=== PATIENT | female | born 1960 | race Caucasian/White ===

== ENCOUNTER 2018-03-14 18:25 | Emergency (ER) | payer SELFPAY ==
--- NOTE | 2018-03-14 21:22 | ER Document Report ---
ED Medical Screen (RME) - General Chief Complaint: Abdominal Pain Stated Complaint: ABDOMINAL PAIN Time Seen by Provider: 03/14/18 21:10 TRAVEL OUTSIDE OF THE [place] IN LAST 30 DAYS: No - HPI Notes: 03/14/18 21:19 Patient is a 58-year-old female with a history of hernia surgery 3 who presents to the ED complaining of progressively worsening left lower quadrant pain and nausea over the last few months. Patient states that she had an umbilical hernia repaired as well as to left lower quadrant hernia repairs in 2016 alone. Patient states that she did go through episodes of losing her insurance and the last time that she saw a surgeon was in October 2017 who told her that she needed an abdominal wall reconstruction performed. Patient states that she has continued to have the hernia since then, but has noticed increase in nausea and pain. Patient states that she is still able to eat and drink, but does have a decreased p.o. intake. She is urinating normally and having normal bowel movements (just a little more loose lately). Patient states that she did apply for Medicaid and recently moved back to the area and does not know any surgeons. Denies any headache, fever, URI, sore throat, chest pain, palpitations, syncope, cough, shortness of breath, wheeze, dyspnea, vomiting/ diarrhea, urinary retention, dysuria, hematuria, loss of control of bowel or bladder, numbness/tingling, saddle anesthesia, muscle paralysis/weakness, or rash. I have treated and performed a rapid initial assessment of this patient. A comprehensive ED assessment and evaluation of the patient, analysis of test results and completion of medical decision making process will be conducted by additional ED providers. PHYSICAL EXAMINATION: GENERAL: Well-appearing, well-nourished and in no acute distress. A&Ox4. Answers questions appropriately. LUNGS: Breath sounds clear to auscultation bilaterally and equal. No wheezes rales or rhonchi. HEART: Regular rate and rhythm without murmurs, rubs, gallops. ABDOMEN: Soft. there does appear to be a large hernia to the LLQ, but is not erythemic or indurated. I cannot adequately assess to see if this hernia is reducible at this time due to no bed in the room. BSx4. Extremities: No cyanosis, clubbing, or edema b/l. NEUROLOGICAL: Normal speech, normal gait. PSYCH: Normal mood, normal affect. - Related Data Allergies/Adverse Reactions: codeine [Codeine] Adverse Reaction (Intermediate, Verified 07/24/14 11:16) cetirizine HCl [From Zyrtec] Adverse Reaction (Verified 07/24/14 11:16) Migraine Past Medical History - Social History Chew tobacco use (# tins/day): No Frequency of alcohol use: None Drug Abuse: None - Past Medical History Cardiac Medical History: Reports: Hx Hypertension Pulmonary Medical History: Denies: Hx Tuberculosis Endocrine Medical History: Reports: Hx Hypothyroidism Renal/ Medical History: Denies: Hx Peritoneal Dialysis Past Surgical History: Reports: Hx Cardiac Catheterization - '03 neg, Hx Cholecystectomy, Hx Hysterectomy, Hx Tubal Ligation - Immunizations Hx Diphtheria, Pertussis, Tetanus Vaccination: Yes Physical Exam - Vital signs Vitals: Temp Pulse Resp BP Pulse Ox 98.6 F 98 14 120/70 100 03/14/18 18:36 03/14/18 18:36 03/14/18 18:36 03/14/18 18:36 03/14/18 18:36 Course - Vital Signs Vital signs: Temp Pulse Resp BP Pulse Ox 97.7 F 88 16 133/91 H 99 03/14/18 21:10 03/14/18 21:10 03/14/18 21:10 03/14/18 21:10 03/14/18 21:10
[2018-03-14] MEDS ORDERED: ONDANSETRON ODT 4 MG TAB (6 TAB/ER DISP) PO PRN (21:59)
--- NOTE | 2018-03-14 21:59 | ER Document Report ---
HPI - HPI Pain Level: 5 Notes: Patient is a 58-year-old female with a history of hernia surgery 3 who presents to the ED complaining of progressively worsening left lower quadrant pain and nausea over the last few months. Patient states that she had an umbilical hernia repaired as well as to left lower quadrant hernia repairs in 2016 alone. Patient states that she did go through episodes of losing her insurance and the last time that she saw a surgeon was in October 2017 who told her that she needed an abdominal wall reconstruction performed. Patient states that she has continued to have the hernia since then, but has noticed increase in nausea and pain. Patient states that she is still able to eat and drink, but does have a decreased p.o. intake. She is urinating normally and having normal bowel movements (just a little more loose lately). Patient states that she did apply for Medicaid and recently moved back to the area and does not know any surgeons. Denies any headache, fever, URI, sore throat, chest pain, palpitations, syncope, cough, shortness of breath, wheeze, dyspnea, vomiting/ diarrhea, urinary retention, dysuria, hematuria, loss of control of bowel or bladder, numbness/tingling, saddle anesthesia, muscle paralysis/weakness, or rash. - ROS Systems Reviewed and Negative: Yes All other systems reviewed and negative - REPRODUCTIVE Reproductive: DENIES: : Past Medical History - Social History Smoking Status: Former Smoker Chew tobacco use (# tins/day): No Frequency of alcohol use: None Drug Abuse: None Family History: Reviewed & Not Pertinent Patient has suicidal ideation: No Patient has homicidal ideation: No - Past Medical History Cardiac Medical History: Reports: Hx Hypertension Pulmonary Medical History: Denies: Hx Tuberculosis Endocrine Medical History: Reports: Hx Hypothyroidism Renal/ Medical History: Denies: Hx Peritoneal Dialysis Past Surgical History: Reports: Hx Cardiac Catheterization - '03 neg, Hx Cholecystectomy, Hx Hysterectomy, Hx Tubal Ligation - Immunizations Hx Diphtheria, Pertussis, Tetanus Vaccination: Yes Vertical Provider Document - CONSTITUTIONAL Agree With Documented VS: Yes Notes: PHYSICAL EXAMINATION: GENERAL: Well-appearing, well-nourished and in no acute distress. LUNGS: Breath sounds clear to auscultation bilaterally and equal. No wheezes rales or rhonchi. HEART: Regular rate and rhythm without murmurs, rubs, gallops. ABDOMEN: Soft, nontender, nondistended abdomen. No guarding, no rebound. Normal bowel sounds present. No CVA tenderness bilaterally. Pt does have a hernia to the LLQ, but is reducible. Non-tender. No erythema or induration. no warmth. Extremities: No cyanosis, clubbing, or edema b/l. Peripheral pulses 2+. Capillary refill less than 3 seconds. NEUROLOGICAL: Normal speech, normal gait. Normal sensory, motor exams PSYCH: Normal mood, normal affect. SKIN: Warm, Dry, normal turgor, no rashes or lesions noted. - INFECTION CONTROL TRAVEL OUTSIDE OF THE [place] IN LAST 30 DAYS: No Course - Re-evaluation Re-evalutation: 03/14/18 21:56 Patient is an afebrile, well-hydrated, 58-year-old female who presents to the ED with a reducible hernia in the left lower quadrant that is not incarcerated or strangulate it. Vitals are acceptable. PE is otherwise unremarkable. Patient has no significant tachycardia, tachypnea, or hypoxia. She is tolerating p.o. without any difficulties. Reviewed this case with Dr. Luther. no labs or imaging warranted. Outpatient f/u with Gen Surg. Her abd is soft and non-tender currently. Low suspicion/risk for acute appendicitis, bowel obstruction, acute cholecystitis, acute cholangitis, perforated diverticulitis, incarcerated hernia, pancreatitis, perforated ulcer, peritonitis, sepsis, pelvic inflammatory disease, ectopic , tubo-ovarian abscess, ovarian torsion, or other systemic emergent condition at this time. Patient is aware that her condition can change from initial presentation and she needs to monitor symptoms closely and seek medical attention if any acute changes. Rx for zofran. Conservative measures otherwise for symptoms. Recheck with your PCM in 3-5 days. Return to the ED with any worsening/concerning symptoms otherwise as reviewed in discharge. Patient is in agreement. - Vital Signs Vital signs: Temp Pulse Resp BP Pulse Ox 97.7 F 88 16 133/91 H 99 03/14/18 21:10 03/14/18 21:10 03/14/18 21:10 03/14/18 21:10 03/14/18 21:10 Discharge - Discharge Clinical Impression: Abdominal hernia Qualifiers: Hernia type: unspecified Obstruction and gangrene presence: without obstruction or gangrene Recurrence: recurrent Qualified Code(s): K45.8 - Other specified abdominal hernia without obstruction or gangrene Condition: Stable Disposition: HOME, SELF-CARE Instructions: Hernia ([facility]) Additional Instructions: Maintain adequate fluid and food intake Swisher diet (B.R.[employer].T.) Bananas, rice, apples, toast, etc Zofran as needed tylenol/motrin if needed Monitor for any worsening symptoms Make sure you are staying hydrated enough to urinate and have normal BM's Recheck with your PCM in 3-5 days Schedule an appointment with general surgery for further evaluation and management Return to the ED with any worsening symptoms and/or development of fever, headache, chest pain, palpitations, syncope, shortness of breath, trouble breathing, abdominal pain, n/v/d, blood in stool/urine, weakness, or other worsening symptoms that are concerning to you. Prescriptions: Naproxen 500 mg PO BID PRN #30 tablet PRN Reason: Ondansetron [Zofran Odt 4 mg Tablet] 1 - 2 tab PO Q4H PRN #15 tab.rapdis PRN Reason: For Nausea/Vomiting Forms: Elevated Blood Pressure Referrals: PEREZ BARRERA MD [ACTIVE STAFF] - Follow up in 3-5 days
[2018-03-14 22:21] VITALS: BP 130/95
== END 2018-03-14 22:10 | disposition home or self-care (01) ==
LOC: ER 18:25
DX: K46.9 Unspecified abdominal hernia without obstruction or gangrene (principal); R10.32 Left lower quadrant pain; R11.0 Nausea; I10 Essential (primary) hypertension; Z87.891 Personal history of nicotine dependence
CPT/HCPCS: 99283

== ENCOUNTER 2018-09-26 09:19 | Emergency (ER) | payer SELFPAY ==
[2018-09-26] MEDS ORDERED: NORMAL SALINE 1000 ML 1,000 ML IV ONE (09:36)
--- NOTE | 2018-09-26 09:36 | ER Document Report ---
ED Medical Screen (RME) - General Chief Complaint: Post Surgical Bleeding Stated Complaint: POST OP COMPLICATION Time Seen by Provider: 09/26/18 09:31 Mode of Arrival: Wheelchair Information source: Patient Notes: 58-year-old female with a history of rheumatoid arthritis, hypothyroidism, migraines, status post hernia repair (August 26:Dr. Walsh in [place]) presents to the emergency room with blood drainage from the wound. Patient is diaphoretic, lightheaded and dizzy in the triage area. TRAVEL OUTSIDE OF THE [place] IN LAST 30 DAYS: No - Related Data Allergies/Adverse Reactions: codeine [Codeine] Adverse Reaction (Intermediate, Verified 09/26/18 09:21) cetirizine HCl [From Zyrtec] Adverse Reaction (Verified 09/26/18 09:21) Migraine Past Medical History - Past Medical History Cardiac Medical History: Reports: Hx Hypertension Pulmonary Medical History: Denies: Hx Tuberculosis Endocrine Medical History: Reports: Hx Hypothyroidism Renal/ Medical History: Denies: Hx Peritoneal Dialysis Past Surgical History: Reports: Hx Cardiac Catheterization - ' neg, Hx Cholecystectomy, Hx Hysterectomy, Hx Tubal Ligation - Immunizations Hx Diphtheria, Pertussis, Tetanus Vaccination: Yes Physical Exam - Vital signs Vitals: Temp Pulse Resp BP Pulse Ox 98.4 F 126 H 16 123/84 97 09/26/18 09:21 09/26/18 09:21 09/26/18 09:21 09/26/18 09:21 09/26/18 09:21 Course - Vital Signs Vital signs: Temp Pulse Resp BP Pulse Ox 98.4 F 126 H 16 123/84 97 09/26/18 09:21 09/26/18 09:21 09/26/18 09:21 09/26/18 09:21 09/26/18 09:21
[2018-09-26 10:25] LABS: ABSOLUTE BASOPHILS # (AUTO) 0.1 10^3/uL (0.0-0.2); ABSOLUTE EOSINOPHILS # (AUTO) 0.1 10^3/uL (0.0-0.6); ABSOLUTE LYMPHOCYTES (AUTO) 1.3 10^3/uL (0.5-4.7); ABSOLUTE MONOCYTES (AUTO) 0.5 10^3/uL (0.1-1.4); BASOPHILS % (AUTO) 0.7 % (0-2); EOSINOPHILS % (AUTO) 0.9 % (0-6); HEMATOCRIT 36.2 % (36.0-47.0); HEMOGLOBIN 12.2 g/dL (12.0-15.5); LYMPHOCYTES % (AUTO) 16.4 % (13-45); MEAN CORPUSCULAR HEMOGLOBIN 28.6 pg (27.0-33.4); MEAN CORPUSCULAR HGB CONC 33.8 g/dL (32.0-36.0); MEAN CORPUSCULAR VOLUME 85 fl (80-97); MONOCYTES % (AUTO) 6.8 % (3-13); PLATELET COUNT 416 10^3/uL (150-450); RED BLOOD COUNT 4.28 10^6/uL (3.72-5.28); RED CELL DISTRIBUTION WIDTH 14.2 % (11.5-14.0); SEGMENTED NEUTROPHILS % (AUTO) 75.2 % (42-78); TOTAL CELLS COUNTED % (AUTO) 100 %
[2018-09-26 10:51] LABS: ALANINE AMINOTRANSFERASE 6 U/L (9-52); ALBUMIN 3.9 g/dL (3.5-5.0); ALKALINE PHOSPHATASE 84 U/L (38-126); ANION GAP 14 (5-19); ASPARTATE AMINO TRANSFERASE 24 U/L (14-36); BILIRUBIN,DIRECT 0.4 mg/dL (0.0-0.4); BILIRUBIN,TOTAL 0.7 mg/dL (0.2-1.3); BLOOD UREA NITROGEN 11 mg/dL (7-20); CALCIUM 9.7 mg/dL (8.4-10.2); CARBON DIOXIDE 24 mmol/L (22-30); CHLORIDE 102 mmol/L (98-107); GLUCOSE 104 mg/dL (75-110); TOTAL PROTEIN 8.8 g/dL (6.3-8.2)
--- NOTE | 2018-09-26 11:02 | ER Document Report ---
ED General - General Chief Complaint: Post Surgical Bleeding Stated Complaint: POST OP COMPLICATION Time Seen by Provider: 09/26/18 09:31 Mode of Arrival: Wheelchair TRAVEL OUTSIDE OF THE [place] IN LAST 30 DAYS: No - HPI Notes: Patient is a 58-year-old female that presents to the emergency department for chief complaint of postop bleeding. Patient had a large hernia surgery on 08/26/18 at [facility] by Dr. Lechuga. She states she has not had any issues until this morning when she noticed some bleeding and drainage from the incision site. She states the drainage was a large amount at home and was clear fluid and blood. She reports increased pain on the right side of her incision that also began today. She denies any nausea, vomiting, diarrhea fevers and chills. She states she has been healing well with no complications. Her stitches and drain was removed on 09/07 without complication. Past Medical History: Rheumatoid arthritis, hypothyroidism, migraines Past Surgical History: Abdominal hernia Social History: Denies drugs alcohol and tobacco Family History: Reviewed and noncontributory for presenting illness Allergies: Reviewed, see documented allergy list. REVIEW OF SYSTEMS: CONSTITUTIONAL : No fever No chills No diaphoresis No recent illness EENT: No vision changes No congestion No sore throat CARDIOVASCULAR: No chest pain No palpitations RESPIRATORY: No shortness of breath No cough No difficulty breathing GASTROINTESTINAL: No abdominal pain No nausea No vomiting No diarrhea GENITOURINARY: No dysuria No hematuria No difficulty urinating MUSCULOSKELETAL: No back pain No leg pain No arm pain SKIN: No rashes postop wound bleeding LYMPHATIC: No swollen, enlarged glands. NEUROLOGICAL: No lightheadedness No headache No weakness No paresthesias PSYCHIATRIC: No anxiety No depression PHYSICAL EXAMINATION: Vital signs reviewed, nursing noted reviewed. GENERAL: Well-appearing, well-nourished and in no acute distress. HEAD: Atraumatic, normocephalic. EYES: Eyes appear normal, extraocular movements intact, sclera anicteric, conjunctiva are normal. ENT: nares patent, oropharynx clear without exudates. Moist mucous membranes. NECK: Normal range of motion, supple without lymphadenopathy LUNGS: Breath sounds clear to auscultation bilaterally and equal. No wheezes rales or rhonchi. HEART: Regular rate and rhythm without murmurs ABDOMEN: Soft, nontender, normoactive bowel sounds. No rebound, guarding, or rigidity. No masses appreciated. EXTREMITIES: Nontender, good range of motion, no pitting or edema. NEUROLOGICAL: No focal neurological deficits. Moves all extremities spontaneously Motor and sensory grossly intact on exam. PSYCH: Normal mood, normal affect. SKIN: Warm, Dry, normal turgor. Horizontal lower abdominal postoperative incision visualized. Area of 0.5 cm wound dehiscence on the right side with serous and bloody drainage. Mild tenderness to palpation of the right side of the surgical incision with minimal erythema - Related Data Allergies/Adverse Reactions: codeine [Codeine] Adverse Reaction (Intermediate, Verified 09/26/18 09:21) cetirizine HCl [From Zyrtec] Adverse Reaction (Verified 09/26/18 09:21) Migraine Past Medical History - General Information source: Patient - Social History Smoking Status: Never Smoker Frequency of alcohol use: Occasional Drug Abuse: None Family History: Reviewed & Not Pertinent Patient has suicidal ideation: No Patient has homicidal ideation: No - Past Medical History Cardiac Medical History: Reports: Hx Hypertension Pulmonary Medical History: Denies: Hx Tuberculosis Endocrine Medical History: Reports: Hx Hypothyroidism Renal/ Medical History: Denies: Hx Peritoneal Dialysis Musculoskeletal Medical History: Reports Hx Arthritis - rheumatoid Past Surgical History: Reports: Hx Abdominal Surgery - hernia repair x3, Hx Cardiac Catheterization - '03 neg, Hx Cholecystectomy, Hx Hysterectomy, Hx Tubal Ligation - Immunizations Hx Diphtheria, Pertussis, Tetanus Vaccination: Yes Physical Exam - Vital signs Vitals: Temp Pulse Resp BP Pulse Ox 98.4 F 126 H 16 123/84 97 09/26/18 09:21 09/26/18 09:21 09/26/18 09:21 09/26/18 09:21 09/26/18 09:21 Course - Re-evaluation Re-evalutation: 09/26/18 11:01 Vitals reviewed. Nursing notes reviewed. Patient's incision goes across her entire lower abdomen. There is a small area of dehiscence with tenderness and drainage on the right side consistent with likely underlying seroma. Lab work shows no acute anemia. CT scan will be obtained to evaluate for extent of seroma. Patient offered pain medication but declined. She was started on IV hydration in triage. 09/26/18 12:50 Patient's lab work is unremarkable. Her CT scan shows some fat stranding with no acute abscess. I feel there is seroma has likely drained given the significant amount of drainage she had at home which she showed me in photographs. He attempted to contact Dr. Lechuga and am currently waiting on a call back. Patient was discharged home with wound care instructions. She will follow closely with her surgeon. She is in agreement with this plan and stable at discharge. Laboratory 09/26/18 09/26/18 10:04 10:04 WBC 8.0 RBC 4.28 Hgb 12.2 Hct 36.2 MCV 85 MCH 28.6 MCHC 33.8 RDW 14.2 H Plt Count 416 Seg Neutrophils % 75.2 Lymphocytes % 16.4 Monocytes % 6.8 Eosinophils % 0.9 Basophils % 0.7 Absolute Neutrophils 6.0 Absolute Lymphocytes 1.3 Absolute Monocytes 0.5 Absolute Eosinophils 0.1 Absolute Basophils 0.1 Sodium 140.0 Potassium 4.0 Chloride 102 Carbon Dioxide 24 Anion Gap 14 BUN 11 Creatinine 0.64 Est GFR ( Amer) > 60 Est GFR (Non-Af Amer) > 60 Glucose 104 Calcium 9.7 Total Bilirubin 0.7 Direct Bilirubin 0.4 Neonat Total Bilirubin Not Reportable Neonat Direct Bilirubin Not Reportable Neonat Indirect Bili Not Reportable AST 24 ALT 6 L Alkaline Phosphatase 84 Total Protein 8.8 H Albumin 3.9 Abdomen/Pelvis CT 09/26/18 10:58 IMPRESSION: Fat stranding in the lower abdominal wall fat, but no focal fluid collection or abscess. No other significant finding. - Vital Signs Vital signs: Temp Pulse Resp BP Pulse Ox 98.4 F 126 H 16 123/84 97 09/26/18 09:21 09/26/18 09:21 09/26/18 09:21 09/26/18 09:21 09/26/18 09:21 - Laboratory Result Diagrams: 09/26/18 10:04 09/26/18 10:04 Laboratory results interpreted by me: 09/26/18 09/26/18 10:04 10:04 RDW 14.2 H ALT 6 L Total Protein 8.8 H Discharge - Discharge Clinical Impression: Seroma after procedure Condition: Stable Disposition: HOME, SELF-CARE Instructions: Dressing Instructions for Open Wounds ([facility]) Additional Instructions: Please return to the emergency department if you have any worsening, or concern of your symptoms. Please return to the emergency department if you develop chest pain, difficulty breathing, severe abdominal pain, or ongoing vomiting. Please follow-up with your primary care physician in 2-3 days and any other recommended physicians. If prescribed, take all medications as directed. If you have any questions or concerns do not hesitate to return the emergency department for evaluation. The drainage today was likely from a seroma which is a collection of bodily fluid mixed with blood. He have a small opening in your wound that needs to be kept clean. Wash this area with warm soapy water 2-3 times daily. Use a bulky dressing over the area to absorb the drainage. Follow closely with Dr. Lechuga for wound reevaluation this week. Return for any new or worsening symptoms including increased drainage, bleeding, fevers or chills. Referrals: OTONIEL LECHUGA MD [NO LOCAL MD] - Follow up in 3-5 days
--- NOTE | 2018-09-26 12:25 | RADIOLOGY REPORT (SQ) ---
EXAM DESCRIPTION: CT ABD/PELVIS WITH IV ONLY COMPLETED DATE/TIME: 09/26/2018 11:48 am REASON FOR STUDY: post op bleeding COMPARISON: 2011 TECHNIQUE: CT scan of the abdomen and pelvis performed using helical scanning technique with dynamic intravenous contrast injection. No oral contrast. Images reviewed with lung, soft tissue, and bone windows. Reconstructed coronal and sagittal MPR images reviewed. Delayed images for evaluation of the urinary system also acquired. All images stored on PACS. All CT scanners at this facility use dose modulation, iterative reconstruction, and/or weight based d osing when appropriate to reduce radiation dose to as low as reasonably achievable (ALARA). [facility]: Dose Right [facility]: CareDose [facility]: Dose Right [facility]: Teradose 4D [facility]: Meddle CONTRAST TYPE AND DOSE: contrast/concentration: Isovue 350.00 mg/ml; Total Contrast Delivered: 92.0 ml; Total Saline Delivered: 70.0 ml RENAL FUNCTION: GFR > 60. RADIATION DOSE: CT Rad equipment meets quality standard of care and radiation dose reduction techniq ues were employed. CTDIvol: 21.6 mGy. DLP: 462 mGy-cm.. LIMITATIONS: None. FINDINGS: LOWER CHEST: No significant findings. No nodules or infiltrates. LIVER: Normal size. No masses. No dilated ducts. SPLEEN: Normal size. No focal lesions. PANCREAS: No masses. No significant calcifications. No adjacent inflammation or peripancreatic fluid collections. Pancreatic duct not dilated. GALLBLADDER: Surgically absent. ADRENAL GLANDS: No significant masses or asymmetry. RIGHT KIDNEY AND URETER: No solid masses. No significant calcifications. No hydronephrosis or hyd roureter. LEFT KIDNEY AND URETER: No solid masses. No significant calcifications. No hydronephrosis or hydr oureter. AORTA AND VESSELS: No aneurysm. No dissection. Renal arteries, SMA, celiac without stenosis. RETROPERITONEUM: No retroperitoneal adenopathy, hemorrhage or masses. BOWEL AND PERITONEAL CAVITY: No masses or inflammatory changes. No free fluid or peritoneal masses. APPENDIX: Normal. PELVIS: No mass. No free fluid. Normal bladder. ABDOMINAL WALL: There is fat stranding identified in the lower abdominal wall without a focal fluid c ollection. No hernia. BONES: No significant or acute findings. OTHER: No other significant finding. IMPRESSION: Fat stranding in the lower abdominal wall fat, but no focal fluid collection or abscess. No other significant finding. TECHNICAL DOCUMENTATION: JOB ID: [id number] Quality ID # [id number]: Final reports with documentation of one or more dose reduction techniques (e.g., Au tomated exposure control, adjustment of the mA and/or kV according to patient size, use of iterative reconstruction technique) 2010 [employer]- All Rights Reserved Reading location - IP/workstation name: [email or web address]
[2018-09-26 13:23] VITALS: BP 115/78
== END 2018-09-26 13:23 | disposition home or self-care (01) ==
LOC: ER 09:19
DX: L76.34 Postprocedural seroma of skin and subcutaneous tissue following other procedure (principal); R52 Pain, unspecified; E03.9 Hypothyroidism, unspecified; M06.9 Rheumatoid arthritis, unspecified; I10 Essential (primary) hypertension; Y83.9 Surgical procedure, unspecified as the cause of abnormal reaction of the patient, or of later complication, without mention of misadventure at the time of the procedure
CPT/HCPCS: 99284; 96360; 96361; 36415; 85025; 80053; 74177; J7030

== ENCOUNTER 2018-11-08 16:42 | Emergency (ER) | payer SELFPAY ==
[2018-11-08] MEDS ORDERED: NORMAL SALINE 1000 ML 1,000 ML IV ONE (17:40)
--- NOTE | 2018-11-08 17:44 | ER Document Report ---
ED Medical Screen (RME) - General Chief Complaint: Weakness Stated Complaint: NAUSEA, DIZZINESS Time Seen by Provider: 11/08/18 17:25 Notes: 58-year-old female to emergency department chief complaint of weight loss, nausea, vomiting, diarrhea. Had surgery in August for large hernia. Has not felt right since that time. Has probably had may be for normal bowel movement since that time. Went to primary care doctor/[facility]. They noticed that she was orthostatic. Sent her here for further evaluation. Patient also states that she has not been taking her thyroid medication. Also states that her stools were black yesterday. I have greeted and performed a rapid initial assessment of this patient. A comprehensive ED assessment and evaluation of the patient, analysis of test results and completion of the medical decision making process will be conducted by additional ED providers. TRAVEL OUTSIDE OF THE [place] IN LAST 30 DAYS: No - Related Data Allergies/Adverse Reactions: codeine [Codeine] Adverse Reaction (Intermediate, Verified 09/26/18 09:21) cetirizine HCl [From Zyrtec] Adverse Reaction (Verified 09/26/18 09:21) Migraine Past Medical History - Social History Chew tobacco use (# tins/day): No Frequency of alcohol use: Occasional Drug Abuse: None - Past Medical History Cardiac Medical History: Reports: Hx Hypertension Pulmonary Medical History: Denies: Hx Tuberculosis Endocrine Medical History: Reports: Hx Hypothyroidism Renal/ Medical History: Denies: Hx Peritoneal Dialysis Musculoskeltal Medical History: Reports Hx Arthritis - rheumatoid Past Surgical History: Reports: Hx Abdominal Surgery - hernia repair x3, Hx Cardiac Catheterization - '03 neg, Hx Cholecystectomy, Hx Hysterectomy, Hx Tubal Ligation - Immunizations Hx Diphtheria, Pertussis, Tetanus Vaccination: Yes Physical Exam - Vital signs Vitals: Temp Pulse Resp BP Pulse Ox 98.3 F 116 H 20 121/72 100 11/08/18 17:00 11/08/18 17:00 11/08/18 17:00 11/08/18 17:00 11/08/18 17:00 Course - Vital Signs Vital signs: Temp Pulse Resp BP Pulse Ox 98.3 F 116 H 20 121/72 100 11/08/18 17:00 11/08/18 17:00 11/08/18 17:00 11/08/18 17:00 11/08/18 17:00
[2018-11-08 18:24] LABS: ABSOLUTE BASOPHILS # (AUTO) 0.1 10^3/uL (0.0-0.2); ABSOLUTE EOSINOPHILS # (AUTO) 0.1 10^3/uL (0.0-0.6); ABSOLUTE LYMPHOCYTES (AUTO) 1.4 10^3/uL (0.5-4.7); ABSOLUTE MONOCYTES (AUTO) 0.5 10^3/uL (0.1-1.4); ABSOLUTE NEUT (AUTO) 3.7 10^3/uL (1.7-8.2); EOSINOPHILS % (AUTO) 0.9 % (0-6); HEMATOCRIT 36.1 % (36.0-47.0); HEMOGLOBIN 12.2 g/dL (12.0-15.5); MEAN CORPUSCULAR HEMOGLOBIN 28.1 pg (27.0-33.4); MEAN CORPUSCULAR HGB CONC 33.7 g/dL (32.0-36.0); MEAN CORPUSCULAR VOLUME 83 fl (80-97); MONOCYTES % (AUTO) 8.2 % (3-13); PLATELET COUNT 414 10^3/uL (150-450); RED BLOOD COUNT 4.34 10^6/uL (3.72-5.28); RED CELL DISTRIBUTION WIDTH 15.8 % (11.5-14.0); SEGMENTED NEUTROPHILS % (AUTO) 65.9 % (42-78); TOTAL CELLS COUNTED % (AUTO) 100 %; WHITE BLOOD COUNT 5.7 10^3/uL (4.0-10.5)
[2018-11-08 18:29] LABS: APPEARANCE,URINE CLEAR; BILIRUBIN,URINE NEGATIVE (NEGATIVE); COLOR,URINE YELLOW; GLUCOSE, URINE NEGATIVE (NEGATIVE); KETONES,URINE 20 mg/dL (NEGATIVE); LEUKOCYTE ESTERASE,URINE NEGATIVE (NEGATIVE); NITRITE,URINE NEGATIVE (NEGATIVE); PROTEIN,URINE 30 mg/dL (NEGATIVE)
[2018-11-08 18:44] LABS: ALANINE AMINOTRANSFERASE 25 U/L (9-52); ALBUMIN 4.4 g/dL (3.5-5.0); ALKALINE PHOSPHATASE 78 U/L (38-126); ANION GAP 10 (5-19); ASPARTATE AMINO TRANSFERASE 43 U/L (14-36); BILIRUBIN,DIRECT 0.3 mg/dL (0.0-0.4); BILIRUBIN,TOTAL 0.5 mg/dL (0.2-1.3); BLOOD UREA NITROGEN 15 mg/dL (7-20); CALCIUM 9.4 mg/dL (8.4-10.2); CARBON DIOXIDE 26 mmol/L (22-30); CHLORIDE 105 mmol/L (98-107); CREATINE KINASE 28 U/L (30-135); GLUCOSE 97 mg/dL (75-110); POTASSIUM 3.4 mmol/L (3.6-5.0); SODIUM 141.1 mmol/L (137-145)
--- NOTE | 2018-11-08 18:54 | ER Document Report ---
ED General - General Chief Complaint: Weakness Stated Complaint: NAUSEA, DIZZINESS Time Seen by Provider: 11/08/18 17:25 Notes: Patient is a 58-year-old female with history of hypothyroidism that presents to the emergency department for chief complaint of generalized weakness, and concern for possible blood in her stool. Patient states that she was seen by primary care physician office today and was referred to the ED as there is possible concern for blood in her stool. She states she went to the office, to be restarted on her thyroid medication that she is been off it for 3 months, she has a history of hypothyroidism. She states she has had decreased appetite over the last several months, she had an extensive hernia surgery performed, and has been off of her medication since then has not been able to see primary care physician until today. She had black stool yesterday, and had Hemoccult testing that was positive for blood today, and that is why she was sent to the ED to be checked and have her blood work obtained to check for anemia. She denies having any lightheadedness, dizziness, palpitations, vomiting, she denies noting blood in the stool either. States she had darker stool yesterday. She thought might have been black. She previously was taking NSAIDs, has not had them for about 2 months, she denies excessive coffee use or caffeine use. Past Medical History: Hypothyroidism, GERD, osteoarthritis Past Surgical History: Large ventral hernia repair Social History: Denies tobacco, alcohol or drug use. Family History: Reviewed and noncontributory for presenting illness Allergies: Reviewed, see documented allergy list. REVIEW OF SYSTEMS: Other than noted above, the 12 point review of systems was reviewed with the patient and were negative, all pertinent findings are included in the HPI. PHYSICAL EXAMINATION: Vital signs reviewed, nursing noted reviewed. GENERAL: Well-appearing, well-nourished and in no acute distress. HEAD: Atraumatic, normocephalic. EYES: Eyes appear normal, extraocular movements intact, sclera anicteric, conjunctiva are normal. ENT: nares patent, oropharynx clear without exudates. Moist mucous membranes. NECK: Normal range of motion, supple without lymphadenopathy LUNGS: Breath sounds clear to auscultation bilaterally and equal. No wheezes rales or rhonchi. HEART: Regular rate and rhythm without murmurs ABDOMEN: Soft, nontender, normoactive bowel sounds. No rebound, guarding, or rigidity. No masses appreciated. Abdominal incisional scar located in the lower abdomen transversely, appears to be healing well EXTREMITIES: Nontender, good range of motion, no pitting or edema. NEUROLOGICAL: No focal neurological deficits. Moves all extremities spontaneou sly Motor and sensory grossly intact on exam. PSYCH: Normal mood, normal affect. SKIN: Warm, Dry, normal turgor, no rashes or lesions noted on exposed skin TRAVEL OUTSIDE OF THE [place] IN LAST 30 DAYS: No - Related Data Allergies/Adverse Reactions: codeine [Codeine] Adverse Reaction (Intermediate, Verified 09/26/18 09:21) cetirizine HCl [From Zyrtec] Adverse Reaction (Verified 09/26/18 09:21) Migraine Past Medical History - Social History Smoking Status: Former Smoker Chew tobacco use (# tins/day): No Frequency of alcohol use: Occasional Drug Abuse: None Family History: Reviewed & Not Pertinent Patient has suicidal ideation: No Patient has homicidal ideation: No - Past Medical History Cardiac Medical History: Reports: Hx Hypertension Pulmonary Medical History: Denies: Hx Tuberculosis Endocrine Medical History: Reports: Hx Hypothyroidism Renal/ Medical History: Denies: Hx Peritoneal Dialysis Musculoskeletal Medical History: Reports Hx Arthritis - rheumatoid Past Surgical History: Reports: Hx Abdominal Surgery - hernia repair x3, Hx Cardiac Catheterization - '03 neg, Hx Cholecystectomy, Hx Hysterectomy, Hx Tubal Ligation - Immunizations Hx Diphtheria, Pertussis, Tetanus Vaccination: Yes Physical Exam - Vital signs Vitals: Temp Pulse Resp BP Pulse Ox 98.3 F 116 H 20 121/72 100 11/08/18 17:00 11/08/18 17:00 11/08/18 17:00 11/08/18 17:00 11/08/18 17:00 Course - Re-evaluation Re-evalutation: Patient seen and examined vital signs reviewed. Laboratory data and imaging were ordered as appropriate for the patient's presenting symptoms and complaint, with consideration of any critical or life threatening conditions that may be associated with their obtained history and exam as noted above. Patient was treated with IV fluid Results were reviewed when available and demonstrated essentially unremarkable blood work, no anemia with the exception of her TSH being markedly elevated at 17, normal renal function, normal BUN. The patient was re-evaluated and was stable and improved, patient was not tachycardic, not hypotensive, did not have any signs of decompensation, or concern for acute GI bleeding, I did advised her though she continued to have dark stool, or develop any lightheadedness, palpitations, that she should return immediately to the emergency department, she is encouraged to take the prescribed medications from her primary care including the Synthroid, omeprazole, and avoid NSAIDs. Evaluation was most consistent with hypothyroidism Results were discussed with the patient at this point, after careful consideration I feel that that patient can be discharged from the emergency department, the patient was educated treatments and reasons to return to the emergency department based on their presumed diagnosis as noted above, they were advised to followup with a primary care physician in 2-3 days. Patient was agreeable to plan of care. *Note is created using voice recognition software and may contain spelling, syntax or grammatical errors. Laboratory 11/08/18 11/08/18 11/08/18 18:10 18:10 18:10 WBC 5.7 RBC 4.34 Hgb 12.2 Hct 36.1 MCV 83 MCH 28.1 MCHC 33.7 RDW 15.8 H Plt Count 414 Seg Neutrophils % 65.9 Lymphocytes % 24.0 Monocytes % 8.2 Eosinophils % 0.9 Basophils % 1.0 Absolute Neutrophils 3.7 Absolute Lymphocytes 1.4 Absolute Monocytes 0.5 Absolute Eosinophils 0.1 Absolute Basophils 0.1 Sodium 141.1 Potassium 3.4 L Chloride 105 Carbon Dioxide 26 Anion Gap 10 BUN 15 Creatinine 0.67 Est GFR ( Amer) > 60 Est GFR (Non-Af Amer) > 60 Glucose 97 Calcium 9.4 Total Bilirubin 0.5 Direct Bilirubin 0.3 Neonat Total Bilirubin Not Reportable Neonat Direct Bilirubin Not Reportable Neonat Indirect Bili Not Reportable AST 43 H ALT 25 Alkaline Phosphatase 78 Creatine Kinase 28 L Total Protein 9.0 H Albumin 4.4 Lipase TSH 17.50 H Free T4 0.97 Urine Color Urine Appearance Urine pH Ur Specific [place] Urine Protein Urine Glucose (UA) Urine Ketones Urine Blood Urine Nitrite Urine Bilirubin Urine Urobilinogen Ur Leukocyte Esterase Urine WBC (Auto) Urine RBC (Auto) U Hyaline Cast (Auto) Squamous Epi Cells Auto Urine Mucus (Auto) Urine Ascorbic Acid 11/08/18 11/08/18 18:10 18:10 WBC RBC Hgb Hct MCV MCH MCHC RDW Plt Count Seg Neutrophils % Lymphocytes % Monocytes % Eosinophils % Basophils % Absolute Neutrophils Absolute Lymphocytes Absolute Monocytes Absolute Eosinophils Absolute Basophils Sodium Potassium Chloride Carbon Dioxide Anion Gap BUN Creatinine Est GFR ( Amer) Est GFR (Non-Af Amer) Glucose Calcium Total Bilirubin Direct Bilirubin Neonat Total Bilirubin Neonat Direct Bilirubin Neonat Indirect Bili AST ALT Alkaline Phosphatase Creatine Kinase Total Protein Albumin Lipase 145.0 TSH Free T4 Urine Color YELLOW Urine Appearance CLEAR Urine pH 5.0 Ur Specific [place] 1.030 Urine Protein 30 H Urine Glucose (UA) NEGATIVE Urine Ketones 20 H Urine Blood NEGATIVE Urine Nitrite NEGATIVE Urine Bilirubin NEGATIVE Urine Urobilinogen 2.0 H Ur Leukocyte Esterase NEGATIVE Urine WBC (Auto) 2 Urine RBC (Auto) 1 U Hyaline Cast (Auto) 1 Squamous Epi Cells Auto 1 Urine Mucus (Auto) RARE Urine Ascorbic Acid NEGATIVE - Vital Signs Vital signs: Temp Pulse Resp BP Pulse Ox 98.6 F 116 H 9 L 124/83 99 11/08/18 20:22 11/08/18 17:00 11/08/18 20:01 11/08/18 20:01 11/08/18 20:01 - Laboratory Result Diagrams: 11/08/18 18:10 11/08/18 18:10 Laboratory results interpreted by me: 11/08/18 11/08/18 11/08/18 18:10 18:10 18:10 RDW 15.8 H Potassium 3.4 L AST 43 H Creatine Kinase 28 L Total Protein 9.0 H TSH 17.50 H Urine Protein Urine Ketones Urine Urobilinogen 11/08/18 18:10 RDW Potassium AST Creatine Kinase Total Protein TSH Urine Protein 30 H Urine Ketones 20 H Urine Urobilinogen 2.0 H Discharge - Discharge Clinical Impression: Hypothyroidism Qualifiers: Hypothyroidism type: unspecified Qualified Code(s): E03.9 - Hypothyroidism, unspecified Condition: Stable Disposition: HOME, SELF-CARE Instructions: Hypothyroidism ([facility]) Additional Instructions: Please follow-up with your primary care physician, take all medications have been prescribed you from your primary care, if you have worsening symptoms, develop lightheadedness, feel like your heart is racing, or feel like he may pass out, if you continue to have dark stool, do not hesitate to return to the emergency department. Referrals: [facility] [Provider Group] - Follow up as needed
[2018-11-08 19:01] LABS: FREE T4 (FREE THYROXINE) 0.97 ng/dL (0.78-2.19)
[2018-11-08 19:15] LABS: THYROID STIMULATING HORMONE 17.5 uIU/mL (0.47-4.68)
[2018-11-08 20:18] VITALS: BP 124/83
== END 2018-11-08 20:22 | disposition home or self-care (01) ==
LOC: ER 16:42
DX: E03.9 Hypothyroidism, unspecified (principal); R53.1 Weakness; R11.0 Nausea; R42 Dizziness and giddiness; R63.0 Anorexia; Z87.891 Personal history of nicotine dependence; I10 Essential (primary) hypertension
CPT/HCPCS: 99284; 36415; 84439; 82550; 83690; 84443; 85025; 80053; 81001; J7030

== ENCOUNTER → 2018-11-17 | Outpatient (CLI) | payer OTHER ==
[2018-11-17 11:07] LABS: ABSOLUTE EOSINOPHILS # (AUTO) 0.1 10^3/uL (0.0-0.6); ABSOLUTE LYMPHOCYTES (AUTO) 1.1 10^3/uL (0.5-4.7); ABSOLUTE MONOCYTES (AUTO) 0.3 10^3/uL (0.1-1.4); ABSOLUTE NEUT (AUTO) 2.5 10^3/uL (1.7-8.2); BASOPHILS % (AUTO) 0.5 % (0-2); EOSINOPHILS % (AUTO) 1.7 % (0-6); HEMATOCRIT 35.5 % (36.0-47.0); LYMPHOCYTES % (AUTO) 27.2 % (13-45); MEAN CORPUSCULAR HGB CONC 33.8 g/dL (32.0-36.0); MEAN CORPUSCULAR VOLUME 83 fl (80-97); MONOCYTES % (AUTO) 8.3 % (3-13); PLATELET COUNT 319 10^3/uL (150-450); RED BLOOD COUNT 4.27 10^6/uL (3.72-5.28); RED CELL DISTRIBUTION WIDTH 15.9 % (11.5-14.0); SEGMENTED NEUTROPHILS % (AUTO) 62.3 % (42-78); TOTAL CELLS COUNTED % (AUTO) 100 %
[2018-11-17 11:30] LABS: ALANINE AMINOTRANSFERASE 26 U/L (9-52); ALBUMIN 4.1 g/dL (3.5-5.0); ALKALINE PHOSPHATASE 80 U/L (38-126); ANION GAP 11 (5-19); ASPARTATE AMINO TRANSFERASE 48 U/L (14-36); BILIRUBIN,DIRECT 0.3 mg/dL (0.0-0.4); BILIRUBIN,TOTAL 0.6 mg/dL (0.2-1.3); BLOOD UREA NITROGEN 8 mg/dL (7-20); CALCIUM 9.3 mg/dL (8.4-10.2); CARBON DIOXIDE 22 mmol/L (22-30); CHLORIDE 107 mmol/L (98-107); CHOLESTEROL 133.98 mg/dL (0-200); GLUCOSE 88 mg/dL (75-110); POTASSIUM 3.8 mmol/L (3.6-5.0); SODIUM 139.8 mmol/L (137-145); TOTAL PROTEIN 8.3 g/dL (6.3-8.2); TRIGLYCERIDES 79 mg/dL (<150)
[2018-11-17 11:39] LABS: DIRECT LDL 80 mg/dL (<100)
[2018-11-17 12:08] LABS: ERYTHROCYTE SEDIMENTATION RATE 29 mm/hr (0-30)
[2018-11-17 12:31] LABS: FOLATE 2.95 ng/mL (>2.76)
[2018-11-17 12:35] LABS: C-REACTIVE PROTEIN < 5.0 mg/L (<10.0)
== END ==
LOC: CCC 09:25
DX: E55.9 Vitamin D deficiency, unspecified (principal); E03.9 Hypothyroidism, unspecified; R19.5 Other fecal abnormalities; M06.9 Rheumatoid arthritis, unspecified; M26.69 Other specified disorders of temporomandibular joint
CPT/HCPCS: 36415; 80053; 80061; 82306; 82607; 82746; 83036; 84443; 85025; 85652; 86140; 86430; 86900; 86901

== ENCOUNTER 2018-12-06 12:33 | Emergency (ER) | payer SELFPAY ==
[2018-12-06] MEDS ORDERED: ONDANSETRON HCL INJ/PF 4 MG/2 ML SDV IV ONE ×2 (13:03→17:02)
[2018-12-06] MEDS ORDERED: MORPHINE SULFATE 10 MG/ML INJ IV ONE (13:03)
[2018-12-06] MEDS ORDERED: NORMAL SALINE 1000 ML 1,000 ML IV ONE ×2 (13:03→14:25)
--- NOTE | 2018-12-06 13:05 | ER Document Report ---
ED Medical Screen (RME) - General Chief Complaint: General Weakness Stated Complaint: WEAKNESS Time Seen by Provider: 12/06/18 13:01 Primary Care Provider: GEE ROBLEDO [Primary Care Provider] - Follow up as needed Notes: 58 years old female with a history of multiple abdominal surgeries due to hernias, adhesions presents today with diffuse abdominal pain nausea vomiting. Claims that she lost 30 pounds within the last few weeks. And unable to eat anything. Denies any diarrhea denies any dysuria frequency urgency. TRAVEL OUTSIDE OF THE [place] IN LAST 30 DAYS: No - Related Data Allergies/Adverse Reactions: codeine [Codeine] Adverse Reaction (Intermediate, Verified 12/06/18 12:39) cetirizine HCl [From Zyrtec] Adverse Reaction (Verified 12/06/18 12:39) Migraine Past Medical History - Social History Chew tobacco use (# tins/day): No Frequency of alcohol use: Occasional Drug Abuse: None - Past Medical History Cardiac Medical History: Reports: Hx Hypertension Pulmonary Medical History: Denies: Hx Tuberculosis Endocrine Medical History: Reports: Hx Hypothyroidism Renal/ Medical History: Denies: Hx Peritoneal Dialysis Musculoskeltal Medical History: Reports Hx Arthritis - rheumatoid Past Surgical History: Reports: Hx Abdominal Surgery - hernia repair x3, Hx Cardiac Catheterization - '03 neg, Hx Cholecystectomy, Hx Hysterectomy, Hx Tubal Ligation - Immunizations Hx Diphtheria, Pertussis, Tetanus Vaccination: Yes Physical Exam - Vital signs Vitals: Temp Pulse Resp BP Pulse Ox 97.9 F 155 H 16 117/86 H 96 12/06/18 12:46 12/06/18 12:46 12/06/18 12:46 12/06/18 12:46 12/06/18 12:46 Course - Vital Signs Vital signs: Temp Pulse Resp BP Pulse Ox 97.9 F 155 H 16 117/86 H 96 12/06/18 12:46 12/06/18 12:46 12/06/18 12:46 12/06/18 12:46 12/06/18 12:46 Doctor's Discharge - Discharge Referrals: [facility] GEE CONTRERAS [Primary Care Provider] - Follow up as needed
--- NOTE | 2018-12-06 14:06 | RADIOLOGY REPORT (SQ) ---
EXAM DESCRIPTION: ACUTE ABDOMEN SERIES COMPLETED DATE/TIME: 12/06/2018 1:47 pm REASON FOR STUDY: Acute abdominal pain COMPARISON: None. NUMBER OF VIEWS: Three views. TECHNIQUE: Frontal chest, supine abdomen and upright/decubitus abdomen radiographic images acquired. LIMITATIONS: None. FINDINGS: CHEST: Lungs clear of infiltrates. FREE AIR: None. No abnormal gas collections. BOWEL GAS PATTERN: Nonobstructive pattern. No dilated loops or air fluid levels. CALCIFICATIONS: No suspicious calcifications. HARDWARE: None in the abdomen. SOFT TISSUES: No gross mass or suggestion of organomegaly. BONES: No acute fracture. No worrisome bone lesions. OTHER: Staple line in the pelvis to right of midline. Clips left lower and right upper quadrants. IMPRESSION: NO RADIOGRAPHIC EVIDENCE FOR ACUTE ABDOMINAL DISEASE. TECHNICAL DOCUMENTATION: JOB ID: [id number] [employer]- All Rights Reserved Reading location - IP/workstation name: [email or web address]
[2018-12-06 14:23] LABS: ABSOLUTE LYMPHOCYTES (AUTO) 1.4 10^3/uL (0.5-4.7); ABSOLUTE MONOCYTES (AUTO) 0.7 10^3/uL (0.1-1.4); ABSOLUTE NEUT (AUTO) 4.2 10^3/uL (1.7-8.2); BASOPHILS % (AUTO) 0.7 % (0-2); EOSINOPHILS % (AUTO) 0.5 % (0-6); LYMPHOCYTES % (AUTO) 21.6 % (13-45); MEAN CORPUSCULAR HEMOGLOBIN 27.8 pg (27.0-33.4); MEAN CORPUSCULAR HGB CONC 34.2 g/dL (32.0-36.0); MEAN CORPUSCULAR VOLUME 81 fl (80-97); PLATELET COUNT 406 10^3/uL (150-450); RED BLOOD COUNT 4.67 10^6/uL (3.72-5.28); RED CELL DISTRIBUTION WIDTH 15.5 % (11.5-14.0); SEGMENTED NEUTROPHILS % (AUTO) 66.2 % (42-78); TOTAL CELLS COUNTED % (AUTO) 100 %; WHITE BLOOD COUNT 6.3 10^3/uL (4.0-10.5)
[2018-12-06] MEDS ORDERED: HYDROMORPHONE HCL INJ/PF 2 MG/ML AMPULE IV ONE (14:25)
[2018-12-06 14:28] LABS: AMORPHOUS SEDIMENT,URINE TRACE /HPF; APPEARANCE,URINE CLOUDY; BILIRUBIN,URINE MODERATE (NEGATIVE); CALCIUM OXALATE CRYSTALS,URINE MANY /HPF; COLOR,URINE AMBER; GLUCOSE, URINE NEGATIVE (NEGATIVE); KETONES,URINE 20 mg/dL (NEGATIVE); LEUKOCYTE ESTERASE,URINE LARGE (NEGATIVE); NITRITE,URINE NEGATIVE (NEGATIVE); PROTEIN,URINE 100 mg/dL (NEGATIVE); URINE SPECIFIC GRAVITY 1.033
[2018-12-06] MEDS ORDERED: CEFTRIAXONE 1 GM/D5W RTU 1 GM/50 ML RTUPB IV ONE (14:35)
[2018-12-06 14:36] LABS: ALANINE AMINOTRANSFERASE 38 U/L (9-52); ALBUMIN 4.4 g/dL (3.5-5.0); ALKALINE PHOSPHATASE 102 U/L (38-126); ANION GAP 16 (5-19); ASPARTATE AMINO TRANSFERASE 50 U/L (14-36); BILIRUBIN,DIRECT 0.3 mg/dL (0.0-0.4); BILIRUBIN,TOTAL 0.6 mg/dL (0.2-1.3); BLOOD UREA NITROGEN 19 mg/dL (7-20); CALCIUM 9.9 mg/dL (8.4-10.2); CARBON DIOXIDE 22 mmol/L (22-30); CHLORIDE 100 mmol/L (98-107); GLUCOSE 98 mg/dL (75-110); POTASSIUM 4.1 mmol/L (3.6-5.0); TOTAL PROTEIN 8.9 g/dL (6.3-8.2)
--- NOTE | 2018-12-06 15:03 | ER Document Report ---
ED General - General Chief Complaint: General Weakness Stated Complaint: WEAKNESS Time Seen by Provider: 12/06/18 13:01 Primary Care Provider: [facility],G[facility] [NO LOCAL MD] - Follow up as needed Mode of Arrival: Ambulatory Information source: Patient Notes: Patient is a 58-year-old female who presents the emergency department with abdominal pain, nausea and dizziness. Patient reports that she had a large hernia repair done in August, states she has been having pain since then however is gotten significantly worse over the last month. Patient reports today she had sudden onset of severe sharp stabbing pain throughout her abdomen. She reports nausea with 1-2 episodes of vomiting. States that she has lost 30 pounds in the last 60 days she states she is unable to tolerate any p.o. intake. Denies any fevers or diarrhea. Patient does report some dysuria. Patient states her hernia repair was done at [facility] by Dr. Walsh. She reports that she has had multiple abdominal surgeries in the past to include cholecystectomy, multiple hernia repairs. TRAVEL OUTSIDE OF THE [place] IN LAST 30 DAYS: No - Related Data Allergies/Adverse Reactions: codeine [Codeine] Adverse Reaction (Intermediate, Verified 12/08/18 09:17) cetirizine HCl [From Zyrtec] Adverse Reaction (Verified 12/08/18 09:17) Migraine compazine Adverse Reaction (Uncoded 12/09/18 07:11) Past Medical History - General Information source: Patient - Social History Smoking Status: Never Smoker Chew tobacco use (# tins/day): No Frequency of alcohol use: Occasional Drug Abuse: None Family History: Reviewed & Not Pertinent Patient has suicidal ideation: No Patient has homicidal ideation: No - Past Medical History Cardiac Medical History: Reports: Hx Hypertension Pulmonary Medical History: Denies: Hx Tuberculosis Endocrine Medical History: Reports: Hx Hypothyroidism Renal/ Medical History: Denies: Hx Peritoneal Dialysis Musculoskeletal Medical History: Reports Hx Arthritis - rheumatoid Past Surgical History: Reports: Hx Abdominal Surgery - hernia repair x3, Hx Cardiac Catheterization - '03 neg, Hx Cholecystectomy, Hx Hysterectomy, Hx Tubal Ligation - Immunizations Hx Diphtheria, Pertussis, Tetanus Vaccination: Yes Review of Systems - Review of Systems Constitutional: denies: Fever EENT: No symptoms reported Cardiovascular: No symptoms reported. denies: Chest pain, Palpitations Respiratory: No symptoms reported Gastrointestinal: Nausea, Constipation. denies: Vomiting Genitourinary: Frequency. denies: Burning Female Genitourinary: denies: Vaginal discharge Musculoskeletal: No symptoms reported Skin: No symptoms reported Hematologic/Lymphatic: No symptoms reported Neurological/Psychological: No symptoms reported Physical Exam - Vital signs Vitals: Temp Pulse Resp BP Pulse Ox 97.9 F 155 H 16 117/86 H 96 12/06/18 12:46 12/06/18 12:46 12/06/18 12:46 12/06/18 12:46 12/06/18 12:46 - Notes Notes: PHYSICAL EXAMINATION: GENERAL: Well-nourished and in no acute distress. HEAD: Atraumatic, normocephalic. EYES: Pupils equal round and reactive to light, extraocular movements intact, conjunctiva are normal. ENT: Nares patent, oropharynx clear without exudates. Moist mucous membranes. NECK: Normal range of motion, supple without lymphadenopathy LUNGS: Breath sounds clear to auscultation bilaterally and equal. No wheezes rales or rhonchi. HEART: Regular rate and rhythm without murmurs ABDOMEN: Soft, nondistended abdomen. Generalized tenderness to palpation. No guarding, no rebound. No masses appreciated. Female : No CVA tenderness. Musculoskeletal: Normal range of motion, no pitting or edema. No cyanosis. NEUROLOGICAL: Cranial nerves grossly intact. Normal speech. Normal sensory, motor exams PSYCH: Normal mood, normal affect. SKIN: Warm, Dry, normal turgor, no rashes or lesions noted. Course - Re-evaluation Re-evalutation: CBC and CMP are unremarkable. Urinalysis shows large leukocyte esterase and 1+ bacteria. Patient feels much improved after administration of pain medications here in the emergency department. Patient was also given IV fluids which resolved her tachycardia. Patient was sent for an acute abdomen series which was negative. Patient was also sent for CT abdomen pelvis with IV contrast only, no evidence of acute intra-abdominal or pelvic process. Constipation was noted. All findings were discussed with the patient, patient reports she has had small amounts of diarrhea but has not had any normal bowel movement for over a week. Patient will be given dose of mag citrate and also be given a soapsuds enema. Patient reports she feels much improved after having medications. Patient's vital signs are now within normal ranges and tachycardia is completely resolved. Patient has been normotensive during her emergency stay. Patient wishes to go home. Patient will be given treatment for urinary tract infection as well as Zofran. Strict ED return precautions were discussed with the patient to include development of fever, worsening abdominal pain, blood in her stool or emesis or persistent vomiting. Patient and family member at bedside verbalized understanding of same and agreement with plan. - Vital Signs Vital signs: Temp Pulse Resp BP Pulse Ox 98.4 F 155 H 16 120/68 100 12/06/18 19:04 12/06/18 12:46 12/06/18 19:04 12/06/18 19:04 12/06/18 19:04 - Laboratory Result Diagrams: 12/06/18 14:02 12/06/18 14:02 Laboratory results interpreted by me: 12/06/18 12/06/18 12/06/18 14:02 14:02 14:02 RDW 15.5 H AST 50 H Total Protein 8.9 H Urine Protein 100 H Urine Ketones 20 H Urine Bilirubin MODERATE H Urine Urobilinogen 4.0 H Ur Leukocyte Esterase LARGE H Discharge - Discharge Clinical Impression: Dehydration, Nausea Urinary tract infection Qualifiers: Urinary tract infection type: site unspecified Hematuria presence: without hematuria Qualified Code(s): N39.0 - Urinary tract infection, site not specified Condition: Stable Disposition: HOME, SELF-CARE Instructions: Constipation ([facility]), Urinary Tract Infection ([facility]) Additional Instructions: Please take medications as prescribed. Finish the entire course of antibiotics even if your symptoms resolve. We are sending a culture of the urine, if there is any abnormality somebody will call you in the next 48-72 hours. For the constipation I would take 1 capful of MiraLAX twice daily for the next 2-3 days then switch to 1 capful once daily. You may purchase an [id number] generic brand of MiraLAX. I printed off prescriptions for the antibiotic and Zofran that I have prescribed, [facility] appears to have the most reasonable munoz. Drink plenty of fluids over the next several days advance to a bland diet as tolerated. Return to the emergency department if you develop persistent vomiting, worsening abdominal pain, you develop a fever or any other symptom that is concerning to you. Please follow-up with your primary care provider in the next 3-5 days for follow-up. [facility]errals: [facility] [NO LOCAL MD] - Follow up as needed
--- NOTE | 2018-12-06 15:51 | RADIOLOGY REPORT (SQ) ---
EXAM DESCRIPTION: CT ABD/PELVIS WITH IV ONLY COMPLETED DATE/TIME: 12/06/2018 3:33 pm REASON FOR STUDY: ABD PAIN POST HERNIA REPAIR 08/2018 COMPARISON: None. TECHNIQUE: CT scan of the abdomen and pelvis performed using helical scanning technique with dynamic intravenous contrast injection. No oral contrast. Images reviewed with lung, soft tissue, and bone windows. Reconstructed coronal and sagittal MPR images reviewed. Delayed images for evaluation of the urinary system also acquired. All images stored on PACS. All CT scanners at this facility use dose modulation, iterative reconstruction, and/or weight based d osing when appropriate to reduce radiation dose to as low as reasonably achievable (ALARA). [facility]: Dose Right [facility]: CareDose [facility]: Dose Right [facility]: Teradose 4D [facility]: PneumaCare CONTRAST TYPE AND DOSE: contrast/concentration: Isovue 350.00 mg/ml; Total Contrast Delivered: 83.0 ml; Total Saline Delivered: 69.0 ml RENAL FUNCTION: BUN 8, creatinine 0.57 RADIATION DOSE: CT Rad equipment meets quality standard of care and radiation dose reduction techniq ues were employed. CTDIvol: 8.3 - 11.7 mGy. DLP: 1160 mGy-cm.. LIMITATIONS: None. FINDINGS: LOWER CHEST: No significant findings. No nodules or infiltrates. LIVER: Normal size. No masses. No dilated ducts. SPLEEN: Normal size. No focal lesions. PANCREAS: No masses. No significant calcifications. No adjacent inflammation or peripancreatic fluid collections. Pancreatic duct not dilated. GALLBLADDER: Surgically absent. ADRENAL GLANDS: No significant masses or asymmetry. RIGHT KIDNEY AND URETER: No solid masses. No significant calcifications. No hydronephrosis or hyd roureter. LEFT KIDNEY AND URETER: No solid masses. No significant calcifications. No hydronephrosis or hydr oureter. AORTA AND VESSELS: No aneurysm. No dissection. Renal arteries, SMA, celiac without stenosis. RETROPERITONEUM: No retroperitoneal adenopathy, hemorrhage or masses. BOWEL AND PERITONEAL CAVITY: Scattered colonic diverticula. No focal bowel wall thickening. No evid ence of intestinal obstruction. Formed stool throughout the descending rectosigmoid colon. APPENDIX: Normal. PELVIS: Status post hysterectomy. No mass. Scattered pelvic phleboliths. Decompressed urinary blad gregory. ABDOMINAL WALL: Evidence of prior laparotomy with subcutaneous stranding and irregularity of the left rectus musculature, similar to prior. BONES: No acute bony abnormality. No suspicious osseous lesions. Mild lower lumbar facet arthropath y. OTHER: No other significant finding. IMPRESSION: No evidence of acute intra-abdominal/pelvic process. Formed stool throughout the descending and rectosigmoid colon. Additional chronic findings as above. TECHNICAL DOCUMENTATION: JOB ID: [id number] Quality ID # [id number]: Final reports with documentation of one or more dose reduction techniques (e.g., Au tomated exposure control, adjustment of the mA and/or kV according to patient size, use of iterative reconstruction technique) 2010 [employer]- All Rights Reserved Reading location - IP/workstation name: [email or web address]
[2018-12-06] MEDS ORDERED: MAGNESIUM CITRATE 296 ML BOTTLE PO ONE (16:00)
[2018-12-06] MEDS ORDERED: MINERAL OIL 30 ML UDCUP PR ONE (17:44)
[2018-12-06] MEDS ORDERED: CEPHALEXIN 500 MG CAPSULE PO ONE (19:10)
[2018-12-06] MEDS ORDERED: ONDANSETRON 4 MG TAB.RAPDIS PO ONE (19:10)
[2018-12-06] MEDS ORDERED: ONDANSETRON ODT 4 MG TAB (6 TAB/ER DISP) PO PRN (19:10)
[2018-12-06 19:32] VITALS: BP 120/68
== END 2018-12-06 19:46 | disposition home or self-care (01) ==
LOC: ER 12:33
DX: N39.0 Urinary tract infection, site not specified (principal); K59.00 Constipation, unspecified; E86.0 Dehydration; R19.7 Diarrhea, unspecified; R11.2 Nausea with vomiting, unspecified; R10.84 Generalized abdominal pain; R42 Dizziness and giddiness; R63.4 Abnormal weight loss; I10 Essential (primary) hypertension; Z98.890 Other specified postprocedural states; Z90.49 Acquired absence of other specified parts of digestive tract; Z90.710 Acquired absence of both cervix and uterus; Z98.51 Tubal ligation status
CPT/HCPCS: 96376; 99284; 96361; 96375; 96365; 36415; 87040; 83690; 85025; 80053; 81001; 83605; 74022; 74177; J3490 ×2; S0119; J2270; J1170; J2405; J7030; J0696

== ENCOUNTER 2018-12-08 09:16 | Inpatient (IN) | payer SELFPAY ==
[2018-12-08] MEDS ORDERED: NORMAL SALINE 1000 ML 1,000 ML IV ONE ×3 (09:50→13:51)
[2018-12-08] MEDS ORDERED: PROCHLORPERAZINE EDISYLATE INJ 10 MG/2 ML VIAL IM ONE (09:51)
--- NOTE | 2018-12-08 09:53 | ER Document Report ---
ED Medical Screen (RME) - General Chief Complaint: Nausea/Vomiting/Diarrhea Stated Complaint: NAUSEA, VOMITING, DIARRHEA Time Seen by Provider: 12/08/18 09:49 Notes: Chief complaint: Intractable nausea vomiting History of complain:( obtained from----patient) 58 years old female was seen here 2 days ago had complete workup including CT of the abdomen. Return with intractable nausea vomiting many times feeling dizzy and lightheaded. Recent stool is black in color. Shortness of breath on minimal exertion. No fever chills or other constitutional symptoms PHYSICAL EXAMINATION: GENERAL: Appears to be in moderate distress. Appears pale HEAD: Atraumatic, normocephalic. EYES: Pupils equal round and reactive to light, extraocular movements intact, conjunctiva are normal. ENT: Nares patent, oropharynx clear without exudates. Moist mucous membranes. NECK: Normal range of motion, supple without lymphadenopathy LUNGS: Breath sounds clear to auscultation bilaterally and equal. No wheezes rales or rhonchi. HEART: Regular rate and rhythm without murmurs ABDOMEN: Abdomen is diffusely tender. Examination of genitals-deferred Musculoskeletal: Normal range of motion, no pitting or edema. No cyanosis. NEUROLOGICAL: Cranial nerves grossly intact. Normal speech, normal gait. Normal sensory, motor exams PSYCH: Normal mood, normal affect. SKIN: Warm, Dry, normal turgor, no rashes or lesions noted. Dictation was performed using [employer] voice recognition software TRAVEL OUTSIDE OF THE [place] IN LAST 30 DAYS: No - Related Data Allergies/Adverse Reactions: codeine [Codeine] Adverse Reaction (Intermediate, Verified 12/08/18 09:17) cetirizine HCl [From Zyrtec] Adverse Reaction (Verified 12/08/18 09:17) Migraine Past Medical History - Past Medical History Cardiac Medical History: Reports: Hx Hypertension Pulmonary Medical History: Denies: Hx Tuberculosis Endocrine Medical History: Reports: Hx Hypothyroidism Renal/ Medical History: Denies: Hx Peritoneal Dialysis Musculoskeltal Medical History: Reports Hx Arthritis - rheumatoid Past Surgical History: Reports: Hx Abdominal Surgery - hernia repair x3, Hx Cardiac Catheterization - '03 neg, Hx Cholecystectomy, Hx Hysterectomy, Hx Tubal Ligation - Immunizations Hx Diphtheria, Pertussis, Tetanus Vaccination: Yes Physical Exam - Vital signs Vitals: Temp Pulse Resp BP Pulse Ox 98.5 F 148 H 18 127/83 H 99 12/08/18 09:30 12/08/18 09:30 12/08/18 09:30 12/08/18 09:30 12/08/18 09:30 Course - Vital Signs Vital signs: Temp Pulse Resp BP Pulse Ox 98.5 F 148 H 18 127/83 H 99 12/08/18 09:30 12/08/18 09:30 12/08/18 09:30 12/08/18 09:30 12/08/18 09:30
[2018-12-08 10:26] LABS: ABSOLUTE LYMPHOCYTES (AUTO) 1.4 10^3/uL (0.5-4.7); ABSOLUTE MONOCYTES (AUTO) 0.6 10^3/uL (0.1-1.4); ABSOLUTE NEUT (AUTO) 4.7 10^3/uL (1.7-8.2); BASOPHILS % (AUTO) 0.5 % (0-2); EOSINOPHILS % (AUTO) 0.3 % (0-6); HEMATOCRIT 32.8 % (36.0-47.0); HEMOGLOBIN 11.4 g/dL (12.0-15.5); LYMPHOCYTES % (AUTO) 21.2 % (13-45); MEAN CORPUSCULAR HEMOGLOBIN 28.1 pg (27.0-33.4); MEAN CORPUSCULAR HGB CONC 34.7 g/dL (32.0-36.0); MEAN CORPUSCULAR VOLUME 81 fl (80-97); MONOCYTES % (AUTO) 8.5 % (3-13); PLATELET COUNT 527 10^3/uL (150-450); RED BLOOD COUNT 4.05 10^6/uL (3.72-5.28); RED CELL DISTRIBUTION WIDTH 15.2 % (11.5-14.0); SEGMENTED NEUTROPHILS % (AUTO) 69.5 % (42-78); TOTAL CELLS COUNTED % (AUTO) 100 %; WHITE BLOOD COUNT 6.7 10^3/uL (4.0-10.5)
[2018-12-08] MEDS ORDERED: DIPHENHYDRAMINE HCL 50 MG/ML VIAL ONE (10:29)
[2018-12-08] MEDS ORDERED: DIPHENHYDRAMINE HCL 50 MG/ML VIAL IV ONE ×2 (10:29→11:04)
--- NOTE | 2018-12-08 10:44 | EKG REPORT ---
SEVERITY:- BORDERLINE ECG - SINUS TACHYCARDIA BORDERLINE T ABNORMALITIES, INFERIOR LEADS : Confirmed by: Rosalba Craig MD 08-Dec-2018 10:43:46
[2018-12-08 10:51] LABS: ALANINE AMINOTRANSFERASE 46 U/L (9-52); ALBUMIN 4.1 g/dL (3.5-5.0); ALKALINE PHOSPHATASE 106 U/L (38-126); ANION GAP 14 (5-19); ASPARTATE AMINO TRANSFERASE 56 U/L (14-36); BILIRUBIN,DIRECT 0.3 mg/dL (0.0-0.4); BILIRUBIN,TOTAL 0.4 mg/dL (0.2-1.3); BLOOD UREA NITROGEN 20 mg/dL (7-20); CALCIUM 9.7 mg/dL (8.4-10.2); CARBON DIOXIDE 24 mmol/L (22-30); CHLORIDE 102 mmol/L (98-107); GLUCOSE 109 mg/dL (75-110); LIPASE 146.7 U/L (23-300); POTASSIUM 4.3 mmol/L (3.6-5.0); TOTAL PROTEIN 8.6 g/dL (6.3-8.2)
[2018-12-08] MEDS ORDERED: LORAZEPAM INJ 2 MG/1 ML VIAL IV ONE (11:04)
[2018-12-08 11:26] LABS: APPEARANCE,URINE CLOUDY; BILIRUBIN,URINE MODERATE (NEGATIVE); GLUCOSE, URINE NEGATIVE (NEGATIVE); KETONES,URINE 80 mg/dL (NEGATIVE); LEUKOCYTE ESTERASE,URINE SMALL (NEGATIVE); NITRITE,URINE NEGATIVE (NEGATIVE); PROTEIN,URINE 100 mg/dL (NEGATIVE); URINE SPECIFIC GRAVITY 1.031
[2018-12-08 11:29] LABS: COLOR,URINE DARK YELLOW
[2018-12-08 11:38] LABS: FREE T4 (FREE THYROXINE) 2.02 ng/dL (0.78-2.19)
[2018-12-08 11:52] LABS: THYROID STIMULATING HORMONE 0.21 uIU/mL (0.47-4.68)
[2018-12-08] MEDS ORDERED: CEFTRIAXONE 1 GM/D5W RTU 1 GM/50 ML RTUPB IV ONE (12:56)
--- NOTE | 2018-12-08 13:55 | ER Document Report ---
ED GI/ - General Chief Complaint: Nausea/Vomiting/Diarrhea Stated Complaint: NAUSEA, VOMITING, DIARRHEA Time Seen by Provider: 12/08/18 09:49 Notes: Patient has been ill since this past weekend. She has been nauseated and not able to eat anything. She came here Wednesday and was diagnosed as having a UTI and had a CT scan of her abdomen which shows large amount of stool in her bowels. She was given an enema and then discharged home on an antibiotic. Has not been able to keep medications down. She vomited last night. Yesterday she started noticing loose green black stools which continued today worse than they were yesterday. She has not seen any actual blood in her stools. Patient's had her gallbladder out. She has had a hernia repair, just a few months ago. Hypothyroid. Not diabetic. TRAVEL OUTSIDE OF THE [place] IN LAST 30 DAYS: No - Related Data Allergies/Adverse Reactions: codeine [Codeine] Adverse Reaction (Intermediate, Verified 12/08/18 09:17) cetirizine HCl [From Zyrtec] Adverse Reaction (Verified 12/08/18 09:17) Migraine Past Medical History - Social History Smoking Status: Unknown if Ever Smoked Chew tobacco use (# tins/day): No Frequency of alcohol use: None Drug Abuse: None Family History: Reviewed & Not Pertinent Patient has suicidal ideation: No Patient has homicidal ideation: No - Past Medical History Cardiac Medical History: Reports: Hx Hypertension Endocrine Medical History: Reports: Hx Hypothyroidism Musculoskeletal Medical History: Reports Hx Arthritis - rheumatoid Past Surgical History: Reports: Hx Abdominal Surgery - hernia repair x3, Hx Cardiac Catheterization - '03 neg, Hx Cholecystectomy, Hx Hysterectomy, Hx Tubal Ligation - Immunizations Hx Diphtheria, Pertussis, Tetanus Vaccination: Yes Review of Systems - Review of Systems Notes: REVIEW OF SYSTEMS: CONSTITUTIONAL : Denies fever. EENT: Denies eye, ear, nose or mouth or throat pain or other symptoms. CARDIOVASCULAR: Denies chest pain. RESPIRATORY: Denies cough, chest congestion, or shortness of breath. GASTROINTESTINAL: See HPI. GENITOURINARY: Denies difficulty or painful urinating, urinary frequency, blood in urine. MUSCULOSKELETAL: Denies back or neck pain. Denies joint pain or swelling. SKIN: Denies rash or skin lesions. NEUROLOGICAL: Denies LOC or altered mental status. Denies headache. Denies sensory loss or motor deficits. ALL OTHER SYSTEMS REVIEWED AND NEGATIVE. Physical Exam - Vital signs Vitals: Temp Pulse Resp BP Pulse Ox 98.5 F 148 H 18 127/83 H 99 12/08/18 09:30 12/08/18 09:30 12/08/18 09:30 12/08/18 09:30 12/08/18 09:30 Interpretation: Tachycardic - Heart rate 148 upon arrival.. No: Hypotensive, Hypertensive, Bradycardic, Tachypneic, Febrile Notes: PHYSICAL EXAMINATION: GENERAL: Well-appearing, in no acute distress. Very restless. May be exhibiting symptoms of akathisia from the Compazine she received IM at triage. HEAD: Atraumatic, normocephalic. EYES: Pupils equal round and reactive to light, extraocular movements intact. ENT: oropharynx clear without exudates. Moist mucous membranes. NECK: Normal range of motion, supple. LUNGS: Breath sounds clear and equal bilaterally. HEART: Regular rate and rhythm without murmurs. Heart rate about 140 at the bedside by me. ABDOMEN: Soft, not really very tender at all. Definitely no guarding or rebound. No masses. Rectal exam performed later revealed a very dark green stools. None of the stool is black, just very dark green. No blood present. Stool was positive for guaiac, however. BACK: No tenderness throughout entire back. EXTREMITIES: Normal range of motion without pain. NEUROLOGICAL: Normal speech, normal gait. Normal sensory, motor, and reflex exams. Awake, alert, and oriented x3. PSYCH: Normal mood, normal affect. SKIN: Warm, dry, no rashes. Course - Re-evaluation Re-evalutation: 12/08/18 13:54 Patient has had 2 L of saline and her heart rate has come down from the initial 148 triage to about 100 now. Her urine was very suggestive of pretty severe dehydration. Specific gravity was 1.030 and she had 80 ketones. Patient says she feels somewhat better now. Says she continues to have loose stools that are black. I am adding a culture of her stools to the request for blood in stool test. I think the patient can tolerate another liter of saline before cover her with antibiotics until she is able to take them p.o. Recheck patient's CBC which shows her hemoglobin of 13 on December 06, 2 days ago, then 11.4 upon arrival here today, and currently hemoglobin 8.0 after 3 L of saline. I think the patient has dilutional anemia as there is not any armin dence of significant rectal bleeding. No red blood seen in the stools at any time. No blood seen in the stools on my examination here. Actually, patient looks quite good after the 3 L of saline. I feel like the patient requires some further workup for her GI disorder. Discussed with the surgeon manager of international, Dr. Miller who said that he would be happy to scope the patient tomorrow. I spoke with the hospitalist who will admit the patient with a plan for her to have a scope tomorrow. Patient's current urinalysis does not look like a significant infection. I have ordered a culture of her urine. - Vital Signs Vital signs: Temp Pulse Resp BP Pulse Ox 98.5 F 123 H 14 113/67 99 12/08/18 09:30 12/08/18 11:11 12/08/18 19:01 12/08/18 19:01 12/08/18 18:16 - Laboratory Result Diagrams: 12/08/18 16:55 12/08/18 10:00 Laboratory results interpreted by me: 12/08/18 12/08/18 12/08/18 10:00 10:00 10:00 RBC Hgb 11.4 L Hct 32.8 L RDW 15.2 H Plt Count 527 H AST 56 H Total Protein 8.6 H TSH 0.21 L Urine Protein Urine Ketones Urine Bilirubin Urine Urobilinogen Ur Leukocyte Esterase 12/08/18 12/08/18 10:50 16:55 RBC 2.89 L Hgb 8.0 L D Hct 23.6 L RDW 14.9 H Plt Count AST Total Protein TSH Urine Protein 100 H Urine Ketones 80 H Urine Bilirubin MODERATE H Urine Urobilinogen 4.0 H Ur Leukocyte Esterase SMALL H Discharge - Discharge Clinical Impression: Vomiting and diarrhea, Dehydration, Sinus tachycardia Condition: Stable Disposition: ADMITTED INPATIENT Admitting Provider: Hospitalist Unit Admitted: Telemetry
[2018-12-08 17:20] LABS: ABSOLUTE LYMPHOCYTES (AUTO) 0.9 10^3/uL (0.5-4.7); ABSOLUTE MONOCYTES (AUTO) 0.4 10^3/uL (0.1-1.4); ABSOLUTE NEUT (AUTO) 3.1 10^3/uL (1.7-8.2); BASOPHILS % (AUTO) 0.4 % (0-2); EOSINOPHILS % (AUTO) 0.3 % (0-6); HEMATOCRIT 23.6 % (36.0-47.0); MEAN CORPUSCULAR HEMOGLOBIN 27.7 pg (27.0-33.4); MEAN CORPUSCULAR HGB CONC 33.9 g/dL (32.0-36.0); MEAN CORPUSCULAR VOLUME 82 fl (80-97); MONOCYTES % (AUTO) 8.5 % (3-13); PLATELET COUNT 280 10^3/uL (150-450); RED BLOOD COUNT 2.89 10^6/uL (3.72-5.28); RED CELL DISTRIBUTION WIDTH 14.9 % (11.5-14.0); SEGMENTED NEUTROPHILS % (AUTO) 69.8 % (42-78); TOTAL CELLS COUNTED % (AUTO) 100 %; WHITE BLOOD COUNT 4.4 10^3/uL (4.0-10.5)
--- NOTE | 2018-12-08 19:02 | PDOC CONSULTATION ---
Consultation Consult Date: 12/08/18 Consult reason:: weakness, diarrhea with melanotic stools, coffee ground emesis History of Present Illness Admission Date/PCP: 12/08/18 18:19 [facility] Patient complains of: nausea, poor appetite, coffee ground ememesis History of Present Illness: ARGELIA JEAN is a 58 year old female with a hx of GERD fours years ago, she underwent EGD and colonoscopy at outside institution. She was diagnosed with an unspecified upper GI tract disease and started on omeprazole with improvement of her symptoms. Her colonoscopy was significant for colon diverticulosis. Recently, in September 2018 she underwent a third reoperation for a LLQ abdominal primary, recurrent hernia with mesh. This surgery was complicated by seroma which was eventually treated. After this reoperation, she run out of Omeprazole and started c/o nausea, poor appetite, and 40 pounds weight loss. Recently, she resumed her Omeprazole. Two days ago (12/06/18), she presented to the ER with symptoms of weakness and was found to have a UTI, and she was prescribed oral antibiotics. At that time, her H/H was 13/38. Today, she presented to the ER with nausea, vomiting, coffee ground emesis, diarrhea. Her H/H was 11.4/32.8 in the AM and it has dorpped to 8/23.6 this afternoon after she was given 3 L of IV fluids followed with improvement of her symptoms. Past Medical History Cardiac Medical History: Reports: Hypertension Pulmonary Medical History: Denies: Tuberculosis Endocrine Medical History: Reports: Hypothyroidism Musculoskeltal Medical History: Reports: Arthritis - rheumatoid Past Surgical History Past Surgical History: Reports: Cardiac Catheterization - neg, Cholecystectomy, Hysterectomy, Tubal Ligation Social History Smoking Status: Unknown if Ever Smoked Frequency of Alcohol Use: Rare Hx Recreational Drug Use: No Hx Prescription Drug Abuse: No Family History Family History: Reviewed & Not Pertinent Parental Family History Reviewed: No Children Family History Reviewed: No Sibling(s) Family History Reviewed.: No Medication/Allergy Allergies/Adverse Reactions: codeine [Codeine] Adverse Reaction (Intermediate, Verified 12/08/18 09:17) cetirizine HCl [From Zyrtec] Adverse Reaction (Verified 12/08/18 09:17) Migraine Physical Exam Vital Signs: Temp Pulse Resp BP Pulse Ox 98.5 F 123 H 19 105/65 97 02/14/19 09:30 12/08/18 11:11 12/08/18 17:00 12/08/18 16:01 12/08/18 16:01 Intake & Output 12/07/18 12/08/18 12/09/18 06:59 06:59 06:59 Intake Total 3050 Balance 3050 Weight 72.7 kg General appearance: PRESENT: no acute distress, well-developed Eye exam: PRESENT: EOMI Mouth exam: PRESENT: neck supple Neck exam: PRESENT: full ROM Respiratory exam: PRESENT: clear to auscultation benjamin Cardiovascular exam: PRESENT: RRR GI/Abdominal exam: PRESENT: normal bowel sounds, soft, other - well healed lower transverse abdominal wound; well healed lap lucy wounds Rectal exam: PRESENT: deferred Extremities exam: PRESENT: full ROM Musculoskeletal exam: PRESENT: full ROM Neurological exam: PRESENT: alert, oriented to person Psychiatric exam: PRESENT: appropriate affect Skin exam: PRESENT: warm Results Laboratory Results: 12/08/18 16:55 12/08/18 10:00 12/08/18 12/08/18 12/08/18 10:00 10:00 10:00 WBC 6.7 RBC 4.05 Hgb 11.4 L Hct 32.8 L MCV 81 MCH 28.1 MCHC 34.7 RDW 15.2 H Plt Count 527 H Seg Neutrophils % 69.5 Lymphocytes % 21.2 Monocytes % 8.5 Eosinophils % 0.3 Basophils % 0.5 Absolute Neutrophils 4.7 Absolute Lymphocytes 1.4 Absolute Monocytes 0.6 Absolute Eosinophils 0.0 Absolute Basophils 0.0 Sodium 140.0 Potassium 4.3 Chloride 102 Carbon Dioxide 24 Anion Gap 14 BUN 20 Creatinine 0.73 Est GFR ( Amer) > 60 Est GFR (Non-Af Amer) > 60 Glucose 109 Calcium 9.7 Total Bilirubin 0.4 AST 56 H ALT 46 Alkaline Phosphatase 106 Total Protein 8.6 H Albumin 4.1 Lipase 146.7 TSH 0.21 L Free T4 2.02 Urine Color Urine Appearance Urine pH Ur Specific [place] Urine Protein Urine Glucose (UA) Urine Ketones Urine Blood Urine Nitrite Ur Leukocyte Esterase Urine WBC (Auto) Urine RBC (Auto) 12/08/18 12/08/18 10:50 16:55 WBC 4.4 RBC 2.89 L Hgb 8.0 L D Hct 23.6 L MCV 82 MCH 27.7 MCHC 33.9 RDW 14.9 H Plt Count 280 Seg Neutrophils % 69.8 Lymphocytes % 21.0 Monocytes % 8.5 Eosinophils % 0.3 Basophils % 0.4 Absolute Neutrophils 3.1 Absolute Lymphocytes 0.9 Absolute Monocytes 0.4 Absolute Eosinophils 0.0 Absolute Basophils 0.0 Sodium Potassium Chloride Carbon Dioxide Anion Gap BUN Creatinine Est GFR ( Amer) Est GFR (Non-Af Amer) Glucose Calcium Total Bilirubin AST ALT Alkaline Phosphatase Total Protein Albumin Lipase TSH Free T4 Urine Color DARK YELLOW Urine Appearance CLOUDY Urine pH 6.0 Ur Specific [place] 1.031 Urine Protein 100 H Urine Glucose (UA) NEGATIVE Urine Ketones 80 H Urine Blood NEGATIVE Urine Nitrite NEGATIVE Ur Leukocyte Esterase SMALL H Urine WBC (Auto) 2 Urine RBC (Auto) 2 Assessment & Plan - Diagnosis (1) Dehydration Is this a current diagnosis for this admission?: Yes (2) Vomiting and diarrhea Is this a current diagnosis for this admission?: Yes (3) Nausea Is this a current diagnosis for this admission?: Yes (4) Anemia Qualifiers: Anemia type: unspecified type Qualified Code(s): D64.9 - Anemia, unspecified Is this a current diagnosis for this admission?: Yes - Plan Summary Plan Summary: A/ Hx of GERD, Nausesa, vomiting Colon diverticulosis Drop of H/h from 1235.5 (12/06/18) to the current 23.6 S/P lap lucy, multiple LLQ abdominal recurrent hernia operations Hypothyroidism P/ Admit as per Hospitalist Clkear liquid diet NPO after midnight Bowel preparation EGD/colonosopcy in AM Preop EKG Procedure, risks, benefits, alternatives d/w patient, she understands all the above, her questions were answered, and she decided to proceed.
[2018-12-08] MEDS ORDERED: GLUCAGON,HUMAN RECOMB 1 MG INJ SUBCUT PRN (19:03)
[2018-12-08] MEDS ORDERED: DEXTROSE 40% GEL 15 GM TUBE PO PRN ×2 (19:03)
[2018-12-08] MEDS ORDERED: DEXTROSE 50%-WATER 25 GM/50 ML DISP.SYRIN IV PRN ×2 (19:03)
[2018-12-08] MEDS ORDERED: BISACODYL 5 MG TABEC PO ONE ×2 (19:04→22:45)
--- NOTE | 2018-12-08 19:56 | PDOC H&P ---
History of Present Illness Admission Date/PCP: 12/08/18 18:19 [facility] Patient complains of: Nausea, weakness, diarrhea, vomiting History of Present Illness: ARGELIA MITCHELL is a 58 year old female with a past medical history of hysterectomy, hernia surgery, urinary tract infection. 12/08/18 Ms. Mitchell reports current symptoms began post hernia operation in August 2019 at an outside hospital. At that time she had 11 x 11 inch section removed from the left lower quadrant. About a month post operation she started report and symptoms of early satiety which led to nausea, which led to decrease oral intake. She reports loose stools starting about 1.5 months ago. They became increasingly worse about 2 days ago when she was placed on Keflex for a urinary tract infection and started on Zofran for nausea. Nausea seems to be related to early satiety which is led to some food aversion over the past month. She reports the loose stools have been green in nature. She reports intermittent blood in her stool. She reports a few episodes of vomiting over the past 2 days, which have had sparse blood in them. She admits to poor oral food and liquid intake. Since the surgery she has lost 40 pounds due to decreased intake. She reports a 30 pound weight loss over the past 1-1/2 months due to loose stools and decreased intake. She has already been evaluated by surgery at the time of evaluation. She is agreeable to bowel prep and scope tomorrow. Past Medical History Cardiac Medical History: Reports: Hypertension Pulmonary Medical History: Denies: Tuberculosis Endocrine Medical History: Reports: Hypothyroidism Musculoskeltal Medical History: Reports: Arthritis - rheumatoid Past Surgical History Past Surgical History: Reports: Cardiac Catheterization - ' neg, Cholecyst ectomy, Hysterectomy, Tubal Ligation Social History Smoking Status: Unknown if Ever Smoked Frequency of Alcohol Use: Rare Hx Recreational Drug Use: No Hx Prescription Drug Abuse: No Family History Family History: Reviewed & Not Pertinent Parental Family History Reviewed: Yes Children Family History Reviewed: Yes Sibling(s) Family History Reviewed.: Yes Medication/Allergy Home Medications: Cephalexin Monohydrate [Keflex 500 mg Capsule] 500 mg PO BID 12/08/18 L.acidoph,Paracasei, B.lactis [Probiotic] 1 cap PO DAILY 12/08/18 Levothyroxine Sodium 137 mcg PO Q6AM 12/08/18 Omeprazole 20 mg PO QHS 12/08/18 Allergies/Adverse Reactions: codeine [Codeine] Adverse Reaction (Intermediate, Verified 12/08/18 09:17) cetirizine HCl [From Zyrtec] Adverse Reaction (Verified 12/08/18 09:17) Migraine Physical Exam Vital Signs: Temp Pulse Resp BP Pulse Ox 98.5 F 123 H 14 113/67 99 12/08/18 09:30 12/08/18 11:11 12/08/18 19:01 12/08/18 19:01 12/08/18 18:16 Intake & Output 12/07/18 12/08/18 12/09/18 06:59 06:59 06:59 Intake Total 3050 Balance 3050 Weight 72.7 kg General appearance: PRESENT: no acute distress, cooperative Head exam: PRESENT: atraumatic, normocephalic Eye exam: PRESENT: conjunctiva pink, EOMI, PERRLA. ABSENT: scleral icterus Mouth exam: PRESENT: dry mucosa Respiratory exam: PRESENT: clear to auscultation benjamin. ABSENT: rales, rhonchi, w heezes Cardiovascular exam: PRESENT: +S1, +S2, tachycardia Pulses: PRESENT: normal dorsalis pedis pul GI/Abdominal exam: PRESENT: other - Soft, mild her last tenderness to palpation, nondistended, well-healed surgical scar lower abdomen Rectal exam: PRESENT: other - Black and green stool Extremities exam: PRESENT: other - Trace bilateral lower extremity edema Musculoskeletal exam: PRESENT: full ROM Neurological exam: PRESENT: alert, awake, oriented to person, oriented to place, oriented to time, oriented to situation, CN II-XII grossly intact. ABSENT: motor sensory deficit Psychiatric exam: PRESENT: other - Frustrated Skin exam: PRESENT: dry, intact, warm. ABSENT: cyanosis, rash Results Laboratory Results: 12/08/18 16:55 12/08/18 10:00 12/08/18 12/08/18 12/08/18 10:00 10:00 10:00 WBC 6.7 RBC 4.05 Hgb 11.4 L Hct 32.8 L MCV 81 MCH 28.1 MCHC 34.7 RDW 15.2 H Plt Count 527 H Seg Neutrophils % 69.5 Lymphocytes % 21.2 Monocytes % 8.5 Eosinophils % 0.3 Basophils % 0.5 Absolute Neutrophils 4.7 Absolute Lymphocytes 1.4 Absolute Monocytes 0.6 Absolute Eosinophils 0.0 Absolute Basophils 0.0 Sodium 140.0 Potassium 4.3 Chloride 102 Carbon Dioxide 24 Anion Gap 14 BUN 20 Creatinine 0.73 Est GFR ( Amer) > 60 Est GFR (Non-Af Amer) > 60 Glucose 109 Calcium 9.7 Total Bilirubin 0.4 AST 56 H ALT 46 Alkaline Phosphatase 106 Total Protein 8.6 H Albumin 4.1 Lipase 146.7 TSH 0.21 L Free T4 2.02 Urine Color Urine Appearance Urine pH Ur Specific [place] Urine Protein Urine Glucose (UA) Urine Ketones Urine Blood Urine Nitrite Ur Leukocyte Esterase Urine WBC (Auto) Urine RBC (Auto) 12/08/18 12/08/18 10:50 16:55 WBC 4.4 RBC 2.89 L Hgb 8.0 L D Hct 23.6 L MCV 82 MCH 27.7 MCHC 33.9 RDW 14.9 H Plt Count 280 Seg Neutrophils % 69.8 Lymphocytes % 21.0 Monocytes % 8.5 Eosinophils % 0.3 Basophils % 0.4 Absolute Neutrophils 3.1 Absolute Lymphocytes 0.9 Absolute Monocytes 0.4 Absolute Eosinophils 0.0 Absolute Basophils 0.0 Sodium Potassium Chloride Carbon Dioxide Anion Gap BUN Creatinine Est GFR ( Amer) Est GFR (Non-Af Amer) Glucose Calcium Total Bilirubin AST ALT Alkaline Phosphatase Total Protein Albumin Lipase TSH Free T4 Urine Color DARK YELLOW Urine Appearance CLOUDY Urine pH 6.0 Ur Specific [place] 1.031 Urine Protein 100 H Urine Glucose (UA) NEGATIVE Urine Ketones 80 H Urine Blood NEGATIVE Urine Nitrite NEGATIVE Ur Leukocyte Esterase SMALL H Urine WBC (Auto) 2 Urine RBC (Auto) 2 Assessment & Plan - Diagnosis (1) Hypothyroid Qualifiers: Hypothyroidism type: unspecified Qualified Code(s): E03.9 - Hypothyroidism, unspecified Is this a current diagnosis for this admission?: Yes (2) Anemia Qualifiers: Anemia type: unspecified type Qualified Code(s): D64.9 - Anemia, unspecified Is this a current diagnosis for this admission?: Yes (3) Dehydration Is this a current diagnosis for this admission?: Yes (5) Vomiting and diarrhea Is this a current diagnosis for this admission?: Yes (6) Nausea Is this a current diagnosis for this admission?: Yes (7) Urinary tract infection Qualifiers: Urinary tract infection type: site unspecified Hematuria presence: without hematuria Qualified Code(s): N39.0 - Urinary tract infection, site not specified Is this a current diagnosis for this admission?: Yes - Time Time Spent: 50 to 70 Minutes Medications reviewed and adjusted accordingly: Yes - Inpatient Certification Based on my medical assessment, after consideration of the patient's comorbidities, presenting symptoms, or acuity I expect that the services needed warrant INPATIENT care.: Yes I certify that my determination is in accordance with my understanding of Medicare's requirements for reasonable and necessary INPATIENT services [42 CFR 412.3e].: Yes - Plan Summary Plan Summary: 1. Dehydration-due to poor oral intake. Received 3 L of IV fluid in the ER. Symptomatic weakness has improved with IV fluids. Continue on normal saline at 125 cc an hour. 2. Anemia-guaiac positive. Baseline hemoglobin seems to be around 13. Some of the drop can be related to the IV fluids received in the emergency room for dehydration. She has been evaluated by general surgery and will be taken for colonoscopy in the morning. She is on clear liquid diet for now. She will be n.p.o. after midnight. She will start GoLYTELY prep as well. We appreciate surgery's prompt consultation and recommendations. Will type and screen but not transfuse at this time. We will repeat a CBC at midnight. 3. Sinus tachycardia: Likely related to dehydration. Heart rate improved from 140s-100 since initiation of IV fluids. Placed on telemetry. Possible abnormal EKG on admission. Check magnesium. Repeat EKG prior to colonoscopy. She denies cardiac or pulmonary symptoms. 4.N/V/D- diarrhea seems to be related to malabsorption postop. Nausea seems to be related to early satiety. Vomiting also related to early satiety. Restarted on PPI. The stools related to malabsorption, and acute increase in loose stools related to Keflex. Will change antibiotics at this time. Patient has a history of hysterectomy. She denies symptoms of fistula. 5. Hypothyroidism-continue on Synthroid for now. TSH low on admission. T4 normal. Likely related to acute stress and poor oral intake. 6. Urinary tract infection. Increase in loose stools seem to be related to oral Keflex. Start Macrobid 100 mg twice daily. Culture pending. Even though the patient has been on antibiotics, will obtain blood cultures to be complete. Prophylaxis: We will not administer anticoagulation due to hemoglobin of 8 at this time
[2018-12-08] MEDS ORDERED: PEG 3350/NA SULF,BICARB,CL/KCL 4000 ML PO ONE (20:30)
[2018-12-08 21:40] LABS: ABSOLUTE RETICS # 0.063 10^6/uL (0.028-0.122); RETICULOCYTE COUNT (AUTO) 2.19 % (0.66-2.85)
[2018-12-08 21:58] LABS: IRON(TIBC) 47.3 ug/dL (37-170)
[2018-12-08 23:17] LABS: FOLATE 2.05 ng/mL (>2.76)
[2018-12-09 00:27] LABS: HEMATOCRIT 23.1 % (36.0-47.0); MEAN CORPUSCULAR HEMOGLOBIN 27.7 pg (27.0-33.4); MEAN CORPUSCULAR VOLUME 82 fl (80-97); PLATELET COUNT 284 10^3/uL (150-450); RED BLOOD COUNT 2.84 10^6/uL (3.72-5.28); RED CELL DISTRIBUTION WIDTH 15.3 % (11.5-14.0); WHITE BLOOD COUNT 4.6 10^3/uL (4.0-10.5)
[2018-12-09 00:29] LABS: HEMOGLOBIN 7.9 g/dL (12.0-15.5)
[2018-12-09] MEDS ORDERED: METOCLOPRAMIDE HCL INJ/PF 10 MG/2 ML SDV IV ONE (00:45)
[2018-12-09] MEDS ORDERED: ONDANSETRON HCL INJ/PF 4 MG/2 ML SDV IV ONE (00:45)
[2018-12-09 04:46] LABS: ABSOLUTE LYMPHOCYTES (AUTO) 0.9 10^3/uL (0.5-4.7); ABSOLUTE MONOCYTES (AUTO) 0.3 10^3/uL (0.1-1.4); ABSOLUTE NEUT (AUTO) 3.8 10^3/uL (1.7-8.2); BASOPHILS % (AUTO) 0.7 % (0-2); EOSINOPHILS % (AUTO) 0.6 % (0-6); HEMATOCRIT 22.8 % (36.0-47.0); LYMPHOCYTES % (AUTO) 17.5 % (13-45); MEAN CORPUSCULAR HEMOGLOBIN 28.4 pg (27.0-33.4); MEAN CORPUSCULAR HGB CONC 34.5 g/dL (32.0-36.0); MEAN CORPUSCULAR VOLUME 82 fl (80-97); MONOCYTES % (AUTO) 6.8 % (3-13); PLATELET COUNT 278 10^3/uL (150-450); RED BLOOD COUNT 2.78 10^6/uL (3.72-5.28); SEGMENTED NEUTROPHILS % (AUTO) 74.4 % (42-78); TOTAL CELLS COUNTED % (AUTO) 100 %; WHITE BLOOD COUNT 5.1 10^3/uL (4.0-10.5)
[2018-12-09 04:57] LABS: ALANINE AMINOTRANSFERASE 41 U/L (9-52); ALBUMIN 2.7 g/dL (3.5-5.0); ALKALINE PHOSPHATASE 68 U/L (38-126); ANION GAP 9 (5-19); ASPARTATE AMINO TRANSFERASE 38 U/L (14-36); BILIRUBIN,DIRECT 0.1 mg/dL (0.0-0.4); BILIRUBIN,TOTAL 0.2 mg/dL (0.2-1.3); BLOOD UREA NITROGEN 15 mg/dL (7-20); CALCIUM 8.5 mg/dL (8.4-10.2); CARBON DIOXIDE 20 mmol/L (22-30); CHLORIDE 110 mmol/L (98-107); GLUCOSE 76 mg/dL (75-110); HEMOGLOBIN 7.9 g/dL (12.0-15.5); POTASSIUM 3.7 mmol/L (3.6-5.0)
[2018-12-09] MEDS ORDERED: NA PHOS,M-B/NA PHOS,DI-BA (ADULT) 133 ML ENEMA PR ONE (06:00)
[2018-12-09] MEDS: NORMAL SALINE 1000 ML 1,000 ML IV PRN (08:22)
--- NOTE | 2018-12-09 08:57 | EKG REPORT ---
SEVERITY:- OTHERWISE NORMAL ECG - SINUS TACHYCARDIA : Confirmed by: Rosalba Craig MD 09-Dec-2018 08:57:10
[2018-12-09] MEDS: ONDANSETRON HCL INJ/PF 4 MG/2 ML SDV IV PRN (09:55)
[2018-12-09] MEDS ORDERED: FERROUS SULFATE 325 MG TABLET PO SCH (10:00)
[2018-12-09] MEDS: FOLIC ACID 1 MG TABLET PO SCH (10:01)
[2018-12-09] MEDS ORDERED: NITROFURANTOIN MONOHYD/M-CRYST 100 MG CAPSULE PO ONE (11:30)
[2018-12-09] MEDS: LEVOTHYROXINE SODIUM 0.025 MG TABLET PO SCH (12:14)
[2018-12-09] MEDS: LEVOTHYROXINE SODIUM 0.112 MG TABLET PO SCH (12:14)
[2018-12-09] MEDS ORDERED: DIPHENHYDRAMINE HCL 50 MG/ML VIAL ONE (12:21)
[2018-12-09] MEDS ORDERED: NALOXONE HCL INJ/PF 0.4 MG/1 ML SDV ONE (12:22)
[2018-12-09] MEDS ORDERED: GLUCAGON,HUMAN RECOMB 1 MG INJ ONE (12:22)
[2018-12-09] MEDS ORDERED: ONDANSETRON HCL INJ/PF 4 MG/2 ML SDV ONE (12:22)
[2018-12-09] MEDS ORDERED: FLUMAZENIL INJ 0.5 MG/5 ML VIAL ONE (12:22)
[2018-12-09] MEDS ORDERED: FENTANYL CITRATE INJ/PF 100 MCG/2 ML AMPUL ONE (12:22)
[2018-12-09] MEDS ORDERED: EPINEPHRINE INJ 1 MG/10 ML DISP.SYRIN ONE (12:22)
[2018-12-09] MEDS: MIDAZOLAM 2 MG/2 ML INJ ONE ×2 (13:40→13:46)
--- NOTE | 2018-12-09 14:11 | Operative Report ---
Operative Report DATE OF SURGERY: 12/09/18 PREOPERATIVE DIAGNOSIS: Acute blood loss anemia likely due to gastrointestinal source POSTOPERATIVE DIAGNOSIS: Same with acute, diffuse hemorrhagic gastritis OPERATION: 1. Esophagogastroduodenoscopy. 2. Epinephrine injection gastric antrum for hemostasis SURGEON: PEREZ BARRERA ANESTHESIA: Moderate Sedation TISSUE REMOVED OR ALTERED: None COMPLICATIONS: None ESTIMATED BLOOD LOSS: Minimal INTRAOPERATIVE FINDINGS: Active bleeding from gastric antrum PROCEDURE: The patient was taken from the floor to the fifth floor endoscopy suite where monitoring devices were attached, she was placed in a semirecumbent position, head tilted to the left, oral mouthpiece inserted and appropriate level of conscious sedation induced. Surgical plan surgical timeout were conducted. The flexible upper endoscope was advanced to the oropharynx, down the esophagus through the stomach into the first and second portions of the duodenum. The patient had poor tolerance of the procedure and gag the entire time. This was despite adequate sedation with Versed, 7 mg. The first and second portions of the duodenum were unremarkable. The stomach was significant for acute bleeding from the gastric antrum and body from multiple sites consistent with diffuse gastritis I: Conversely arteriovenous malformations could have been the cause but the appearance appeared to be more consistent with gastritis. I did not observe a distinct tumor or ulcer, however all of the residual clot in the stomach was not aspirated due to the effort required and a prolonged time while the patient was gagging during the procedure. We irrigated off the most active bleeding sites in the gastric antrum, and injected a total of 4 cc, 0.4 mg total of epinephrine at 4 different sites primarily along the posterior and inferior surface of the distal antrum. The bleeding at the sites abated. Bleeding from other sites in the mid body could appeared to be less significant. We felt that an improvement was made in the acute bleeding. We decompressed the stomach of gas and brought the scope back through the GE junction, through the esophagus. The esophagus had no evidence of tumor stricture bleeding etc. Scope was withdrawn the patient's oropharynx. She tolerated procedure well Recommendations: 1. Check coagulation parameters 2. Discontinue any gastritis related medications 3. Continue to monitor patient's hemoglobin. 4. No clinical indication to perform colonoscopy as the bowel prep was inadequate, the patient could not be sufficiently sedated, and we found an acute source of blood loss with the upper endoscopy today.
[2018-12-09] MEDS ORDERED: BISMUTH SUBSALICYLATE 262 MG TAB.CHEW PO PRN (16:47)
[2018-12-09] MEDS ORDERED: CALCIUM CARBONATE 500 MG TAB.CHEW PO PRN (16:47)
--- NOTE | 2018-12-09 17:05 | PDOC PROGRESS REPORT ---
Subjective Progress Note for:: 12/09/18 Subjective:: ARGELIA MITCHELL is a 58 year old female with a past medical history of hysterectomy, hernia surgery, urinary tract infections. 12/08/18 Ms. Mitchell reports current symptoms began post hernia operation in August 2019 at an outside hospital. At that time she had 11 x 11 inch section removed from the left lower quadrant. About a month post operation she started report and symptoms of early satiety which led to nausea, which led to decrease oral intake. She reports loose stools starting about 1.5 months ago. They became increasingly worse about 2 days ago when she was placed on Keflex for a urinary tract infection and started on Zofran for nausea. Nausea seems to be related to early satiety which is led to some food aversion over the past month. She reports the loose stools have been green in nature. She reports intermittent blood in her stool. She reports a few episodes of vomiting over the past 2 days, which have had sparse blood in them. She admits to poor oral food and liquid intake. Since the surgery she has lost 40 pounds due to decreased intake. She reports a 30 pound weight loss over the past 1-1/2 months due to loose stools and decreased intake. She has already been evaluated by surgery at the time of evaluation. She is agreeable to bowel prep and scope tomorrow. 12/09/18-patient received 2 units of packed red blood cells today. To this point is tolerated them well. She had an EGD performed as well. Colonoscopy was not performed due to inadequate prep, and source of bleeding was identified during EGD. Source of bleeding gastritis. Patient reports some mild improvements in nausea and vomiting. She continues to have diarrhea that is green in color. Overall feels the generalized weakness has improved. Reason For Visit: ANEMIA,NAUSEA,VOMITING,DIARRHEA,URINARY TRACT INFE Physical Exam Vital Signs: Temp Pulse Resp BP Pulse Ox 99.2 F 105 H 18 139/82 H 100 12/09/18 13:27 12/09/18 14:20 12/09/18 14:20 12/09/18 14:20 12/09/18 14:20 Intake & Output 12/08/18 12/09/18 12/10/18 06:59 06:59 06:59 Intake Total 3550 900 Balance 3550 900 Weight 77 kg General appearance: PRESENT: no acute distress, cooperative Head exam: PRESENT: atraumatic, normocephalic Mouth exam: PRESENT: moist, tongue midline Respiratory exam: PRESENT: clear to auscultation benjamin. ABSENT: rales, rhonchi, wheezes Cardiovascular exam: PRESENT: RRR. ABSENT: diastolic murmur, rubs, systolic murmur Pulses: PRESENT: normal dorsalis pedis pul GI/Abdominal exam: PRESENT: normal bowel sounds, soft, other - Very mild tenderness when palpating firmly.. ABSENT: distended, guarding, mass, organolmegaly, rebound Rectal exam: PRESENT: deferred Extremities exam: PRESENT: other - Trace edema bilateral lower extremities. Musculoskeletal exam: PRESENT: full ROM, normal inspection Neurological exam: PRESENT: alert, awake, oriented to person, oriented to place, oriented to time, oriented to situation, CN II-XII grossly intact. ABSENT: mot or sensory deficit Psychiatric exam: PRESENT: appropriate affect, normal mood. ABSENT: homicidal ideation, suicidal ideation Results Laboratory Results: 12/09/18 04:11 12/09/18 04:11 12/08/18 12/08/18 12/08/18 10:00 16:55 21:25 WBC 4.4 RBC 2.89 L Hgb 8.0 L D Hct 23.6 L MCV 82 MCH 27.7 MCHC 33.9 RDW 14.9 H Plt Count 280 Seg Neutrophils % 69.8 Lymphocytes % 21.0 Monocytes % 8.5 Eosinophils % 0.3 Basophils % 0.4 Absolute Neutrophils 3.1 Absolute Lymphocytes 0.9 Absolute Monocytes 0.4 Absolute Eosinophils 0.0 Absolute Basophils 0.0 Retic Count (auto) 2.19 Absolute Retic 0.063 Sodium Potassium Chloride Carbon Dioxide Anion Gap BUN Creatinine Est GFR ( Amer) Est GFR (Non-Af Amer) Glucose Calcium Magnesium 1.9 Iron TIBC % Saturation Transferrin Ferritin Total Bilirubin AST ALT Alkaline Phosphatase Total Protein Albumin Vitamin B12 Folate Blood Type Antibody Screen 12/08/18 12/08/18 12/08/18 21:25 21:25 21:25 WBC RBC Hgb Hct MCV MCH MCHC RDW Plt Count Seg Neutrophils % Lymphocytes % Monocytes % Eosinophils % Basophils % Absolute Neutrophils Absolute Lymphocytes Absolute Monocytes Absolute Eosinophils Absolute Basophils Retic Count (auto) Absolute Retic Sodium Potassium Chloride Carbon Dioxide Anion Gap BUN Creatinine Est GFR ( Amer) Est GFR (Non-Af Amer) Glucose Calcium Magnesium Iron 47.3 TIBC 293 % Saturation 16 Transferrin 200.17 L Ferritin 31.60 Total Bilirubin AST ALT Alkaline Phosphatase Total Protein Albumin Vitamin B12 > 1000.0 H Folate 2.05 L Blood Type A NEGATIVE Antibody Screen NEGATIVE 12/09/18 12/09/18 12/09/18 00:13 04:11 04:11 WBC 4.6 5.1 RBC 2.84 L 2.78 L Hgb 7.9 L 7.9 L Hct 23.1 L 22.8 L MCV 82 82 MCH 27.7 28.4 MCHC 34.0 34.5 RDW 15.3 H 15.0 H Plt Count 284 278 Seg Neutrophils % 74.4 Lymphocytes % 17.5 Monocytes % 6.8 Eosinophils % 0.6 Basophils % 0.7 Absolute Neutrophils 3.8 Absolute Lymphocytes 0.9 Absolute Monocytes 0.3 Absolute Eosinophils 0.0 Absolute Basophils 0.0 Retic Count (auto) Absolute Retic Sodium 139.0 Potassium 3.7 Chloride 110 H Carbon Dioxide 20 L Anion Gap 9 BUN 15 Creatinine 0.45 L Est GFR ( Amer) > 60 Est GFR (Non-Af Amer) > 60 Glucose 76 Calcium 8.5 Magnesium 1.7 Iron TIBC % Saturation Transferrin Ferritin Total Bilirubin 0.2 AST 38 H ALT 41 Alkaline Phosphatase 68 Total Protein 6.0 L Albumin 2.7 L Vitamin B12 Folate Blood Type Antibody Screen Assessment & Plan - Diagnosis (1) Hypothyroid Qualifiers: Hypothyroidism type: unspecified Qualified Code(s): E03.9 - Hypothyroidism, unspecified Is this a current diagnosis for this admission?: Yes (2) Anemia Qualifiers: Anemia type: unspecified type Qualified Code(s): D64.9 - Anemia, unspecified Is this a current diagnosis for this admission?: Yes (3) Dehydration Is this a current diagnosis for this admission?: Yes (5) Vomiting and diarrhea Is this a current diagnosis for this admission?: Yes (6) Nausea Is this a current diagnosis for this admission?: Yes (7) Urinary tract infection Qualifiers: Urinary tract infection type: site unspecified Hematuria presence: without hematuria Qualified Code(s): N39.0 - Urinary tract infection, site not specified Is this a current diagnosis for this admission?: Yes (8) Gastritis Qualifiers: Chronicity: unspecified Gastritis bleeding: with bleeding Is this a current diagnosis for this admission?: Yes - Time Time Spent with patient: 15-24 minutes Medications reviewed and adjusted accordingly: Yes - Inpatient Certification Based on my medical assessment, after consideration of the patient's comorbidities, presenting symptoms, or acuity I expect that the services needed warrant INPATIENT care.: Yes I certify that my determination is in accordance with my understanding of Medicare's requirements for reasonable and necessary INPATIENT services [42 CFR 412.3e].: Yes - Plan Summary Plan Summary: 1. Dehydration-due to poor oral intake. Received 3 L of IV fluid in the ER. Symptomatic weakness has improved with IV fluids. Continue on normal saline at 125 cc an hour. 2. Anemia-guaiac positive. Baseline hemoglobin seems to be around 13. Some of the drop can be related to the IV fluids received in the emergency room for dehydration. EGD identified gastritis as source of bleeding. Colonoscopy not performed due to source of bleeding being identified and poor prep. She received 2 units packed red blood cells today. Continue to monitor hemoglobin. 3. Sinus tachycardia: Improvements made. Likely related to dehydration. Heart rate improved from 140s-100 since initiation of IV fluids. Placed on telemetry. Possible abnormal EKG on admission. Check magnesium. She denies cardiac or pulmonary symptoms. 4. Gastritis-diagnosed on EGD. Seems to be the primary source of nausea, vomiting, diarrhea. Will treat for H. pylori. Protonix 40 mg twice daily, Levaquin 250 mg daily, amoxicillin 1 g daily x 14 days. We will also provide Tums and bismuth as needed for symptomatic relief. Patient continues to deny NSAID use and other frequent causes of gastritis. 5. Hypothyroidism-continue on Synthroid. TSH low on admission. T4 normal. Likely related to acute stress and poor oral intake. 6. Urinary tract infection. Since Levaquin and/or amoxicillin could potentially adequately treat this infection, we will stop Macrobid and proceed with those antibiotics since they cover H. pylori. cx and Sensitivity report s till pending. Culture showed no growth after 24 hours. Blood cultures pending. Does not appear septic. Prophylaxis: We will not administer anticoagulation due to hemoglobin of 8 at this time.
[2018-12-09] MEDS: FAMOTIDINE INJ/PF 20 MG/2 ML SDV IV SCH ×2 (18:25→23:16)
[2018-12-09] MEDS: PANTOPRAZOLE SODIUM 40 MG VIAL IV SCH ×2 (18:25→23:16)
[2018-12-09] MEDS ORDERED: NITROFURANTOIN MONOHYD/M-CRYST 100 MG CAPSULE PO SCH (22:00)
[2018-12-09] MEDS: AMOXICILLIN TRIHYDRATE 500 MG CAPSULE PO SCH (23:15)
[2018-12-10 05:03] LABS: ABSOLUTE EOSINOPHILS # (AUTO) 0.1 10^3/uL (0.0-0.6); ABSOLUTE MONOCYTES (AUTO) 0.3 10^3/uL (0.1-1.4); ABSOLUTE NEUT (AUTO) 2.8 10^3/uL (1.7-8.2); BASOPHILS % (AUTO) 0.9 % (0-2); EOSINOPHILS % (AUTO) 1.3 % (0-6); HEMATOCRIT 25.7 % (36.0-47.0); LYMPHOCYTES % (AUTO) 23.1 % (13-45); MEAN CORPUSCULAR HEMOGLOBIN 28.6 pg (27.0-33.4); MEAN CORPUSCULAR VOLUME 82 fl (80-97); MONOCYTES % (AUTO) 7.9 % (3-13); PLATELET COUNT 194 10^3/uL (150-450); RED BLOOD COUNT 3.14 10^6/uL (3.72-5.28); RED CELL DISTRIBUTION WIDTH 15.4 % (11.5-14.0); SEGMENTED NEUTROPHILS % (AUTO) 66.8 % (42-78); TOTAL CELLS COUNTED % (AUTO) 100 %; WHITE BLOOD COUNT 4.1 10^3/uL (4.0-10.5)
[2018-12-10 05:06] LABS: INTERNATIONAL RATION (INR) 1.22
[2018-12-10 05:07] LABS: PARTIAL THROMBOPLASTIN TIME 25.9 SEC (23.5-35.8)
[2018-12-10 05:31] LABS: ALANINE AMINOTRANSFERASE 37 U/L (9-52); ALBUMIN 2.5 g/dL (3.5-5.0); ALKALINE PHOSPHATASE 62 U/L (38-126); ANION GAP 6 (5-19); ASPARTATE AMINO TRANSFERASE 36 U/L (14-36); BILIRUBIN,DIRECT 0.2 mg/dL (0.0-0.4); BILIRUBIN,TOTAL 0.7 mg/dL (0.2-1.3); BLOOD UREA NITROGEN 6 mg/dL (7-20); CALCIUM 8.5 mg/dL (8.4-10.2); CARBON DIOXIDE 23 mmol/L (22-30); CHLORIDE 109 mmol/L (98-107); GLUCOSE 79 mg/dL (75-110); POTASSIUM 3.7 mmol/L (3.6-5.0); SODIUM 138.4 mmol/L (137-145); TOTAL PROTEIN 5.7 g/dL (6.3-8.2)
[2018-12-10] MEDS: LEVOTHYROXINE SODIUM 0.112 MG TABLET PO SCH (05:34)
[2018-12-10] MEDS: NORMAL SALINE 1000 ML 1,000 ML IV PRN ×2 (05:35→15:03)
[2018-12-10] MEDS: LEVOTHYROXINE SODIUM 0.025 MG TABLET PO SCH (05:35)
[2018-12-10] MEDS ORDERED: LEVOTHYROXINE SODIUM 0.025 MG TABLET PO SCH (06:00)
[2018-12-10] MEDS: FERROUS SULFATE 325 MG TABLET PO SCH (09:40)
[2018-12-10] MEDS: FAMOTIDINE INJ/PF 20 MG/2 ML SDV IV SCH ×2 (09:40→22:10)
[2018-12-10] MEDS: FOLIC ACID 1 MG TABLET PO SCH (09:40)
[2018-12-10] MEDS: PANTOPRAZOLE SODIUM 40 MG VIAL IV SCH ×2 (09:40→22:10)
[2018-12-10] MEDS: LEVOFLOXACIN 250 MG TABLET PO SCH (09:41)
[2018-12-10] MEDS: AMOXICILLIN TRIHYDRATE 500 MG CAPSULE PO SCH ×2 (09:41→22:11)
[2018-12-10 15:03] LABS: HEMATOCRIT 28.8 % (36.0-47.0); MEAN CORPUSCULAR HEMOGLOBIN 28.8 pg (27.0-33.4); MEAN CORPUSCULAR HGB CONC 34.9 g/dL (32.0-36.0); MEAN CORPUSCULAR VOLUME 83 fl (80-97); PLATELET COUNT 288 10^3/uL (150-450); RED BLOOD COUNT 3.48 10^6/uL (3.72-5.28); WHITE BLOOD COUNT 4.6 10^3/uL (4.0-10.5)
--- NOTE | 2018-12-10 15:59 | PDOC PROGRESS REPORT ---
Subjective Progress Note for:: 12/10/18 Subjective:: Patient still struggling with nausea. No emesis today. Nursing reports that she had a black stool. She has been able to keep some clear liquids down. No chest pain or difficulty breathing. She has some chronic lower abdominal pain but nothing acute now. She and I spent some time talking about her EGD results as she did not remember hearing anything yesterday postoperatively due to medications. Reason For Visit: ANEMIA,NAUSEA,VOMITING,DIARRHEA,URINARY TRACT INFE Physical Exam Vital Signs: Temp Pulse Resp BP Pulse Ox 98.2 F 91 18 146/95 H 100 12/10/18 11:00 12/10/18 14:00 12/10/18 11:00 12/10/18 11:00 12/10/18 11:00 Intake & Output 12/09/18 12/10/18 12/11/18 06:59 06:59 06:59 Intake Total 3550 2670 1000 Balance 3550 2670 1000 Weight 77 kg 77.1 kg General appearance: PRESENT: cooperative, mild distress Head exam: PRESENT: atraumatic, normocephalic Eye exam: PRESENT: EOMI. ABSENT: conjunctival injection, scleral icterus Ear exam: PRESENT: normal external ear exam Respiratory exam: PRESENT: clear to auscultation benjamin, unlabored. ABSENT: rales, rhonchi, wheezes Cardiovascular exam: PRESENT: RRR. ABSENT: systolic murmur Pulses: PRESENT: normal radial pulses GI/Abdominal exam: PRESENT: normal bowel sounds, soft. ABSENT: ascites, distended, guarding, tenderness Rectal exam: PRESENT: deferred Extremities exam: ABSENT: calf tenderness, pedal edema Musculoskeletal exam: PRESENT: normal inspection Neurological exam: PRESENT: alert, awake, oriented to person, oriented to place, oriented to situation, CN II-XII grossly intact Psychiatric exam: PRESENT: appropriate affect, other - A little teary over having missed her granddaughter's birthday republican due to illness. ABSENT: anxious Focused psych exam: ABSENT: restlessness Skin exam: PRESENT: dry, intact, pallor, warm Results Laboratory Results: 12/10/18 14:36 12/10/18 03:57 12/08/18 12/10/18 12/10/18 21:25 03:57 03:57 WBC 4.1 RBC 3.14 L Hgb 9.0 L Hct 25.7 L MCV 82 MCH 28.6 MCHC 35.0 RDW 15.4 H Plt Count 194 Seg Neutrophils % 66.8 Lymphocytes % 23.1 Monocytes % 7.9 Eosinophils % 1.3 Basophils % 0.9 Absolute Neutrophils 2.8 Absolute Lymphocytes 1.0 Absolute Monocytes 0.3 Absolute Eosinophils 0.1 Absolute Basophils 0.0 Sodium 138.4 Potassium 3.7 Chloride 109 H Carbon Dioxide 23 Anion Gap 6 BUN 6 L Creatinine 0.42 L Est GFR ( Amer) > 60 Est GFR (Non-Af Amer) > 60 Glucose 79 Calcium 8.5 Magnesium 1.7 Total Bilirubin 0.7 AST 36 ALT 37 Alkaline Phosphatase 62 Total Protein 5.7 L Albumin 2.5 L Stool Occult Blood Blood Type A NEGATIVE Antibody Screen NEGATIVE 12/10/18 12/10/18 10:00 14:36 WBC 4.6 RBC 3.48 L Hgb 10.0 L Hct 28.8 L MCV 83 MCH 28.8 MCHC 34.9 RDW 15.0 H Plt Count 288 Seg Neutrophils % Lymphocytes % Monocytes % Eosinophils % Basophils % Absolute Neutrophils Absolute Lymphocytes Absolute Monocytes Absolute Eosinophils Absolute Basophils Sodium Potassium Chloride Carbon Dioxide Anion Gap BUN Creatinine Est GFR ( Amer) Est GFR (Non-Af Amer) Glucose Calcium Magnesium Total Bilirubin AST ALT Alkaline Phosphatase Total Protein Albumin Stool Occult Blood POSITIVE Blood Type Antibody Screen 12/08/18 10:50 Clean Catch Midstream Urine Culture - Final NO GROWTH 2 DAYS Assessment & Plan - Diagnosis (1) Anemia Qualifiers: Anemia type: unspecified type Qualified Code(s): D64.9 - Anemia, unspeci fied Is this a current diagnosis for this admission?: Yes (2) Gastritis Qualifiers: Chronicity: unspecified Gastritis bleeding: with bleeding Is this a current diagnosis for this admission?: Yes (3) Vomiting and diarrhea Is this a current diagnosis for this admission?: Yes (4) Nausea Is this a current diagnosis for this admission?: Yes - Time Time Spent with patient: 25-34 minutes Anticipated discharge: Home Within: within 72 hours - Inpatient Certification Based on my medical assessment, after consideration of the patient's comorbidities, presenting symptoms, or acuity I expect that the services needed warrant INPATIENT care.: Yes I certify that my determination is in accordance with my understanding of Medicare's requirements for reasonable and necessary INPATIENT services [42 CFR 412.3e].: Yes Medical Necessity: Need Close Monitoring Due to Risk of Patient Decompensation, Risk of Complication if Not Cared For in Hospital - Plan Summary Plan Summary: 1. Dehydration-due to poor oral intake from nausea and vomiting. Received 3 L of IV fluid in the ER. Symptomatic weakness has improved with IV fluids and blood transfusion. Continue on normal saline at 125 cc an hour as she can really only hold down an intermittent popsicle at this point. 2. Anemia-guaiac positive, bleeding seen on EGD. Baseline hemoglobin seems to be around 13. Some of the drop can be related to the IV fluids received in the emergency room for dehydration. EGD identified gastritis as source of bleeding. Colonoscopy not performed due to source of bleeding being identified and poor prep. She received 2 units packed red blood cells today. Hemoglobin rechecked today and has gone up 1 point. Will continue to follow. 3. Sinus tachycardia: Improvements made with heart rates mostly in the 80s, one reading of 91 today. Likely related to dehydration and anemia. Continue telemetry, continue IV fluids. Possible abnormal EKG on admission and so I have reordered an EKG we will spot check her troponin. She denies cardiac or pulmonary symptoms. 4. Gastritis-diagnosed on EGD. Seems to be the primary source of nausea, vomiting, diarrhea. Will treat for H. pylori. Protonix 40 mg twice daily, Levaquin 250 mg daily, amoxicillin 1 g daily x 14 days. We will also provide Tums and bismuth as needed for symptomatic relief. Patient continues to deny NSAID use and other frequent causes of gastritis. 5. Hypothyroidism-continue on Synthroid. TSH low on admission. T4 normal. Likely related to acute stress and poor oral intake. 6. Urinary tract infection. Since Levaquin and/or amoxicillin could potentially adequately treat this infection, we have stopped Macrobid and proceeded with those antibiotics since they cover H. pylori. cx and Sensitivity report still pending. Culture showed no growth after 24 hours. Blood cultures pending. Does not appear septic. Prophylaxis: We will not administer anticoagulation due to recent active bleeding, possible continued bleeding.
--- NOTE | 2018-12-10 19:41 | EKG REPORT ---
SEVERITY:- BORDERLINE ECG - SINUS RHYTHM BORDERLINE PROLONGED QT INTERVAL : Confirmed by: Rosalba Craig MD 10-Dec-2018 19:41:30
[2018-12-10] MEDS: ACETAMINOPHEN 325 MG TABLET PO PRN (22:10)
[2018-12-11 02:09] LABS: HEMATOCRIT 26.3 % (36.0-47.0); HEMOGLOBIN 9.3 g/dL (12.0-15.5); MEAN CORPUSCULAR HEMOGLOBIN 28.8 pg (27.0-33.4); MEAN CORPUSCULAR HGB CONC 35.4 g/dL (32.0-36.0); MEAN CORPUSCULAR VOLUME 81 fl (80-97); PLATELET COUNT 279 10^3/uL (150-450); RED BLOOD COUNT 3.23 10^6/uL (3.72-5.28); RED CELL DISTRIBUTION WIDTH 15.3 % (11.5-14.0); WHITE BLOOD COUNT 4.7 10^3/uL (4.0-10.5)
[2018-12-11] MEDS: LEVOTHYROXINE SODIUM 0.112 MG TABLET PO SCH (05:58)
[2018-12-11] MEDS: LEVOTHYROXINE SODIUM 0.025 MG TABLET PO SCH (05:59)
[2018-12-11 06:13] LABS: HEMATOCRIT 26.8 % (36.0-47.0); HEMOGLOBIN 9.5 g/dL (12.0-15.5); MEAN CORPUSCULAR HGB CONC 35.5 g/dL (32.0-36.0); MEAN CORPUSCULAR VOLUME 82 fl (80-97); PLATELET COUNT 275 10^3/uL (150-450); RED BLOOD COUNT 3.27 10^6/uL (3.72-5.28); RED CELL DISTRIBUTION WIDTH 15.2 % (11.5-14.0); WHITE BLOOD COUNT 4.7 10^3/uL (4.0-10.5)
[2018-12-11 06:36] LABS: ANION GAP 10 (5-19); BLOOD UREA NITROGEN 2 mg/dL (7-20); CALCIUM 8.6 mg/dL (8.4-10.2); CARBON DIOXIDE 22 mmol/L (22-30); CHLORIDE 106 mmol/L (98-107); GLUCOSE 79 mg/dL (75-110); POTASSIUM 3.2 mmol/L (3.6-5.0)
[2018-12-11] MEDS: PANTOPRAZOLE SODIUM 40 MG VIAL IV SCH ×2 (09:38→21:16)
[2018-12-11] MEDS: NORMAL SALINE 1000 ML 1,000 ML IV PRN ×2 (09:39→18:10)
[2018-12-11] MEDS: FERROUS SULFATE 325 MG TABLET PO SCH (09:39)
[2018-12-11] MEDS: FOLIC ACID 1 MG TABLET PO SCH (09:39)
[2018-12-11] MEDS: POTASSI CL 20 MEQ/50 ML RIDER 20 MEQ/50 ML RTUPB IV SCH ×2 (09:40→13:14)
[2018-12-11] MEDS: FAMOTIDINE INJ/PF 20 MG/2 ML SDV IV SCH (09:55)
[2018-12-11] MEDS: AMOXICILLIN TRIHYDRATE 500 MG CAPSULE PO SCH ×2 (09:56→21:16)
[2018-12-11] MEDS: LEVOFLOXACIN 250 MG TABLET PO SCH (09:57)
[2018-12-11] MEDS: ONDANSETRON HCL INJ/PF 4 MG/2 ML SDV IV PRN (10:59)
--- NOTE | 2018-12-11 14:45 | PDOC PROGRESS REPORT ---
Subjective Progress Note for:: 12/11/18 Subjective:: Patient's abdominal pain is improving today. She was able to eat a little bit more clear liquids today. No bowel movement since yesterday. No vomiting since several days ago. She does still have nausea when she eats. No chest pain. No difficulty breathing. Reason For Visit: ANEMIA,NAUSEA,VOMITING,DIARRHEA,URINARY TRACT INFE Physical Exam Vital Signs: Temp Pulse Resp BP Pulse Ox 98.3 F 82 16 112/70 100 12/11/18 11:25 12/11/18 11:25 12/11/18 11:25 12/11/18 11:25 12/11/18 11:25 Intake & Output 12/10/18 12/11/18 12/12/18 06:59 06:59 06:59 Intake Total 2670 3965 50 Balance 2670 3965 50 Weight 77.1 kg 77.1 kg General appearance: PRESENT: no acute distress, cooperative, well-developed, well-nourished Head exam: PRESENT: atraumatic, normocephalic Eye exam: PRESENT: EOMI. ABSENT: conjunctival injection, scleral icterus Ear exam: PRESENT: normal external ear exam Mouth exam: PRESENT: moist, neck supple, tongue midline Respiratory exam: PRESENT: clear to auscultation benjamin, unlabored. ABSENT: rales, rhonchi, wheezes Cardiovascular exam: PRESENT: RRR. ABSENT: systolic murmur Pulses: PRESENT: normal radial pulses, normal dorsalis pedis pul GI/Abdominal exam: PRESENT: hypoactive bowel sounds, soft, tenderness. ABSENT: ascites, distended, firm, guarding Rectal exam: PRESENT: deferred Gentrourinary exam: ABSENT: indwelling catheter Extremities exam: ABSENT: pedal edema Neurological exam: PRESENT: alert, awake, oriented to person, oriented to place, oriented to situation, CN II-XII grossly intact Psychiatric exam: PRESENT: appropriate affect. ABSENT: anxious Skin exam: PRESENT: dry, intact, warm Results Laboratory Results: 12/11/18 05:45 12/11/18 05:45 12/10/18 12/11/18 12/11/18 14:36 02:02 05:45 WBC 4.6 4.7 4.7 RBC 3.48 L 3.23 L 3.27 L Hgb 10.0 L 9.3 L 9.5 L Hct 28.8 L 26.3 L 26.8 L MCV 83 81 82 MCH 28.8 28.8 29.0 MCHC 34.9 35.4 35.5 RDW 15.0 H 15.3 H 15.2 H Plt Count 288 279 275 Sodium Potassium Chloride Carbon Dioxide Anion Gap BUN Creatinine Est GFR ( Amer) Est GFR (Non-Af Amer) Glucose Calcium 12/11/18 05:45 WBC RBC Hgb Hct MCV MCH MCHC RDW Plt Count Sodium 138.0 Potassium 3.2 L Chloride 106 Carbon Dioxide 22 Anion Gap 10 BUN 2 L Creatinine 0.39 L Est GFR ( Amer) > 60 Est GFR (Non-Af Amer) > 60 Glucose 79 Calcium 8.6 12/08/18 13:58 Stool - Stool - Final 12/08/18 13:58 Stool - Stool Stool Culture - Final C.albicans/C.dubliniensis 12/08/18 10:50 Clean Catch Midstream Urine Culture - Final NO GROWTH 2 DAYS 12/10/18 16:57 Troponin I < 0.012 Assessment & Plan - Diagnosis (1) Anemia Qualifiers: Anemia type: unspecified type Qualified Code(s): D64.9 - Anemia, unspecified Is this a current diagnosis for this admission?: Yes Plan: Secondary to acute blood loss, gastritis, probably NSAID induced. She received 2 units of packed red blood cells. Her melena has slowed considerably. Her hemoglobin is stable. Will recheck again in the morning. (2) Gastritis Qualifiers: Chronicity: unspecified Gastritis bleeding: with bleeding Is this a current diagnosis for this admission?: Yes Plan: Patient tells me today that she started taking naproxen just over a year ago and takes it almost every day. This is most likely because of her gastritis. She has been instructed to not use NSAIDs anymore and she will need close follow-up as an outpatient. She will need to follow-up with GI probably for repeat endoscopy. She will also need close primary care follow-up. We are treating her with antibiotics the possibility of H. pylori and PPI. Symptomatically improving. (3) Vomiting and diarrhea Is this a current diagnosis for this admission?: Yes Plan: None in 24 hours. Continue to monitor. (4) Nausea Is this a current diagnosis for this admission?: Yes Plan: Persistent with eating. I have suggested that she try to premedicate herself with a dose of Zofran before she eats. Because she is tolerating more clear liquids I have advanced her diet to full liquid. - Time Time Spent with patient: 25-34 minutes
[2018-12-11 15:58] LABS: HEMATOCRIT 27.6 % (36.0-47.0); HEMOGLOBIN 9.7 g/dL (12.0-15.5); MEAN CORPUSCULAR HEMOGLOBIN 28.9 pg (27.0-33.4); MEAN CORPUSCULAR HGB CONC 35.3 g/dL (32.0-36.0); MEAN CORPUSCULAR VOLUME 82 fl (80-97); PLATELET COUNT 321 10^3/uL (150-450); RED BLOOD COUNT 3.37 10^6/uL (3.72-5.28); RED CELL DISTRIBUTION WIDTH 15.7 % (11.5-14.0); WHITE BLOOD COUNT 5.8 10^3/uL (4.0-10.5)
[2018-12-12 04:10] LABS: HEMATOCRIT 23.9 % (36.0-47.0); HEMOGLOBIN 8.4 g/dL (12.0-15.5); MEAN CORPUSCULAR HEMOGLOBIN 28.8 pg (27.0-33.4); MEAN CORPUSCULAR HGB CONC 35.2 g/dL (32.0-36.0); MEAN CORPUSCULAR VOLUME 82 fl (80-97); PLATELET COUNT 282 10^3/uL (150-450); RED BLOOD COUNT 2.93 10^6/uL (3.72-5.28); RED CELL DISTRIBUTION WIDTH 15.6 % (11.5-14.0); WHITE BLOOD COUNT 3.9 10^3/uL (4.0-10.5)
[2018-12-12 04:27] LABS: ANION GAP 8 (5-19); CALCIUM 8.3 mg/dL (8.4-10.2); CARBON DIOXIDE 23 mmol/L (22-30); CHLORIDE 109 mmol/L (98-107); GLUCOSE 75 mg/dL (75-110); POTASSIUM 3.3 mmol/L (3.6-5.0); SODIUM 139.8 mmol/L (137-145)
[2018-12-12 04:40] LABS: BLOOD UREA NITROGEN < 2 mg/dL (7-20)
[2018-12-12] MEDS: LEVOTHYROXINE SODIUM 0.025 MG TABLET PO SCH (05:09)
[2018-12-12] MEDS: LEVOTHYROXINE SODIUM 0.112 MG TABLET PO SCH (05:10)
[2018-12-12] MEDS: NORMAL SALINE 1000 ML 1,000 ML IV PRN ×2 (10:13→15:40)
[2018-12-12] MEDS: FOLIC ACID 1 MG TABLET PO SCH (10:16)
[2018-12-12] MEDS: FERROUS SULFATE 325 MG TABLET PO SCH (10:16)
[2018-12-12] MEDS: AMOXICILLIN TRIHYDRATE 500 MG CAPSULE PO SCH (10:17)
[2018-12-12] MEDS: LEVOFLOXACIN 250 MG TABLET PO SCH (10:17)
[2018-12-12] MEDS: PANTOPRAZOLE SODIUM 40 MG VIAL IV SCH (10:17)
[2018-12-12] MEDS: ONDANSETRON HCL INJ/PF 4 MG/2 ML SDV IV PRN (10:23)
[2018-12-12] MEDS ORDERED: PHENOL/SODIUM PHENOLATE 100 SPRAY/177 ML BOTTLE PO PRN (15:31)
--- NOTE | 2018-12-12 15:49 | PDOC PROGRESS REPORT ---
Subjective Progress Note for:: 12/12/18 Subjective:: 12/12/2018 this 58-year-old female admitted with nausea and vomitings severe diarrhea. Able to tolerate the liquid diets little bit. She is receiving Zofran . No diarrhea anymore. Blood pressure is 126/79. Presently on IV fluids normal saline 125 cc/h. No complaints other than nausea. Reason For Visit: ANEMIA,NAUSEA,VOMITING,DIARRHEA,URINARY TRACT INFE Physical Exam Vital Signs: Temp Pulse Resp BP Pulse Ox 97.7 F 87 14 126/79 H 100 12/12/18 12:34 12/12/18 12:34 12/12/18 12:34 12/12/18 12:34 12/12/18 12:34 Intake & Output 12/11/18 12/12/18 12/13/18 06:59 06:59 06:59 Intake Total 3965 3000 340 Balance 3965 3000 340 Weight 77.1 kg 76.2 kg General appearance: PRESENT: no acute distress Head exam: PRESENT: atraumatic Eye exam: PRESENT: PERRLA Mouth exam: PRESENT: moist, tongue midline Neck exam: ABSENT: carotid bruit, JVD, lymphadenopathy, thyromegaly Respiratory exam: PRESENT: clear to auscultation benjamin. ABSENT: rales, rhonchi, wheezes Cardiovascular exam: PRESENT: RRR. ABSENT: diastolic murmur, rubs, systolic murmur GI/Abdominal exam: PRESENT: normal bowel sounds, soft. ABSENT: distended, guarding, mass, organolmegaly, rebound, tenderness Extremities exam: PRESENT: full ROM. ABSENT: calf tenderness, clubbing, pedal edema Neurological exam: PRESENT: alert, awake, oriented to person, oriented to place, oriented to time, oriented to situation, CN II-XII grossly intact. ABSENT: motor sensory deficit Psychiatric exam: PRESENT: appropriate affect, normal mood. ABSENT: homicidal ideation, suicidal ideation Results Laboratory Results: 12/12/18 03:54 12/12/18 03:54 12/11/18 12/12/18 12/12/18 15:00 03:54 03:54 WBC 5.8 3.9 L RBC 3.37 L 2.93 L Hgb 9.7 L 8.4 L Hct 27.6 L 23.9 L MCV 82 82 MCH 28.9 28.8 MCHC 35.3 35.2 RDW 15.7 H 15.6 H Plt Count 321 282 Sodium 139.8 Potassium 3.3 L Chloride 109 H Carbon Dioxide 23 Anion Gap 8 BUN < 2 L Creatinine 0.44 L Est GFR ( Amer) > 60 Est GFR (Non-Af Amer) > 60 Glucose 75 Calcium 8.3 L 12/10/18 16:57 Troponin I < 0.012 Assessment & Plan - Diagnosis (1) Anemia Qualifiers: Anemia type: unspecified type Qualified Code(s): D64.9 - Anemia, unspecified Is this a current diagnosis for this admission?: Yes Plan: Secondary to acute blood loss, gastritis, probably NSAID induced. She received 2 units of packed red blood cells. Her melena has slowed considerably. Her hemoglobin is stable. Will recheck again in the morning. 12/12/2018-latest hemoglobin is 8.4. She was admitted with anemia most likely secondary to acute blood loss secondary to an outside use. She received a total of 2 units of PRBC. Plan is to recheck the CBC tomorrow. (2) Gastritis Qualifiers: Chronicity: unspecified Gastritis bleeding: with bleeding Is this a current diagnosis for this admission?: Yes Plan: Patient tells me today that she started taking naproxen just over a year ago and takes it almost every day. This is most likely because of her gastritis. She has been instructed to not use NSAIDs anymore and she will need close follow-up as an outpatient. She will need to follow-up with GI probably for repeat endoscopy. She will also need close primary care follow-up. We are treating her with antibiotics the possibility of H. pylori and PPI. Symptomatically improving. 12/12/2018-patient is taking naproxen for almost a year may be causing severe gastritis with acute blood loss anemia. She was strongly advised to not to take NSAIDs anymore. She was advised to follow-up with GI for possible endoscopy. She is denies any heartburn or epigastric pain. Presently she is on amoxicillin levofloxacin dose will be discontinued. (3) Vomiting and diarrhea Is this a current diagnosis for this admission?: Yes Plan: 12/12/2018-patient complains of nausea no more vomiting's no diarrhea. Last bowel movements was 4 days ago. Offered her MiraLAX but she said she is not t aking food except for the liquid diet she wants to wait . (4) Nausea Is this a current diagnosis for this admission?: Yes Plan: 12/12/2018-patient is complaining of nausea with liquid diet. She is taking Zofran on as needed basis. As per the patient her appetite is gradually improving. - Time Time Spent with patient: 15-24 minutes Anticipated discharge: Home
[2018-12-12] MEDS: ACETAMINOPHEN 325 MG TABLET PO PRN (18:42)
[2018-12-12] MEDS: POTASSIUM CHLORIDE 20 MEQ/15 ML UDCUP PO SCH (21:23)
[2018-12-13] MEDS: LEVOTHYROXINE SODIUM 0.112 MG TABLET PO SCH (05:05)
[2018-12-13] MEDS: LEVOTHYROXINE SODIUM 0.025 MG TABLET PO SCH (05:06)
[2018-12-13] MEDS: ACETAMINOPHEN 325 MG TABLET PO PRN ×2 (05:43→21:45)
[2018-12-13] MEDS: POTASSIUM CHLORIDE 20 MEQ/15 ML UDCUP PO SCH ×2 (10:17→21:20)
[2018-12-13] MEDS: FERROUS SULFATE 325 MG TABLET PO SCH (10:19)
[2018-12-13] MEDS: FOLIC ACID 1 MG TABLET PO SCH (10:19)
--- NOTE | 2018-12-13 14:20 | PDOC PROGRESS REPORT ---
Subjective Progress Note for:: 12/13/18 Subjective:: 12/12/2018 this 58-year-old female admitted with nausea and vomitings severe diarrhea. Able to tolerate the liquid diets little bit. She is receiving Zofran . No diarrhea anymore. Blood pressure is 126/79. Presently on IV fluids normal saline 125 cc/h. No complaints other than nausea. 12/13/2018-no acute events in the last 24 hours. Patient is afebrile. Patient is complaining of right lower quadrant pain today. On gentle palpation of the right lower quadrant she is complaining of severe pain. I am going to arrange for a CT to rule out appendicitis. Reason For Visit: ANEMIA,NAUSEA,VOMITING,DIARRHEA,URINARY TRACT INFE Physical Exam Vital Signs: Temp Pulse Resp BP Pulse Ox 98.1 F 68 22 H 124/71 99 12/13/18 11:18 12/13/18 11:18 12/13/18 11:18 12/13/18 11:18 12/13/18 11:18 Intake & Output 12/12/18 12/13/18 12/14/18 06:59 06:59 06:59 Intake Total 3000 2141 Balance 3000 2141 Weight 76.2 kg 78.4 kg General appearance: PRESENT: mild distress Head exam: PRESENT: atraumatic Eye exam: PRESENT: PERRLA Mouth exam: PRESENT: moist, tongue midline Neck exam: ABSENT: carotid bruit, JVD, lymphadenopathy, thyromegaly Respiratory exam: PRESENT: clear to auscultation benjamin. ABSENT: rales, rhonchi, wheezes Cardiovascular exam: PRESENT: RRR. ABSENT: diastolic murmur, rubs, systolic murmur GI/Abdominal exam: PRESENT: normal bowel sounds, soft. ABSENT: distended, guarding, mass, organolmegaly, rebound, tenderness Extremities exam: PRESENT: full ROM. ABSENT: calf tenderness, clubbing, pedal edema Neurological exam: PRESENT: alert, awake, oriented to person, oriented to place, oriented to time, oriented to situation, CN II-XII grossly intact. ABSENT: motor sensory deficit Psychiatric exam: PRESENT: appropriate affect, normal mood. ABSENT: homicidal ideation, suicidal ideation Results Laboratory Results: 12/12/18 03:54 12/12/18 03:54 12/10/18 16:57 Troponin I < 0.012 Assessment & Plan - Diagnosis (1) Anemia Qualifiers: Anemia type: unspecified type Qualified Code(s): D64.9 - Anemia, unspecified Is this a current diagnosis for this admission?: Yes Plan: Secondary to acute blood loss, gastritis, probably NSAID induced. She received 2 units of packed red blood cells. Her melena has slowed considerably. Her hemoglobin is stable. Will recheck again in the morning. 12/12/2018-latest hemoglobin is 8.4. She was admitted with anemia most likely secondary to acute blood loss secondary to an NSAID use. She received a total of 2 units of PRBC. Plan is to recheck the CBC tomorrow. 12/13/2018-patient hemoglobin today is 8.4. Stable. Patient was admitted with blood loss anemia most likely secondary to NSAID use. During the hospital stay received 2 units of blood transfusion. Now the hemoglobin is stable. (2) Gastritis Qualifiers: Chronicity: unspecified Gastritis bleeding: with bleeding Is this a current diagnosis for this admission?: Yes Plan: Patient tells me today that she started taking naproxen just over a year ago and takes it almost every day. This is most likely because of her gastritis. She has been instructed to not use NSAIDs anymore and she will need close follow-up as an outpatient. She will need to follow-up with GI probably for repeat endoscopy. She will also need close primary care follow-up. We are treating her with antibiotics the possibility of H. pylori and PPI. Symptomatically improving. 12/12/2018-patient is taking naproxen for almost a year may be causing severe gastritis with acute blood loss anemia. She was strongly advised to not to take NSAIDs anymore. She was advised to follow-up with GI for possible endoscopy. She is denies any heartburn or epigastric pain. Presently she is on amoxicillin levofloxacin dose will be discontinued. 12/13/2018-patient was admitted with gastritis most likely secondary to naproxen use. No complaints of nausea no heartburn today. Patient is on GI prophylaxis with famotidine 20 mg p.o. twice a day. (3) Vomiting and diarrhea Is this a current diagnosis for this admission?: Yes Plan: 12/12/2018-patient complains of nausea no more vomiting's no diarrhea. Last bowel movements was 4 days ago. Offered her MiraLAX but she said she is not taking food except for the liquid diet she wants to wait . 12/13/2018 patient was admitted with nausea and vomitings. Still complaining of mild nausea getting Zofran on a as needed basis. No more loose stools. Ac tually she did not have a bowel movement for the last 5 days. (4) Nausea Is this a current diagnosis for this admission?: Yes Plan: 12/12/2018-patient is complaining of nausea with liquid diet. She is taking Zofran on as needed basis. As per the patient her appetite is gradually improving. 12/13/2018 patient is complaining of mild nausea today able to tolerate the oral diet. Taking Zofran on a as needed basis. Plan is to continue the present management. (5) Abdominal pain Is this a current diagnosis for this admission?: Yes Plan: 12/13/2018-patient is complaining of right lower quadrant abdominal pain today. Plan is to do the CT abdomen pelvis without contrast to rule out appendicitis. - Time Time Spent with patient: 15-24 minutes Anticipated discharge: Home
[2018-12-13] MEDS ORDERED: LEVOTHYROXINE SODIUM 0.112 MG TABLET PO SCH (15:00)
[2018-12-13] MEDS ORDERED: LEVOTHYROXINE SODIUM 0.025 MG TABLET PO SCH (15:00)
[2018-12-13] MEDS: LACTOBACILLUS ACIDOPHILUS 250 MG TAB PO SCH (18:10)
--- NOTE | 2018-12-13 19:32 | RADIOLOGY REPORT (SQ) ---
EXAM DESCRIPTION: CT ABD/PELVIS WITH IV ORAL COMPLETED DATE/TIME: 12/13/2018 6:50 pm REASON FOR STUDY: r/o appendicitis COMPARISON: 02/16/2012 TECHNIQUE: CT scan of the abdomen and pelvis performed using helical scanning technique with dynamic intravenous contrast injection. Oral contrast. Images reviewed with lung, soft tissue, and bone win dows. Reconstructed coronal and sagittal MPR images reviewed. Delayed images for evaluation of the ur inary system also acquired. All images stored on PACS. All CT scanners at this facility use dose modulation, iterative reconstruction, and/or weight based d osing when appropriate to reduce radiation dose to as low as reasonably achievable (ALARA). [facility]: Dose Right [facility]: CareDose [facility]: Dose Right [facility]: Teradose 4D [facility]: [employer] CONTRAST TYPE AND DOSE: contrast/concentration: Isovue 350.00 mg/ml; Total Contrast Delivered: 89.0 ml; Total Saline Delivered: 64.0 ml RENAL FUNCTION: BUN less than 2 creatinine 0.44 RADIATION DOSE: CT Rad equipment meets quality standard of care and radiation dose reduction techniq ues were employed. CTDIvol: 7.9 - 11.0 mGy. DLP: 1009 mGy-cm.. LIMITATIONS: None. FINDINGS: LOWER CHEST: No significant findings. No nodules or infiltrates. LIVER: Normal size. No masses. No dilated ducts. SPLEEN: Normal size. No focal lesions. PANCREAS: No masses. No significant calcifications. No adjacent inflammation or peripancreatic fluid collections. Pancreatic duct not dilated. GALLBLADDER: Surgically absent. ADRENAL GLANDS: No significant masses or asymmetry. RIGHT KIDNEY AND URETER: No solid masses. No significant calcifications. No hydronephrosis or hyd roureter. LEFT KIDNEY AND URETER: No solid masses. No significant calcifications. No hydronephrosis or hydr oureter. AORTA AND VESSELS: No aneurysm. No dissection. Renal arteries, SMA, celiac without stenosis. RETROPERITONEUM: No retroperitoneal adenopathy, hemorrhage or masses. BOWEL AND PERITONEAL CAVITY: There appears to be diffuse uniform thickening of the wall of the stomac h. The gastric wall measures about 15 mm. No bowel masses. APPENDIX: Normal. PELVIS: No mass. No free fluid. Normal bladder. ABDOMINAL WALL: No masses. No hernias. BONES: No significant or acute findings. OTHER: No other significant finding. IMPRESSION: There appears to be diffuse, uniform thickening of the wall of the stomach. This may clarke ggest gastritis. Lymphoma cannot be excluded. Neoplasm cannot entirely be excluded. There are no f indings relating to the right lower quadrant. TECHNICAL DOCUMENTATION: JOB ID: [id number] Quality ID # [id number]: Final reports with documentation of one or more dose reduction techniques (e.g., Au tomated exposure control, adjustment of the mA and/or kV according to patient size, use of iterative reconstruction technique) 2010 [employer]- All Rights Reserved Reading location - IP/workstation name: [email or web address]
[2018-12-13] MEDS: NORMAL SALINE 1000 ML 1,000 ML IV PRN (21:19)
[2018-12-13] MEDS: FAMOTIDINE 20 MG TABLET PO SCH (21:20)
[2018-12-14] MEDS: ONDANSETRON HCL INJ/PF 4 MG/2 ML SDV IV PRN (03:28)
[2018-12-14] MEDS: LEVOTHYROXINE SODIUM 0.025 MG TABLET PO SCH (05:09)
[2018-12-14] MEDS: LEVOTHYROXINE SODIUM 0.112 MG TABLET PO SCH (05:09)
[2018-12-14] MEDS ORDERED: (PENDING PHARMACY ID) (Levothyroxine Sodium [Levothyroxine Sodium] 137 MCG) PO SCH (06:00)
[2018-12-14 06:40] LABS: ABSOLUTE EOSINOPHILS # (AUTO) 0.1 10^3/uL (0.0-0.6); ABSOLUTE LYMPHOCYTES (AUTO) 0.9 10^3/uL (0.5-4.7); ABSOLUTE MONOCYTES (AUTO) 0.3 10^3/uL (0.1-1.4); ABSOLUTE NEUT (AUTO) 2.2 10^3/uL (1.7-8.2); BASOPHILS % (AUTO) 0.6 % (0-2); EOSINOPHILS % (AUTO) 2.5 % (0-6); HEMATOCRIT 27.6 % (36.0-47.0); HEMOGLOBIN 9.8 g/dL (12.0-15.5); LYMPHOCYTES % (AUTO) 24.9 % (13-45); MEAN CORPUSCULAR HEMOGLOBIN 29.3 pg (27.0-33.4); MEAN CORPUSCULAR HGB CONC 35.5 g/dL (32.0-36.0); MEAN CORPUSCULAR VOLUME 83 fl (80-97); MONOCYTES % (AUTO) 9.1 % (3-13); PLATELET COUNT 313 10^3/uL (150-450); RED BLOOD COUNT 3.34 10^6/uL (3.72-5.28); RED CELL DISTRIBUTION WIDTH 15.8 % (11.5-14.0); SEGMENTED NEUTROPHILS % (AUTO) 62.9 % (42-78); TOTAL CELLS COUNTED % (AUTO) 100 %; WHITE BLOOD COUNT 3.4 10^3/uL (4.0-10.5)
[2018-12-14 07:04] LABS: ALANINE AMINOTRANSFERASE 24 U/L (9-52); ALBUMIN 2.8 g/dL (3.5-5.0); ALKALINE PHOSPHATASE 62 U/L (38-126); ANION GAP 8 (5-19); ASPARTATE AMINO TRANSFERASE 34 U/L (14-36); BILIRUBIN,DIRECT 0.3 mg/dL (0.0-0.4); BILIRUBIN,TOTAL 0.4 mg/dL (0.2-1.3); CALCIUM 8.5 mg/dL (8.4-10.2); CARBON DIOXIDE 25 mmol/L (22-30); CHLORIDE 107 mmol/L (98-107); GLUCOSE 73 mg/dL (75-110); POTASSIUM 3.5 mmol/L (3.6-5.0); SODIUM 140.2 mmol/L (137-145); TOTAL PROTEIN 6.3 g/dL (6.3-8.2)
[2018-12-14 07:16] LABS: BLOOD UREA NITROGEN < 2 mg/dL (7-20)
[2018-12-14] MEDS ORDERED: (PENDING PHARMACY ID) (L.Acidoph,Paracasei, B.Lactis [Probiotic] 1 CAP) PO SCH (10:00)
[2018-12-14] MEDS: FOLIC ACID 1 MG TABLET PO SCH (10:26)
[2018-12-14] MEDS: POTASSIUM CHLORIDE 20 MEQ/15 ML UDCUP PO SCH ×2 (10:26→22:39)
[2018-12-14] MEDS: FERROUS SULFATE 325 MG TABLET PO SCH (10:26)
[2018-12-14] MEDS: LACTOBACILLUS ACIDOPHILUS 250 MG TAB PO SCH (10:26)
[2018-12-14] MEDS: FAMOTIDINE 20 MG TABLET PO SCH ×2 (10:26→22:39)
--- NOTE | 2018-12-14 15:44 | PDOC PROGRESS REPORT ---
Subjective Progress Note for:: 12/14/18 Subjective:: 12/12/2018 this 58-year-old female admitted with nausea and vomitings severe diarrhea. Able to tolerate the liquid diets little bit. She is receiving Zofran . No diarrhea anymore. Blood pressure is 126/79. Presently on IV fluids normal saline 125 cc/h. No complaints other than nausea. 12/13/2018-no acute events in the last 24 hours. Patient is afebrile. Patient is complaining of right lower quadrant pain today. On gentle palpation of the right lower quadrant she is complaining of severe pain. I am going to arrange for a CT to rule out appendicitis. 12/14/2018-no acute events in the last 24 hours. Patient is afebrile. Yesterday CT abdomen pelvis was done with IV contrast to rule out appendicitis. And appendicitis is ruled out. Reason For Visit: ANEMIA,NAUSEA,VOMITING,DIARRHEA,URINARY TRACT INFE Physical Exam Vital Signs: Temp Pulse Resp BP Pulse Ox 98.1 F 85 16 136/74 H 100 12/14/18 11:33 12/14/18 11:33 12/14/18 11:33 12/14/18 11:33 12/14/18 11:33 Intake & Output 12/13/18 12/14/18 12/15/18 06:59 06:59 06:59 Intake Total 2141 1458 903 Balance 2141 1458 903 Weight 78.4 kg 78.4 kg General appearance: PRESENT: no acute distress Head exam: PRESENT: atraumatic Eye exam: PRESENT: PERRLA Mouth exam: PRESENT: dry mucosa Neck exam: ABSENT: carotid bruit, JVD, lymphadenopathy, thyromegaly Respiratory exam: PRESENT: clear to auscultation benjamin. ABSENT: rales, rhonchi, wheezes Cardiovascular exam: PRESENT: RRR. ABSENT: diastolic murmur, rubs, systolic murmur GI/Abdominal exam: PRESENT: normal bowel sounds, soft. ABSENT: distended, guarding, mass, organolmegaly, rebound, tenderness Extremities exam: PRESENT: full ROM. ABSENT: calf tenderness, clubbing, pedal edema Neurological exam: PRESENT: alert, awake, oriented to person, oriented to place, oriented to time, oriented to situation, CN II-XII grossly intact. ABSENT: motor sensory deficit Psychiatric exam: PRESENT: appropriate affect, normal mood. ABSENT: homicidal ideation, suicidal ideation Results Laboratory Results: 12/14/18 05:45 12/14/18 05:45 12/14/18 12/14/18 05:45 05:45 WBC 3.4 L RBC 3.34 L Hgb 9.8 L Hct 27.6 L MCV 83 MCH 29.3 MCHC 35.5 RDW 15.8 H Plt Count 313 Seg Neutrophils % 62.9 Lymphocytes % 24.9 Monocytes % 9.1 Eosinophils % 2.5 Basophils % 0.6 Absolute Neutrophils 2.2 Absolute Lymphocytes 0.9 Absolute Monocytes 0.3 Absolute Eosinophils 0.1 Absolute Basophils 0.0 Sodium 140.2 Potassium 3.5 L Chloride 107 Carbon Dioxide 25 Anion Gap 8 BUN < 2 L Creatinine 0.44 L Est GFR ( Amer) > 60 Est GFR (Non-Af Amer) > 60 Glucose 73 L Calcium 8.5 Magnesium 1.8 Total Bilirubin 0.4 AST 34 ALT 24 Alkaline Phosphatase 62 Total Protein 6.3 Albumin 2.8 L 12/09/18 00:13 Blood Blood Culture - Final NO GROWTH IN 5 DAYS 12/08/18 21:25 Blood Blood Culture - Final NO GROWTH IN 5 DAYS 12/10/18 16:57 Troponin I < 0.012 Impressions: Abdomen/Pelvis CT 12/13/18 00:00 IMPRESSION: There appears to be diffuse, uniform thickening of the wall of the stomach. This may suggest gastritis. Lymphoma cannot be excluded. Neoplasm cannot entirely be excluded. There are no findings relating to the right lower quadrant. Assessment & Plan - Diagnosis (1) Anemia Qualifiers: Anemia type: unspecified type Qualified Code(s): D64.9 - Anemia, unspecified Is this a current diagnosis for this admission?: Yes Plan: Secondary to acute blood loss, gastritis, probably NSAID induced. She received 2 units of packed red blood cells. Her melena has slowed considerably. Her hemoglobin is stable. Will recheck again in the morning. 12/12/2018-latest hemoglobin is 8.4. She was admitted with anemia most likely secondary to acute blood loss secondary to an NSAID use. She received a total of 2 units of PRBC. Plan is to recheck the CBC tomorrow. 12/13/2018-patient hemoglobin today is 8.4. Stable. Patient was admitted with blood loss anemia most likely secondary to NSAID use. During the hospital stay received 2 units of blood transfusion. Now the hemoglobin is stable. 12/14/2018-patient hemoglobin is 9.8. Improved from 8.4 yesterday. Chronic anemia most likely secondary to NSAID use. It is post EGD was done. Found to have active bleeding from the gastric antrum. Status post ablation of the bleeding sites. (2) Gastritis Qualifiers: Chronicity: unspecified Gastritis bleeding: with bleeding Is this a current diagnosis for this admission?: Yes Plan: Patient tells me today that she started taking naproxen just over a year ago and takes it almost every day. This is most likely because of her gastritis. She has been instructed to not use NSAIDs anymore and she will need close follow-up as an outpatient. She will need to follow-up with GI probably for repeat endoscopy. She will also need close primary care follow-up. We are treating her with antibiotics the possibility of H. pylori and PPI. Symptomatically improving. 12/12/2018-patient is taking naproxen for almost a year may be causing severe gastritis with acute blood loss anemia. She was strongly advised to not to take NSAIDs anymore. She was advised to follow-up with GI for possible endoscopy. She is denies any heartburn or epigastric pain. Presently she is on amoxicillin levofloxacin dose will be discontinued. 12/13/2018-patient was admitted with gastritis most likely secondary to naproxen use. No complaints of nausea no heartburn today. Patient is on GI prophylaxis with famotidine 20 mg p.o. twice a day. 12/14/2018-patient was admitted with anemia stool was positive for melena status post EGD found to have a hemorrhagic gastritis. Status post epinephrine injection into the gastric antrum for hemostasis. HemoGlobin today 9.4 stable (3) Vomiting and diarrhea Is this a current diagnosis for this admission?: Yes Plan: 12/12/2018-patient complains of nausea no more vomiting's no diarrhea. Last bowel movements was 4 days ago. Offered her MiraLAX but she said she is not taking food except for the liquid diet she wants to wait . 12/13/2018 patient was admitted with nausea and vomitings. Still complaining of mild nausea getting Zofran on a as needed basis. No more loose stools. Actually she did not have a bowel movement for the last 5 days. 12/14/2018-patient was admitted with severe nausea and vomitings still mildly nauseated on Zofran no vomiting's anymore. Able to tolerate the feeds. (4) Nausea Is this a current diagnosis for this admission?: Yes Plan: 12/12/2018-patient is complaining of nausea with liquid diet. She is taking Zofran on as needed basis. As per the patient her appetite is gradually improving. 12/13/2018 patient is complaining of mild nausea today able to tolerate the oral diet. Taking Zofran on a as needed basis. Plan is to continue the present management. (5) Abdominal pain Is this a current diagnosis for this admission?: Yes Plan: 12/13/2018-patient is complaining of right lower quadrant abdominal pain today. Plan is to do the CT abdomen pelvis without contrast to rule out appendicitis. 12/14/2018-patient complained of right lower quadrant pain yesterday and CT abdomen was negative for appendicitis. - Time Time Spent with patient: 15-24 minutes Anticipated discharge: Home
[2018-12-14] MEDS: ACETAMINOPHEN 325 MG TABLET PO PRN (20:41)
[2018-12-15 06:20] LABS: ABSOLUTE EOSINOPHILS # (AUTO) 0.1 10^3/uL (0.0-0.6); ABSOLUTE LYMPHOCYTES (AUTO) 0.8 10^3/uL (0.5-4.7); ABSOLUTE MONOCYTES (AUTO) 0.3 10^3/uL (0.1-1.4); ABSOLUTE NEUT (AUTO) 1.4 10^3/uL (1.7-8.2); BASOPHILS % (AUTO) 0.9 % (0-2); EOSINOPHILS % (AUTO) 3.2 % (0-6); HEMATOCRIT 24.8 % (36.0-47.0); HEMOGLOBIN 8.7 g/dL (12.0-15.5); LYMPHOCYTES % (AUTO) 31.3 % (13-45); MEAN CORPUSCULAR HEMOGLOBIN 29.4 pg (27.0-33.4); MEAN CORPUSCULAR HGB CONC 35.1 g/dL (32.0-36.0); MEAN CORPUSCULAR VOLUME 84 fl (80-97); MONOCYTES % (AUTO) 11.1 % (3-13); PLATELET COUNT 277 10^3/uL (150-450); RED BLOOD COUNT 2.96 10^6/uL (3.72-5.28); RED CELL DISTRIBUTION WIDTH 16.1 % (11.5-14.0); SEGMENTED NEUTROPHILS % (AUTO) 53.5 % (42-78); TOTAL CELLS COUNTED % (AUTO) 100 %; WHITE BLOOD COUNT 2.7 10^3/uL (4.0-10.5)
[2018-12-15] MEDS: LEVOTHYROXINE SODIUM 0.112 MG TABLET PO SCH (06:28)
[2018-12-15] MEDS: ACETAMINOPHEN 325 MG TABLET PO PRN (06:28)
[2018-12-15] MEDS: LEVOTHYROXINE SODIUM 0.025 MG TABLET PO SCH (06:29)
[2018-12-15 06:43] LABS: ALANINE AMINOTRANSFERASE 27 U/L (9-52); ALBUMIN 2.5 g/dL (3.5-5.0); ALKALINE PHOSPHATASE 57 U/L (38-126); ANION GAP 7 (5-19); ASPARTATE AMINO TRANSFERASE 28 U/L (14-36); BILIRUBIN,DIRECT 0.2 mg/dL (0.0-0.4); BILIRUBIN,TOTAL 0.3 mg/dL (0.2-1.3); BLOOD UREA NITROGEN 2 mg/dL (7-20); CALCIUM 8.4 mg/dL (8.4-10.2); CARBON DIOXIDE 26 mmol/L (22-30); CHLORIDE 108 mmol/L (98-107); GLUCOSE 73 mg/dL (75-110); POTASSIUM 3.6 mmol/L (3.6-5.0); SODIUM 140.8 mmol/L (137-145); TOTAL PROTEIN 5.7 g/dL (6.3-8.2)
[2018-12-15] MEDS ORDERED: FERRIC CARBOXYMALTOSE INJ 750 MG/15 ML VIAL IV SCH (08:00)
[2018-12-15] MEDS: FAMOTIDINE 20 MG TABLET PO SCH ×2 (09:54→21:37)
[2018-12-15] MEDS: LACTOBACILLUS ACIDOPHILUS 250 MG TAB PO SCH (09:54)
[2018-12-15] MEDS: POTASSIUM CHLORIDE 20 MEQ/15 ML UDCUP PO SCH (09:54)
[2018-12-15] MEDS: FOLIC ACID 1 MG TABLET PO SCH (09:54)
[2018-12-15] MEDS ORDERED: FERRIC CARBOXYMALTOSE 750 MG in NORMAL SALINE 250 ML IV ONE (10:00)
[2018-12-15] MEDS ORDERED: IRON DEXTRAN COMPLEX 25 MG in NORMAL SALINE 100 ML IV ONE (10:00)
[2018-12-15] MEDS ORDERED: IRON DEXTRAN COMPLEX 775 MG in NORMAL SALINE 500 ML IV ONE (10:30)
--- NOTE | 2018-12-15 11:15 | PDOC CONSULTATION ---
Consultation Consult Date: 12/15/18 Consult reason:: Hematology/Oncology consult was requested for patient with anemia secondary to GI bleed, as well as weight loss. History of Present Illness Admission Date/PCP: 12/08/18 18:[facility] History of Present Illness: ARGELIA JEAN is a 58 year old female who states that since her Hernia surgery on 2017, she has continued to have increased difficulty eating and weight loss. Her appetite has continued to decline, but she did not have any medical insurance, so did not seek medical care. She stopped taking her thyroid medication and continued naprosyn PRN for arthritis, but could not afford the omeprazole with this. She had increased lightheadedness, nausea, weakness and finally presented to the ED. She was diagnosed with UTI and dehydration and sent home, but then developed coffee ground emesis and black, tarry stools. She was then admitted and found to have an upper GI bleed. She was transfused 2 units pRBCs and is now back on her synthroid and PPI. EGD was performed and showed severe gastritis and Bleeding ulcers. These areas were cauterized. She continues to have abdominal pain and CT scan Abd/Pelvis only showed thickened gastric wall. Past Medical History Cardiac Medical History: Reports: Hypertension Pulmonary Medical History: Denies: Tuberculosis Neurological Medical History: Denies: Seizures Endocrine Medical History: Reports: Hypothyroidism Musculoskeltal Medical History: Reports: Arthritis - rheumatoid Psychiatric Medical History: Reports: Depression, General Anxiety Disorder, Post Traumatic Stress Disorder Past Surgical History Past Surgical History: Reports: Cardiac Catheterization - ' neg, Cholecystectomy, Hysterectomy, Tubal Ligation, Other - Hernia surgery x 3 Social History Information Source: Patient Occupation: Massage therapist, currently unemployed Lives with: Family Smoking Status: Former Smoker - Quit in 1990 Frequency of Alcohol Use: Rare Hx Recreational Drug Use: No Hx Prescription Drug Abuse: No Past Social History Note: Lives with daughter. Family History Family History: Reviewed & Not Pertinent Parental Family History Reviewed: Yes - Father unknown (sperm donor) Mother with CAD, sleep apnea. MGM CAD CVA Children Family History Reviewed: Yes Sibling(s) Family History Reviewed.: NA Medication/Allergy Home Medications: Cephalexin Monohydrate [Keflex 500 mg Capsule] 500 mg PO BID 12/08/18 L.acidoph,Paracasei, B.lactis [Probiotic] 1 cap PO DAILY 12/08/18 Levothyroxine Sodium 137 mcg PO Q6AM 12/08/18 Omeprazole 20 mg PO QHS 12/08/18 Allergies/Adverse Reactions: codeine [Codeine] Adverse Reaction (Intermediate, Verified 12/08/18 09:17) cetirizine HCl [From Zyrtec] Adverse Reaction (Verified 12/08/18 09:17) Migraine compazine Adverse Reaction (Uncoded 12/09/18 07:11) Review of Systems Constitutional: ABSENT: fever(s), headache(s) Eyes: ABSENT: visual disturbances Ears: ABSENT: hearing changes Nose, Mouth, and Throat: ABSENT: sore throat Cardiovascular: ABSENT: chest pain Respiratory: PRESENT: dyspnea Gastrointestinal: PRESENT: as per HPI Genitourinary: PRESENT: as per HPI Musculoskeletal: ABSENT: back pain Integumentary: ABSENT: rash Neurological: PRESENT: dizziness, vertigo, weakness Psychiatric: PRESENT: anxiety, depression Hematologic/Lymphatic: ABSENT: lymphadenopathy Physical Exam Vital Signs: Temp Pulse Resp BP Pulse Ox 97.8 F 78 15 141/83 H 99 12/15/18 07:44 12/15/18 07:44 12/15/18 07:44 12/15/18 07:44 12/15/18 07:44 Intake & Output 12/14/18 12/15/18 12/16/18 06:59 06:59 06:59 Intake Total 1458 2567 Balance 1458 2567 Weight 78.4 kg 78.4 kg General appearance: PRESENT: well-developed, well-nourished Exam: 58 year old female. Head exam: PRESENT: atraumatic, normocephalic Eye exam: PRESENT: EOMI Ear exam: PRESENT: normal external ear exam Mouth exam: PRESENT: tongue midline Neck exam: ABSENT: lymphadenopathy, tenderness Respiratory exam: PRESENT: clear to auscultation benjamin, unlabored. ABSENT: wheezes Cardiovascular exam: PRESENT: RRR GI/Abdominal exam: PRESENT: soft, tenderness - RUQ only Extremities exam: ABSENT: pedal edema Musculoskeletal exam: PRESENT: normal inspection Neurological exam: PRESENT: alert, awake Psychiatric exam: PRESENT: appropriate affect Skin exam: PRESENT: normal color Results Laboratory Results: 12/15/18 05:42 12/15/18 05:42 12/15/18 12/15/18 05:42 05:42 WBC 2.7 L RBC 2.96 L Hgb 8.7 L Hct 24.8 L MCV 84 MCH 29.4 MCHC 35.1 RDW 16.1 H Plt Count 277 Seg Neutrophils % 53.5 Lymphocytes % 31.3 Monocytes % 11.1 Eosinophils % 3.2 Basophils % 0.9 Absolute Neutrophils 1.4 L Absolute Lymphocytes 0.8 Absolute Monocytes 0.3 Absolute Eosinophils 0.1 Absolute Basophils 0.0 Sodium 140.8 Potassium 3.6 Chloride 108 H Carbon Dioxide 26 Anion Gap 7 BUN 2 L Creatinine 0.43 L Est GFR ( Amer) > 60 Est GFR (Non-Af Amer) > 60 Glucose 73 L Calcium 8.4 Magnesium 1.8 Total Bilirubin 0.3 AST 28 ALT 27 Alkaline Phosphatase 57 Total Protein 5.7 L Albumin 2.5 L 12/10/18 16:57 Troponin I < 0.012 Impressions: Abdomen/Pelvis CT 12/13/18 00:00 IMPRESSION: There appears to be diffuse, uniform thickening of the wall of the stomach. This may suggest gastritis. Lymphoma cannot be excluded. Neoplasm cannot entirely be excluded. There are no findings relating to the right lower quadrant. Status: Image reviewed by me Assessment & Plan - Diagnosis (1) Gastritis Qualifiers: Chronicity: unspecified Gastritis bleeding: with bleeding Is this a current diagnosis for this admission?: Yes Plan: Agree with medical management. She is on PPI currently. (2) Iron deficiency anemia due to chronic blood loss Is this a current diagnosis for this admission?: Yes Plan: Although she was transfused 2 units pRBCs and started on oral iron, due to the severe gastritis, oral iron may exacerbate, therefore, I will stop this and give her IV iron x 1 dose. I will need to continue to monitor this and will schedule her follow-up in my office for this. (3) Abdominal pain Qualifiers: Abdominal location: right upper quadrant Qualified Code(s): R10.11 - Right upper quadrant pain Is this a current diagnosis for this admission?: Yes Plan: CT was negative, except for stomach wall. EGD was performed, but I do not see that any biopsies were performed. H. pylori should be tested and treated appropriately. Further biopsies of the stomach should be obtained if she does not respond to medical management. (4) Hypothyroid Qualifiers: Hypothyroidism type: unspecified Qualified Code(s): E03.9 - Hypothyroidism, unspecified Is this a current diagnosis for this admission?: Yes Plan: She is on Synthroid, but her TSH is too low. This should be adjusted and followed. (5) Weight loss Is this a current diagnosis for this admission?: Yes Plan: Although this may be due to the gastritis, occult malignancy is still a con sideration. She states that she had some type of sinus surgery in the past and was told this was cancer, but she never followed-up for this. I will try to obtain these records. - Plan Summary Plan Summary: I discussed her care with Dr. Boyce. I will continue to follow her while in house, as well as outpatient. Please call with any concerns.
[2018-12-15] MEDS: ONDANSETRON HCL INJ/PF 4 MG/2 ML SDV IV PRN (16:52)
[2018-12-15] MEDS: NORMAL SALINE 1000 ML 1,000 ML IV PRN (16:52)
--- NOTE | 2018-12-15 17:21 | PDOC PROGRESS REPORT ---
Subjective Progress Note for:: 12/15/18 Subjective:: 12/12/2018 this 58-year-old female admitted with nausea and vomitings severe diarrhea. Able to tolerate the liquid diets little bit. She is receiving Zofran . No diarrhea anymore. Blood pressure is 126/79. Presently on IV fluids normal saline 125 cc/h. No complaints other than nausea. 12/13/2018-no acute events in the last 24 hours. Patient is afebrile. Patient is complaining of right lower quadrant pain today. On gentle palpation of the right lower quadrant she is complaining of severe pain. I am going to arrange for a CT to rule out appendicitis. 12/14/2018-no acute events in the last 24 hours. Patient is afebrile. Yesterday CT abdomen pelvis was done with IV contrast to rule out appendicitis. And appendicitis is ruled out. 12/15/2018-no acute events in the last 24 hours. Patient is afebrile. AA in the chair talking to the friends. denies any abdominal pains denies any nausea vomiting. Reason For Visit: ANEMIA,NAUSEA,VOMITING,DIARRHEA,URINARY TRACT INFE Physical Exam Vital Signs: Temp Pulse Resp BP Pulse Ox 98.3 F 75 16 121/73 98 12/15/18 15:49 12/15/18 15:49 12/15/18 15:49 12/15/18 15:49 12/15/18 15:49 Intake & Output 12/14/18 12/15/18 12/16/18 06:59 06:59 06:59 Intake Total 1458 3567 615.5 Balance 1458 3567 615.5 Weight 78.4 kg 78.4 kg General appearance: PRESENT: no acute distress Head exam: PRESENT: atraumatic Eye exam: PRESENT: PERRLA Neck exam: ABSENT: carotid bruit, JVD, lymphadenopathy, thyromegaly Respiratory exam: PRESENT: clear to auscultation benjamin. ABSENT: rales, rhonchi, wheezes Cardiovascular exam: PRESENT: RRR. ABSENT: diastolic murmur, rubs, systolic murmur GI/Abdominal exam: PRESENT: normal bowel sounds, soft. ABSENT: distended, guarding, mass, organolmegaly, rebound, tenderness Extremities exam: PRESENT: full ROM. ABSENT: calf tenderness, clubbing, pedal edema Neurological exam: PRESENT: alert, awake, oriented to person, oriented to place, oriented to time, oriented to situation, CN II-XII grossly intact. ABSENT: motor sensory deficit Psychiatric exam: PRESENT: appropriate affect, normal mood. ABSENT: homicidal ideation, suicidal ideation Results Laboratory Results: 12/15/18 05:42 12/15/18 05:42 12/15/18 12/15/18 05:42 05:42 WBC 2.7 L RBC 2.96 L Hgb 8.7 L Hct 24.8 L MCV 84 MCH 29.4 MCHC 35.1 RDW 16.1 H Plt Count 277 Seg Neutrophils % 53.5 Lymphocytes % 31.3 Monocytes % 11.1 Eosinophils % 3.2 Basophils % 0.9 Absolute Neutrophils 1.4 L Absolute Lymphocytes 0.8 Absolute Monocytes 0.3 Absolute Eosinophils 0.1 Absolute Basophils 0.0 Sodium 140.8 Potassium 3.6 Chloride 108 H Carbon Dioxide 26 Anion Gap 7 BUN 2 L Creatinine 0.43 L Est GFR ( Amer) > 60 Est GFR (Non-Af Amer) > 60 Glucose 73 L Calcium 8.4 Magnesium 1.8 Total Bilirubin 0.3 AST 28 ALT 27 Alkaline Phosphatase 57 Total Protein 5.7 L Albumin 2.5 L 12/10/18 16:57 Troponin I < 0.012 Impressions: Abdomen/Pelvis CT 12/13/18 00:00 IMPRESSION: There appears to be diffuse, uniform thickening of the wall of the stomach. This may suggest gastritis. Lymphoma cannot be excluded. Neoplasm cannot entirely be excluded. There are no findings relating to the right lower quadrant. Assessment & Plan - Diagnosis (1) Anemia Qualifiers: Anemia type: unspecified type Qualified Code(s): D64.9 - Anemia, unspecified Is this a current diagnosis for this admission?: Yes Plan: Secondary to acute blood loss, gastritis, probably NSAID induced. She received 2 units of packed red blood cells. Her melena has slowed considerably. Her hemoglobin is stable. Will recheck again in the morning. 12/12/2018-latest hemoglobin is 8.4. She was admitted with anemia most likely secondary to acute blood loss secondary to an NSAID use. She received a total of 2 units of PRBC. Plan is to recheck the CBC tomorrow. 12/13/2018-patient hemoglobin today is 8.4. Stable. Patient was admitted with blood loss anemia most likely secondary to NSAID use. During the hospital stay received 2 units of blood transfusion. Now the hemoglobin is stable. 12/14/2018-patient hemoglobin is 9.8. Improved from 8.4 yesterday. Chronic anemia most likely secondary to NSAID use. It is post EGD was done. Found to have active bleeding from the gastric antrum. Status post ablation of the bleeding sites. 12/15/2018- hemoglobin is 8.7. She received multiple blood transfusions during the hospital stay. Status post EGD and ablation of the bleeding sites in the gastric antrum. Upper GI bleed most likely secondary to NSAID use. Patient was strongly encouraged not to take the naproxen or ibuprofen. Plan is to repeat the CBC tomorrow. As per Dr. Hartmann's recommendations patient is receiving IV iron. (2) Gastritis Qualifiers: Chronicity: unspecified Gastritis bleeding: with bleeding Is this a current diagnosis for this admission?: Yes Plan: Patient tells me today that she started taking naproxen just over a year ago and takes it almost every day. This is most likely because of her gastritis. She has been instructed to not use NSAIDs anymore and she will need close follow-up as an outpatient. She will need to follow-up with GI probably for repeat endoscopy. She will also need close primary care follow-up. We are treating her with antibiotics the possibility of H. pylori and PPI. Symptomatically improving. 12/12/2018-patient is taking naproxen for almost a year may be causing severe gastritis with acute blood loss anemia. She was strongly advised to not to take NSAIDs anymore. She was advised to follow-up with GI for possible endoscopy. She is denies any heartburn or epigastric pain. Presently she is on amoxicillin levofloxacin dose will be discontinued. 12/13/2018-patient was admitted with gastritis most likely secondary to naproxen use. No complaints of nausea no heartburn today. Patient is on GI prophylaxis with famotidine 20 mg p.o. twice a day. 12/14/2018-patient was admitted with anemia stool was positive for melena status post EGD found to have a hemorrhagic gastritis. Status post epinephrine injection into the gastric antrum for hemostasis. HemoGlobin today 9.4 stable 12/15/2018 patient has a status post EGD found to have hemorrhagic gastritis most likely secondary to NSAID use. 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 Blood sample was sent to H. pylori. consultation with Dr. Hartmann was requested. (3) Vomiting and diarrhea Is this a current diagnosis for this admission?: Yes Plan: 12/12/2018-patient complains of nausea no more vomiting's no diarrhea. Last bowel movements was 4 days ago. Offered her MiraLAX but she said she is not taking food except for the liquid diet she wants to wait . 12/13/2018 patient was admitted with nausea and vomitings. Still complaining of mild nausea getting Zofran on a as needed basis. No more loose stools. Actually she did not have a bowel movement for the last 5 days. 12/14/2018-patient was admitted with severe nausea and vomitings still mildly nauseated on Zofran no vomiting's anymore. Able to tolerate the feeds. 12/15/2018-nausea vomiting's are resolved patient is requesting regular diet. (4) Nausea Is this a current diagnosis for this admission?: Yes Plan: 12/12/2018-patient is complaining of nausea with liquid diet. She is taking Zofran on as needed basis. As per the patient her appetite is gradually improving. 12/13/2018 patient is complaining of mild nausea today able to tolerate the oral diet. Taking Zofran on a as needed basis. Plan is to continue the present management. 12/15/2018-patient denies any nausea today she wants to eat a regular diet from today. (5) Abdominal pain Qualifiers: Abdominal location: right upper quadrant Qualified Code(s): R10.11 - Right upper quadrant pain Is this a current diagnosis for this admission?: Yes Plan: 12/13/2018-patient is complaining of right lower quadrant abdominal pain today. Plan is to do the CT abdomen pelvis without contrast to rule out appendicitis. 12/14/2018-patient complained of right lower quadrant pain yesterday and CT abdomen was negative for appendicitis. 12/15/2018 patient is complaining of soreness in the stomach no abdominal pains today. CT abdomen pelvis was done to rule out appendicitis which was negative. - Time Time Spent with patient: 15-24 minutes Medications reviewed and adjusted accordingly: Yes Anticipated discharge: Home
[2018-12-15] MEDS: POTASSIUM CHLORIDE 10 MEQ CAPSULE.ER PO SCH (21:38)
[2018-12-16] MEDS: LEVOTHYROXINE SODIUM 0.025 MG TABLET PO SCH (06:24)
[2018-12-16] MEDS: LEVOTHYROXINE SODIUM 0.112 MG TABLET PO SCH (06:24)
[2018-12-16] MEDS ORDERED: LANSOPRAZOLE 30 MG TAB.RAP.DR PO ONE (07:00)
[2018-12-16 07:39] LABS: ABSOLUTE EOSINOPHILS # (AUTO) 0.1 10^3/uL (0.0-0.6); ABSOLUTE LYMPHOCYTES (AUTO) 0.9 10^3/uL (0.5-4.7); ABSOLUTE MONOCYTES (AUTO) 0.3 10^3/uL (0.1-1.4); ABSOLUTE NEUT (AUTO) 1.8 10^3/uL (1.7-8.2); BASOPHILS % (AUTO) 0.9 % (0-2); EOSINOPHILS % (AUTO) 2.2 % (0-6); HEMOGLOBIN 9.4 g/dL (12.0-15.5); LYMPHOCYTES % (AUTO) 29.4 % (13-45); MEAN CORPUSCULAR HGB CONC 34.7 g/dL (32.0-36.0); MEAN CORPUSCULAR VOLUME 84 fl (80-97); MONOCYTES % (AUTO) 9.4 % (3-13); PLATELET COUNT 331 10^3/uL (150-450); RED BLOOD COUNT 3.22 10^6/uL (3.72-5.28); RED CELL DISTRIBUTION WIDTH 15.9 % (11.5-14.0); SEGMENTED NEUTROPHILS % (AUTO) 58.1 % (42-78); TOTAL CELLS COUNTED % (AUTO) 100 %
[2018-12-16 07:58] LABS: ALANINE AMINOTRANSFERASE 13 U/L (9-52); ALBUMIN 2.6 g/dL (3.5-5.0); ALKALINE PHOSPHATASE 66 U/L (38-126); ANION GAP 9 (5-19); ASPARTATE AMINO TRANSFERASE 27 U/L (14-36); BILIRUBIN,DIRECT 0.2 mg/dL (0.0-0.4); BILIRUBIN,TOTAL 0.6 mg/dL (0.2-1.3); BLOOD UREA NITROGEN 2 mg/dL (7-20); CALCIUM 8.7 mg/dL (8.4-10.2); CARBON DIOXIDE 24 mmol/L (22-30); CHLORIDE 107 mmol/L (98-107); POTASSIUM 3.9 mmol/L (3.6-5.0); SODIUM 139.6 mmol/L (137-145)
[2018-12-16 08:01] LABS: GLUCOSE 68 mg/dL (75-110)
[2018-12-16] MEDS ORDERED: DEXTROSE 40% GEL 15 GM TUBE PO PRN (08:44)
--- NOTE | 2018-12-16 08:54 | PDOC PROGRESS REPORT ---
Subjective Progress Note for:: 12/16/18 Subjective:: Patient states she had nausea after IV iron last night. This morning awaiting breakfast. No other new complaints. Nurses report low blood sugar this morning. Reason For Visit: ANEMIA,NAUSEA,VOMITING,DIARRHEA,URINARY TRACT INFE Physical Exam Vital Signs: Temp Pulse Resp BP Pulse Ox 98.1 F 82 16 137/80 H 98 12/16/18 07:42 12/16/18 07:42 12/16/18 07:42 12/16/18 07:42 12/16/18 07:42 Intake & Output 12/15/18 12/16/18 12/17/18 06:59 06:59 06:59 Intake Total 3567 2138.5 Balance 3567 2138.5 Weight 78.4 kg 78.4 kg General appearance: PRESENT: well-developed, well-nourished Respiratory exam: PRESENT: unlabored Extremities exam: ABSENT: pedal edema Neurological exam: PRESENT: alert, awake Psychiatric exam: PRESENT: appropriate affect Skin exam: PRESENT: normal color Results Laboratory Results: 12/16/18 06:22 12/16/18 06:22 12/16/18 12/16/18 12/16/18 06:22 06:22 06:22 WBC 3.0 L RBC 3.22 L Hgb 9.4 L Hct 27.0 L MCV 84 MCH 29.0 MCHC 34.7 RDW 15.9 H Plt Count 331 Seg Neutrophils % 58.1 Lymphocytes % 29.4 Monocytes % 9.4 Eosinophils % 2.2 Basophils % 0.9 Absolute Neutrophils 1.8 Absolute Lymphocytes 0.9 Absolute Monocytes 0.3 Absolute Eosinophils 0.1 Absolute Basophils 0.0 Sodium 139.6 Potassium 3.9 Chloride 107 Carbon Dioxide 24 Anion Gap 9 BUN 2 L Creatinine 0.46 L Est GFR ( Amer) > 60 Est GFR (Non-Af Amer) > 60 Glucose 68 L Calcium 8.7 Magnesium 1.8 Total Bilirubin 0.6 AST 27 ALT 13 Alkaline Phosphatase 66 Total Protein 6.0 L Albumin 2.6 L TSH 0.56 12/10/18 16:57 Troponin I < 0.012 Impressions: Abdomen/Pelvis CT 12/13/18 00:00 IMPRESSION: There appears to be diffuse, uniform thickening of the wall of the stomach. This may suggest gastritis. Lymphoma cannot be excluded. Neoplasm cannot entirely be excluded. There are no findings relating to the right lower quadrant. Assessment & Plan - Diagnosis (1) Gastritis Qualifiers: Chronicity: unspecified Gastritis bleeding: with bleeding Is this a current diagnosis for this admission?: Yes Plan: Prevacid was started. However, on discharge, patient will most likely need to continue omeprazole 40 mg PO BID. She is trying to arrange for medications through pharmacy support process, due to lack of funding. H.pylori testing is pending. I have explained that I would like for her to undergo repeat EGD with biopsies about 6 weeks from now, after conservative treatment. (2) Iron deficiency anemia due to chronic blood loss Is this a current diagnosis for this admission?: Yes Plan: She received IV iron. I will repeat CBC, Ferritin in about 6 weeks as out patient. (3) Abdominal pain Qualifiers: Abdominal location: right upper quadrant Qualified Code(s): R10.11 - Right upper quadrant pain Is this a current diagnosis for this admission?: Yes (4) Hypothyroid Qualifiers: Hypothyroidism type: unspecified Qualified Code(s): E03.9 - Hypothyroidism, unspecified Is this a current diagnosis for this admission?: Yes Plan: Will repeat TSH level and monitor dose of Synthroid. (5) Weight loss Is this a current diagnosis for this admission?: Yes Plan: CT A/P did not show any masses or underlying cause for the weight loss except the gastritis. I have strongly encouraged her to continue to try to eat as much as possible. Consider nutritional supplements as well. Would delay discharge until she is able to eat regular meals without difficulty. She may need nutrition consult for this.
[2018-12-16] MEDS: POTASSIUM CHLORIDE 10 MEQ CAPSULE.ER PO SCH ×2 (09:57→21:33)
[2018-12-16] MEDS: FOLIC ACID 1 MG TABLET PO SCH (09:58)
[2018-12-16] MEDS: FAMOTIDINE 20 MG TABLET PO SCH ×2 (09:58→21:33)
[2018-12-16] MEDS: LACTOBACILLUS ACIDOPHILUS 250 MG TAB PO SCH (09:58)
--- NOTE | 2018-12-16 13:35 | PDOC PROGRESS REPORT ---
Subjective Progress Note for:: 12/16/18 Subjective:: 12/12/2018 this 58-year-old female admitted with nausea and vomitings severe diarrhea. Able to tolerate the liquid diets little bit. She is receiving Zofran . No diarrhea anymore. Blood pressure is 126/79. Presently on IV fluids normal saline 125 cc/h. No complaints other than nausea. 12/13/2018-no acute events in the last 24 hours. Patient is afebrile. Patient is complaining of right lower quadrant pain today. On gentle palpation of the right lower quadrant she is complaining of severe pain. I am going to arrange for a CT to rule out appendicitis. 12/14/2018-no acute events in the last 24 hours. Patient is afebrile. Yesterday CT abdomen pelvis was done with IV contrast to rule out appendicitis. And appendicitis is ruled out. 12/15/2018-no acute events in the last 24 hours. Patient is afebrile. pt in the chair talking to the friends. denies any abdominal pains denies any nausea vomiting. 12/16/2018-no acute events in the last 24 hours. Patient is afebrile. Patient is still complaining of nausea. Denies any abdominal pains. Reason For Visit: ANEMIA,NAUSEA,VOMITING,DIARRHEA,URINARY TRACT INFE Physical Exam Vital Signs: Temp Pulse Resp BP Pulse Ox 98.6 F 86 16 98/69 L 100 12/16/18 11:44 12/16/18 11:44 12/16/18 11:44 12/16/18 11:44 12/16/18 11:44 Intake & Output 12/15/18 12/16/18 12/17/18 06:59 06:59 06:59 Intake Total 3567 2138.5 Balance 3567 2138.5 Weight 78.4 kg 78.4 kg General appearance: PRESENT: no acute distress Head exam: PRESENT: atraumatic Eye exam: PRESENT: PERRLA Mouth exam: PRESENT: moist, tongue midline Neck exam: ABSENT: carotid bruit, JVD, lymphadenopathy, thyromegaly Respiratory exam: PRESENT: clear to auscultation benjamin. ABSENT: rales, rhonchi, wheezes Cardiovascular exam: PRESENT: tachycardia GI/Abdominal exam: PRESENT: normal bowel sounds, soft. ABSENT: distended, g uarding, mass, organolmegaly, rebound, tenderness Extremities exam: PRESENT: full ROM. ABSENT: calf tenderness, clubbing, pedal edema Neurological exam: PRESENT: alert, awake, oriented to person, oriented to place, oriented to time, oriented to situation, CN II-XII grossly intact. ABSENT: motor sensory deficit Psychiatric exam: PRESENT: appropriate affect, normal mood. ABSENT: homicidal ideation, suicidal ideation Results Laboratory Results: 12/16/18 06:22 12/16/18 06:22 12/16/18 12/16/18 12/16/18 06:22 06:22 06:22 WBC 3.0 L RBC 3.22 L Hgb 9.4 L Hct 27.0 L MCV 84 MCH 29.0 MCHC 34.7 RDW 15.9 H Plt Count 331 Seg Neutrophils % 58.1 Lymphocytes % 29.4 Monocytes % 9.4 Eosinophils % 2.2 Basophils % 0.9 Absolute Neutrophils 1.8 Absolute Lymphocytes 0.9 Absolute Monocytes 0.3 Absolute Eosinophils 0.1 Absolute Basophils 0.0 Sodium 139.6 Potassium 3.9 Chloride 107 Carbon Dioxide 24 Anion Gap 9 BUN 2 L Creatinine 0.46 L Est GFR ( Amer) > 60 Est GFR (Non-Af Amer) > 60 Glucose 68 L Calcium 8.7 Magnesium 1.8 Total Bilirubin 0.6 AST 27 ALT 13 Alkaline Phosphatase 66 Total Protein 6.0 L Albumin 2.6 L TSH 0.56 12/10/18 16:57 Troponin I < 0.012 Impressions: Abdomen/Pelvis CT 12/13/18 00:00 IMPRESSION: There appears to be diffuse, uniform thickening of the wall of the stomach. This may suggest gastritis. Lymphoma cannot be excluded. Neoplasm cannot entirely be excluded. There are no findings relating to the right lower quadrant. Assessment & Plan - Diagnosis (1) Anemia Qualifiers: Anemia type: unspecified type Qualified Code(s): D64.9 - Anemia, unspecified Is this a current diagnosis for this admission?: Yes Plan: Secondary to acute blood loss, gastritis, probably NSAID induced. She received 2 units of packed red blood cells. Her melena has slowed considerably. Her hemoglobin is stable. Will recheck again in the morning. 12/12/2018-latest hemoglobin is 8.4. She was admitted with anemia most likely secondary to acute blood loss secondary to an NSAID use. She received a total of 2 units of PRBC. Plan is to recheck the CBC tomorrow. 12/13/2018-patient hemoglobin today is 8.4. Stable. Patient was admitted with blood loss anemia most likely secondary to NSAID use. During the hospital stay received 2 units of blood transfusion. Now the hemoglobin is stable. 12/14/2018-patient hemoglobin is 9.8. Improved from 8.4 yesterday. Chronic anemia most likely secondary to NSAID use. It is post EGD was done. Found to have active bleeding from the gastric antrum. Status post ablation of the bleeding sites. 12/15/2018- hemoglobin is 8.7. She received multiple blood transfusions during the hospital stay. Status post EGD and ablation of the bleeding sites in the gastric antrum. Upper GI bleed most likely secondary to NSAID use. Patient was strongly encouraged not to take the naproxen or ibuprofen. Plan is to repeat the CBC tomorrow. As per Dr. Hartmann's recommendations patient is receiving IV iron. 12/16/2018-patient hemoglobin is 9.0 today stable. She received IV iron. Dr. Hartmann wants to see her as an outpatient in 6 weeks to repeat the labs. Patient was admitted with upper GI bleed secondary to NSAID use. EGD done and the bleeding sites are ablated. Unfortunately no samples for H. pylori was sent. (2) Gastritis Qualifiers: Chronicity: unspecified Gastritis bleeding: with bleeding Is this a current diagnosis for this admission?: Yes Plan: Patient tells me today that she started taking naproxen just over a year ago and takes it almost every day. This is most likely because of her gastritis. She has been instructed to not use NSAIDs anymore and she will need close follow-up as an outpatient. She will need to follow-up with GI probably for repeat endos copy. She will also need close primary care follow-up. We are treating her with antibiotics the possibility of H. pylori and PPI. Symptomatically improving. 12/12/2018-patient is taking naproxen for almost a year may be causing severe gastritis with acute blood loss anemia. She was strongly advised to not to take NSAIDs anymore. She was advised to follow-up with GI for possible endoscopy. S he is denies any heartburn or epigastric pain. Presently she is on amoxicillin levofloxacin dose will be discontinued. 12/13/2018-patient was admitted with gastritis most likely secondary to naproxen use. No complaints of nausea no heartburn today. Patient is on GI prophylaxis with famotidine 20 mg p.o. twice a day. 12/14/2018-patient was admitted with anemia stool was positive for melena status post EGD found to have a hemorrhagic gastritis. Status post epinephrine injection into the gastric antrum for hemostasis. HemoGlobin today 9.4 stable 12/15/2018 patient has a status post EGD found to have hemorrhagic gastritis most likely secondary to NSAID use. 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 Blood sample was sent to H. pylori. consultation with Dr. Hartmann was requested. 12/16/2018-patient was admitted with a GI bleed status post EGD and ablation of the bleeding sites in the gastric antrum. Hemoglobin is stable. GI loss most likely secondary to NSAID use. Serum for H. pylori is pending. (3) Vomiting and diarrhea Is this a current diagnosis for this admission?: Yes Plan: 12/12/2018-patient complains of nausea no more vomiting's no diarrhea. Last bowel movements was 4 days ago. Offered her MiraLAX but she said she is not taking food except for the liquid diet she wants to wait . 12/13/2018 patient was admitted with nausea and vomitings. Still complaining of mild nausea getting Zofran on a as needed basis. No more loose stools. A ctually she did not have a bowel movement for the last 5 days. 12/14/2018-patient was admitted with severe nausea and vomitings still mildly nauseated on Zofran no vomiting's anymore. Able to tolerate the feeds. 12/15/2018-nausea vomiting's are resolved patient is requesting regular diet. 12/16/2018-patient was admitted with nausea and vomitings diarrhea vomiting and diarrhea resolved nausea still persisting. (4) Nausea Is this a current diagnosis for this admission?: Yes Plan: 12/12/2018-patient is complaining of nausea with liquid diet. She is taking Zofran on as needed basis. As per the patient her appetite is gradually improving. 12/13/2018 patient is complaining of mild nausea today able to tolerate the oral diet. Taking Zofran on a as needed basis. Plan is to continue the present management. 12/15/2018-patient denies any nausea today she wants to eat a regular diet from today. 12/14/2018 patient is complaining of persistent nausea most likely secondary to gastritis. She is getting a Prevacid. (5) Abdominal pain Qualifiers: Abdominal location: right upper quadrant Qualified Code(s): R10.11 - Right upper quadrant pain Is this a current diagnosis for this admission?: Yes Plan: 12/13/2018-patient is complaining of right lower quadrant abdominal pain today. Plan is to do the CT abdomen pelvis without contrast to rule out appendicitis. 12/14/2018-patient complained of right lower quadrant pain yesterday and CT abdomen was negative for appendicitis. 12/15/2018 patient is complaining of soreness in the stomach no abdominal pains today. CT abdomen pelvis was done to rule out appendicitis which was negative. 12/16/2018-patient denies any abdominal pains today. - Time Time Spent with patient: 15-24 minutes Medications reviewed and adjusted accordingly: Yes Anticipated discharge: Home
[2018-12-16] MEDS: ACETAMINOPHEN 325 MG TABLET PO PRN (15:12)
[2018-12-16] MEDS: ONDANSETRON HCL INJ/PF 4 MG/2 ML SDV IV PRN (15:12)
[2018-12-17] MEDS: ONDANSETRON HCL INJ/PF 4 MG/2 ML SDV IV PRN (01:32)
[2018-12-17] MEDS: LEVOTHYROXINE SODIUM 0.112 MG TABLET PO SCH (06:00)
[2018-12-17] MEDS: LEVOTHYROXINE SODIUM 0.025 MG TABLET PO SCH (06:00)
[2018-12-17] MEDS: LANSOPRAZOLE 30 MG TAB.RAP.DR PO SCH (06:00)
[2018-12-17 06:14] LABS: ABSOLUTE EOSINOPHILS # (AUTO) 0.1 10^3/uL (0.0-0.6); ABSOLUTE LYMPHOCYTES (AUTO) 0.7 10^3/uL (0.5-4.7); ABSOLUTE MONOCYTES (AUTO) 0.3 10^3/uL (0.1-1.4); ABSOLUTE NEUT (AUTO) 1.7 10^3/uL (1.7-8.2); BASOPHILS % (AUTO) 0.9 % (0-2); EOSINOPHILS % (AUTO) 2.1 % (0-6); HEMATOCRIT 27.6 % (36.0-47.0); HEMOGLOBIN 9.6 g/dL (12.0-15.5); LYMPHOCYTES % (AUTO) 25.1 % (13-45); MEAN CORPUSCULAR HEMOGLOBIN 28.9 pg (27.0-33.4); MEAN CORPUSCULAR HGB CONC 34.9 g/dL (32.0-36.0); MEAN CORPUSCULAR VOLUME 83 fl (80-97); MONOCYTES % (AUTO) 10.7 % (3-13); PLATELET COUNT 313 10^3/uL (150-450); RED BLOOD COUNT 3.33 10^6/uL (3.72-5.28); RED CELL DISTRIBUTION WIDTH 15.9 % (11.5-14.0); SEGMENTED NEUTROPHILS % (AUTO) 61.2 % (42-78); TOTAL CELLS COUNTED % (AUTO) 100 %; WHITE BLOOD COUNT 2.8 10^3/uL (4.0-10.5)
[2018-12-17 06:30] LABS: ALANINE AMINOTRANSFERASE 23 U/L (9-52); ALBUMIN 2.6 g/dL (3.5-5.0); ALKALINE PHOSPHATASE 61 U/L (38-126); ANION GAP 6 (5-19); ASPARTATE AMINO TRANSFERASE 22 U/L (14-36); BILIRUBIN,DIRECT 0.2 mg/dL (0.0-0.4); BILIRUBIN,TOTAL 0.4 mg/dL (0.2-1.3); BLOOD UREA NITROGEN 5 mg/dL (7-20); CALCIUM 8.7 mg/dL (8.4-10.2); CARBON DIOXIDE 26 mmol/L (22-30); CHLORIDE 107 mmol/L (98-107); GLUCOSE 83 mg/dL (75-110); POTASSIUM 4.2 mmol/L (3.6-5.0); SODIUM 138.8 mmol/L (137-145)
[2018-12-17] MEDS: FAMOTIDINE 20 MG TABLET PO SCH ×2 (10:57→21:11)
[2018-12-17] MEDS: FOLIC ACID 1 MG TABLET PO SCH (10:57)
[2018-12-17] MEDS: LACTOBACILLUS ACIDOPHILUS 250 MG TAB PO SCH (10:57)
[2018-12-17] MEDS: POTASSIUM CHLORIDE 10 MEQ CAPSULE.ER PO SCH ×2 (10:57→21:11)
[2018-12-17] MEDS ORDERED: MAG HYDROX/AL HYDROX/SIMETH SUSP 30 ML UDCUP PO ONE (11:32)
--- NOTE | 2018-12-17 11:37 | PDOC PROGRESS REPORT ---
Subjective Progress Note for:: 12/17/18 Subjective:: 12/12/2018 this 58-year-old female admitted with nausea and vomitings severe diarrhea. Able to tolerate the liquid diets little bit. She is receiving Zofran . No diarrhea anymore. Blood pressure is 126/79. Presently on IV fluids normal saline 125 cc/h. No complaints other than nausea. 12/13/2018-no acute events in the last 24 hours. Patient is afebrile. Patient is complaining of right lower quadrant pain today. On gentle palpation of the right lower quadrant she is complaining of severe pain. I am going to arrange for a CT to rule out appendicitis. 12/14/2018-no acute events in the last 24 hours. Patient is afebrile. Yesterday CT abdomen pelvis was done with IV contrast to rule out appendicitis. And appendicitis is ruled out. 12/15/2018-no acute events in the last 24 hours. Patient is afebrile. pt in the chair talking to the friends. denies any abdominal pains denies any nausea vomiting. 12/16/2018-no acute events in the last 24 hours. Patient is afebrile. Patient is still complaining of nausea. Denies any abdominal pains. 12/17/2018-no acute events in the last 24 hours. Patient is afebrile. Patient still complaining of nausea with meals. We are going to give MiraLAX prior to lunch today. Reason For Visit: ANEMIA,NAUSEA,VOMITING,DIARRHEA,URINARY TRACT INFE Physical Exam Vital Signs: Temp Pulse Resp BP Pulse Ox 98.4 F 73 16 130/80 H 99 12/17/18 03:39 12/17/18 07:00 12/17/18 03:39 12/17/18 03:39 12/17/18 03:39 Intake & Output 12/16/18 12/17/18 12/18/18 06:59 06:59 06:59 Intake Total 2138.5 1180 Balance 2138.5 1180 Weight 78.4 kg 78.4 kg General appearance: PRESENT: no acute distress Head exam: PRESENT: atraumatic Eye exam: PRESENT: PERRLA Neck exam: ABSENT: carotid bruit, JVD, lymphadenopathy, thyromegaly Respiratory exam: PRESENT: clear to auscultation benjamin. ABSENT: rales, rhonchi, wheezes Cardiovascular exam: PRESENT: RRR. ABSENT: diastolic murmur, rubs, systolic murmur Pulses: PRESENT: normal dorsalis pedis pul GI/Abdominal exam: PRESENT: normal bowel sounds, soft. ABSENT: distended, guarding, mass, organolmegaly, rebound, tenderness Rectal exam: PRESENT: deferred Extremities exam: PRESENT: full ROM. ABSENT: calf tenderness, clubbing, pedal edema Neurological exam: PRESENT: alert, awake, oriented to person, oriented to place, oriented to time, oriented to situation, CN II-XII grossly intact. ABSENT: motor sensory deficit Psychiatric exam: PRESENT: appropriate affect, normal mood. ABSENT: homicidal ideation, suicidal ideation Results Laboratory Results: 12/17/18 05:53 12/17/18 05:53 12/17/18 12/17/18 05:53 05:53 WBC 2.8 L RBC 3.33 L Hgb 9.6 L Hct 27.6 L MCV 83 MCH 28.9 MCHC 34.9 RDW 15.9 H Plt Count 313 Seg Neutrophils % 61.2 Lymphocytes % 25.1 Monocytes % 10.7 Eosinophils % 2.1 Basophils % 0.9 Absolute Neutrophils 1.7 Absolute Lymphocytes 0.7 Absolute Monocytes 0.3 Absolute Eosinophils 0.1 Absolute Basophils 0.0 Sodium 138.8 Potassium 4.2 Chloride 107 Carbon Dioxide 26 Anion Gap 6 BUN 5 L Creatinine 0.45 L Est GFR ( Amer) > 60 Est GFR (Non-Af Amer) > 60 Glucose 83 Calcium 8.7 Magnesium 1.9 Total Bilirubin 0.4 AST 22 ALT 23 Alkaline Phosphatase 61 Total Protein 6.0 L Albumin 2.6 L 12/10/18 16:57 Troponin I < 0.012 Impressions: Abdomen/Pelvis CT 12/13/18 00:00 IMPRESSION: There appears to be diffuse, uniform thickening of the wall of the stomach. This may suggest gastritis. Lymphoma cannot be excluded. Neoplasm cannot entirely be excluded. There are no findings relating to the right lower quadrant. Assessment & Plan - Diagnosis (1) Anemia Qualifiers: Anemia type: unspecified type Qualified Code(s): D64.9 - Anemia, unspecified Is this a current diagnosis for this admission?: Yes Plan: Secondary to acute blood loss, gastritis, probably NSAID induced. She received 2 units of packed red blood cells. Her melena has slowed considerably. Her hemoglobin is stable. Will recheck again in the morning. 12/12/2018-latest hemoglobin is 8.4. She was admitted with anemia most likely secondary to acute blood loss secondary to an NSAID use. She received a total of 2 units of PRBC. Plan is to recheck the CBC tomorrow. 12/13/2018-patient hemoglobin today is 8.4. Stable. Patient was admitted with blood loss anemia most likely secondary to NSAID use. During the hospital stay received 2 units of blood transfusion. Now the hemoglobin is stable. 12/14/2018-patient hemoglobin is 9.8. Improved from 8.4 yesterday. Chronic anemia most likely secondary to NSAID use. It is post EGD was done. Found to have active bleeding from the gastric antrum. Status post ablation of the bleeding sites. 12/15/2018- hemoglobin is 8.7. She received multiple blood transfusions during the hospital stay. Status post EGD and ablation of the bleeding sites in the gastric antrum. Upper GI bleed most likely secondary to NSAID use. Patient was strongly encouraged not to take the naproxen or ibuprofen. Plan is to repeat the CBC tomorrow. As per Dr. Hartmann's recommendations patient is receiving IV iron. 12/16/2018-patient hemoglobin is 9.0 today stable. She received IV iron. Dr. Hartmann wants to see her as an outpatient in 6 weeks to repeat the labs. Patient was admitted with upper GI bleed secondary to NSAID use. EGD done and the bleeding sites are ablated. Unfortunately no samples for H. pylori was sent. 12/17/2018-patient's WBC is 2.8 today hematology consult was requested because he is on now so far. Myoglobin is 9.6 stable. plan is to continue the present management. (2) Gastritis Qualifiers: Chronicity: unspecified Gastritis bleeding: with bleeding Is this a current diagnosis for this admission?: Yes Plan: Patient tells me today that she started taking naproxen just over a year ago and takes it almost every day. This is most likely because of her gastritis. She has been instructed to not use NSAIDs anymore and she will need close follow-up as an outpatient. She will need to follow-up with GI probably for repeat endoscopy. She will also need close primary care follow-up. We are treating her with antibiotics the possibility of H. pylori and PPI. Symptomatically improving. 12/12/2018-patient is taking naproxen for almost a year may be causing severe gastritis with acute blood loss anemia. She was strongly advised to not to take NSAIDs anymore. She was advised to follow-up with GI for possible endoscopy. She is denies any heartburn or epigastric pain. Presently she is on amoxicillin levofloxacin dose will be discontinued. 12/13/2018-patient was admitted with gastritis most likely secondary to naproxen use. No complaints of nausea no heartburn today. Patient is on GI prophylaxis with famotidine 20 mg p.o. twice a day. 12/14/2018-patient was admitted with anemia stool was positive for melena status post EGD found to have a hemorrhagic gastritis. Status post epinephrine injection into the gastric antrum for hemostasis. HemoGlobin today 9.4 stable 12/15/2018 patient has a status post EGD found to have hemorrhagic gastritis most likely secondary to NSAID use. 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 Blood sample was sent to H. pylori. consultation with Dr. Hartmann was requested. 12/16/2018-patient was admitted with a GI bleed status post EGD and ablation of the bleeding sites in the gastric antrum. Hemoglobin is stable. GI loss most likely secondary to NSAID use. Serum for H. pylori is pending. 12/17/2018-patient admitted with upper GI bleed most likely secondary to NSAID use. Status post EGD found to have bleeding in the gastric region status post ablation of the bleeding spots. (3) Vomiting and diarrhea Is this a current diagnosis for this admission?: Yes Plan: 12/12/2018-patient complains of nausea no more vomiting's no diarrhea. Last bowel movements was 4 days ago. Offered her MiraLAX but she said she is not taking food except for the liquid diet she wants to wait . 12/13/2018 patient was admitted with nausea and vomitings. Still complaining of mild nausea getting Zofran on a as needed basis. No more loose stools. Actually she did not have a bowel movement for the last 5 days. 12/14/2018-patient was admitted with severe nausea and vomitings still mildly nauseated on Zofran no vomiting's anymore. Able to tolerate the feeds. 12/15/2018-nausea vomiting's are resolved patient is requesting regular diet. 12/16/2018-patient was admitted with nausea and vomitings diarrhea vomiting and diarrhea resolved nausea still persisting. 12/17/2018-patient admitted with vomiting and diarrhea though symptoms are resolved. She still complains of nausea with meals. We are going to try Maalox prior to meals. (4) Nausea Is this a current diagnosis for this admission?: Yes Plan: 12/12/2018-patient is complaining of nausea with liquid diet. She is taking Zofran on as needed basis. As per the patient her appetite is gradually improving. 12/13/2018 patient is complaining of mild nausea today able to tolerate the oral diet. Taking Zofran on a as needed basis. Plan is to continue the present management. 12/15/2018-patient denies any nausea today she wants to eat a regular diet from today. 12/16/2018 patient is complaining of persistent nausea most likely secondary to gastritis. She is getting a Prevacid. 12/17/2018-patient complaining of persistent nausea be going to try Maalox prior to meals. (5) Abdominal pain Qualifiers: Abdominal location: right upper quadrant Qualified Code(s): R10.11 - Right upper quadrant pain Is this a current diagnosis for this admission?: Yes Plan: 12/13/2018-patient is complaining of right lower quadrant abdominal pain today. Plan is to do the CT abdomen pelvis without contrast to rule out appendicitis. 12/14/2018-patient complained of right lower quadrant pain yesterday and CT abdomen was negative for appendicitis. 12/15/2018 patient is complaining of soreness in the stomach no abdominal pains today. CT abdomen pelvis was done to rule out appendicitis which was negative. 12/16/2018-patient denies any abdominal pains today. 12/17/2018 patient admitted with abdominal pain mostly secondary to severe gastr itis caused by NSAID use. Abdominal pain was resolved. - Time Time Spent with patient: 15-24 minutes Medications reviewed and adjusted accordingly: Yes Anticipated discharge: Home
--- NOTE | 2018-12-17 12:52 | PDOC PROGRESS REPORT ---
Subjective Progress Note for:: 12/17/18 Subjective:: Patient states lunch yesterday did not go well, but she is tolerating cream of wheat and "trying to take it slow." Reason For Visit: ANEMIA,NAUSEA,VOMITING,DIARRHEA,URINARY TRACT INFE Physical Exam Vital Signs: Temp Pulse Resp BP Pulse Ox 98.4 F 73 16 130/80 H 99 12/17/18 03:39 12/17/18 07:00 12/17/18 03:39 12/17/18 03:39 12/17/18 03:39 Intake & Output 12/16/18 12/17/18 12/18/18 06:59 06:59 06:59 Intake Total 2138.5 1180 Balance 2138.5 1180 Weight 78.4 kg 78.4 kg General appearance: PRESENT: well-developed, well-nourished Head exam: PRESENT: normocephalic Respiratory exam: PRESENT: unlabored Neurological exam: PRESENT: alert, awake Skin exam: PRESENT: normal color Results Laboratory Results: 12/17/18 05:53 12/17/18 05:53 12/17/18 12/17/18 05:53 05:53 WBC 2.8 L RBC 3.33 L Hgb 9.6 L Hct 27.6 L MCV 83 MCH 28.9 MCHC 34.9 RDW 15.9 H Plt Count 313 Seg Neutrophils % 61.2 Lymphocytes % 25.1 Monocytes % 10.7 Eosinophils % 2.1 Basophils % 0.9 Absolute Neutrophils 1.7 Absolute Lymphocytes 0.7 Absolute Monocytes 0.3 Absolute Eosinophils 0.1 Absolute Basophils 0.0 Sodium 138.8 Potassium 4.2 Chloride 107 Carbon Dioxide 26 Anion Gap 6 BUN 5 L Creatinine 0.45 L Est GFR ( Amer) > 60 Est GFR (Non-Af Amer) > 60 Glucose 83 Calcium 8.7 Magnesium 1.9 Total Bilirubin 0.4 AST 22 ALT 23 Alkaline Phosphatase 61 Total Protein 6.0 L Albumin 2.6 L 12/10/18 16:57 Troponin I < 0.012 Impressions: Abdomen/Pelvis CT 12/13/18 00:00 IMPRESSION: There appears to be diffuse, uniform thickening of the wall of the stomach. This may suggest gastritis. Lymphoma cannot be excluded. Neoplasm cannot entirely be excluded. There are no findings relating to the right lower quadrant. Assessment & Plan - Diagnosis (1) Gastritis Qualifiers: Chronicity: unspecified Gastritis bleeding: with bleeding Is this a current diagnosis for this admission?: Yes Plan: Nausea slowly improving. If maalox does not work, can consider Reglan prior to each meal. (2) Iron deficiency anemia due to chronic blood loss Is this a current diagnosis for this admission?: Yes Plan: Currently stable s/p IV iron. I will sign off and will continue to follow her as outpatient. Will try to arrange repeat EGD with biopsies in about 6 weeks. Still awaiting H.pylori test results (3) Abdominal pain Qualifiers: Abdominal location: right upper quadrant Qualified Code(s): R10.11 - Right upper quadrant pain Is this a current diagnosis for this admission?: Yes (4) Hypothyroid Qualifiers: Hypothyroidism type: unspecified Qualified Code(s): E03.9 - Hypothyroidism, unspecified Is this a current diagnosis for this admission?: Yes (5) Weight loss Is this a current diagnosis for this admission?: Yes
[2018-12-17] MEDS ORDERED: MAG HYDROX/AL HYDROX/SIMETH SUSP 30 ML UDCUP PO PRN (16:55)
[2018-12-18] MEDS: ONDANSETRON HCL INJ/PF 4 MG/2 ML SDV IV PRN (05:30)
[2018-12-18] MEDS: ACETAMINOPHEN 325 MG TABLET PO PRN (05:31)
[2018-12-18] MEDS: LANSOPRAZOLE 30 MG TAB.RAP.DR PO SCH (05:36)
[2018-12-18] MEDS: LEVOTHYROXINE SODIUM 0.112 MG TABLET PO SCH (05:36)
[2018-12-18] MEDS: LEVOTHYROXINE SODIUM 0.025 MG TABLET PO SCH (05:36)
[2018-12-18 07:51] LABS: ABSOLUTE EOSINOPHILS # (AUTO) 0.1 10^3/uL (0.0-0.6); ABSOLUTE LYMPHOCYTES (AUTO) 0.7 10^3/uL (0.5-4.7); ABSOLUTE MONOCYTES (AUTO) 0.3 10^3/uL (0.1-1.4); ABSOLUTE NEUT (AUTO) 1.7 10^3/uL (1.7-8.2); BASOPHILS % (AUTO) 0.7 % (0-2); EOSINOPHILS % (AUTO) 2.2 % (0-6); HEMATOCRIT 30.4 % (36.0-47.0); HEMOGLOBIN 10.5 g/dL (12.0-15.5); LYMPHOCYTES % (AUTO) 25.6 % (13-45); MEAN CORPUSCULAR HEMOGLOBIN 29.2 pg (27.0-33.4); MEAN CORPUSCULAR HGB CONC 34.7 g/dL (32.0-36.0); MEAN CORPUSCULAR VOLUME 84 fl (80-97); MONOCYTES % (AUTO) 11.7 % (3-13); PLATELET COUNT 370 10^3/uL (150-450); RED CELL DISTRIBUTION WIDTH 16.5 % (11.5-14.0); SEGMENTED NEUTROPHILS % (AUTO) 59.8 % (42-78); TOTAL CELLS COUNTED % (AUTO) 100 %; WHITE BLOOD COUNT 2.8 10^3/uL (4.0-10.5)
[2018-12-18 07:59] LABS: ALANINE AMINOTRANSFERASE 19 U/L (9-52); ALKALINE PHOSPHATASE 68 U/L (38-126); ANION GAP 7 (5-19); ASPARTATE AMINO TRANSFERASE 26 U/L (14-36); BILIRUBIN,DIRECT 0.1 mg/dL (0.0-0.4); BILIRUBIN,TOTAL 0.4 mg/dL (0.2-1.3); BLOOD UREA NITROGEN 5 mg/dL (7-20); CALCIUM 9.1 mg/dL (8.4-10.2); CARBON DIOXIDE 29 mmol/L (22-30); CHLORIDE 103 mmol/L (98-107); GLUCOSE 82 mg/dL (75-110); POTASSIUM 4.3 mmol/L (3.6-5.0); SODIUM 138.6 mmol/L (137-145); TOTAL PROTEIN 6.7 g/dL (6.3-8.2)
[2018-12-18] MEDS: METOCLOPRAMIDE HCL INJ/PF 10 MG/2 ML SDV IV SCH ×2 (08:30→12:23)
[2018-12-18] MEDS: FOLIC ACID 1 MG TABLET PO SCH (09:51)
[2018-12-18] MEDS: FAMOTIDINE 20 MG TABLET PO SCH (09:51)
[2018-12-18] MEDS: LACTOBACILLUS ACIDOPHILUS 250 MG TAB PO SCH (09:51)
[2018-12-18] MEDS: POTASSIUM CHLORIDE 10 MEQ CAPSULE.ER PO SCH (09:51)
[2018-12-18 11:49] VITALS: BP 112/70
--- NOTE | 2018-12-18 13:15 | PDOC DISCHARGE SUMMARY ---
General - Admit/Disc Date/PCP Admission Date/Primary Care Provider: 12/08/18 18:19 [facility] Discharge Date: 12/20/18 - Discharge Diagnosis (1) Anemia Is this a current diagnosis for this admission?: Yes Summary: Secondary to acute blood loss, gastritis, probably NSAID induced. She received 2 units of packed red blood cells. Her melena has slowed considerably. Her hemoglobin is stable. Will recheck again in the morning. 12/12/2018-latest hemoglobin is 8.4. She was admitted with anemia most likely secondary to acute blood loss secondary to an NSAID use. She received a total of 2 units of PRBC. Plan is to recheck the CBC tomorrow. 12/13/2018-patient hemoglobin today is 8.4. Stable. Patient was admitted with blood loss anemia most likely secondary to NSAID use. During the hospital stay received 2 units of blood transfusion. Now the hemoglobin is stable. 12/14/2018-patient hemoglobin is 9.8. Improved from 8.4 yesterday. Chronic anemia most likely secondary to NSAID use. It is post EGD was done. Found to have active bleeding from the gastric antrum. Status post ablation of the bleeding sites. 12/15/2018- hemoglobin is 8.7. She received multiple blood transfusions during the hospital stay. Status post EGD and ablation of the bleeding sites in the gastric antrum. Upper GI bleed most likely secondary to NSAID use. Patient was strongly encouraged not to take the naproxen or ibuprofen. Plan is to repeat the CBC tomorrow. As per Dr. Hartmann's recommendations patient is receiving IV iron. 12/16/2018-patient hemoglobin is 9.0 today stable. She received IV iron. Dr. Hartmann wants to see her as an outpatient in 6 weeks to repeat the labs. Patient was admitted with upper GI bleed secondary to NSAID use. EGD done and the bleeding sites are ablated. Unfortunately no samples for H. pylori was sent. 12/17/2018-patient's WBC is 2.8 today hematology consult was requested because he is on now so far. Myoglobin is 9.6 stable. plan is to continue the present management. 12/18/2018-WBCs today is 2.8 and hemoglobin is 10.5 stable. This patient was admitted with hemorrhagic gastritis most likely secondary to NSAID use. Status post EGD was done and ablation of the bleeding sites in the gastric antrum. Status post 2 units of blood transfusion during the hospital stay now the hemoglobin is stable for the last several days. Serum for H. pylori was sent and waiting for the results. Patient is going to be discharged on Maalox, Prevacid. Patient was advised to follow-up with Dr. zapien in 2 weeks. (2) Gastritis Is this a current diagnosis for this admission?: Yes Summary: Patient tells me today that she started taking naproxen just over a year ago and takes it almost every day. This is most likely because of her gastritis. She has been instructed to not use NSAIDs anymore and she will need close follow-up as an outpatient. She will need to follow-up with GI probably for repeat endoscopy. She will also need close primary care follow-up. We are treating her with antibiotics the possibility of H. pylori and PPI. Symptomatically improving. 12/12/2018-patient is taking naproxen for almost a year may be causing severe gastritis with acute blood loss anemia. She was strongly advised to not to take NSAIDs anymore. She was advised to follow-up with GI for possible endoscopy. She is denies any heartburn or epigastric pain. Presently she is on amoxicillin levofloxacin dose will be discontinued. 12/13/2018-patient was admitted with gastritis most likely secondary to naproxen use. No complaints of nausea no heartburn today. Patient is on GI prophylaxis with famotidine 20 mg p.o. twice a day. 12/14/2018-patient was admitted with anemia stool was positive for melena status post EGD found to have a hemorrhagic gastritis. Status post epinephrine injection into the gastric antrum for hemostasis. HemoGlobin today 9.4 stable 12/15/2018 patient has a status post EGD found to have hemorrhagic gastritis most likely secondary to NSAID use. 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 Blood sample was sent to H. pylori. consultation with Dr. Hartmann was requested. 12/16/2018-patient was admitted with a GI bleed status post EGD and ablation of the bleeding sites in the gastric antrum. Hemoglobin is stable. GI loss most likely secondary to NSAID use. Serum for H. pylori is pending. 12/17/2018-patient admitted with upper GI bleed most likely secondary to NSAID use. Status post EGD found to have bleeding in the gastric region status post ablation of the bleeding spots. 12/18/2018 patient was admitted with upper GI bleed secondary to NSAID use. Status post EGD was done found to have a hemorrhagic cystitis ablation of the bleeding sites in the gastric mucosa. Unfortunately no samples were sent for H. pylori. Serum for H pylori results are pending. Patient was treated with antibiotics and PPIs during the hospital stay. (3) Vomiting and diarrhea Is this a current diagnosis for this admission?: Yes Summary: 12/12/2018-patient complains of nausea no more vomiting's no diarrhea. Last cody l movements was 4 days ago. Offered her MiraLAX but she said she is not taking food except for the liquid diet she wants to wait . 12/13/2018 patient was admitted with nausea and vomitings. Still complaining of mild nausea getting Zofran on a as needed basis. No more loose stools. Actually she did not have a bowel movement for the last 5 days. 12/14/2018-patient was admitted with severe nausea and vomitings still mildly nauseated on Zofran no vomiting's anymore. Able to tolerate the feeds. 12/15/2018-nausea vomiting's are resolved patient is requesting regular diet. 12/16/2018-patient was admitted with nausea and vomitings diarrhea vomiting and diarrhea resolved nausea still persisting. 12/17/2018-patient admitted with vomiting and diarrhea though symptoms are resolved. She still complains of nausea with meals. We are going to try Maalox prior to meals. 12/18/2018-patient was admitted with nausea and vomitings and diarrhea still complaining of occasional nausea but vomitings and diarrhea is resolved. (4) Nausea Is this a current diagnosis for this admission?: Yes Summary: 12/12/2018-patient is complaining of nausea with liquid diet. She is taking Zofran on as needed basis. As per the patient her appetite is gradually improving. 12/13/2018 patient is complaining of mild nausea today able to tolerate the oral diet. Taking Zofran on a as needed basis. Plan is to continue the present management. 12/15/2018-patient denies any nausea today she wants to eat a regular diet from today. 12/16/2018 patient is complaining of persistent nausea most likely secondary to gastritis. She is getting a Prevacid. 12/17/2018-patient complaining of persistent nausea be going to try Maalox prior to meals. 12/18/2018 patient still complaining of persistent nausea especially with meals. We giving Maalox prior to meals and from last night we tried Reglan patient says Reglan is really helpful so prescription was written for her to take home. (5) Abdominal pain Is this a current diagnosis for this admission?: Yes Summary: 12/13/2018-patient is complaining of right lower quadrant abdominal pain today. Plan is to do the CT abdomen pelvis without contrast to rule out appendicitis. 12/14/2018-patient complained of right lower quadrant pain yesterday and CT abdomen was negative for appendicitis. 12/15/2018 patient is complaining of soreness in the stomach no abdominal pains today. CT abdomen pelvis was done to rule out appendicitis which was negative. 12/16/2018-patient denies any abdominal pains today. 12/17/2018 patient admitted with abdominal pain mostly secondary to severe gastritis caused by NSAID use. Abdominal pain was resolved. 12/18/2018 patient was admitted with abdominal pain most likely secondary to hemorrhagic gastritis. Abdominal pain is resolved. - Additional Information Discharge Diet: Regular Discharge Activity: Activity As Tolerated Prescriptions: Bismuth Subsalicylate [Pepto-Bismol 262 Chewable Tablet] 262 mg PO Q6HP PRN #20 tab.chew PRN Reason: Famotidine [Pepcid 20 mg Tablet] 20 mg PO Q12 #60 tablet Levothyroxine Sodium [Synthroid 0.025 mg Tablet] 0.025 mg PO Q6AM #30 tablet Mag Hydrox/Al Hydrox/Simeth [Maalox Plus Susp 30 Udcup] 30 ml PO Q8HP PRN #500 ml PRN Reason: Pantoprazole Sodium [Protonix] 40 mg PO DAILY #30 granpkt.dr Temple Medications: Bismuth Subsalicylate [Pepto-Bismol 262 Chewable Tablet] 262 mg PO Q6HP PRN #20 tab.chew 12/18/18 Famotidine [Pepcid 20 mg Tablet] 20 mg PO Q12 #60 tablet 12/18/18 Levothyroxine Sodium [Synthroid 0.025 mg Tablet] 0.025 mg PO Q6AM #30 tablet 12/18/18 Mag Hydrox/Al Hydrox/Simeth [Maalox Plus Susp 30 Udcup] 30 ml PO Q8HP PRN #500 ml 12/18/18 Pantoprazole Sodium [Protonix] 40 mg PO DAILY #30 brettpkt. 12/18/18 History of Present Illness History of Present Illness: ARGELIA JEAN is a 58 year old female Stephen reports current symptoms began post hernia operation in August 2019 at an outside hospital. At that time she had 11 x 11 inch section removed from the left lower quadrant. About a month post operation she started report and symptoms of early satiety which led to nausea, which led to decrease oral intake. She reports loose stools starting about 1.5 months ago. They became increasingly worse about 2 days ago when she was placed on Keflex for a urinary tract infection and started on Zofran for nausea. Nausea seems to be related to early satiety which is led to some food aversion over the past month. She reports the loose stools have been green in nature. She reports intermittent blood in her stool. She reports a few episodes of vomiting over the past 2 days, which have had sparse blood in them. She admits to poor oral food and liquid intake. Since the surgery she has lost 40 pounds due to decreased intake. She reports a 30 pound weight loss over the past 1-1/2 months due to loose stools and decreased intake. She has already been evaluated by surgery at the time of evaluation. She is agreeable to bowel prep and scope tomorrow. Physical Exam Vital Signs: Temp Pulse Resp BP Pulse Ox 98.2 F 68 16 112/70 99 12/18/18 12:38 12/18/18 12:38 12/18/18 12:38 12/18/18 12:38 12/18/18 12:38 Intake & Output 12/17/18 12/18/18 12/19/18 06:59 06:59 06:59 Intake Total 1180 1182 Balance 1180 1182 Weight 78.4 kg 73.845 kg General appearance: PRESENT: mild distress Head exam: PRESENT: atraumatic Eye exam: PRESENT: PERRLA Mouth exam: PRESENT: moist, tongue midline Neck exam: ABSENT: carotid bruit, JVD, lymphadenopathy, thyromegaly Respiratory exam: PRESENT: clear to auscultation benjamin. ABSENT: rales, rhonchi, wheezes Cardiovascular exam: PRESENT: RRR. ABSENT: diastolic murmur, rubs, systolic murmur GI/Abdominal exam: PRESENT: normal bowel sounds, soft. ABSENT: distended, guarding, mass, organolmegaly, rebound, tenderness Extremities exam: PRESENT: full ROM. ABSENT: calf tenderness, clubbing, pedal edema Neurological exam: PRESENT: alert, awake, oriented to person, oriented to place, oriented to time, oriented to situation, CN II-XII grossly intact. ABSENT: motor sensory deficit Psychiatric exam: PRESENT: appropriate affect, normal mood. ABSENT: homicidal ideation, suicidal ideation Results Laboratory Results: 12/18/18 06:47 12/18/18 06:47 12/18/18 12/18/18 06:47 06:47 WBC 2.8 L RBC 3.60 L Hgb 10.5 L Hct 30.4 L MCV 84 MCH 29.2 MCHC 34.7 RDW 16.5 H Plt Count 370 Seg Neutrophils % 59.8 Lymphocytes % 25.6 Monocytes % 11.7 Eosinophils % 2.2 Basophils % 0.7 Absolute Neutrophils 1.7 Absolute Lymphocytes 0.7 Absolute Monocytes 0.3 Absolute Eosinophils 0.1 Absolute Basophils 0.0 Sodium 138.6 Potassium 4.3 Chloride 103 Carbon Dioxide 29 Anion Gap 7 BUN 5 L Creatinine 0.55 Est GFR ( Amer) > 60 Est GFR (Non-Af Amer) > 60 Glucose 82 Calcium 9.1 Magnesium 2.1 Total Bilirubin 0.4 AST 26 ALT 19 Alkaline Phosphatase 68 Total Protein 6.7 Albumin 3.0 L 12/10/18 16:57 Troponin I < 0.012 Impressions: Abdomen/Pelvis CT 12/13/18 00:00 IMPRESSION: There appears to be diffuse, uniform thickening of the wall of the stomach. This may suggest gastritis. Lymphoma cannot be excluded. Neoplasm cannot entirely be excluded. There are no findings relating to the right lower quadrant. Qualifiers - * PATIENT BEING DISCHARGED WITH ANY OF THE FOLLOWING DIAGNOSIS: No VTE patient discharged on overlapping Therapy?: No
[2018-12-20 07:34] LABS: HELICOBACTER PYLORI IGA AB <9.0 units (0.0-8.9); HELICOBACTER PYLORI IGG AB <0.80 (0.00-0.79); HELICOBACTER PYLORI IGM AB <9.0 units (0.0-8.9)
== END 2018-12-18 14:43 | disposition home or self-care (01) | DRG 378 ==
LOC: ER 09:16 → EH 18:19 → 5 22:10
PROVIDERS: ADMIT Internal Medicine; ATTEND Internal Medicine
PROC: 0DJ08ZZ Inspection of Upper Intestinal Tract, Via Natural or Artificial Opening Endoscopic (ICD-10-PCS; 2018-12-09)
PROC: 30233N1 Transfusion of Nonautologous Red Blood Cells into Peripheral Vein, Percutaneous Approach (ICD-10-PCS; 2018-12-09)
PROC: 3E02340 Introduction of Influenza Vaccine into Muscle, Percutaneous Approach (ICD-10-PCS; 2018-12-09)
PROC: 3E0G8GC Introduction of Other Therapeutic Substance into Upper GI, Via Natural or Artificial Opening Endoscopic (ICD-10-PCS; principal; 2018-12-09 12:30)
DX: K29.01 Acute gastritis with bleeding (principal); N39.0 Urinary tract infection, site not specified; D62 Acute posthemorrhagic anemia; D68.32 Hemorrhagic disorder due to extrinsic circulating anticoagulants; K26.4 Chronic or unspecified duodenal ulcer with hemorrhage; T45.515A Adverse effect of anticoagulants, initial encounter; R11.0 Nausea; R63.4 Abnormal weight loss; I10 Essential (primary) hypertension; E03.9 Hypothyroidism, unspecified; M06.9 Rheumatoid arthritis, unspecified; F32.9 Major depressive disorder, single episode, unspecified; F41.1 Generalized anxiety disorder; F43.10 Post-traumatic stress disorder, unspecified; E86.0 Dehydration; R00.0 Tachycardia, unspecified; D50.0 Iron deficiency anemia secondary to blood loss (chronic); K57.30 Diverticulosis of large intestine without perforation or abscess without bleeding; Z88.6 Allergy status to analgesic agent; Z88.8 Allergy status to other drugs, medicaments and biological substances; Z79.890 Hormone replacement therapy; Z23 Encounter for immunization; Z79.899 Other long term (current) drug therapy; Z90.49 Acquired absence of other specified parts of digestive tract; Z90.710 Acquired absence of both cervix and uterus; Z87.891 Personal history of nicotine dependence; Z82.3 Family history of stroke; Z82.49 Family history of ischemic heart disease and other diseases of the circulatory system
CPT/HCPCS: 36415; 36430; 43236; 74177; 80048; 80053; 81001; 82272; 82607; 82728; 82746; 82962; 83540; 83550; 83690; 83735; 84439; 84443; 84466; 84484; 85025; 85027; 85045; 85610; 85730; 86677; 86850; 86900; 86901; 86920; 87040; 87045; 87086; 87205; 90471; 90686; 93005; 93010; 96361; 96365; 96372; 96375; 99284; G0008; J0171; J0696; J0780; J1200; J1610; J1750; J2060; J2250; J2310; J2405; J2765; J3010; J3480; J3490; J7030; J7040; J8499; P9016; S0028; S0164

== ENCOUNTER 2018-12-27 12:42 | Emergency (ER) | payer OTHER ==
[2018-12-27] MEDS ORDERED: ONDANSETRON HCL INJ/PF 4 MG/2 ML SDV IV ONE (13:23)
[2018-12-27] MEDS ORDERED: NORMAL SALINE 1000 ML 1,000 ML IV ONE (13:23)
[2018-12-27 13:50] LABS: ABSOLUTE EOSINOPHILS # (AUTO) 0.1 10^3/uL (0.0-0.6); ABSOLUTE MONOCYTES (AUTO) 0.5 10^3/uL (0.1-1.4); ABSOLUTE NEUT (AUTO) 2.8 10^3/uL (1.7-8.2); BASOPHILS % (AUTO) 1.1 % (0-2); EOSINOPHILS % (AUTO) 1.3 % (0-6); HEMATOCRIT 38.3 % (36.0-47.0); HEMOGLOBIN 12.9 g/dL (12.0-15.5); LYMPHOCYTES % (AUTO) 23.5 % (13-45); MEAN CORPUSCULAR HEMOGLOBIN 28.3 pg (27.0-33.4); MEAN CORPUSCULAR HGB CONC 33.6 g/dL (32.0-36.0); MEAN CORPUSCULAR VOLUME 84 fl (80-97); MONOCYTES % (AUTO) 11.7 % (3-13); PLATELET COUNT 348 10^3/uL (150-450); RED BLOOD COUNT 4.55 10^6/uL (3.72-5.28); RED CELL DISTRIBUTION WIDTH 15.8 % (11.5-14.0); SEGMENTED NEUTROPHILS % (AUTO) 62.4 % (42-78); TOTAL CELLS COUNTED % (AUTO) 100 %; WHITE BLOOD COUNT 4.4 10^3/uL (4.0-10.5)
[2018-12-27 13:55] LABS: INTERNATIONAL RATION (INR) 1.04; PARTIAL THROMBOPLASTIN TIME 26.7 SEC (23.5-35.8); PROTHROMBIN TIME 14.1 SEC (11.4-15.4)
[2018-12-27 14:08] LABS: ALANINE AMINOTRANSFERASE 34 U/L (9-52); ALBUMIN 4.1 g/dL (3.5-5.0); ALKALINE PHOSPHATASE 78 U/L (38-126); ANION GAP 14 (5-19); ASPARTATE AMINO TRANSFERASE 48 U/L (14-36); BILIRUBIN,DIRECT 0.3 mg/dL (0.0-0.4); BILIRUBIN,TOTAL 0.6 mg/dL (0.2-1.3); BLOOD UREA NITROGEN 15 mg/dL (7-20); CARBON DIOXIDE 24 mmol/L (22-30); CHLORIDE 101 mmol/L (98-107); GLUCOSE 97 mg/dL (75-110); POTASSIUM 4.1 mmol/L (3.6-5.0); SODIUM 138.5 mmol/L (137-145); TOTAL PROTEIN 8.6 g/dL (6.3-8.2)
[2018-12-27] MEDS ORDERED: MECLIZINE HCL 25 MG TABLET PO ONE (17:08)
[2018-12-27] MEDS ORDERED: RINGERS SOLUTION,LACTATED 1,000 ML IV ONE (18:41)
[2018-12-27] MEDS ORDERED: ACETAMINOPHEN 325 MG TABLET PO ONE (20:29)
[2018-12-27] MEDS ORDERED: ONDANSETRON ODT 4 MG TAB (6 TAB/ER DISP) PO PRN (20:39)
--- NOTE | 2018-12-27 20:41 | ER Document Report ---
ED General - General Chief Complaint: Nausea/Vomiting Stated Complaint: POSSIBLE DEHYDRATION Time Seen by Provider: 12/27/18 13:14 Primary Care Provider: [facility] [Primary Care Provider] - Follow up in 3-5 days Mode of Arrival: Ambulatory Information source: Patient Notes: Patient is an 58 year old female with hypothyroidism, rheumatoid arthritis, re cent history of a GI bleed was sent to the emergency department from PCP's office due to an elevated heart rate. She also complains of nausea and intermittent vomiting. She states she was recently discharged from the hospital on 12/18 due to a GI bleed and subsequent hematemesis. She states she was unable to afford her prescriptions she was given after discharge and has yet to pick them up. She reports poor appetite and fluid intake and describes her vomit as white in appearance. Patient denies any black or bloody stools, blood in her emesis. She reports following up with her PCP, Dr. Interiano at [facility] who reported a heart rate of 135-157. TRAVEL OUTSIDE OF THE [place] IN LAST 30 DAYS: No - HPI Onset: Just prior to arrival Onset/Duration: Gradual, Persistent Quality of pain: Achy Severity: Mild Pain Level: 1 Associated symptoms: Nausea, Vomiting, Other - Poor appetite Exacerbated by: Food Relieved by: Denies Similar symptoms previously: Yes Recently seen / treated by doctor: Yes - Related Data Allergies/Adverse Reactions: cetirizine HCl [From Zyrtec] Adverse Reaction (Verified 12/27/18 13:12) Migraine diphenhydramine [From Benadryl] Adverse Reaction (Verified 12/27/18 13:12) compazine Adverse Reaction (Uncoded 12/27/18 13:12) Past Medical History - General Information source: Patient - Social History Smoking Status: Former Smoker Frequency of alcohol use: None Drug Abuse: None Lives with: Alone Family History: Reviewed & Not Pertinent Patient has suicidal ideation: No Patient has homicidal ideation: No - Past Medical History Cardiac Medical History: Reports: Hx Hypertension Pulmonary Medical History: Denies: Hx Tuberculosis Neurological Medical History: Denies: Hx Seizures Endocrine Medical History: Reports: Hx Hypothyroidism Renal/ Medical History: Denies: Hx Peritoneal Dialysis Musculoskeletal Medical History: Reports Hx Arthritis - rheumatoid Psychiatric Medical History: Reports: Hx Depression, Hx Post Traumatic Stress Disorder Past Surgical History: Reports: Hx Abdominal Surgery - hernia repair x3, Hx Cardiac Catheterization - '03 neg, Hx Cholecystectomy, Hx Hysterectomy, Hx Tubal Ligation, Other - Hernia surgery x 3 - Immunizations Hx Diphtheria, Pertussis, Tetanus Vaccination: Yes Review of Systems - Review of Systems Notes: REVIEW OF SYSTEMS: CONSTITUTIONAL : Denies fever, chills, or sweats. EENT: Denies visual changes, eye pain. Denies sore throat, oral lesions, difficulty swallowing. CARDIOVASCULAR: Denies chest pain. Denies palpitations. Denies lower extremity edema. RESPIRATORY: Denies cough. Denies shortness of breath, wheezing. GASTROINTESTINAL: Denies abdominal distention. Denies diarrhea. Denies blood in vomitus, stools, or per rectum. Denies black, tarry stools. Denies constipation. GENITOURINARY: Denies difficulty urinating, painful urination, frequency, blood in urine, or vaginal discharge. MUSCULOSKELETAL: Denies back or neck pain or stiffness. Denies joint pain or swelling. SKIN: Denies rash, lesions or sores. HEMATOLOGIC : Denies easy bruising or bleeding. LYMPHATIC: Denies swollen glands. NEUROLOGICAL: Denies confusion or altered mental status. Denies loss of consciousness. Denies headache. Denies weakness or paralysis. Denies problems difficulty with ambulation, slurred speech. Denies sensory loss, numbness, or tingling. Denies seizures. PSYCHIATRIC: Denies anxiety or stress. Denies depression, suicidal ideation, or homicidal ideation. Denies visual or auditory hallucinations. Physical Exam - Vital signs Vitals: Temp Pulse Resp BP Pulse Ox 97.9 F 137 H 18 108/91 H 98 12/27/18 12:55 12/27/18 12:55 12/27/18 12:55 12/27/18 12:55 12/27/18 12:55 - Notes Notes: PHYSICAL EXAMINATION: GENERAL: Well-appearing, well-nourished and in no acute distress. HEAD: Atraumatic, normocephalic. EYES: Pupils equal round and reactive to light, extraocular movements intact, conjunctiva are normal. ENT: Nares patent, oropharynx clear without exudates. Moist mucous membranes. NECK: Normal range of motion, supple without lymphadenopathy LUNGS: Breath sounds clear to auscultation bilaterally and equal. No wheezes rales or rhonchi. HEART: Tachycardic, regular rhythm without murmurs ABDOMEN: Soft, nontender, nondistended abdomen. No guarding, no rebound. No masses appreciated. Female : deferred Musculoskeletal: Normal range of motion, no pitting or edema. No cyanosis. NEUROLOGICAL: Cranial nerves grossly intact. Normal speech, normal gait. Normal sensory, motor exams PSYCH: Normal mood, normal affect. SKIN: Warm, Dry, normal turgor, no rashes or lesions noted. Course - Re-evaluation Re-evalutation: 12/27/18 21:20 Laboratory 12/27/18 12/27/18 12/27/18 13:35 13:35 13:35 WBC 4.4 RBC 4.55 Hgb 12.9 Hct 38.3 MCV 84 MCH 28.3 MCHC 33.6 RDW 15.8 H Plt Count 348 Seg Neutrophils % 62.4 Lymphocytes % 23.5 Monocytes % 11.7 Eosinophils % 1.3 Basophils % 1.1 Absolute Neutrophils 2.8 Absolute Lymphocytes 1.0 Absolute Monocytes 0.5 Absolute Eosinophils 0.1 Absolute Basophils 0.0 PT 14.1 INR 1.04 APTT 26.7 Sodium 138.5 Potassium 4.1 Chloride 101 Carbon Dioxide 24 Anion Gap 14 BUN 15 Creatinine 0.63 Est GFR ( Amer) > 60 Est GFR (Non-Af Amer) > 60 Glucose 97 Calcium 10.0 Total Bilirubin 0.6 Direct Bilirubin 0.3 Neonat Total Bilirubin Not Reportable Neonat Direct Bilirubin Not Reportable Neonat Indirect Bili Not Reportable AST 48 H ALT 34 Alkaline Phosphatase 78 Total Protein 8.6 H Albumin 4.1 Temp Pulse Resp BP Pulse Ox 97.9 F 82 16 120/70 99 12/27/18 12:55 12/27/18 17:30 12/27/18 21:01 12/27/18 21:01 12/27/18 21:01 58-year-old female presents from her primary care physician's office after being found to be tachycardic and orthostatic positive. Patient had a recent admission to the hospital after experiencing and upper GI bleed. Patient was discharged home after endoscopy was performed and placed on medications which the patient has not been able to obtain due to financial reasons. Vital signs reviewed and patient is initially tachycardic, mildly hypotensive. She does not appear toxic or dehydrated. She is in no acute distress. She does report poor p.o. intake, poor appetite, but denies any black, bloody stool or hematemesis. CBC is without leukocytosis or anemia. CMP is without electrolyte abnormality. Patient here is orthostatic negative. She did receive 2 L of IV fluids and her current heart rate is 81 with a blood pressure of 120/70. Patient is trying to acquire insurance. She was given a Zofran to go pack. Patient encouraged to drink fluids and return with any concerning symptoms. Patient was evaluated and treated as appropriate for the patient's presenting symptoms and complaint, with consideration of any critical or life threatening conditions that may be associated with their obtained history and exam as noted above. All results were discussed with patient Patient provided the opportunity to ask questions, and express concerns. Patient was educated on treatments based on their presumed diagnosis as noted above. At this time we will discharge the patient with return precautions and follow-up recommendations. Verbal discharge instructions given a the bedside. Medication warnings reviewed. Patient is in agreement with this plan and has verbalized understanding of return precautions. After careful consideration I feel that that patient can be safely discharged from the emergency department, they were advised to followup with a primary care physician in 2-3 days. Dictation on this chart was performed using voice recognition software and may result in unintended grammatical, spelling, syntax or errors. - Vital Signs Vital signs: Temp Pulse Resp BP Pulse Ox 97.9 F 82 16 120/70 99 12/27/18 12:55 12/27/18 17:30 12/27/18 21:01 12/27/18 21:01 12/27/18 21:01 - Laboratory Result Diagrams: 12/27/18 13:35 12/27/18 13:35 Laboratory results interpreted by me: 12/27/18 12/27/18 13:35 13:35 RDW 15.8 H AST 48 H Total Protein 8.6 H - EKG Interpretation by [facility] EKG shows normal: Sinus rhythm Rate: Normal Rhythm: NSR When compared to previous EKG there are: No significant change Discharge - Discharge Clinical Impression: Concern for dehydration, Nausea, Poor appetite Gastritis Qualifiers: Gastritis type: unspecified gastritis Chronicity: unspecified Gastritis bleeding: without bleeding Qualified Code(s): K29.70 - Gastritis, unspecified, without bleeding Condition: Good Disposition: HOME, SELF-CARE Instructions: Dehydration ([facility]), Nausea or Vomiting, Nonspecific ([facility]) Additional Instructions: Follow up with your [id number] hours for further care or return to the ED IMMEDIATELY if symptoms worsen or you have any concerns. If you cannot afford to follow up with your primary care physician a list of low cost clinics have been provided at the end of your discharge papers as well. Most prescribed medications have multiple side effects. The safest thing to do is when filling your prescription speak to your pharmacist regarding possible interactions with your normal home medications and over the counter medications such as Ibuprofen, Tylenol, Benadryl. If you experience any symptoms that cause you discomfort or concern you should discontinue the medication immediately and return to the emergency room or call your primary care physician. Referrals: [facility] [Primary Care Provider] - Follow up in 3-5 days
--- NOTE | 2018-12-27 20:43 | ER Document Report ---
Entered by TASIA GRAF SCRIBE 12/27/18 1354 Acting as scribe for:ALDA LOCKWOOD DO ED Medical Screen (RME) - General Chief Complaint: Nausea/Vomiting Stated Complaint: POSSIBLE DEHYDRATION Time Seen by Provider: 12/27/18 13:14 Primary Care Provider: GEE ROBLEDO [Primary Care Provider] - Follow up as needed Mode of Arrival: Wheelchair Information source: Patient Notes: Patient is an 58 year old female with a history of a GI bleed was sent to the emergency department from PCP's office due to an elevated heart rate. She also complains of nausea and vomiting. She states she was recently discharged from the hospital on 12/18 due to a GI bleed and subsequent hematemesis. She states she was unable to afford her prescriptions she was given after discharge and has yet to pick them up. She reports poor appetite and fluid intake and describes her vomit as white in appearance. She reports following up with her PCP, Dr. Interiano at [facility] who reported a heart rate of 135-157. She states she has had 2 small bowel movements since being discharged. I have greeted and performed a rapid initial assessment of the patient. A [facility] prehensive ED assessment and evaluation of the patient, analysis of test results, and completion of the medical decision making process will be conducted by additional ED providers. GENERAL: Alert, interacts well. No acute distress. HEAD: Normocephalic, atraumatic. EYES: Pupils equal, round, and reactive to light. Extraocular movements intact. ENT: Oral mucosa moist, tongue midline. NECK: Full range of motion. Supple. Trachea midline. LUNGS: Clear to auscultation bilaterally, no wheezes, rales, or rhonchi. No respiratory distress. HEART:Tachycardic. No murmurs, gallops, or rubs. ABDOMEN: Soft, non-tender. Non-distended. Bowel sounds present in all 4 quadrants. No guarding, rigidity, or rebound. EXTREMITIES: Moves all 4 extremities spontaneously. NEUROLOGICAL: Alert and oriented x3. Normal speech. PSYCH: Normal affect, normal mood. SKIN: Warm, dry, normal turgor. No rashes or lesions noted. TRAVEL OUTSIDE OF THE [place] IN LAST 30 DAYS: No - Related Data Allergies/Adverse Reactions: cetirizine HCl [From [facility]] Adverse Reaction (Verified 12/27/18 13:12) Migraine diphenhydramine [From Benadryl] Adverse Reaction (Verified 12/27/18 13:12) compazine Adverse Reaction (Uncoded 12/27/18 13:12) Past Medical History - Past Medical History Cardiac Medical History: Reports: Hx Hypertension Pulmonary Medical History: Denies: Hx Tuberculosis Neurological Medical History: Denies: Hx Seizures Endocrine Medical History: Reports: Hx Hypothyroidism Renal/ Medical History: Denies: Hx Peritoneal Dialysis Musculoskeltal Medical History: Reports Hx Arthritis - rheumatoid Psychiatric Medical History: Reports: Hx Depression, Hx Post Traumatic Stress Disorder Past Surgical History: Reports: Hx Abdominal Surgery - hernia repair x3, Hx Cardiac Catheterization - '03 neg, Hx Cholecystectomy, Hx Hysterectomy, Hx Tubal Ligation, Other - Hernia surgery x 3 - Immunizations Hx Diphtheria, Pertussis, Tetanus Vaccination: Yes Physical Exam - Vital signs Vitals: Temp Pulse Resp BP Pulse Ox 97.9 F 137 H 18 108/91 H 98 12/27/18 12:55 12/27/18 12:55 12/27/18 12:55 12/27/18 12:55 12/27/18 12:55 Course - Vital Signs Vital signs: Temp Pulse Resp BP Pulse Ox 97.9 F 82 18 120/78 98 12/27/18 12:55 12/27/18 17:30 12/27/18 12:55 12/27/18 17:30 12/27/18 12:55 - Laboratory Result Diagrams: 12/27/18 13:35 12/27/18 13:35 Laboratory results interpreted by me: 12/27/18 12/27/18 13:35 13:35 RDW 15.8 H AST 48 H Total Protein 8.6 H Doctor's Discharge - Discharge Referrals: [facility] [Primary Care Provider] - Follow up as needed I personally performed the services described in the documentation, reviewed and edited the documentation which was dictated to the scribe in my presence, and it accurately records my words and actions.
[2018-12-27 21:49] VITALS: BP 118/68
--- NOTE | 2018-12-28 01:28 | EKG REPORT ---
SEVERITY:- NORMAL ECG - SINUS RHYTHM : Confirmed by: Rosalba Craig MD 28-Dec-2018 01:28:09
== END 2018-12-27 21:35 | disposition home or self-care (01) ==
LOC: ER 12:42
DX: K29.70 Gastritis, unspecified, without bleeding (principal); R00.0 Tachycardia, unspecified; R11.2 Nausea with vomiting, unspecified; R63.0 Anorexia; I10 Essential (primary) hypertension; Z91.14 Patient's other noncompliance with medication regimen; Z87.891 Personal history of nicotine dependence
CPT/HCPCS: 93005; 99284; 96361; 96374; 36415; 85025; 85610; 85730; 80053; 93010; J2405; J7030; J7120

== ENCOUNTER 2019-01-10 17:58 | Inpatient (IN) | payer OTHER ==
[2019-01-10] MEDS ORDERED: NORMAL SALINE 1000 ML 2,000 ML IV ONE (18:34)
--- NOTE | 2019-01-10 18:38 | ER Document Report ---
ED Medical Screen (RME) - General Chief Complaint: Abdominal Pain >50 Stated Complaint: ABNORMAL LABS Time Seen by Provider: 01/10/19 18:22 Primary Care Provider: LATONYA FONG MD [Primary Care Provider] - Follow up as needed TRAVEL OUTSIDE OF THE [place] IN LAST 30 DAYS: No - HPI Notes: 01/10/19 18:36 Patient is a 58-year-old female that presents to the emergency department for chief complaint of generalized fatigue, nausea, vomiting, and weight loss. Patient reports inability to keep any fluids or solids down. She reports multiple episodes of emesis. She states she has not had a bowel movement in 2 weeks. She denies any hematemesis. Patient has history of severe gastritis resulting in acute blood loss anemia and recent hospitalization at this facility. She has not been taking any of the NSAIDs like she was told. She has been compliant with medications from discharge ROS: GENERAL: Denies fever of chills CV: Denies chest pain PHYSICAL EXAMINATION: GENERAL: Ill-appearing, thin, frail HEAD: Atraumatic, normocephalic. EYES: Pupils equal round extraocular movements intact, conjunctiva are normal. ENT: Nares patent, dry mucous membranes NECK: Normal range of motion LUNGS: No respiratory distress Musculoskeletal: Normal range of motion NEUROLOGICAL: Normal speech, normal gait. PSYCH: Normal mood, normal affect. MDM: Patient seen and examined for rapid initial assessment. Vital signs reviewed. A comprehensive ED assessment and evaluation of the patient, analysis of test results and completion of the medical decision making process will be conducted by additional ED providers. - Related Data Allergies/Adverse Reactions: cetirizine HCl [From Zyrtec] Adverse Reaction (Verified 01/10/19 18:04) Migraine diphenhydramine [From Benadryl] Adverse Reaction (Verified 01/10/19 18:04) Past Medical History - Social History Chew tobacco use (# tins/day): No Frequency of alcohol use: None Drug Abuse: None - Past Medical History Cardiac Medical History: Reports: Hx Hypertension Pulmonary Medical History: Denies: Hx Tuberculosis Neurological Medical History: Denies: Hx Seizures Endocrine Medical History: Reports: Hx Hypothyroidism Renal/ Medical History: Denies: Hx Peritoneal Dialysis Musculoskeltal Medical History: Reports Hx Arthritis - osteoarthritis Psychiatric Medical History: Reports: Hx Depression, Hx Post Traumatic Stress Disorder Past Surgical History: Reports: Hx Abdominal Surgery - hernia repair x4, Hx Cardiac Catheterization - '03 neg, Hx Cholecystectomy, Hx Hysterectomy, Hx Tubal Ligation, Other - Hernia surgery x 3 - Immunizations Hx Diphtheria, Pertussis, Tetanus Vaccination: Yes Physical Exam - Vital signs Vitals: Temp Pulse Resp BP Pulse Ox 98.2 F 142 H 16 123/93 H 98 01/10/19 18:16 01/10/19 18:16 01/10/19 18:16 01/10/19 18:16 01/10/19 18:16 Course - Vital Signs Vital signs: Temp Pulse Resp BP Pulse Ox 98.2 F 142 H 16 123/93 H 98 01/10/19 18:16 01/10/19 18:16 01/10/19 18:16 01/10/19 18:16 01/10/19 18:16 Doctor's Discharge - Discharge Referrals: LATONYA FONG MD [Primary Care Provider] - Follow up as needed
[2019-01-10 19:21] LABS: ABSOLUTE MONOCYTES (AUTO) 0.4 10^3/uL (0.1-1.4); ABSOLUTE NEUT (AUTO) 3.7 10^3/uL (1.7-8.2); BASOPHILS % (AUTO) 0.8 % (0-2); EOSINOPHILS % (AUTO) 0.6 % (0-6); HEMATOCRIT 40.5 % (36.0-47.0); HEMOGLOBIN 13.9 g/dL (12.0-15.5); LYMPHOCYTES % (AUTO) 19.2 % (13-45); MEAN CORPUSCULAR HEMOGLOBIN 28.7 pg (27.0-33.4); MEAN CORPUSCULAR HGB CONC 34.4 g/dL (32.0-36.0); MEAN CORPUSCULAR VOLUME 83 fl (80-97); MONOCYTES % (AUTO) 8.2 % (3-13); PLATELET COUNT 385 10^3/uL (150-450); RED BLOOD COUNT 4.85 10^6/uL (3.72-5.28); RED CELL DISTRIBUTION WIDTH 15.2 % (11.5-14.0); SEGMENTED NEUTROPHILS % (AUTO) 71.2 % (42-78); TOTAL CELLS COUNTED % (AUTO) 100 %; WHITE BLOOD COUNT 5.2 10^3/uL (4.0-10.5)
[2019-01-10 19:22] LABS: VENOUS BLOOD HCO3 22.4 mmol/L (20-32); VENOUS BLOOD PCO2 41.5 mmHg (35-63); VENOUS BLOOD PH 7.35 (7.30-7.42)
[2019-01-10 19:25] LABS: INTERNATIONAL RATION (INR) 0.99; PROTHROMBIN TIME 13.6 SEC (11.4-15.4)
[2019-01-10 19:28] LABS: APPEARANCE,URINE CLOUDY; BILIRUBIN,URINE MODERATE (NEGATIVE); CALCIUM OXALATE CRYSTALS,URINE MODERATE /HPF; COLOR,URINE AMBER; GLUCOSE, URINE NEGATIVE (NEGATIVE); KETONES,URINE 80 mg/dL (NEGATIVE); LEUKOCYTE ESTERASE,URINE MODERATE (NEGATIVE); NITRITE,URINE NEGATIVE (NEGATIVE); PROTEIN,URINE 100 mg/dL (NEGATIVE); URINE SPECIFIC GRAVITY 1.031
[2019-01-10 19:33] LABS: ALANINE AMINOTRANSFERASE 26 U/L (9-52); ALBUMIN 4.4 g/dL (3.5-5.0); ALKALINE PHOSPHATASE 69 U/L (38-126); ANION GAP 19 (5-19); ASPARTATE AMINO TRANSFERASE 34 U/L (14-36); BILIRUBIN,DIRECT 0.5 mg/dL (0.0-0.4); BILIRUBIN,TOTAL 0.8 mg/dL (0.2-1.3); BLOOD UREA NITROGEN 12 mg/dL (7-20); CALCIUM 10.3 mg/dL (8.4-10.2); CARBON DIOXIDE 22 mmol/L (22-30); CHLORIDE 94 mmol/L (98-107); GLUCOSE 84 mg/dL (75-110); POTASSIUM 3.5 mmol/L (3.6-5.0); SODIUM 134.9 mmol/L (137-145); TOTAL PROTEIN 9.1 g/dL (6.3-8.2)
[2019-01-10 19:46] LABS: PREALBUMIN 8.8 mg/dL (17.6-36.0)
[2019-01-10] MEDS ORDERED: METOCLOPRAMIDE HCL INJ/PF 10 MG/2 ML SDV IV ONE (19:50)
--- NOTE | 2019-01-10 19:54 | ER Document Report ---
ED General - General Chief Complaint: Abdominal Pain >50 Stated Complaint: ABNORMAL LABS Time Seen by Provider: 01/10/19 18:22 Primary Care Provider: LATONYA FONG MD [ACTIVE STAFF] - Follow up as needed Notes: Patient is a 58-year-old female with a past medical history of hypothyroidism, had a partial intestinal resection in February 2018, had been doing well until a seroma ruptured prior to . She states that since October 2017 she has had precipitously increasing weight loss, persistent nausea and vomiting and early satiety. She was hospitalized in November 2017 for these issues, had some improvement with treatment of NSAID-induced gastritis and antiemetics. The patient has been following as an outpatient for this issue but states that she is not getting better. Notes that she is effectively unable to eat or drink anything, medial becomes nauseous and feels very full after even just 1 or 2 bit es of food or even small amounts of fluids. The patient has not been taking any NSAIDs. She notes that she has been taking all medications as prescribed including omeprazole, Zofran, metoclopramide, and Zantac with absolutely no relief or improvement. She was referred to the emergency department today by her primary care physician due to tachycardia and orthostasis. Patient states that she is so weak, fatigued that she is unable to ambulate from her recliner to the living room without feeling she is about to pass out. Patient has lost 13 kg since 12/17. She denies any melena or hematochezia. She states that her vomitus is usually a phlegm type color as she has nothing to vomit up. She does describe some generalized abdominal discomfort as a throbbing, aching, moderately constant discomfort. Eating seems to worsen his discomfort. Nothing improves this discomfort. She denies chest pain or shortness of breath. No fever. TRAVEL OUTSIDE OF THE [place] IN LAST 30 DAYS: No - Related Data Allergies/Adverse Reactions: cetirizine HCl [From Zyrtec] Adverse Reaction (Verified 01/10/19 18:36) Migraine diphenhydramine [From Benadryl] Adverse Reaction (Verified 01/10/19 18:36) Past Medical History - General Information source: Patient - Social History Smoking Status: Former Smoker Chew tobacco use (# tins/day): No Frequency of alcohol use: None Drug Abuse: None Lives with: Alone Family History: Reviewed & Not Pertinent Patient has suicidal ideation: No Patient has homicidal ideation: No - Past Medical History Cardiac Medical History: Reports: Hx Hypertension Pulmonary Medical History: Denies: Hx Tuberculosis Neurological Medical History: Denies: Hx Seizures Endocrine Medical History: Reports: Hx Hypothyroidism Renal/ Medical History: Denies: Hx Peritoneal Dialysis Musculoskeletal Medical History: Reports Hx Arthritis - osteoarthritis Psychiatric Medical History: Reports: Hx Depression, Hx Post Traumatic Stress Disorder Past Surgical History: Reports: Hx Abdominal Surgery - hernia repair x4, Hx Cardiac Catheterization - '03 neg, Hx Cholecystectomy, Hx Hysterectomy, Hx Tubal Ligation, Other - Hernia surgery x 3 - Immunizations Hx Diphtheria, Pertussis, Tetanus Vaccination: Yes Review of Systems - Review of Systems Notes: Constitutional: Negative for fever. Positive for severe fatigue HENT: Negative for sore throat. Eyes: Negative for visual changes. Cardiovascular: Negative for chest pain. Respiratory: Negative for shortness of breath. Gastrointestinal: Positive for abdominal pain, vomiting, no bowel movements Genitourinary: Negative for dysuria. Musculoskeletal: Negative for back pain. Skin: Negative for rash. Neurological: Negative for headaches, weakness or numbness. 10 point ROS negative except as marked above and in HPI. Physical Exam - Vital signs Vitals: Temp Pulse Resp BP Pulse Ox 98.2 F 142 H 16 123/93 H 98 01/10/19 18:16 01/10/19 18:16 01/10/19 18:16 01/10/19 18:16 01/10/19 18:16 Interpretation: Tachycardic Notes: PHYSICAL EXAMINATION: GENERAL: Sitting in bed, in no acute distress. Does appear somewhat emaciated HEAD: Atraumatic, normocephalic. EYES: Pupils equal round and reactive to light, extraocular movements intact, sclera anicteric, conjunctiva are normal. ENT: nares patent, oropharynx clear without exudates. Dry mucous membranes. NECK: Normal range of motion, supple without lymphadenopathy LUNGS: Breath sounds clear to auscultation bilaterally and equal. No wheezes rales or rhonchi. HEART: Regular tachycardia without murmurs ABDOMEN: Soft, somewhat distended abdomen, mild diffuse tenderness without localization. Normoactive bowel sounds. No guarding, no rebound. No masses appreciated. EXTREMITIES: Normal range of motion, no pitting or edema. No cyanosis. NEUROLOGICAL: No focal neurological deficits. Moves all extremities spontaneously and on command. PSYCH: Moderately anxious, tearful SKIN: Warm, Dry, normal turgor, no rashes or lesions noted. Course - Re-evaluation Re-evalutation: 01/10/19 19:55 Presentation of a somewhat ill-appearing patient with precipitous weight loss, inability to tolerate significant p.o. intake, obviously malnourished by history and on exam. Prealbumin is extraordinarily low at 8.8. Patient is eating almost nothing at home, has lost 13 kg since being discharged in the hospital less than 1 month ago. This weight loss is all unintentional. The initial consideration was that patient's symptoms are all secondary to NSAID induced gastritis. The patient's hemoglobin has stabilized, she is taking all medications as prescribed for gastritis this is not appear to be making any significant impact on her symptomology. Her H. pylori test came back negative. Her initial labs are otherwise unremarkable. Will obtain CT scan of the abdomen and pelvis to evaluate for any evidence of obstruction, mass lesion and if this is unremarkable plan for hospitalization for ongoing workup, resuscitation and determination of etiology of inability to tolerate nutrient intake. 01/10/19 21:51 Laboratories reveal significantly low prealbumin 8.8. Other labs otherwise unremarkable. CT scan of the abdomen and pelvis does show ongoing gastritis. I discussed with the hospitalist Dr. Mcwilliams who has accepted the patient for admission. At this point if we are unable to identify a definitive cause of her ongoing gastritis patient may require placement of a J-tube for artificial feedi ng - Vital Signs Vital signs: Temp Pulse Resp BP Pulse Ox 98.2 F 142 H 15 123/75 98 01/10/19 18:16 01/10/19 18:16 01/10/19 21:13 01/10/19 21:13 01/10/19 18:16 - Laboratory Result Diagrams: 01/10/19 18:55 01/10/19 18:55 Laboratory results interpreted by me: 01/10/19 01/10/19 01/10/19 18:55 18:55 18:55 RDW 15.2 H Sodium 134.9 L Potassium 3.5 L Chloride 94 L Calcium 10.3 H Direct Bilirubin 0.5 H Total Protein 9.1 H Prealbumin 8.8 L Urine Protein 100 H Urine Ketones 80 H Urine Bilirubin MODERATE H Urine Urobilinogen 4.0 H Ur Leukocyte Esterase MODERATE H - Diagnostic Test Radiology reviewed: Reports reviewed Discharge - Discharge Clinical Impression: Weight loss, Sinus tachycardia Malnutrition Qualifiers: Malnutrition type: protein-calorie malnutrition Protein-calorie malnutrition severity: severe Qualified Code(s): E43 - Unspecified severe protein-calorie malnutrition Abdominal pain Qualifiers: Abdominal location: generalized Qualified Code(s): R10.84 - Generalized abdominal pain Gastritis Qualifiers: Gastritis type: unspecified gastritis Chronicity: chronic Gastritis bleeding: presence of bleeding unspecified Qualified Code(s): K29.50 - Unspecified chronic gastritis without bleeding Condition: Fair Disposition: ADMITTED INPATIENT Admitting Provider: Hospitalist Unit Admitted: Medical Floor Referrals: LATONYA FONG MD [ACTIVE STAFF] - Follow up as needed
--- NOTE | 2019-01-10 20:07 | RADIOLOGY REPORT (SQ) ---
EXAM DESCRIPTION: XR CHEST 1 VIEW COMPLETED DATE/TME: 01/10/2019 19:24 CLINICAL HISTORY: tachycardia COMPARISON: September 27, 2014 FINDINGS: Cardiac silhouette is within normal limits. EKG leads project over the chest. There is no focal parenchymal or pleural disease. There is no acute osseous process visualized. IMPRESSION: No evidence of acute cardiopulmonary disease.
--- NOTE | 2019-01-10 21:24 | RADIOLOGY REPORT (SQ) ---
EXAM DESCRIPTION: CT ABDOMEN PELVIS WITH IV CONTRAST COMPLETED DATE/TME: 01/10/2019 19:49 CLINICAL HISTORY: 58 years, Female, Precipitous weight loss, abdominal swelling, vomit This exam was performed according to our departmental dose-optimization program which includes automated exposure control, adjustment of the mA and/or kVp according to patient size and/or use of iterative reconstruction technique where applicable. FINDINGS: Visualized lung bases are within normal limits. Liver, spleen, pancreas, adrenal glands and kidneys are within normal limits. No hydronephrosis or biliary dilatation. Status post cholecystectomy. No dilated loops of bowel to suggest obstruction. Mild amount of stool in the colon. The appendix is normal. No free fluid or free air. Mild sigmoid colon diverticulosis. No abdominal or pelvic lymphadenopathy. Abdominal aorta is within normal limits. The stomach including the body and the antrum demonstrate moderate wall thickening, consistent with gastritis. IMPRESSION: Moderate gastric wall thickening, suspicious for gastritis. No fluid collection or free air. No evidence for bowel obstruction.
[2019-01-10] MEDS ORDERED: TEMAZEPAM 7.5 MG CAPSULE PO PRN (22:29)
[2019-01-10] MEDS ORDERED: MAG HYDROX/AL HYDROX/SIMETH SUSP 30 ML UDCUP PO PRN (22:29)
[2019-01-10] MEDS ORDERED: ONDANSETRON HCL INJ/PF 4 MG/2 ML SDV IV PRN (22:29)
[2019-01-10] MEDS ORDERED: MAGNESIUM HYDROXIDE SUSP 30 ML UDCUP PO PRN (22:29)
[2019-01-10] MEDS ORDERED: ACETAMINOPHEN 325 MG TABLET PO PRN (22:36)
[2019-01-10] MEDS ORDERED: MORPHINE SULFATE 10 MG/ML INJ IV PRN (22:36)
[2019-01-10] MEDS ORDERED: ACETAMINOPHEN 650 MG SUPP.RECT PR PRN (22:36)
--- NOTE | 2019-01-10 23:58 | EKG REPORT ---
SEVERITY:- OTHERWISE NORMAL ECG - SINUS TACHYCARDIA MINIMAL ST DEPRESSION, ANTEROLATERAL LEADS : Confirmed by: Mik Tang 10-Jan-2019 23:57:35
[2019-01-11] MEDS: DEXTROSE 5%-LACTATED RINGERS 1,000 ML IV PRN ×4 (00:49→21:11)
--- NOTE | 2019-01-11 02:08 | PDOC H&P ---
History of Present Illness Admission Date/PCP: 01/10/19 22:05 [facility] Patient complains of: Weight loss History of Present Illness: ARGELIA JEAN is a 58 year old female who presents to the emergency room with a 4-week history of precipitous weight loss. She indicates that she has lost more than 13 kg since her hospitalization on 12/17/2018. She blames the weight loss on the fact that she has been unable to eat or drink anything since that time. She admits constant nausea with vomiting after even one swallow or one bite of anything by the oral route. She also admits that even taking a small bite of something results in her feeling of satiety losing all hunger or urge to eat prior to the inevitable vomiting. She further admits she has been on numerous medications to help with this problem and none of them have been successful despite her diligent adherence to her medical regimen. She further admits to chronic vague achy right lower quadrant abdominal discomfort that is constant and nonradiating, but is increased by any attempted oral intake. She denies prior similar symptoms before developing a postoperative seroma in late September 2018. She is not identified any additional aggravating or ameliorating factors for her weight loss, nausea, anorexia, early satiety, vomiting and abdominal pain. In the emergency room she was found to have essentially unremarkable laboratory evaluation but her 13 pound weight loss since December 17, 2018 was documented. Because patient is unable to sustain any type of oral intake she will need to have either total parenteral nutrition or a feeding tube placement either temporary with a Dobbhoff type tube or more permanent with a jejunostomy feeding tube. Patient will be admitted for further evaluation in consultation to determine the best course of managing her further care and returning her nutritional status to something more normal. Past Medical History Cardiac Medical History: Reports: Hypertension Denies: Atrial Fibrillation, Coronary Artery Disease, DVT, Pulmonary Embolism Pulmonary Medical History: Denies: Asthma, Chronic Obstructive Pulmonary Disease (COPD), Tuberculosis EENT Medical History: Reports: None Neurological Medical History: Denies: Hemorrhagic CVA, Ischemic CVA, Multiple Sclerosis, Seizures Endocrine Medical History: Reports: Hypothyroidism Denies: Diabetes Mellitus Type 1, Diabetes Mellitus Type 2, Hyperthyroidism Renal/ Medical History: Denies: Chronic Kidney Disease, Nephrolithiasis Malignancy Medical History: Reports: None GI Medical History: Reports: Other - Bowel obstruction with partial intestinal resection Gastritis Denies: Cirrhosis, Crohn's Disease, Hepatitis, Peptic Ulcer Disease, Ulcerative Colitis Musculoskeltal Medical History: Reports: Arthritis - osteoarthritis Denies: Fibromyalgia, Gout Skin Medical History: Denies: Eczema, Psoriasis Psychiatric Medical History: Reports: Depression, Post Traumatic Stress Disorder Denies: Alcohol Dependency, Substance Abuse, Tobacco Dependency Traumatic Medical History: Reports: None Hematology: Denies: Anemia, Bleeding Tendencies Infectious Medical History: Reports: None Past Surgical History Past Surgical History: Reports: Cardiac Catheterization - 2002 neg fo CAD, Cholecystectomy, Hysterectomy, Tubal Ligation, Other - Hernia surgery x 3 Bowel obstruction with partial bowel resection Social History Information Source: Patient Lives with: Alone Smoking Status: Former Smoker Frequency of Alcohol Use: Rare Hx Recreational Drug Use: No Drugs: None Hx Prescription Drug Abuse: No - Advance Directive Resuscitation Status: Full Code Surrogate healthcare decision maker:: Her daughter Family History Family History: CAD, Hypertension, Other. denies: DM, Malignancy, Thyroid Disfunction Parental Family History Reviewed: Yes Children Family History Reviewed: No Sibling(s) Family History Reviewed.: Yes Medication/Allergy Home Medications: Bismuth Subsalicylate [Pepto-Bismol 262 Chewable Tablet] 262 mg PO Q6HP PRN #20 tab.chew 12/18/18 Famotidine [Pepcid 20 mg Tablet] 20 mg PO Q12 #60 tablet 12/18/18 Levothyroxine Sodium [Synthroid 0.025 mg Tablet] 0.025 mg PO Q6AM #30 tablet 12/18/18 Mag Hydrox/Al Hydrox/Simeth [Maalox Plus Susp 30 Udcup] 30 ml PO Q8HP PRN #500 ml 12/18/18 Metoclopramide HCl [Reglan 10 mg Tablet] 10 mg PO ACHS #30 tablet 12/18/18 Pantoprazole Sodium [Protonix] 40 mg PO DAILY #30 granprobb. 12/18/18 Allergies/Adverse Reactions: cetirizine HCl [From Zyrtec] Adverse Reaction (Verified 01/10/19 18:36) Migraine diphenhydramine [From Benadryl] Adverse Reaction (Verified 01/10/19 18:36) Review of Systems Constitutional: PRESENT: as per HPI, anorexia, weight loss. ABSENT: chills, fever(s) Eyes: ABSENT: visual disturbances, other - Ocular pain Ears: ABSENT: hearing changes, other - Ear pain Nose, Mouth, and Throat: ABSENT: mouth pain, sore throat Cardiovascular: ABSENT: chest pain, dyspnea on exertion, edema, orthropnea, palpitations Respiratory: ABSENT: cough, dyspnea Gastrointestinal: PRESENT: as per HPI, abdominal pain, nausea, vomiting. ABSENT: constipation, diarrhea Musculoskeletal: ABSENT: back pain, joint swelling Integumentary: ABSENT: pruritus, rash Neurological: ABSENT: confusion, convulsions, focal weakness, memory loss Psychiatric: ABSENT: anxiety, depression Endocrine: ABSENT: cold intolerance, heat intolerance Hematologic/Lymphatic: ABSENT: easy bleeding, easy bruising Physical Exam Vital Signs: Temp Pulse Resp BP Pulse Ox 98.2 F 142 H 22 H 108/94 H 98 01/10/19 18:16 01/10/19 18:16 01/10/19 22:01 01/10/19 22:01 01/10/19 18:16 Intake & Output 01/08/19 01/09/19 01/10/19 23:59 23:59 23:59 Intake Total 1999 Balance 1999 Weight 65.2 kg General appearance: PRESENT: no acute distress, cooperative Head exam: PRESENT: atraumatic, normocephalic Eye exam: PRESENT: conjunctiva pink. ABSENT: scleral icterus Ear exam: PRESENT: normal external ear exam. ABSENT: bleeding, drainage Mouth exam: PRESENT: dry mucosa, neck supple Neck exam: ABSENT: thyromegaly, tracheal deviation Respiratory exam: PRESENT: clear to auscultation benjamin, symmetrical, unlabored Cardiovascular exam: PRESENT: RRR, tachycardia. ABSENT: clicks, gallop, rubs Pulses: PRESENT: normal radial pulses, normal dorsalis pedis pul Vascular exam: PRESENT: normal capillary refill. ABSENT: pallor GI/Abdominal exam: PRESENT: hypoactive bowel sounds - All quadrants, normal bowel sounds, soft, tenderness - Moderate to severe tenderness to deep palpation in the right lower quadrant without point localization. Rectal exam: PRESENT: deferred Extremities exam: ABSENT: joint swelling, pedal edema Musculoskeletal exam: ABSENT: deformity, dislocation Neurological exam: PRESENT: alert, oriented to person, oriented to place, oriented to time, oriented to situation, CN II-XII grossly intact. ABSENT: motor sensory deficit Psychiatric exam: PRESENT: appropriate affect, normal mood Skin exam: PRESENT: dry, intact, warm. ABSENT: jaundice, rash, urticaria Results Laboratory Results: 01/10/19 18:55 01/10/19 18:55 01/10/19 01/10/19 01/10/19 18:55 18:55 18:55 WBC 5.2 RBC 4.85 Hgb 13.9 Hct 40.5 MCV 83 MCH 28.7 MCHC 34.4 RDW 15.2 H Plt Count 385 Seg Neutrophils % 71.2 Lymphocytes % 19.2 Monocytes % 8.2 Eosinophils % 0.6 Basophils % 0.8 Absolute Neutrophils 3.7 Absolute Lymphocytes 1.0 Absolute Monocytes 0.4 Absolute Eosinophils 0.0 Absolute Basophils 0.0 VBG pH VBG pCO2 VBG HCO3 VBG Base Excess Sodium 134.9 L Potassium 3.5 L Chloride 94 L Carbon Dioxide 22 Anion Gap 19 BUN 12 Creatinine 0.70 Est GFR ( Amer) > 60 Est GFR (Non-Af Amer) > 60 Glucose 84 Lactic Acid 1.7 Calcium 10.3 H Total Bilirubin 0.8 AST 34 ALT 26 Alkaline Phosphatase 69 Total Protein 9.1 H Albumin 4.4 Prealbumin 8.8 L TSH Urine Color Urine Appearance Urine pH Ur Specific [place] Urine Protein Urine Glucose (UA) Urine Ketones Urine Blood Urine Nitrite Ur Leukocyte Esterase Urine WBC (Auto) Urine RBC (Auto) 01/10/19 01/10/19 01/10/19 18:55 18:55 18:55 WBC RBC Hgb Hct MCV MCH MCHC RDW Plt Count Seg Neutrophils % Lymphocytes % Monocytes % Eosinophils % Basophils % Absolute Neutrophils Absolute Lymphocytes Absolute Monocytes Absolute Eosinophils Absolute Basophils VBG pH 7.35 VBG pCO2 41.5 VBG HCO3 22.4 VBG Base Excess -3.0 Sodium Potassium Chloride Carbon Dioxide Anion Gap BUN Creatinine Est GFR ( Amer) Est GFR (Non-Af Amer) Glucose Lactic Acid Calcium Total Bilirubin AST ALT Alkaline Phosphatase Total Protein Albumin Prealbumin TSH 1.17 Urine Color DAYO Urine Appearance CLOUDY Urine pH 5.0 Ur Specific [place] 1.031 Urine Protein 100 H Urine Glucose (UA) NEGATIVE Urine Ketones 80 H Urine Blood NEGATIVE Urine Nitrite NEGATIVE Ur Leukocyte Esterase MODERATE H Urine WBC (Auto) 16 Urine RBC (Auto) 4 01/10/19 18:55 Troponin I < 0.012 Impressions: Chest X-Ray 01/10/19 18:35 IMPRESSION: No evidence of acute cardiopulmonary disease. Abdomen/Pelvis CT 01/10/19 19:49 IMPRESSION: Moderate gastric wall thickening, suspicious for gastritis. No fluid collection or free air. No evidence for bowel obstruction. Assessment and Plan - Diagnosis (1) Protein calorie malnutrition Qualifiers: Protein-calorie malnutrition severity: unspecified severity Qualified Code(s): E46 - Unspecified protein-calorie malnutrition Is this a current diagnosis for this admission?: Yes Plan: 01/11/19 01:10 Nutrition consult and surgical consult to evaluate the patient for appropriate immediate nutritional support utilizing either TPN or a Dobbhoff tube or possibly moving straight to a jejunostomy feeding tube. Patient's fluid needs will be met with IV fluids. (2) Sinus tachycardia Is this a current diagnosis for this admission?: Yes Plan: 01/11/19 01:11 Patient will be treated with IV fluid to reestablish her normal vascular volume and this should help resolve her sinus tachycardia. (3) Anemia Qualifiers: Anemia type: iron deficiency Iron deficiency anemia type: inadequate dietary iron intake Qualified Code(s): D50.8 - Other iron deficiency anemias Is this a current diagnosis for this admission?: Yes Plan: 01/11/19 01:12 Nutritional consult should help to arrive at the best way to provide the patient with adequate iron intake to support her hematologic system. (4) Hypothyroid Qualifiers: Hypothyroidism type: unspecified Qualified Code(s): E03.9 - Hypothyroidism, unspecified Is this a current diagnosis for this admission?: Yes Plan: 01/11/19 01:12 Patient will be treated with IV levothyroxine in the interim until an adequate means of delivery levothyroxine in another form can be arranged. (5) Abdominal pain Qualifiers: Abdominal location: right lower quadrant Qualified Code(s): R10.31 - Right lower quadrant pain Is this a current diagnosis for this admission?: Yes Plan: 01/11/19 01:13 Patient's abdominal pain will be treated with IV fluids and supportive care including Reglan and famotidine IV as well as sucralfate p.o.. She will additionally have available morphine sulfate 2-4 mg IV every 2 hours as needed for pain or discomfort on a sliding scale basis. - Time Time Spent with patient: 35 or more minutes Medications reviewed and adjusted accordingly: Yes Anticipated discharge: Home with Homehealth, SNF - Inpatient Certification Based on my medical assessment, after consideration of the patient's comorbidities, presenting symptoms, or acuity I expect that the services needed warrant INPATIENT care.: Yes I certify that my determination is in accordance with my understanding of Medicare's requirements for reasonable and necessary INPATIENT services [42 CFR 412.3e].: Yes Medical Necessity: Failure to Improve With Outpatient Therapy, Need Close Monitoring Due to Risk of Patient Decompensation, Need For IV Fluids, Need for Pain Control, Need for Surgery, Risk of Complication if Not Cared For in Hospital
--- NOTE | 2019-01-11 02:24 | PDOC CONSULTATION ---
Consultation Consult Date: 01/11/19 Consult reason:: evaluation of weight loss History of Present Illness Admission Date/PCP: 01/10/19 22:05 History of Present Illness: ARGELIA JEAN is a 58 year old female with history of hypothyroidism,GERD on OTC omeprazole daily past 3 years had extensive abdominal hernia surgery by Dr Walsh at [facility] in . Since surgery has been c/o of weight loss though has not been eating well. Has early satiety. In had GI bleed due to NSAID gastritis. Had EGD done by Dr Izaguirre at that time. Also negative for H Pylori. Since November has most rapid weight loss and now weighs 143 lbs compared to 200 lbs in . Surgery is being consulted to help identify etiology of weight loss and eventually do feeding jejunostomy if warranted. Just had a CT scan which showed thickened stomach compatible with gastritis. Otherwise, normal. Past Medical History Cardiac Medical History: Reports: Hypertension Denies: Atrial Fibrillation, Coronary Artery Disease, DVT, Pulmonary Embolism Pulmonary Medical History: Denies: Asthma, Chronic Obstructive Pulmonary Disease (COPD), Tuberculosis EENT Medical History: Reports: None Neurological Medical History: Denies: Hemorrhagic CVA, Ischemic CVA, Multiple Sclerosis, Seizures Endocrine Medical History: Reports: Hypothyroidism Denies: Diabetes Mellitus Type 1, Diabetes Mellitus Type 2, Hyperthyroidism Renal/ Medical History: Denies: Chronic Kidney Disease, Nephrolithiasis Malignancy Medical History: Reports: None GI Medical History: Reports: Other - Bowel obstruction with partial intestinal resection Denies: Cirrhosis, Hepatitis Musculoskeltal Medical History: Reports: Arthritis - osteoarthritis Denies: Gout Skin Medical History: Denies: Eczema, Psoriasis Psychiatric Medical History: Reports: Depression, Post Traumatic Stress Disorder Denies: Alcohol Dependency, Substance Abuse, Tobacco Dependency Traumatic Medical History: Reports: None Hematology: Denies: Anemia, Bleeding Tendencies Infectious Medical History: Reports: None Past Surgical History Past Surgical History: Reports: Cardiac Catheterization - 2002 neg fo CAD, Cholecystectomy, Hysterectomy, Tubal Ligation, Other - Hernia surgery x 3 Bowel obstruction with partial bowel resection Hernia s Social History Lives with: Alone Smoking Status: Former Smoker Frequency of Alcohol Use: Rare Hx Recreational Drug Use: No Drugs: None Hx Prescription Drug Abuse: No - Advance Directive Resuscitation Status: Full Code Family History Family History: Hypertension, Thyroid Disfunction. denies: CAD, DM, Malignancy Parental Family History Reviewed: Yes Children Family History Reviewed: No Sibling(s) Family History Reviewed.: No Medication/Allergy Home Medications: Bismuth Subsalicylate [Pepto-Bismol 262 Chewable Tablet] 262 mg PO Q6HP PRN #20 tab.chew 12/18/18 Famotidine [Pepcid 20 mg Tablet] 20 mg PO Q12 #60 tablet 12/18/18 Levothyroxine Sodium [Synthroid 0.025 mg Tablet] 0.025 mg PO Q6AM #30 tablet 12/18/18 Mag Hydrox/Al Hydrox/Simeth [Maalox Plus Susp 30 Udcup] 30 ml PO Q8HP PRN #500 ml 12/18/18 Metoclopramide HCl [Reglan 10 mg Tablet] 10 mg PO ACHS #30 tablet 12/18/18 Pantoprazole Sodium [Protonix] 40 mg PO DAILY #30 granpkt. 12/18/18 Allergies/Adverse Reactions: cetirizine HCl [From Zyrtec] Adverse Reaction (Verified 01/10/19 18:36) Migraine diphenhydramine [From Benadryl] Adverse Reaction (Verified 01/10/19 18:36) Review of Systems Constitutional: PRESENT: as per HPI, weakness, weight loss Ears: PRESENT: other - no visual/hearing changes Cardiovascular: PRESENT: other - no chest pains/cough Gastrointestinal: PRESENT: abdominal pain, nausea, vomiting Genitourinary: PRESENT: other - no dysuria Neurological: PRESENT: weakness Physical Exam Vital Signs: Temp Pulse Resp BP Pulse Ox 98.0 F 85 17 119/71 92 01/11/19 00:02 01/11/19 00:02 01/11/19 00:02 01/11/19 00:02 01/11/19 00:02 Intake & Output 01/09/19 01/10/19 01/11/19 06:59 06:59 06:59 Intake Total 1999 Balance 1999 Weight 65.3 kg General appearance: PRESENT: no acute distress Head exam: PRESENT: atraumatic Eye exam: PRESENT: conjunctiva pink Mouth exam: PRESENT: moist Neck exam: PRESENT: full ROM Respiratory exam: PRESENT: clear to auscultation benjamin Cardiovascular exam: PRESENT: RRR Pulses: PRESENT: normal radial pulses Vascular exam: PRESENT: normal capillary refill GI/Abdominal exam: PRESENT: soft, tenderness - mild tenderness RLowerquadrant Long lower transverse incision for Hernia surgery intact. Has some areas of hardness on subcu layer non tender which maybe ossified fat.Claims has some "swelling of lower abdomen since surgery in . Rectal exam: PRESENT: deferred Extremities exam: PRESENT: full ROM Musculoskeletal exam: PRESENT: ambulatory Neurological exam: PRESENT: alert, oriented to person, oriented to place, oriented to time, oriented to situation Psychiatric exam: PRESENT: appropriate affect Skin exam: PRESENT: normal color, warm Results Laboratory Results: 01/10/19 18:55 01/10/19 18:55 01/10/19 01/10/19 01/10/19 18:55 18:55 18:55 WBC 5.2 RBC 4.85 Hgb 13.9 Hct 40.5 MCV 83 MCH 28.7 MCHC 34.4 RDW 15.2 H Plt Count 385 Seg Neutrophils % 71.2 Lymphocytes % 19.2 Monocytes % 8.2 Eosinophils % 0.6 Basophils % 0.8 Absolute Neutrophils 3.7 Absolute Lymphocytes 1.0 Absolute Monocytes 0.4 Absolute Eosinophils 0.0 Absolute Basophils 0.0 VBG pH VBG pCO2 VBG HCO3 VBG Base Excess Sodium 134.9 L Potassium 3.5 L Chloride 94 L Carbon Dioxide 22 Anion Gap 19 BUN 12 Creatinine 0.70 Est GFR ( Amer) > 60 Est GFR (Non-Af Amer) > 60 Glucose 84 Lactic Acid 1.7 Calcium 10.3 H Total Bilirubin 0.8 AST 34 ALT 26 Alkaline Phosphatase 69 Total Protein 9.1 H Albumin 4.4 Prealbumin 8.8 L TSH Urine Color Urine Appearance Urine pH Ur Specific [place] Urine Protein Urine Glucose (UA) Urine Ketones Urine Blood Urine Nitrite Ur Leukocyte Esterase Urine WBC (Auto) Urine RBC (Auto) 01/10/19 01/10/19 01/10/19 18:55 18:55 18:55 WBC RBC Hgb Hct MCV MCH MCHC RDW Plt Count Seg Neutrophils % Lymphocytes % Monocytes % Eosinophils % Basophils % Absolute Neutrophils Absolute Lymphocytes Absolute Monocytes Absolute Eosinophils Absolute Basophils VBG pH 7.35 VBG pCO2 41.5 VBG HCO3 22.4 VBG Base Excess -3.0 Sodium Potassium Chloride Carbon Dioxide Anion Gap BUN Creatinine Est GFR ( Amer) Est GFR (Non-Af Amer) Glucose Lactic Acid Calcium Total Bilirubin AST ALT Alkaline Phosphatase Total Protein Albumin Prealbumin TSH 1.17 Urine Color DAYO Urine Appearance CLOUDY Urine pH 5.0 Ur Specific [place] 1.031 Urine Protein 100 H Urine Glucose (UA) NEGATIVE Urine Ketones 80 H Urine Blood NEGATIVE Urine Nitrite NEGATIVE Ur Leukocyte Esterase MODERATE H Urine WBC (Auto) 16 Urine RBC (Auto) 4 01/10/19 18:55 Troponin I < 0.012 Impressions: Chest X-Ray 01/10/19 18:35 IMPRESSION: No evidence of acute cardiopulmonary disease. Abdomen/Pelvis CT 01/10/19 19:49 IMPRESSION: Moderate gastric wall thickening, suspicious for gastritis. No fluid collection or free air. No evidence for bowel obstruction. Assessment & Plan - Time Time Spent: 30 to 50 Minutes - Inpatient Certification Medical Necessity: Need Close Monitoring Due to Risk of Patient Decompensation, Risk of Complication if Not Cared For in Hospital, Risk of Diagnosis Which Will Require Inpatient Eval/Care/Monitoring - Plan Summary Plan Summary: Will likely need re upper endoscopy with gastric biopsy to R/o malignancy Further work-up per Oncology Will schedule endoscopy
[2019-01-11 03:01] LABS: URINE AMPHETAMINES SCREEN NEGATIVE; URINE BARBITURATES SCREEN NEGATIVE; URINE COCAINE SCREEN NEGATIVE; URINE MARIJUANA (THC) SCREEN NEGATIVE; URINE METHADONE SCREEN NEGATIVE; URINE PHENCYCLIDINE SCREEN NEGATIVE
[2019-01-11 03:10] LABS: URINE BENZODIAZEPINES SCREEN UNCONFIRMED POSITIVE
[2019-01-11] MEDS: HEPARIN SOD (PORCINE) 5,000 UNIT/ML 1 ML SYRINGE SUBCUT SCH ×3 (05:21→21:11)
[2019-01-11 07:24] LABS: HEMATOCRIT 29.3 % (36.0-47.0); MEAN CORPUSCULAR HEMOGLOBIN 28.4 pg (27.0-33.4); MEAN CORPUSCULAR HGB CONC 34.7 g/dL (32.0-36.0); MEAN CORPUSCULAR VOLUME 82 fl (80-97); PLATELET COUNT 201 10^3/uL (150-450); RED BLOOD COUNT 3.57 10^6/uL (3.72-5.28)
[2019-01-11 07:42] LABS: ANION GAP 6 (5-19); BLOOD UREA NITROGEN 6 mg/dL (7-20); CALCIUM 8.7 mg/dL (8.4-10.2); CARBON DIOXIDE 25 mmol/L (22-30); CHLORIDE 106 mmol/L (98-107); GLUCOSE 109 mg/dL (75-110); PHOSPHORUS 3.8 mg/dL (2.5-4.5); POTASSIUM 3.1 mmol/L (3.6-5.0); SODIUM 136.5 mmol/L (137-145)
[2019-01-11 07:52] LABS: FREE T3 2.95 pg/mL (2.77-5.27); FREE T4 (FREE THYROXINE) 1.31 ng/dL (0.78-2.19)
[2019-01-11] MEDS ORDERED: DRONABINOL 2.5 MG CAPSULE PO SCH (08:00)
[2019-01-11 08:06] LABS: THYROID STIMULATING HORMONE 1.24 uIU/mL (0.47-4.68)
[2019-01-11 08:34] LABS: HEMOGLOBIN 10.1 g/dL (12.0-15.5); WHITE BLOOD COUNT 2.6 10^3/uL (4.0-10.5)
[2019-01-11] MEDS: SUCRALFATE 1 GM TABLET PO SCH ×4 (09:04→21:11)
[2019-01-11] MEDS: METOCLOPRAMIDE HCL INJ/PF 10 MG/2 ML SDV IV SCH ×4 (09:04→21:12)
[2019-01-11] MEDS: DOCUSATE SODIUM 100 MG/10 ML UDC PO SCH ×2 (09:11→17:08)
[2019-01-11] MEDS: DRONABINOL 2.5 MG CAPSULE PO SCH (09:15)
[2019-01-11] MEDS: FAMOTIDINE INJ/PF 20 MG/2 ML SDV IV SCH ×2 (09:15→21:10)
[2019-01-11] MEDS: LEVOTHYROXINE SODIUM INJ/PF 0.1 MG SDV IV SCH (09:16)
--- NOTE | 2019-01-11 13:48 | PDOC PROGRESS REPORT ---
Subjective Progress Note for:: 01/11/19 Subjective:: Patient states she is doing okay still complains of abdominal pain. Still complaining of some weakness with ambulation. No more nausea or vomiting but has not started to advance her diet yet. Reason For Visit: SEVERE WEIGHT LOSS Physical Exam Vital Signs: Temp Pulse Resp BP Pulse Ox 98.3 F 63 17 100/58 L 100 01/11/19 11:00 01/11/19 11:00 01/11/19 11:00 01/11/19 11:00 01/11/19 11:00 Intake & Output 01/10/19 01/11/19 01/12/19 06:59 06:59 06:59 Intake Total 2927 893 Balance 2927 893 Weight 65.3 kg 65.3 kg General appearance: PRESENT: no acute distress, cooperative Eye exam: PRESENT: PERRLA. ABSENT: scleral icterus Mouth exam: PRESENT: moist, neck supple Neck exam: PRESENT: full ROM. ABSENT: JVD, lymphadenopathy, tenderness, thyromegaly, tracheal deviation Respiratory exam: PRESENT: clear to auscultation benjamin, unlabored Cardiovascular exam: PRESENT: RRR GI/Abdominal exam: PRESENT: normal bowel sounds, soft, tenderness Extremities exam: ABSENT: pedal edema Musculoskeletal exam: PRESENT: full ROM Neurological exam: PRESENT: alert, oriented to person, oriented to place, oriented to time, oriented to situation Psychiatric exam: ABSENT: agitated, anxious Skin exam: PRESENT: dry, normal color, warm Results Laboratory Results: 01/11/19 06:47 01/11/19 06:47 01/10/19 01/10/19 01/10/19 18:55 18:55 18:55 WBC 5.2 RBC 4.85 Hgb 13.9 Hct 40.5 MCV 83 MCH 28.7 MCHC 34.4 RDW 15.2 H Plt Count 385 Seg Neutrophils % 71.2 Lymphocytes % 19.2 Monocytes % 8.2 Eosinophils % 0.6 Basophils % 0.8 Absolute Neutrophils 3.7 Absolute Lymphocytes 1.0 Absolute Monocytes 0.4 Absolute Eosinophils 0.0 Absolute Basophils 0.0 VBG pH VBG pCO2 VBG HCO3 VBG Base Excess Sodium 134.9 L Potassium 3.5 L Chloride 94 L Carbon Dioxide 22 Anion Gap 19 BUN 12 Creatinine 0.70 Est GFR ( Amer) > 60 Est GFR (Non-Af Amer) > 60 Glucose 84 Lactic Acid 1.7 Calcium 10.3 H Phosphorus Magnesium Total Bilirubin 0.8 AST 34 ALT 26 Alkaline Phosphatase 69 Total Protein 9.1 H Albumin 4.4 Prealbumin 8.8 L TSH Free T4 Free T3 pg/mL Urine Color Urine Appearance Urine pH Ur Specific [place] Urine Protein Urine Glucose (UA) Urine Ketones Urine Blood Urine Nitrite Ur Leukocyte Esterase Urine WBC (Auto) Urine RBC (Auto) 01/10/19 01/10/19 01/10/19 18:55 18:55 18:55 WBC RBC Hgb Hct MCV MCH MCHC RDW Plt Count Seg Neutrophils % Lymphocytes % Monocytes % Eosinophils % Basophils % Absolute Neutrophils Absolute Lymphocytes Absolute Monocytes Absolute Eosinophils Absolute Basophils VBG pH 7.35 VBG pCO2 41.5 VBG HCO3 22.4 VBG Base Excess -3.0 Sodium Potassium Chloride Carbon Dioxide Anion Gap BUN Creatinine Est GFR ( Amer) Est GFR (Non-Af Amer) Glucose Lactic Acid Calcium Phosphorus Magnesium Total Bilirubin AST ALT Alkaline Phosphatase Total Protein Albumin Prealbumin TSH 1.17 Free T4 Free T3 pg/mL Urine Color DAYO Urine Appearance CLOUDY Urine pH 5.0 Ur Specific [place] 1.031 Urine Protein 100 H Urine Glucose (UA) NEGATIVE Urine Ketones 80 H Urine Blood NEGATIVE Urine Nitrite NEGATIVE Ur Leukocyte Esterase MODERATE H Urine WBC (Auto) 16 Urine RBC (Auto) 4 01/11/19 01/11/19 01/11/19 06:47 06:47 06:47 WBC 2.6 L D RBC 3.57 L Hgb 10.1 L D Hct 29.3 L MCV 82 MCH 28.4 MCHC 34.7 RDW 15.0 H Plt Count 201 Seg Neutrophils % Lymphocytes % Monocytes % Eosinophils % Basophils % Absolute Neutrophils Absolute Lymphocytes Absolute Monocytes Absolute Eosinophils Absolute Basophils VBG pH VBG pCO2 VBG HCO3 VBG Base Excess Sodium 136.5 L Potassium 3.1 L Chloride 106 Carbon Dioxide 25 Anion Gap 6 BUN 6 L Creatinine 0.44 L Est GFR ( Amer) > 60 Est GFR (Non-Af Amer) > 60 Glucose 109 Lactic Acid Calcium 8.7 Phosphorus 3.8 Magnesium 1.5 L Total Bilirubin AST ALT Alkaline Phosphatase Total Protein Albumin Prealbumin TSH 1.24 Free T4 1.31 Free T3 pg/mL 2.95 Urine Color Urine Appearance Urine pH Ur Specific [place] Urine Protein Urine Glucose (UA) Urine Ketones Urine Blood Urine Nitrite Ur Leukocyte Esterase Urine WBC (Auto) Urine RBC (Auto) 01/10/19 18:55 Troponin I < 0.012 Impressions: Chest X-Ray 01/10/19 18:35 IMPRESSION: No evidence of acute cardiopulmonary disease. Abdomen/Pelvis CT 01/10/19 19:49 IMPRESSION: Moderate gastric wall thickening, suspicious for gastritis. No fluid collection or free air. No evidence for bowel obstruction. Assessment and Plan - Diagnosis (1) Protein calorie malnutrition Qualifiers: Protein-calorie malnutrition severity: unspecified severity Qualified Code(s): E46 - Unspecified protein-calorie malnutrition Is this a current diagnosis for this admission?: Yes Plan: She been evaluated by surgical services. They feel she is not a good candidate for a PEG or PEGJ tube. Going to start Marinol to increase her appetite. Maximize medications to help with the gastritis. Dietitian consult to help. Patient out on a bland diet monitor weight gain and oral input. (2) Gastritis Qualifiers: Gastritis type: unspecified gastritis Chronicity: chronic Gastritis bleeding: presence of bleeding unspecified Qualified Code(s): K29.50 - Unspecified chronic gastritis without bleeding Is this a current diagnosis for this admission?: Yes Plan: Patient's been evaluated by surgical services had an endoscopy done last month. Feel that the gastritis is the most likely cause for her weight loss. No fur ther plans for EGD at this time. - Time Time Spent with patient: 35 or more minutes Medications reviewed and adjusted accordingly: Yes Anticipated discharge: Home
--- NOTE | 2019-01-11 18:24 | PDOC PROGRESS REPORT ---
Subjective Progress Note for:: 01/11/19 Subjective:: Is a 58-year-old female with known severe NSAID related gastritis. She has difficulty eating and abdominal pain. She reports nausea with oral intake. She denies chest pain, shortness of breath, fevers, chills, hematemesis, melena, hematochezia, orthostasis, dizziness, headache. She does report fatigue and malaise. Reason For Visit: SEVERE WEIGHT LOSS Physical Exam Vital Signs: Temp Pulse Resp BP Pulse Ox 98.5 F 65 17 111/51 L 98 01/11/19 15:00 01/11/19 15:00 01/11/19 15:00 01/11/19 15:00 01/11/19 15:00 Intake & Output 01/10/19 01/11/19 01/12/19 06:59 06:59 06:59 Intake Total 2927 1493 Output Total 1000 Balance 2927 493 Weight 65.3 kg 65.3 kg General appearance: PRESENT: no acute distress, cooperative Head exam: PRESENT: atraumatic, normocephalic Eye exam: PRESENT: EOMI, PERRLA. ABSENT: scleral icterus Mouth exam: PRESENT: moist, neck supple Neck exam: ABSENT: meningismus, tenderness, thyromegaly, tracheal deviation Respiratory exam: PRESENT: clear to auscultation benjamin, unlabored. ABSENT: chest wall tenderness, tachypnea, wheezes Cardiovascular exam: PRESENT: RRR Pulses: PRESENT: normal radial pulses Vascular exam: PRESENT: normal capillary refill GI/Abdominal exam: PRESENT: soft. ABSENT: distended, firm, guarding, rebound, rigid, tenderness Rectal exam: PRESENT: deferred Extremities exam: ABSENT: clubbing Musculoskeletal exam: ABSENT: deformity Neurological exam: PRESENT: alert, awake, oriented to person, oriented to place, oriented to time, oriented to situation, CN II-XII grossly intact. ABSENT: motor sensory deficit Psychiatric exam: ABSENT: agitated, anxious, depressed Focused psych exam: ABSENT: delusional Skin exam: ABSENT: cyanosis, erythema, jaundice Results Laboratory Results: 01/11/19 06:47 01/11/19 06:47 01/10/19 01/10/19 01/10/19 18:55 18:55 18:55 WBC 5.2 RBC 4.85 Hgb 13.9 Hct 40.5 MCV 83 MCH 28.7 MCHC 34.4 RDW 15.2 H Plt Count 385 Seg Neutrophils % 71.2 Lymphocytes % 19.2 Monocytes % 8.2 Eosinophils % 0.6 Basophils % 0.8 Absolute Neutrophils 3.7 Absolute Lymphocytes 1.0 Absolute Monocytes 0.4 Absolute Eosinophils 0.0 Absolute Basophils 0.0 VBG pH VBG pCO2 VBG HCO3 VBG Base Excess Sodium 134.9 L Potassium 3.5 L Chloride 94 L Carbon Dioxide 22 Anion Gap 19 BUN 12 Creatinine 0.70 Est GFR ( Amer) > 60 Est GFR (Non-Af Amer) > 60 Glucose 84 Lactic Acid 1.7 Calcium 10.3 H Phosphorus Magnesium Total Bilirubin 0.8 AST 34 ALT 26 Alkaline Phosphatase 69 Total Protein 9.1 H Albumin 4.4 Prealbumin 8.8 L TSH Free T4 Free T3 pg/mL Urine Color Urine Appearance Urine pH Ur Specific [place] Urine Protein Urine Glucose (UA) Urine Ketones Urine Blood Urine Nitrite Ur Leukocyte Esterase Urine WBC (Auto) Urine RBC (Auto) 01/10/19 01/10/19 01/10/19 18:55 18:55 18:55 WBC RBC Hgb Hct MCV MCH MCHC RDW Plt Count Seg Neutrophils % Lymphocytes % Monocytes % Eosinophils % Basophils % Absolute Neutrophils Absolute Lymphocytes Absolute Monocytes Absolute Eosinophils Absolute Basophils VBG pH 7.35 VBG pCO2 41.5 VBG HCO3 22.4 VBG Base Excess -3.0 Sodium Potassium Chloride Carbon Dioxide Anion Gap BUN Creatinine Est GFR ( Amer) Est GFR (Non-Af Amer) Glucose Lactic Acid Calcium Phosphorus Magnesium Total Bilirubin AST ALT Alkaline Phosphatase Total Protein Albumin Prealbumin TSH 1.17 Free T4 Free T3 pg/mL Urine Color DAYO Urine Appearance CLOUDY Urine pH 5.0 Ur Specific [place] 1.031 Urine Protein 100 H Urine Glucose (UA) NEGATIVE Urine Ketones 80 H Urine Blood NEGATIVE Urine Nitrite NEGATIVE Ur Leukocyte Esterase MODERATE H Urine WBC (Auto) 16 Urine RBC (Auto) 4 01/11/19 01/11/19 01/11/19 06:47 06:47 06:47 WBC 2.6 L D RBC 3.57 L Hgb 10.1 L D Hct 29.3 L MCV 82 MCH 28.4 MCHC 34.7 RDW 15.0 H Plt Count 201 Seg Neutrophils % Lymphocytes % Monocytes % Eosinophils % Basophils % Absolute Neutrophils Absolute Lymphocytes Absolute Monocytes Absolute Eosinophils Absolute Basophils VBG pH VBG pCO2 VBG HCO3 VBG Base Excess Sodium 136.5 L Potassium 3.1 L Chloride 106 Carbon Dioxide 25 Anion Gap 6 BUN 6 L Creatinine 0.44 L Est GFR ( Amer) > 60 Est GFR (Non-Af Amer) > 60 Glucose 109 Lactic Acid Calcium 8.7 Phosphorus 3.8 Magnesium 1.5 L Total Bilirubin AST ALT Alkaline Phosphatase Total Protein Albumin Prealbumin TSH 1.24 Free T4 1.31 Free T3 pg/mL 2.95 Urine Color Urine Appearance Urine pH Ur Specific [place] Urine Protein Urine Glucose (UA) Urine Ketones Urine Blood Urine Nitrite Ur Leukocyte Esterase Urine WBC (Auto) Urine RBC (Auto) 01/10/19 18:55 Troponin I < 0.012 Impressions: Chest X-Ray 01/10/19 18:35 IMPRESSION: No evidence of acute cardiopulmonary disease. Abdomen/Pelvis CT 01/10/19 19:49 IMPRESSION: Moderate gastric wall thickening, suspicious for gastritis. No fluid collection or free air. No evidence for bowel obstruction. Assessment & Plan - Diagnosis (1) Abdominal pain Qualifiers: Abdominal location: right lower quadrant Qualified Code(s): R10.31 - Right lower quadrant pain Is this a current diagnosis for this admission?: Yes (2) Gastritis Qualifiers: Gastritis type: unspecified gastritis Chronicity: chronic Gastritis bleeding: presence of bleeding unspecified Qualified Code(s): K29.50 - Unspecified chronic gastritis without bleeding Is this a current diagnosis for this admission?: Yes - Plan Summary Plan Summary: This is a 58-year-old female with severe gastritis found on EGD approximately 30 days ago. Request has been made for continued workup. Seeing as how her EGD was several weeks ago, I do not believe repeat EGD would be beneficial. The patient had severe gastritis, which cannot be cured in 4 weeks time. I have recommended that the patient avoid caffeine, nicotine, NSAIDs, steroids, alcohol, and soda pop. The patient should continue to take her PPI. Carafate has been added today, which may provide her some symptomatic relief. I recommend conservative treatment at this time. If the patient has no resolution of her symptoms in another 4-6 weeks, EGD may be of some benefit. I have reviewed the patient's CT scan, which fails to show any evidence of small bowel obstruction or gastric outlet obstruction. In regards to feeding tubes for this patient, I would recommend against it at this time. The patient recently (last August) underwent a major abdominal wall reconstruction with mesh implantation. Any abdominal surgery or feeding tube would displace or damage the mesh. This would be unwise, and I recommend against it. This is been discussed with the patient at length. She voiced good understanding. Will follow.
[2019-01-12] MEDS: DEXTROSE 5%-LACTATED RINGERS 1,000 ML IV PRN ×4 (03:14→21:38)
[2019-01-12] MEDS: HEPARIN SOD (PORCINE) 5,000 UNIT/ML 1 ML SYRINGE SUBCUT SCH ×3 (05:15→21:30)
[2019-01-12 06:22] LABS: HEMATOCRIT 27.4 % (36.0-47.0); HEMOGLOBIN 9.7 g/dL (12.0-15.5); MEAN CORPUSCULAR HEMOGLOBIN 28.9 pg (27.0-33.4); MEAN CORPUSCULAR HGB CONC 35.3 g/dL (32.0-36.0); MEAN CORPUSCULAR VOLUME 82 fl (80-97); PLATELET COUNT 166 10^3/uL (150-450); RED BLOOD COUNT 3.35 10^6/uL (3.72-5.28); RED CELL DISTRIBUTION WIDTH 15.2 % (11.5-14.0); WHITE BLOOD COUNT 2.4 10^3/uL (4.0-10.5)
[2019-01-12 06:40] LABS: ANION GAP 5 (5-19); BLOOD UREA NITROGEN 2 mg/dL (7-20); CALCIUM 8.6 mg/dL (8.4-10.2); CARBON DIOXIDE 27 mmol/L (22-30); CHLORIDE 107 mmol/L (98-107); GLUCOSE 106 mg/dL (75-110); PHOSPHORUS 3.5 mg/dL (2.5-4.5); SODIUM 138.5 mmol/L (137-145)
[2019-01-12 06:46] LABS: POTASSIUM 2.9 mmol/L (3.6-5.0)
[2019-01-12] MEDS: SUCRALFATE 1 GM TABLET PO SCH ×4 (08:58→21:35)
[2019-01-12] MEDS: METOCLOPRAMIDE HCL INJ/PF 10 MG/2 ML SDV IV SCH ×2 (08:58→11:47)
[2019-01-12] MEDS: DRONABINOL 2.5 MG CAPSULE PO SCH (08:58)
[2019-01-12] MEDS: POTASSIUM CHLORIDE 20 MEQ/50 ML RTU IV SCH ×3 (08:58→14:38)
[2019-01-12] MEDS: DOCUSATE SODIUM 100 MG/10 ML UDC PO SCH (10:07)
[2019-01-12] MEDS: LEVOTHYROXINE SODIUM INJ/PF 0.1 MG SDV IV SCH (11:46)
[2019-01-12] MEDS: FAMOTIDINE INJ/PF 20 MG/2 ML SDV IV SCH (11:46)
--- NOTE | 2019-01-12 11:53 | PDOC PROGRESS REPORT ---
Subjective Progress Note for:: 01/12/19 Subjective:: No pains.Tolerating diet better Reason For Visit: SEVERE WEIGHT LOSS Physical Exam Vital Signs: Temp Pulse Resp BP Pulse Ox 98.2 F 70 17 145/71 H 99 01/12/19 08:00 01/12/19 08:00 01/12/19 08:00 01/12/19 08:00 01/12/19 08:00 Intake & Output 01/11/19 01/12/19 01/13/19 06:59 06:59 06:59 Intake Total 2927 3973 1038 Output Total 1000 Balance 2927 2973 1038 Weight 65.3 kg 65.3 kg Results Laboratory Results: 01/12/19 06:06 01/12/19 06:06 01/12/19 01/12/19 06:06 06:06 WBC 2.4 L RBC 3.35 L Hgb 9.7 L Hct 27.4 L MCV 82 MCH 28.9 MCHC 35.3 RDW 15.2 H Plt Count 166 Sodium 138.5 Potassium 2.9 L* Chloride 107 Carbon Dioxide 27 Anion Gap 5 BUN 2 L Creatinine 0.46 L Est GFR ( Amer) > 60 Est GFR (Non-Af Amer) > 60 Glucose 106 Calcium 8.6 Phosphorus 3.5 Magnesium 1.4 L 01/10/19 18:55 Troponin I < 0.012 Impressions: Chest X-Ray 01/10/19 18:35 IMPRESSION: No evidence of acute cardiopulmonary disease. Abdomen/Pelvis CT 01/10/19 19:49 IMPRESSION: Moderate gastric wall thickening, suspicious for gastritis. No fluid collection or free air. No evidence for bowel obstruction. Assessment & Plan - Time Time Spent with patient: 15-24 minutes - Plan Summary Plan Summary: EGD not neede at this time. Says she has anappointment for EGD by Dr Izaguirre on 01/24/19 Will sign off
[2019-01-12] MEDS: METOCLOPRAMIDE HCL 10 MG TABLET PO SCH ×2 (15:31→21:30)
[2019-01-12] MEDS: DOCUSATE SODIUM 100 MG CAPSULE PO SCH (17:39)
--- NOTE | 2019-01-12 18:48 | PDOC PROGRESS REPORT ---
Subjective Progress Note for:: 01/12/19 Subjective:: No adverse events overnight. Her only complaint today is that she wishes she felt like eating more. She is currently on a BRAT diet and is tolerating it well, she just does not have much of an appetite. She had a normal bowel movement yesterday and there was no blood in it. Reason For Visit: SEVERE WEIGHT LOSS Physical Exam Vital Signs: Temp Pulse Resp BP Pulse Ox 98.2 F 68 16 117/61 98 01/12/19 16:00 01/12/19 16:00 01/12/19 16:00 01/12/19 16:00 01/12/19 16:00 Intake & Output 01/11/19 01/12/19 01/13/19 06:59 06:59 06:59 Intake Total 2927 3973 2138 Output Total 1000 Balance 2927 2973 2138 Weight 65.3 kg 65.3 kg 65.3 kg General appearance: PRESENT: no acute distress, cooperative Respiratory exam: PRESENT: clear to auscultation benjamin, unlabored Cardiovascular exam: PRESENT: RRR GI/Abdominal exam: PRESENT: normal bowel sounds, soft, tenderness Extremities exam: ABSENT: pedal edema Musculoskeletal exam: PRESENT: full ROM Neurological exam: PRESENT: alert, oriented to person, oriented to place, oriented to time, oriented to situation Psychiatric exam: ABSENT: agitated, anxious Skin exam: PRESENT: dry, normal color, warm Results Laboratory Results: 01/12/19 06:06 01/12/19 06:06 01/12/19 01/12/19 06:06 06:06 WBC 2.4 L RBC 3.35 L Hgb 9.7 L Hct 27.4 L MCV 82 MCH 28.9 MCHC 35.3 RDW 15.2 H Plt Count 166 Sodium 138.5 Potassium 2.9 L* Chloride 107 Carbon Dioxide 27 Anion Gap 5 BUN 2 L Creatinine 0.46 L Est GFR ( Amer) > 60 Est GFR (Non-Af Amer) > 60 Glucose 106 Calcium 8.6 Phosphorus 3.5 Magnesium 1.4 L 01/10/19 18:55 Troponin I < 0.012 Impressions: Chest X-Ray 01/10/19 18:35 IMPRESSION: No evidence of acute cardiopulmonary disease. Abdomen/Pelvis CT 01/10/19 19:49 IMPRESSION: Moderate gastric wall thickening, suspicious for gastritis. No fluid collection or free air. No evidence for bowel obstruction. Assessment and Plan - Diagnosis (1) Gastritis Qualifiers: Gastritis type: unspecified gastritis Chronicity: chronic Gastritis bleeding: with bleeding Qualified Code(s): K29.51 - Unspecified chronic gastritis with bleeding Is this a current diagnosis for this admission?: Yes Plan: PPI and Carafate. Modified diet and no NSAIDs. ADAT. Possible d/c home tomorrow. (2) Anemia Qualifiers: Anemia type: iron deficiency Iron deficiency anemia type: inadequate dietary iron intake Qualified Code(s): D50.8 - Other iron deficiency anemias Is this a current diagnosis for this admission?: Yes Plan: She will resume an iron supplement whenever she goes home. No more signs of ongoing blood loss. - Time Time Spent with patient: 25-34 minutes
[2019-01-12] MEDS: ONDANSETRON HCL INJ/PF 4 MG/2 ML SDV IV PRN ×2 (19:18→23:09)
[2019-01-12] MEDS: FAMOTIDINE 20 MG TABLET PO SCH (21:35)
[2019-01-12] MEDS: POTASSIUM CHLORIDE 20 MEQ/15 ML UDCUP PO SCH (21:35)
[2019-01-13] MEDS: DEXTROSE 5%-LACTATED RINGERS 1,000 ML IV PRN ×2 (03:32→11:16)
[2019-01-13] MEDS: HEPARIN SOD (PORCINE) 5,000 UNIT/ML 1 ML SYRINGE SUBCUT SCH ×3 (05:28→21:30)
[2019-01-13] MEDS: LEVOTHYROXINE SODIUM 0.025 MG TABLET PO SCH (05:31)
[2019-01-13 06:42] LABS: HEMATOCRIT 27.6 % (36.0-47.0); HEMOGLOBIN 9.6 g/dL (12.0-15.5); MEAN CORPUSCULAR HEMOGLOBIN 28.5 pg (27.0-33.4); MEAN CORPUSCULAR HGB CONC 34.8 g/dL (32.0-36.0); MEAN CORPUSCULAR VOLUME 82 fl (80-97); PLATELET COUNT 184 10^3/uL (150-450); RED BLOOD COUNT 3.37 10^6/uL (3.72-5.28); RED CELL DISTRIBUTION WIDTH 15.5 % (11.5-14.0); WHITE BLOOD COUNT 2.2 10^3/uL (4.0-10.5)
[2019-01-13 07:31] LABS: CALCIUM 8.7 mg/dL (8.4-10.2); CARBON DIOXIDE 29 mmol/L (22-30); CHLORIDE 107 mmol/L (98-107); GLUCOSE 101 mg/dL (75-110); PHOSPHORUS 2.8 mg/dL (2.5-4.5); POTASSIUM 3.4 mmol/L (3.6-5.0); SODIUM 137.5 mmol/L (137-145)
[2019-01-13 07:36] LABS: BLOOD UREA NITROGEN < 2 mg/dL (7-20)
[2019-01-13 07:44] LABS: ANION GAP 2 (5-19)
[2019-01-13] MEDS: DRONABINOL 2.5 MG CAPSULE PO SCH (08:23)
[2019-01-13] MEDS: SUCRALFATE 1 GM TABLET PO SCH ×4 (08:24→21:34)
[2019-01-13] MEDS: METOCLOPRAMIDE HCL 10 MG TABLET PO SCH ×4 (08:24→21:32)
[2019-01-13] MEDS: DOCUSATE SODIUM 100 MG CAPSULE PO SCH ×2 (11:12→17:46)
[2019-01-13] MEDS: MAGNESIUM SULFATE/D5W 1 GM/100 ML RTUPB IV SCH ×2 (11:16→12:51)
[2019-01-13] MEDS: FAMOTIDINE 20 MG TABLET PO SCH ×2 (11:17→21:35)
[2019-01-13] MEDS: POTASSIUM CHLORIDE 20 MEQ/15 ML UDCUP PO SCH (14:55)
[2019-01-13] MEDS: POTASSIUM CHLORIDE 10 MEQ CAPSULE.ER PO SCH ×2 (16:00→21:34)
--- NOTE | 2019-01-13 18:37 | PDOC PROGRESS REPORT ---
Subjective Progress Note for:: 01/13/19 Subjective:: No adverse events overnight. No new complaints. She is really tired of her BRAT diet and wants to have something else to eat, even though she does not really feel like she is really hungry. Reason For Visit: SEVERE WEIGHT LOSS Physical Exam Vital Signs: Temp Pulse Resp BP Pulse Ox 98.5 F 77 16 126/75 H 98 01/13/19 16:00 01/13/19 16:00 01/13/19 16:00 01/13/19 16:00 01/13/19 16:00 Intake & Output 01/12/19 01/13/19 01/14/19 06:59 06:59 06:59 Intake Total 3973 5257 2230 Output Total 1000 2900 1250 Balance 2973 2357 980 Weight 65.3 kg 65.3 kg General appearance: PRESENT: no acute distress, cooperative Respiratory exam: PRESENT: clear to auscultation benjamin, unlabored Cardiovascular exam: PRESENT: RRR GI/Abdominal exam: PRESENT: normal bowel sounds, soft, tenderness Extremities exam: ABSENT: pedal edema Musculoskeletal exam: PRESENT: full ROM Neurological exam: PRESENT: alert, oriented to person, oriented to place, oriented to time, oriented to situation Psychiatric exam: ABSENT: agitated, anxious Skin exam: PRESENT: dry, normal color, warm Results Laboratory Results: 01/13/19 06:30 01/13/19 06:30 01/12/19 01/13/19 01/13/19 19:56 06:30 06:30 WBC 2.2 L RBC 3.37 L Hgb 9.6 L Hct 27.6 L MCV 82 MCH 28.5 MCHC 34.8 RDW 15.5 H Plt Count 184 Sodium 137.5 Potassium 3.2 L 3.4 L Chloride 107 Carbon Dioxide 29 Anion Gap 2 L BUN < 2 L Creatinine 0.46 L Est GFR ( Amer) > 60 Est GFR (Non-Af Amer) > 60 Glucose 101 Calcium 8.7 Phosphorus 2.8 Magnesium 1.3 L 01/10/19 18:55 Clean Catch Midstream Urine Culture - Final Mixed Urogenital Kell 01/10/19 18:55 Troponin I < 0.012 Impressions: Chest X-Ray 01/10/19 18:35 IMPRESSION: No evidence of acute cardiopulmonary disease. Abdomen/Pelvis CT 01/10/19 19:49 IMPRESSION: Moderate gastric wall thickening, suspicious for gastritis. No fluid collection or free air. No evidence for bowel obstruction. Assessment and Plan - Diagnosis (1) Gastritis Qualifiers: Gastritis type: unspecified gastritis Chronicity: chronic Gastritis bleeding: with bleeding Qualified Code(s): K29.51 - Unspecified chronic gastritis with bleeding Is this a current diagnosis for this admission?: Yes Plan: PPI and Carafate. Modified diet and no NSAIDs. ADAT, and she felt up to it today. Possible d/c home tomorrow. (2) Anemia Qualifiers: Anemia type: iron deficiency Iron deficiency anemia type: inadequate dietary iron intake Qualified Code(s): D50.8 - Other iron deficiency anemias Is this a current diagnosis for this admission?: Yes Plan: She will resume an iron supplement whenever she goes home. No more signs of ongoing blood loss. - Time Time Spent with patient: 25-34 minutes
[2019-01-13] MEDS: ONDANSETRON HCL INJ/PF 4 MG/2 ML SDV IV PRN (21:34)
[2019-01-14] MEDS: LEVOTHYROXINE SODIUM 0.025 MG TABLET PO SCH (05:18)
[2019-01-14] MEDS: HEPARIN SOD (PORCINE) 5,000 UNIT/ML 1 ML SYRINGE SUBCUT SCH ×3 (05:19→21:55)
[2019-01-14] MEDS: DRONABINOL 2.5 MG CAPSULE PO SCH (07:38)
[2019-01-14] MEDS: POTASSIUM CHLORIDE 10 MEQ CAPSULE.ER PO SCH ×4 (07:39→21:58)
[2019-01-14] MEDS: SUCRALFATE 1 GM TABLET PO SCH ×4 (07:39→21:58)
[2019-01-14] MEDS: METOCLOPRAMIDE HCL 10 MG TABLET PO SCH ×4 (07:39→21:55)
[2019-01-14] MEDS: DOCUSATE SODIUM 100 MG CAPSULE PO SCH ×2 (09:10→17:26)
[2019-01-14] MEDS: FAMOTIDINE 20 MG TABLET PO SCH ×2 (09:16→21:58)
--- NOTE | 2019-01-14 16:21 | PDOC PROGRESS REPORT ---
Subjective Progress Note for:: 01/14/19 Subjective:: No adverse events overnight. She said she tried to eat a little something yesterday, last night she had a little bit nauseated and vomited once. She said she did it again this afternoon. Her appetite is still not very good and she can't eat very much without feeling nauseated. She says she is passing gas. Reason For Visit: SEVERE WEIGHT LOSS Physical Exam Vital Signs: Temp Pulse Resp BP Pulse Ox 98.2 F 77 16 122/77 98 01/14/19 11:41 01/14/19 11:41 01/14/19 11:41 01/14/19 11:41 01/14/19 11:41 Intake & Output 01/13/19 01/14/19 01/15/19 06:59 06:59 06:59 Intake Total 5257 3330 Output Total 2900 3180 Balance 2357 150 Weight 65.3 kg General appearance: PRESENT: no acute distress, cooperative, looks like she feels a little bit ill and just does not feel very good Respiratory exam: PRESENT: clear to auscultation benjamin, unlabored Cardiovascular exam: PRESENT: RRR GI/Abdominal exam: PRESENT: normal bowel sounds, soft, tenderness Extremities exam: ABSENT: pedal edema Musculoskeletal exam: PRESENT: full ROM Neurological exam: PRESENT: alert, oriented to person, oriented to place, oriented to time, oriented to situation Psychiatric exam: ABSENT: agitated, anxious Skin exam: PRESENT: dry, normal color, warm Results Laboratory Results: 01/13/19 06:30 01/13/19 06:30 01/10/19 18:55 Troponin I < 0.012 Impressions: Chest X-Ray 01/10/19 18:35 IMPRESSION: No evidence of acute cardiopulmonary disease. Abdomen/Pelvis CT 01/10/19 19:49 IMPRESSION: Moderate gastric wall thickening, suspicious for gastritis. No fluid collection or free air. No evidence for bowel obstruction. Assessment and Plan - Diagnosis (1) Gastritis Qualifiers: Gastritis type: unspecified gastritis Chronicity: chronic Gastritis bleeding: with bleeding Qualified Code(s): K29.51 - Unspecified chronic gastritis with bleeding Is this a current diagnosis for this admission?: Yes Plan: PPI and Carafate. Modified diet and no NSAIDs. Was hoping to be able to send her home today, but she is unable to eat much of anything without feeling nauseated, so we will start some Phenergan and watch her for another day. (2) Anemia Qualifiers: Anemia type: iron deficiency Iron deficiency anemia type: inadequate dietary iron intake Qualified Code(s): D50.8 - Other iron deficiency anemias Is this a current diagnosis for this admission?: Yes Plan: She will resume an iron supplement whenever she goes home. No more signs of ongoing blood loss. - Time Time Spent with patient: 25-34 minutes
[2019-01-14] MEDS: PROMETHAZINE HCL 25 MG TABLET PO PRN (20:12)
[2019-01-15] MEDS: HEPARIN SOD (PORCINE) 5,000 UNIT/ML 1 ML SYRINGE SUBCUT SCH ×3 (05:09→21:15)
[2019-01-15] MEDS: LEVOTHYROXINE SODIUM 0.025 MG TABLET PO SCH (06:00)
[2019-01-15] MEDS: DRONABINOL 2.5 MG CAPSULE PO SCH (08:23)
[2019-01-15] MEDS: SUCRALFATE 1 GM TABLET PO SCH ×4 (08:23→21:16)
[2019-01-15] MEDS: POTASSIUM CHLORIDE 10 MEQ CAPSULE.ER PO SCH ×4 (08:23→21:16)
[2019-01-15] MEDS: METOCLOPRAMIDE HCL 10 MG TABLET PO SCH ×4 (08:23→21:17)
[2019-01-15] MEDS: DOCUSATE SODIUM 100 MG CAPSULE PO SCH ×2 (10:27→17:43)
[2019-01-15] MEDS: FAMOTIDINE 20 MG TABLET PO SCH ×2 (11:48→21:15)
[2019-01-15] MEDS: PROMETHAZINE HCL 25 MG TABLET PO PRN ×2 (16:42→21:15)
--- NOTE | 2019-01-15 17:07 | PDOC PROGRESS REPORT ---
Subjective Progress Note for:: 01/15/19 Subjective:: No adverse events overnight. She says she ate about half of her breakfast, but it took her a while to do that. She was waiting for her nausea to subside after getting some nausea medication so that she could try to eat some lunch when I saw her earlier. Her appetite is still not very good and she can't eat very much without feeling nauseated. She says she is passing gas. Reason For Visit: SEVERE WEIGHT LOSS Physical Exam Vital Signs: Temp Pulse Resp BP Pulse Ox 98.3 F 103 H 16 118/76 100 01/15/19 12:07 01/15/19 12:07 01/15/19 12:07 01/15/19 12:07 01/15/19 12:07 Intake & Output 01/14/19 01/15/19 01/16/19 06:59 06:59 06:59 Intake Total 3330 794 Output Total 3180 2900 Balance 150 -2106 Weight 65.3 kg 65.3 kg General appearance: PRESENT: no acute distress, cooperative, looks like she feels a little bit ill and just does not feel very good Respiratory exam: PRESENT: clear to auscultation benjamin, unlabored Cardiovascular exam: PRESENT: RRR GI/Abdominal exam: PRESENT: normal bowel sounds, soft, tenderness Extremities exam: ABSENT: pedal edema Musculoskeletal exam: PRESENT: full ROM Neurological exam: PRESENT: alert, oriented to person, oriented to place, oriented to time, oriented to situation Psychiatric exam: ABSENT: agitated, anxious Skin exam: PRESENT: dry, normal color, warm Results Laboratory Results: 01/13/19 06:30 01/13/19 06:30 01/10/19 18:55 Troponin I < 0.012 Impressions: Chest X-Ray 01/10/19 18:35 IMPRESSION: No evidence of acute cardiopulmonary disease. Abdomen/Pelvis CT 01/10/19 19:49 IMPRESSION: Moderate gastric wall thickening, suspicious for gastritis. No fluid collection or free air. No evidence for bowel obstruction. Assessment and Plan - Diagnosis (1) Gastritis Qualifiers: Gastritis type: unspecified gastritis Chronicity: chronic Gastritis bleeding: with bleeding Qualified Code(s): K29.51 - Unspecified chronic gastritis with bleeding Is this a current diagnosis for this admission?: Yes Plan: PPI and Carafate. Modified diet and no NSAIDs. Was hoping to be able to send her home today, but she is unable to eat much of anything without feeling nauseated, we added some Phenergan yesterday but she said it made her very sleepy, but it did seem to help her nausea some. (2) Anemia Qualifiers: Anemia type: iron deficiency Iron deficiency anemia type: inadequate dietary iron intake Qualified Code(s): D50.8 - Other iron deficiency anemias Is this a current diagnosis for this admission?: Yes Plan: She will resume an iron supplement whenever she goes home. No more signs of ongoing blood loss. - Time Time Spent with patient: 25-34 minutes
[2019-01-16] MEDS: PROMETHAZINE HCL 25 MG TABLET PO PRN ×2 (02:28→08:37)
[2019-01-16] MEDS: HEPARIN SOD (PORCINE) 5,000 UNIT/ML 1 ML SYRINGE SUBCUT SCH (05:04)
[2019-01-16] MEDS: LEVOTHYROXINE SODIUM 0.025 MG TABLET PO SCH (05:49)
[2019-01-16] MEDS: METOCLOPRAMIDE HCL 10 MG TABLET PO SCH ×2 (08:06→11:01)
[2019-01-16] MEDS: POTASSIUM CHLORIDE 10 MEQ CAPSULE.ER PO SCH ×2 (08:06→11:01)
[2019-01-16] MEDS: SUCRALFATE 1 GM TABLET PO SCH ×2 (08:16→11:04)
[2019-01-16] MEDS: DRONABINOL 2.5 MG CAPSULE PO SCH (08:16)
[2019-01-16] MEDS: DOCUSATE SODIUM 100 MG CAPSULE PO SCH (10:58)
[2019-01-16] MEDS: FAMOTIDINE 20 MG TABLET PO SCH (10:59)
[2019-01-16 12:36] VITALS: BP 116/80
--- NOTE | 2019-01-16 15:22 | PDOC DISCHARGE SUMMARY ---
General - Admit/Disc Date/PCP Admission Date/Primary Care Provider: 01/10/19 22:05 Discharge Date: 01/16/19 - Discharge Diagnosis (1) Gastritis Is this a current diagnosis for this admission?: Yes Summary: She was already on a PPI, Carafate was added. She was on Reglan with meals and as needed Zofran, and Phenergan was added. She was also started on Marinol to stimulate her appetite. She has been advised to avoid caffeine, tobacco, alcohol, NSAIDs, citrus, acidic foods and beverages, anything that gives her heartburn. (2) Anemia Is this a current diagnosis for this admission?: Yes Summary: Iron deficiency from inadequate intake and some leakage from her severe gastritis. She will resume an iron supplement at home. - Additional Information Resuscitation Status: Full Code Discharge Diet: As Tolerated Discharge Activity: Activity As Tolerated, Balance Activity w/Rest Prescriptions: Dronabinol [Marinol 2.5 mg Capsule] 2.5 mg PO ACBRKFST #30 capsule Promethazine HCl [Phenergan 25 mg Tablet] 25 mg PO Q4HP PRN #30 tablet PRN Reason: Sucralfate [Carafate 1 gm Tablet] 1 gm PO ACHS #120 tablet Home Medications: Famotidine [Pepcid 20 mg Tablet] 20 mg PO Q12 01/11/19 Folic Acid [Folvite 1 mg Tablet] 1 mg PO DAILY 01/11/19 Levothyroxine Sodium [Synthroid 0.025 mg Tablet] 25 mcg PO Q6AM 01/11/19 Metoclopramide HCl [Reglan 10 mg Tablet] 10 mg PO BIDACBS 01/11/19 Omeprazole 40 mg PO Q6AM 01/11/19 Ondansetron [Zofran Odt 4 mg Tablet] 4 mg PO Q8HP PRN 01/11/19 Dronabinol [Marinol 2.5 mg Capsule] 2.5 mg PO ACBRKFST #30 capsule 01/16/19 Promethazine HCl [Phenergan 25 mg Tablet] 25 mg PO Q4HP PRN #30 tablet 01/16/19 Sucralfate [Carafate 1 gm Tablet] 1 gm PO ACHS #120 tablet 01/16/19 History of Present Illness History of Present Illness: ARGELIA JEAN is a 58 year old female who presents to the emergency room with a 4-week history of precipitous weight loss. She indicates that she has lost more than 13 kg since her hospitalization on 12/17/2018. She blames the weight loss on the fact that she has been unable to eat or drink anything since that time. She admits constant nausea with vomiting after even one swallow or one bite of anything by the oral route. She also admits that even taking a small bite of something results in her feeling of satiety losing all hunger or urge to eat prior to the inevitable vomiting. She further admits she has been on numerous medications to help with this problem and none of them have been successful despite her diligent adherence to her medical regimen. She further admits to chronic vague achy right lower quadrant abdominal discomfort that is constant and nonradiating, but is increased by any attempted oral intake. She denies prior similar symptoms before developing a postoperative seroma in late September 2018. She is not identified any additional aggravating or ameliorating factors for her weight loss, nausea, anorexia, early satiety, vomiting and abdominal pain. In the emergency room she was found to have essentially unremarkable laboratory evaluation but her 13 pound weight loss since December 17, 2018 was documented. Because patient is unable to sustain any type of oral intake she will need to have either total parenteral nutrition or a feeding tube placement either temporary with a Dobbhoff type tube or more permanent with a je junostomy feeding tube. Patient will be admitted for further evaluation in consultation to determine the best course of managing her further care and returning her nutritional status to something more normal. Hospital Course Hospital Course: She was placed on medical treatment for gastritis. It took her several days, but we finally got the right combination of medications and she was able to start eating more food and had a return of her appetite this morning. She was placed on the medication regimen as noted above. She has a follow-up with the [facility]. Her labs and examination were reassuring and she was discharged in good condition. Physical Exam Vital Signs: Temp Pulse Resp BP Pulse Ox 98.3 F 115 H 12 116/80 98 01/16/19 12:33 01/16/19 12:33 01/16/19 12:33 01/16/19 12:33 01/16/19 12:33 Intake & Output 01/15/19 01/16/19 01/17/19 06:59 06:59 06:59 Intake Total 794 462 Output Total 2900 1200 Balance -2106 -738 Weight 65.3 kg 65.3 kg General appearance: PRESENT: no acute distress, cooperative, looks like she feels a little bit ill and just does not feel very good Respiratory exam: PRESENT: clear to auscultation benjamin, unlabored Cardiovascular exam: PRESENT: RRR GI/Abdominal exam: PRESENT: normal bowel sounds, soft, tenderness Extremities exam: ABSENT: pedal edema Musculoskeletal exam: PRESENT: full ROM Neurological exam: PRESENT: alert, oriented to person, oriented to place, oriented to time, oriented to situation Psychiatric exam: ABSENT: agitated, anxious Skin exam: PRESENT: dry, normal color, warm Results Laboratory Results: 01/13/19 06:30 01/13/19 06:30 01/10/19 23:51 Blood Blood Culture - Final NO GROWTH IN 5 DAYS 01/10/19 18:55 Blood Blood Culture - Final NO GROWTH IN 5 DAYS 01/10/19 18:55 Troponin I < 0.012 Impressions: Chest X-Ray 01/10/19 18:35 IMPRESSION: No evidence of acute cardiopulmonary disease. Abdomen/Pelvis CT 01/10/19 19:49 IMPRESSION: Moderate gastric wall thickening, suspicious for gastritis. No fluid collection or free air. No evidence for bowel obstruction. Qualifiers - * PATIENT BEING DISCHARGED WITH ANY OF THE FOLLOWING DIAGNOSIS: No
== END 2019-01-16 13:29 | disposition home or self-care (01) | DRG 391 ==
LOC: ER 17:58 → EH 22:05 → 4S 23:21
PROVIDERS: ADMIT Emergency Medicine; ATTEND Emergency Medicine
DX: K29.50 Unspecified chronic gastritis without bleeding (principal); E43 Unspecified severe protein-calorie malnutrition; E03.9 Hypothyroidism, unspecified; D50.8 Other iron deficiency anemias; K21.9 Gastro-esophageal reflux disease without esophagitis; I10 Essential (primary) hypertension; M19.90 Unspecified osteoarthritis, unspecified site; F32.9 Major depressive disorder, single episode, unspecified; F43.10 Post-traumatic stress disorder, unspecified; R00.0 Tachycardia, unspecified; Z60.2 Problems related to living alone; Z90.49 Acquired absence of other specified parts of digestive tract; Z79.890 Hormone replacement therapy; Z79.899 Other long term (current) drug therapy; Z90.710 Acquired absence of both cervix and uterus; Z88.8 Allergy status to other drugs, medicaments and biological substances; Z87.891 Personal history of nicotine dependence; Z82.49 Family history of ischemic heart disease and other diseases of the circulatory system
CPT/HCPCS: 36415; 71045; 74177; 80048; 80053; 80307; 81001; 82803; 82962; 83605; 83735; 84100; 84132; 84134; 84439; 84443; 84481; 84484; 85025; 85027; 85610; 87040; 87086; 93005; 93010; 96361; 96374; 99285; A9270-GY; J1644; J2405; J2765; J3475; J3480; J3490; J7030; S0028

== ENCOUNTER → 2019-01-18 | Outpatient (CLI) | payer OTHER ==
[2019-01-18 11:32] LABS: ABSOLUTE EOSINOPHILS # (AUTO) 0.1 10^3/uL (0.0-0.6); ABSOLUTE LYMPHOCYTES (AUTO) 0.7 10^3/uL (0.5-4.7); ABSOLUTE MONOCYTES (AUTO) 0.3 10^3/uL (0.1-1.4); ABSOLUTE NEUT (AUTO) 2.8 10^3/uL (1.7-8.2); EOSINOPHILS % (AUTO) 1.7 % (0-6); HEMATOCRIT 38.7 % (36.0-47.0); HEMOGLOBIN 13.2 g/dL (12.0-15.5); LYMPHOCYTES % (AUTO) 17.8 % (13-45); MEAN CORPUSCULAR HEMOGLOBIN 28.3 pg (27.0-33.4); MEAN CORPUSCULAR HGB CONC 34.1 g/dL (32.0-36.0); MEAN CORPUSCULAR VOLUME 83 fl (80-97); MONOCYTES % (AUTO) 8.1 % (3-13); PLATELET COUNT 354 10^3/uL (150-450); RED BLOOD COUNT 4.67 10^6/uL (3.72-5.28); SEGMENTED NEUTROPHILS % (AUTO) 71.4 % (42-78); TOTAL CELLS COUNTED % (AUTO) 100 %
[2019-01-18 11:54] LABS: BLOOD UREA NITROGEN 15 mg/dL (7-20); CALCIUM 9.7 mg/dL (8.4-10.2); GLUCOSE 92 mg/dL (75-110)
[2019-01-18 11:55] LABS: ANION GAP 11 (5-19); CARBON DIOXIDE 25 mmol/L (22-30); CHLORIDE 98 mmol/L (98-107); POTASSIUM 3.5 mmol/L (3.6-5.0); SODIUM 134.3 mmol/L (137-145)
== END ==
LOC: OD 10:36
DX: D64.9 Anemia, unspecified (principal); R63.0 Anorexia
CPT/HCPCS: 36415; 80048; 85025

== ENCOUNTER 2019-02-01 09:47 | Day surgery (SDC) | payer OTHER ==
[2019-01-27 10:32] LABS: MEAN CORPUSCULAR HEMOGLOBIN 28.3 pg (27.0-33.4); MEAN CORPUSCULAR HGB CONC 34.3 g/dL (32.0-36.0); MEAN CORPUSCULAR VOLUME 83 fl (80-97); PLATELET COUNT 329 10^3/uL (150-450); RED BLOOD COUNT 4.61 10^6/uL (3.72-5.28); RED CELL DISTRIBUTION WIDTH 15.4 % (11.5-14.0); WHITE BLOOD COUNT 4.2 10^3/uL (4.0-10.5)
[~2019-02-01 09:47] MED LIST: LACTATED RINGERS 1000 ML IV PRN; LIDOCAINE 0.5% INJ-PF (5 MG/ML) 50 ML SDV SUBCUT PRN; PROPOFOL INJ 200 MG/20 ML VIAL IV ONE
[2019-02-01] MEDS ORDERED: NA PHOS,M-B/NA PHOS,DI-BA (ADULT) 133 ML ENEMA PR ONE ×2 (10:39→11:00)
[2019-02-01] MEDS ORDERED: PROPOFOL INJ 200 MG/20 ML VIAL IV ONE ×2 (11:54→13:36)
[2019-02-01] MEDS ORDERED: MEPERIDINE HCL/PF INJ 25 MG/1 ML DISP.SYRIN IV PRN (12:44)
[2019-02-01] MEDS ORDERED: FENTANYL CITRATE INJ/PF 100 MCG/2 ML AMPUL IV PRN ×3 (12:44)
[2019-02-01] MEDS ORDERED: PROMETHAZINE HCL INJ 25 MG/1 ML VIAL IV PRN ×2 (12:44)
[2019-02-01] MEDS ORDERED: MORPHINE SULFATE 10 MG/ML INJ IV PRN (12:44)
--- NOTE | 2019-02-01 13:24 | Discharge Summary ---
Discharge Summary (SDC) - Discharge Final Diagnosis: 1. Dysphasia 2. Weight loss 3. Anemia 4. Severe gastritis with partial gastric outlet obstruction Date of Surgery: 02/01/19 Discharge Date: 02/01/19 Condition: Fair Treatment or Instructions: Resume preoperative medications, diet and activity. Keep patient on clear liquids. Discharge Diet: Clear Liquids Discharge Activity: Activity As Tolerated Home Care Assistance: None Needed Report the Following to Your Physician Immediately: Shortness of Breath, Inc rease in Pain, Fever over 101 Degrees
--- NOTE | 2019-02-01 13:30 | Operative Report ---
Operative Report DATE OF SURGERY: 02/01/19 PREOPERATIVE DIAGNOSIS: 1. Anemia. 2. History of gastritis. 3. Weight loss POSTOPERATIVE DIAGNOSIS: Same with severe erosive gastritis with partial gastric obstruction, mild esophagitis. External hemorrhoids; incomplete colonoscopy secondary to retained feces OPERATION: 1. Esophagogastroduodenoscopy with cold forceps biopsy of mid esophagus, GE junction, mid body stomach antrum and pylorus. 2. Incomplete colonoscopy to 45 cm from the anal verge SURGEON: PEREZ BARRERA ANESTHESIA: Moderate Sedation TISSUE REMOVED OR ALTERED: Multiple biopsies via upper endoscope COMPLICATIONS: None ESTIMATED BLOOD LOSS: 5 cc INTRAOPERATIVE FINDINGS: See below PROCEDURE: The patient was taken to the preop holding area where she had undergone a incomplete bowel prep secondary to inability to tolerate cathartics. She underwent LMAC anesthesia. She was placed in the left lateral semirecumbent position oral mouthpiece inserted. Surgical plan surgical timeout were conducted The flexible adult upper endoscope was advanced to the hypopharynx and through the esophagus mild esophagitis in selected areas, patchy. No evidence of polyp, tumor, ulcer or esophageal varix. The scope was advanced to the GE junction which is approximately 38 cm from the incisor. There was some irregularity of the GE junction and a cold forceps biopsy was chosen of that area. The scope was advanced into the stomach. The stomach was grossly inflamed circumferen tially with a vigorous, hemorrhagic gastritis. Multiple photos were taken. The proximal stomach narrow just at the mid body position eating a proximal pocket with retained undigested food particles. This would consist of the fundus primarily and the proximal body. I was able to traverse the mid body and advance the scope into the distal part of the stomach, pylorus and eventually duodenum. The duodenum first and second portions was essentially normal. Bringing the scope back through the pylorus, we took a biopsy of the rather inflamed pylorus. We also took a biopsy of the distal antrum. There was no discrete tumor body or mass, but the degree of edema and erosive gastritis was very significant. Multiple photos taken. At this point we had approximately 2 biopsies from different portions of the stomach. The scope was withdrawn from the stomach, esophagus and oropharynx. Patient tolerated this portion of the procedure well. She was now placed in the extreme left lateral cubitus position. A rectal exam was performed. There were external hemorrhoids, with some edema. The flexible adult colonoscope was advanced to the anal rectal now up to approximately 45 cm from the anal verge. Unfortunately there was a significant amount of stool coming downstream. Despite adequate visualization, adequate suction, and extracorporeal manipulation of the patient's anterior abdominal wall, we were not able to advance the scope past 45 cm. Therefore the scope was withdrawn from the patient's left colon, sigmoid colon and eventually rectum and anus. Patient tolerated procedure well. She will be taken to recovery in stable condition.
[2019-02-01 16:02] VITALS: BP 123/87
== END 2019-02-01 14:45 | disposition home or self-care (01) ==
LOC: OROUT 09:47
PROVIDERS: ATTEND Surgery
DX: C16.9 Malignant neoplasm of stomach, unspecified (principal); C16.0 Malignant neoplasm of cardia; K29.50 Unspecified chronic gastritis without bleeding; D50.9 Iron deficiency anemia, unspecified; R63.4 Abnormal weight loss; K31.1 Adult hypertrophic pyloric stenosis; K64.4 Residual hemorrhoidal skin tags; R01.1 Cardiac murmur, unspecified; E03.9 Hypothyroidism, unspecified; Z87.891 Personal history of nicotine dependence; Z85.22 Personal history of malignant neoplasm of nasal cavities, middle ear, and accessory sinuses; Z87.440 Personal history of urinary (tract) infections; Z79.899 Other long term (current) drug therapy; Z68.22 Body mass index [BMI] 22.0-22.9, adult
CPT/HCPCS: 43239; 45378; 36415; 85027; 88342 ×2; 88305 ×2; 88313 ×2; J3490; J2704; 813

== ENCOUNTER → 2019-02-09 | Outpatient (CLI) | payer OTHER ==
--- NOTE | 2019-02-09 14:11 | RADIOLOGY REPORT (SQ) ---
EXAM DESCRIPTION: CT SOFT TISSUE NECK WITH COMPLETED DATE/TIME: 02/09/2019 9:57 am REASON FOR STUDY: GASTRIC CA (C16.9) C16.9 MALIGNANT NEOPLASM OF STOMACH, UNSPECIFIED COMPARISON: CT chest abdomen pelvis same date TECHNIQUE: Post IV contrasted scanning from skull base through lung apices with review of bone, soft tissue and lung windows. Reconstructed coronal and sagittal MPR images reviewed. All images stored on PACS. All CT scanners at this facility use dose modulation, iterative reconstruction, and/or weight based d osing when appropriate to reduce radiation dose to as low as reasonably achievable (ALARA). [facility]: Dose Right [facility]: CareDose [facility]: Dose Right [facility]: Teradose 4D [facility]: Fondu CONTRAST TYPE AND DOSE: 75 mL of IV Omnipaque 350- low osmolar. RENAL FUNCTION: Creatinine 0.5 RADIATION DOSE: 13 mGy . LIMITATIONS: None. FINDINGS: SKULL BASE: Intact. MAJOR SALIVARY GLANDS: No solid or cystic masses. No inflammatory changes. LYMPHADENOPATHY: No adenopathy. MUCOSAL MASSES OR ASYMMETRY: No mucosal masses or asymmetry. LARYNX/CORDS: No abnormal findings. VASCULAR STRUCTURES: The major vessels are patent. LUNG APICES: Clear. BONES: Multilevel degenerative disc changes in the cervical spine with mild bilateral C4-5 foraminal narrowing, high-grade left C5-6 foraminal narrowing, mild left C6-7 foraminal narrowing. THYROID: Normal size. No masses. PARANASAL SINUSES: Clear. OTHER: No other significant finding. IMPRESSION: NO SIGNIFICANT FINDING IN THE SOFT TISSUES OF THE NECK. TECHNICAL DOCUMENTATION: JOB ID: [id number] Quality ID # [id number]: Final reports with documentation of one or more dose reduction techniques (e.g., Au tomated exposure control, adjustment of the mA and/or kV according to patient size, use of iterative reconstruction technique) 2010 Robert Applebaum MD- All Rights Reserved Reading location - IP/workstation name: [email or web address]
--- NOTE | 2019-02-09 14:12 | RADIOLOGY REPORT (SQ) ---
EXAM DESCRIPTION: CT CHEST WITH COMPLETED DATE/TIME: 02/09/2019 9:57 am REASON FOR STUDY: GASTRIC CA (C16.9) C16.9 MALIGNANT NEOPLASM OF STOMACH, UNSPECIFIED COMPARISON: None. TECHNIQUE: CT scan of the chest performed using helical scanning technique with dynamic intravenous contrast injection. Images reviewed with lung, soft tissue and bone windows. Reconstructed coronal and sagittal MPR and MIP images reviewed. All images stored on PACS. All CT scanners at this facility use dose modulation, iterative reconstruction, and/or weight based d osing when appropriate to reduce radiation dose to as low as reasonably achievable (ALARA). [facility]: Dose Right [facility]: CareDose [facility]: Dose Right [facility]: Teradose 4D [facility]: [employer] CONTRAST TYPE AND DOSE: contrast/concentration: Isovue 350.00 mg/ml; Total Contrast Delivered: 75.0 ml; Total Saline Delivered: 55.0 ml RENAL FUNCTION: BUN 10 creatinine 0.5 RADIATION DOSE: . LIMITATIONS: None. FINDINGS: LUNGS AND PLEURA: No opacities, nodules, masses. No pneumothorax. No effusions. HILAR AND MEDIASTINAL STRUCTURES: No identified masses or abnormal nodes. HEART AND VASCULAR STRUCTURES: No aneurysm or dissection. No central pulmonary emboli. No pericardi al effusion. HARDWARE: None in the chest. UPPER ABDOMEN: Thickening versus nondistention of the wall of the stomach. THYROID AND OTHER SOFT TISSUES: No masses. No adenopathy. BONES: No significant finding. OTHER: No other significant finding. IMPRESSION: No metastatic disease in the chest. There is thickening versus nondistention of the wal l of the stomach. TECHNICAL DOCUMENTATION: JOB ID: [id number] Quality ID # [id number]: Final reports with documentation of one or more dose reduction techniques (e.g., Au tomated exposure control, adjustment of the mA and/or kV according to patient size, use of iterative reconstruction technique) 2010 [employer]- All Rights Reserved Reading location - IP/workstation name: [email or web address]
== END ==
LOC: RAD 09:19
PROVIDERS: ATTEND Internal Medicine Hematology & Oncology
DX: C16.9 Malignant neoplasm of stomach, unspecified (principal)
CPT/HCPCS: 70491; 71260

== ENCOUNTER → 2019-02-14 | Outpatient (CLI) | payer OTHER ==
--- NOTE | 2019-02-15 10:46 | RADIOLOGY REPORT (SQ) ---
EXAM DESCRIPTION: PET CT SKULL/THIGH COMPLETED DATE/TIME: 02/14/2019 10:28 pm REASON FOR STUDY: C16.9 MALIGNANT NEOPLASM OF STOMACH, UNSPECIFIED C16.9 MALIGNANT NEOPLASM OF STOM ACH, UNSPECIFIED COMPARISON: CT neck and chest 02/09/2019 CT abdomen pelvis 01/10/2019, 12/13/2018, 12/06/2018 RADIONUCLIDE AND DOSE: 11.1 mCi F18 FDG The route of agent administration: Intravenous FASTING BLOOD SUGAR: 93 mg/dl CONTRAST TYPE AND DOSE: No CT contrast given. TECHNIQUE: Blood glucose level was verified. Above dose of FDG was injected intravenously. 2-D seg mented attenuation correction images were obtained from the base of the skull to the midthighs. Nonc ontrast CT images were obtained for attenuation correction and fusion with emission images. CT image s were performed without oral or intravenous contrast and are not sensitive for parenchymal lesions. A series of overlapping emission PET images were obtained. Images reviewed and manipulated at [facility] work station by the radiologist. Images stored on PACS. LIMITATIONS: None. FINDINGS: HEAD AND NECK: There is minimal increased uptake in the uppermost cervical esophagus, with SUV of 6.8. Question esophagitis versus tumor. CHEST: Abnormal increased uptake is seen along the distal esophagus extending into the GE junction. SUV of 6. This is compatible with clinical diagnosis of adenocarcinoma. There is a broad bandlike area of increased uptake throughout the anterior wall gastric body with SUV 9.1. This also correlates with history of gastric adenocarcinoma. Just ventral to the GE junction on axial images 123 through 127, a 3 cm area of a amorphous soft tiss ue is present worrisome for adenopathy, this has SUV of 6.3. ABDOMEN AND PELVIS: Gastric activity as above. A amorphous adenopathy at the GE junction as above. Remainder of the abdomen pelvis is otherwise unremarkable aside from probable physiologic colon activ ity at the ileocecal valve region. PROXIMAL LOWER EXTREMITIES: No areas of abnormal metabolic activity in the soft tissues of the lower extremities. BONES: No abnormal metabolic activity in the visualized skeleton. ADDITIONAL CT FINDINGS: Post hysterectomy. Colonic diverticulosis without CT signs of acute divertic ulitis. Post cholecystectomy. OTHER: Liver background activity 2.2 SUV. Blood pool background activity 1.8 SUV IMPRESSION: Increased uptake at the uppermost cervical esophagus, question esophagitis versus tumor Diffuse abnormal activity at the distal esophagus extending through the GE junction into the anterior wall of the stomach. This correlates with history of biopsy proven adenocarcinoma. Adjacent adenop athy metabolically active adjacent to the GE junction. TECHNICAL DOCUMENTATION: JOB ID: [id number] [employer]- All Rights Reserved Reading location - IP/workstation name: [email or web address]
== END ==
LOC: RAD 18:55
PROVIDERS: ATTEND Internal Medicine Hematology & Oncology
DX: C16.9 Malignant neoplasm of stomach, unspecified (principal); R59.9 Enlarged lymph nodes, unspecified
CPT/HCPCS: 78815; A9552

== ENCOUNTER 2019-02-17 14:12 | Inpatient (IN) | payer MEDICAID, OTHER ==
[2019-02-17] MEDS ORDERED: NORMAL SALINE 1000 ML 1,000 ML IV ONE (14:42)
[2019-02-17] MEDS ORDERED: ONDANSETRON HCL INJ/PF 4 MG/2 ML SDV IV ONE (14:42)
--- NOTE | 2019-02-17 14:45 | ER Document Report ---
ED Medical Screen (RME) - General Chief Complaint: General Weakness Stated Complaint: ABNORMAL LABS Time Seen by Provider: 02/17/19 14:39 Primary Care Provider: LATONYA FONG MD [Primary Care Provider] - Follow up as needed Mode of Arrival: Wheelchair Notes: Patient presents complaining of generalized weakness nausea and vomiting for several weeks. Patient has been recently diagnosed with stomach cancer. Patient was sent here from the surgeon's office with a request for her to be admitted and received IV fluids. Triage nurse states that Dr. Estrada did speak with Dr. Fuller but he wished for labs to be done in the ER and then the ER provider to give him a call. I have greeted and performed a rapid initial assessment of this patient. A comprehensive ED assessment and evaluation of the patient, analysis of test results and completion of the medical decision making process will be conducted by additional ED providers. TRAVEL OUTSIDE OF THE [place] IN LAST 30 DAYS: No - Related Data Allergies/Adverse Reactions: cetirizine HCl [From Zyrtec] Adverse Reaction (Verified 02/17/19 14:19) Migraine diphenhydramine [From Benadryl] Adverse Reaction (Verified 02/17/19 14:19) temazepam [From Restoril] Adverse Reaction (Verified 02/17/19 14:19) Past Medical History - Social History Chew tobacco use (# tins/day): No Frequency of alcohol use: None Drug Abuse: None - Past Medical History Cardiac Medical History: Denies: Hx Atrial Fibrillation, Hx Coronary Artery Disease, Hx DVT, Hx Heart Attack, Hx Hypertension, Hx Pulmonary Embolism Pulmonary Medical History: Denies: Hx Asthma, Hx Bronchitis, Hx COPD, Hx Pneumonia, Hx Tuberculosis Neurological Medical History: Denies: Hx Cerebrovascular Accident, Hx Seizures Endocrine Medical History: Reports: Hx Hypothyroidism. Denies: Hx Diabetes Mellitus Type 1, Hx Diabetes Mellitus Type 2, Hx Hyperthyroidism Renal/ Medical History: Denies: Hx Peritoneal Dialysis GI Medical History: Denies: Hx Cirrhosis, Hx Crohn's Disease, Hx Hepatitis, Hx Ulcerative Colitis Musculoskeltal Medical History: Reports Hx Arthritis - OA, Denies Hx Fibromyalgia, Denies Hx Gout Skin Medical History: Denies Hx Eczema, Denies Hx Psoriasis Psychiatric Medical History: Reports: Hx Depression, Hx Post Traumatic Stress Disorder Infectious Medical History: Denies: Hx Hepatitis Past Surgical History: Reports: Hx Abdominal Surgery - hernia repair x4, Hx Cardiac Catheterization - 2002 neg fo CAD, Hx Cholecystectomy, Hx Hysterectomy, Hx Tubal Ligation, Other - Hernia surgery x 3 Bowel obstruction with partial bowel resection Hernia s - Immunizations Hx Diphtheria, Pertussis, Tetanus Vaccination: Yes Physical Exam - Vital signs Vitals: Temp Pulse Resp BP Pulse Ox 98.3 F 120 H 16 103/76 97 02/17/19 14:27 02/17/19 14:27 02/17/19 14:02/17/19 14:02/17/19 14:27 - Cardiovascular Rhythm: Tachycardia Heart sounds: S1 appreciated, S2 appreciated Course - Vital Signs Vital signs: Temp Pulse Resp BP Pulse Ox 98.3 F 120 H 16 103/76 97 02/17/19 14:27 02/17/19 14:27 02/17/19 14:27 02/17/19 14:27 02/17/19 14:27 Doctor's Discharge - Discharge Referrals: LATONYA FONG MD [Primary Care Provider] - Follow up as needed
[2019-02-17 15:26] LABS: ABSOLUTE LYMPHOCYTES (AUTO) 0.7 10^3/uL (0.5-4.7); ABSOLUTE MONOCYTES (AUTO) 0.4 10^3/uL (0.1-1.4); ABSOLUTE NEUT (AUTO) 4.9 10^3/uL (1.7-8.2); BASOPHILS % (AUTO) 0.4 % (0-2); EOSINOPHILS % (AUTO) 0.2 % (0-6); HEMATOCRIT 29.9 % (36.0-47.0); HEMOGLOBIN 10.4 g/dL (12.0-15.5); LYMPHOCYTES % (AUTO) 12.2 % (13-45); MEAN CORPUSCULAR HEMOGLOBIN 28.5 pg (27.0-33.4); MEAN CORPUSCULAR HGB CONC 34.7 g/dL (32.0-36.0); MEAN CORPUSCULAR VOLUME 82 fl (80-97); MONOCYTES % (AUTO) 7.2 % (3-13); PLATELET COUNT 461 10^3/uL (150-450); RED BLOOD COUNT 3.64 10^6/uL (3.72-5.28); RED CELL DISTRIBUTION WIDTH 16.2 % (11.5-14.0); TOTAL CELLS COUNTED % (AUTO) 100 %; WHITE BLOOD COUNT 6.1 10^3/uL (4.0-10.5)
--- NOTE | 2019-02-17 15:27 | RADIOLOGY REPORT (SQ) ---
EXAM DESCRIPTION: CHEST SINGLE VIEW COMPLETED DATE/TIME: 02/17/2019 3:17 pm REASON FOR STUDY: weakness COMPARISON: 01/10/2019 EXAM PARAMETERS: NUMBER OF VIEWS: One view. TECHNIQUE: Single frontal radiographic view of the chest acquired. RADIATION DOSE: NA LIMITATIONS: None. FINDINGS: LUNGS AND PLEURA: No opacities, masses or pneumothorax. No pleural effusion. MEDIASTINUM AND HILAR STRUCTURES: No masses. Contour normal. HEART AND VASCULAR STRUCTURES: Heart normal in size. Normal vasculature. BONES: No acute findings. HARDWARE: None in the chest. OTHER: No other significant finding. IMPRESSION: NO ACUTE RADIOGRAPHIC FINDING IN THE CHEST. TECHNICAL DOCUMENTATION: JOB ID: [id number] [employer]- All Rights Reserved Reading location - IP/workstation name: [email or web address]
[2019-02-17 15:31] LABS: ALANINE AMINOTRANSFERASE 24 U/L (9-52); ALBUMIN 3.3 g/dL (3.5-5.0); ALKALINE PHOSPHATASE 43 U/L (38-126); ANION GAP 12 (5-19); ASPARTATE AMINO TRANSFERASE 21 U/L (14-36); BILIRUBIN,DIRECT 0.4 mg/dL (0.0-0.4); BILIRUBIN,TOTAL 0.5 mg/dL (0.2-1.3); BLOOD UREA NITROGEN 18 mg/dL (7-20); CALCIUM 9.7 mg/dL (8.4-10.2); CARBON DIOXIDE 26 mmol/L (22-30); CHLORIDE 101 mmol/L (98-107); GLUCOSE 94 mg/dL (75-110); LIPASE 366.6 U/L (23-300); SODIUM 139.2 mmol/L (137-145); TOTAL PROTEIN 7.1 g/dL (6.3-8.2)
[2019-02-17 15:33] LABS: CREATINE KINASE < 20 U/L (30-135)
[2019-02-17 15:41] LABS: CREATINE KINASE MB < 0.22 ng/mL (<4.55); TROPONIN I < 0.012 ng/mL
[2019-02-17] MEDS ORDERED: POTASSI CL 20 MEQ/50 ML RIDER 20 MEQ/50 ML RTUPB IV ONE (15:41)
--- NOTE | 2019-02-17 18:03 | ER Document Report ---
ED General - General Chief Complaint: General Weakness Stated Complaint: ABNORMAL LABS Time Seen by Provider: 02/17/19 14:39 Primary Care Provider: LATONYA FONG MD [Primary Care Provider] - Follow up as needed Mode of Arrival: Wheelchair TRAVEL OUTSIDE OF THE [place] IN LAST 30 DAYS: No - HPI Notes: Patient is a 59-year-old female presents to the emergency department for evaluation. She has had significant weight loss, chronic nausea and vomiting. She was recently diagnosed with gastric cancer. In short, she is unsure as to whether it was may be a tissue diagnosis or PET scan. She has been following with oncology, surgery. Unfortunately she is neither a surgical or chemotherapy candidate at this time secondary to malnutrition. She is still urinating. She is keeping some fluids down. She is losing about 5 to 6 pounds a week. She states her emesis is foamy and white. She denies any pain, she states she is just weak. She is been trying to take her regular medications but states she most frequently does not keep them down. - Related Data Allergies/Adverse Reactions: cetirizine HCl [From Zyrtec] Adverse Reaction (Verified 02/17/19 14:19) Migraine diphenhydramine [From Benadryl] Adverse Reaction (Verified 02/17/19 14:19) temazepam [From Restoril] Adverse Reaction (Verified 02/17/19 14:19) Past Medical History - General Information source: Patient, Friend - Social History Smoking Status: Unknown if Ever Smoked Chew tobacco use (# tins/day): No Frequency of alcohol use: None Drug Abuse: None Family History: Hypertension, Thyroid Disfunction. denies: CAD, DM, Malignancy Patient has suicidal ideation: No Patient has homicidal ideation: No - Past Medical History Cardiac Medical History: Denies: Hx Atrial Fibrillation, Hx Coronary Artery Disease, Hx DVT, Hx Heart Attack, Hx Hypertension, Hx Pulmonary Embolism Pulmonary Medical History: Denies: Hx Asthma, Hx Bronchitis, Hx COPD, Hx Pneumonia, Hx Tuberculosis Neurological Medical History: Denies: Hx Cerebrovascular Accident, Hx Seizures Endocrine Medical History: Reports: Hx Hypothyroidism. Denies: Hx Diabetes Mellitus Type 1, Hx Diabetes Mellitus Type 2, Hx Hyperthyroidism Renal/ Medical History: Denies: Hx Peritoneal Dialysis GI Medical History: Denies: Hx Cirrhosis, Hx Crohn's Disease, Hx Hepatitis, Hx Ulcerative Colitis Musculoskeletal Medical History: Reports Hx Arthritis - OA, Denies Hx Fibromyalgia, Denies Hx Gout Skin Medical History: Denies Hx Eczema, Denies Hx Psoriasis Psychiatric Medical History: Reports: Hx Depression, Hx Post Traumatic Stress Disorder Infectious Medical History: Denies: Hx Hepatitis Past Surgical History: Reports: Hx Abdominal Surgery - hernia repair x4, Hx Cardiac Catheterization - 2002 neg fo CAD, Hx Cholecystectomy, Hx Hysterectomy, Hx Tubal Ligation, Other - Hernia surgery x 3 Bowel obstruction with partial bowel resection Hernia s - Immunizations Hx Diphtheria, Pertussis, Tetanus Vaccination: Yes Review of Systems - Review of Systems Constitutional: See HPI EENT: No symptoms reported Cardiovascular: No symptoms reported Respiratory: No symptoms reported Gastrointestinal: See HPI Genitourinary: No symptoms reported Musculoskeletal: No symptoms reported Skin: No symptoms reported Neurological/Psychological: No symptoms reported Physical Exam - Vital signs Vitals: Temp Pulse Resp BP Pulse Ox 98.3 F 120 H 16 103/76 97 02/17/19 14:27 02/17/19 14:27 02/17/19 14:27 02/17/19 14:27 02/17/19 14:27 - Notes Notes: Frail appearing 59-year-old female, no acute distress. Vital signs reviewed, please refer to chart. Patient is normocephalic, atraumatic. Pupils equal round, reactive to light. Neck is supple without meningismus. Heart is regular rate and rhythm. Lungs are clear to auscultation bilaterally. Abdomen is scaphoid and diffusely tender. Extremities without cyanosis, clubbing. Peripheral pulses are equal. Skin is warm and dry. Patient is awake, alert, neurological exam is nonfocal. Course - Re-evaluation Re-evalutation: 02/17/19 18:02 Patient presented to the emergency department for evaluation. She was already known to Dr. Fuller as well as Dr. Estrada. I spoke with Dr. Estrada regarding her labs and findings. He agreed to see her in consult. He does agree the patient needs PICC line placement for TPN. Patient's potassium was replaced here via IV. We will keep her on telemetry. Magnesium was within normal limits. Will admit the patient to Dr. Fuller. - Vital Signs Vital signs: Temp Pulse Resp BP Pulse Ox 98.3 F 120 H 12 123/84 99 02/17/19 14:27 02/17/19 14:27 02/17/19 17:01 02/17/19 17:00 02/17/19 17:01 - Laboratory Result Diagrams: 02/17/19 14:54 02/17/19 14:54 Laboratory results interpreted by me: 02/17/19 02/17/19 14:54 14:54 RBC 3.64 L Hgb 10.4 L Hct 29.9 L RDW 16.2 H Plt Count 461 H Seg Neutrophils % 80.0 H Lymphocytes % 12.2 L Potassium 3.0 L* Creatinine 0.40 L Creatine Kinase < 20 L Albumin 3.3 L Lipase 366.6 H Discharge - Discharge Clinical Impression: Dehydration, Hypokalemia Malnutrition Qualifiers: Malnutrition type: protein-calorie malnutrition Protein-calorie malnutrition severity: severe Qualified Code(s): E43 - Unspecified severe protein-calorie malnutrition Condition: Stable Disposition: ADMITTED INPATIENT Admitting Provider: Alina (Hospitalist) Unit Admitted: Telemetry Referrals: LATONYA FONG MD [Primary Care Provider] - Follow up as needed
--- NOTE | 2019-02-17 18:59 | PDOC H&P ---
History of Present Illness Admission Date/PCP: LATONYA KEMP MD Patient complains of: intractable nausea, vomiting History of Present Illness: ARGELIA JEAN is a 59 year old female with a PMH of hypothyroidism, anxiety and recent diagnosis of gastric adenocarcinoma who was sent to the ER from due to nausea, vomiting and poor intake. Patient has been having rapid weight loss in the past 3 months along with epigastric discomfort. She underwent EGD on 02/01. No obvious mass or tumor was noted but biopsies came back positive for gastric adenoCA. She saw Dr. Kemp yesterday and was referred to Dr. Estrada who saw her today. But she was noted to be severely dehydrated. She has been having intractable nausea and vomiting for the past several days and could not keep any fluid or solid down. Past Medical History Cardiac Medical History: Denies: Atrial Fibrillation, Coronary Artery Disease, DVT, Myocardial Inf arction, Hypertension, Pulmonary Embolism Pulmonary Medical History: Denies: Asthma, Bronchitis, Chronic Obstructive Pulmonary Disease (COPD), Pneumonia, Tuberculosis Neurological Medical History: Denies: Seizures Endocrine Medical History: Reports: Hypothyroidism Denies: Diabetes Mellitus Type 1, Diabetes Mellitus Type 2, Hyperthyroidism GI Medical History: Denies: Cirrhosis, Crohn's Disease, Hepatitis, Ulcerative Colitis Musculoskeltal Medical History: Reports: Arthritis - OA Denies: Fibromyalgia, Gout Skin Medical History: Denies: Eczema, Psoriasis Psychiatric Medical History: Reports: Depression, Post Traumatic Stress Disorder Hematology: Reports: Anemia Denies: Bleeding Tendencies Past Surgical History Past Surgical History: Reports: Cardiac Catheterization - 2002 neg fo CAD, Cholecystectomy, Hysterectomy, Tubal Ligation, Other - Hernia surgery x 3 Bowel obstruction with partial bowel resection Hernia s Social History Smoking Status: Unknown if Ever Smoked Frequency of Alcohol Use: Rare Hx Recreational Drug Use: No Drugs: None Hx Prescription Drug Abuse: No Family History Family History: Hypertension, Thyroid Disfunction. denies: CAD, DM, Malignancy Parental Family History Reviewed: Yes - no premature CAD Children Family History Reviewed: No Sibling(s) Family History Reviewed.: No Medication/Allergy Allergies/Adverse Reactions: cetirizine HCl [From Zyrtec] Adverse Reaction (Verified 02/17/19 14:19) Migraine diphenhydramine [From Benadryl] Adverse Reaction (Verified 02/17/19 14:19) temazepam [From Restoril] Adverse Reaction (Verified 02/17/19 14:19) Review of Systems All systems: reviewed and no additional remarkable complaints except as stated - as mentioned in HPI Physical Exam Vital Signs: Temp Pulse Resp BP Pulse Ox 98.3 F 120 H 12 123/84 99 02/17/19 14:27 02/17/19 14:27 02/17/19 17:01 02/17/19 17:00 02/17/19 17:01 Intake & Output 02/16/19 02/17/19 02/18/19 06:59 06:59 06:59 Weight 129 lb 10.109 oz General appearance: PRESENT: thin Eye exam: PRESENT: conjunctiva pink, EOMI, PERRLA. ABSENT: scleral icterus Ear exam: PRESENT: normal external ear exam Mouth exam: PRESENT: moist, tongue midline Neck exam: ABSENT: carotid bruit, JVD, lymphadenopathy, thyromegaly Respiratory exam: PRESENT: clear to auscultation benjamin. ABSENT: rales, rhonchi, wheezes Cardiovascular exam: PRESENT: RRR. ABSENT: diastolic murmur, rubs, systolic murmur Pulses: PRESENT: normal dorsalis pedis pul GI/Abdominal exam: PRESENT: normal bowel sounds, soft. ABSENT: distended, guarding, mass, organolmegaly, rebound, tenderness Rectal exam: PRESENT: deferred Neurological exam: PRESENT: alert, awake, oriented to person, oriented to place, oriented to time, oriented to situation, CN II-XII grossly intact. ABSENT: motor sensory deficit Results Laboratory Results: 02/17/19 14:54 02/17/19 14:54 02/17/19 02/17/19 14:54 14:54 WBC 6.1 RBC 3.64 L Hgb 10.4 L Hct 29.9 L MCV 82 MCH 28.5 MCHC 34.7 RDW 16.2 H Plt Count 461 H Seg Neutrophils % 80.0 H Lymphocytes % 12.2 L Monocytes % 7.2 Eosinophils % 0.2 Basophils % 0.4 Absolute Neutrophils 4.9 Absolute Lymphocytes 0.7 Absolute Monocytes 0.4 Absolute Eosinophils 0.0 Absolute Basophils 0.0 Sodium 139.2 Potassium 3.0 L* Chloride 101 Carbon Dioxide 26 Anion Gap 12 BUN 18 Creatinine 0.40 L Est GFR ( Amer) > 60 Est GFR (Non-Af Amer) > 60 Glucose 94 Calcium 9.7 Magnesium 1.7 Total Bilirubin 0.5 AST 21 ALT 24 Alkaline Phosphatase 43 Total Protein 7.1 Albumin 3.3 L Lipase 366.6 H 02/17/19 02/17/19 14:54 14:54 Creatine Kinase < 20 L CK-MB (CK-2) < 0.22 Troponin I < 0.012 Impressions: Chest X-Ray 02/17/19 14:42 IMPRESSION: NO ACUTE RADIOGRAPHIC FINDING IN THE CHEST. Assessment and Plan - Diagnosis (1) Intractable nausea and vomiting Is this a current diagnosis for this admission?: Yes Plan: IV fluids. Zofran prn. (2) Dehydration Is this a current diagnosis for this admission?: Yes Plan: IV fluids as mentioned. (3) Gastric adenocarcinoma Is this a current diagnosis for this admission?: Yes Plan: Dr. Estrada and Dr. Kemp will be seeing patient as well. (4) Hypokalemia Is this a current diagnosis for this admission?: Yes Plan: Will replace with IV Potassium. Repeat BMP. - Time Time Spent with patient: 25-34 minutes
[2019-02-17] MEDS: POTASSI CL 20 MEQ/50 ML RIDER 20 MEQ/50 ML RTUPB IV SCH ×2 (20:02→22:02)
--- NOTE | 2019-02-17 20:51 | EKG REPORT ---
SEVERITY:- ABNORMAL ECG - SINUS TACHYCARDIA ABNORMAL T, CONSIDER ISCHEMIA, DIFFUSE LEADS : Confirmed by: Gamal Maravilla MD 17-Feb-2019 20:50:35
[2019-02-17] MEDS: ONDANSETRON HCL INJ/PF 4 MG/2 ML SDV IV PRN (21:59)
[2019-02-17] MEDS: NORMAL SALINE 1000 ML 1,000 ML IV PRN (22:03)
[2019-02-17] MEDS: HEPARIN SOD (PORCINE) 5,000 UNIT/ML 1 ML SYRINGE SUBCUT SCH (22:03)
[2019-02-18 02:44] LABS: ANION GAP 14 (5-19); BLOOD UREA NITROGEN 17 mg/dL (7-20); CALCIUM 8.9 mg/dL (8.4-10.2); CARBON DIOXIDE 23 mmol/L (22-30); CHLORIDE 106 mmol/L (98-107); GLUCOSE 80 mg/dL (75-110); POTASSIUM 3.4 mmol/L (3.6-5.0); SODIUM 142.8 mmol/L (137-145)
[2019-02-18] MEDS ORDERED: DEXTROSE 50%-WATER 25 GM/50 ML DISP.SYRIN IV PRN ×2 (07:58)
[2019-02-18] MEDS ORDERED: GLUCAGON,HUMAN RECOMB 1 MG INJ IM PRN (07:58)
[2019-02-18] MEDS ORDERED: DEXTROSE 40% GEL 15 GM TUBE PO PRN ×2 (07:58)
[2019-02-18] MEDS: ONDANSETRON HCL INJ/PF 4 MG/2 ML SDV IV PRN ×3 (08:24→21:28)
[2019-02-18] MEDS: POTASSI CL 20 MEQ/50 ML RIDER 20 MEQ/50 ML RTUPB IV SCH ×2 (09:32→11:29)
[2019-02-18] MEDS: INSULIN LISPRO 100 UNIT/ML 3 ML VIAL SUBCUT SCH ×3 (09:35→19:05)
[2019-02-18] MEDS: HEPARIN SOD (PORCINE) 5,000 UNIT/ML 1 ML SYRINGE SUBCUT SCH ×2 (09:38→21:28)
[2019-02-18] MEDS: NORMAL SALINE 1000 ML 1,000 ML IV PRN ×2 (09:50→18:22)
--- NOTE | 2019-02-18 10:27 | PDOC CONSULTATION ---
Consultation Consult Date: 02/18/19 Consult reason:: gastric cancer History of Present Illness Admission Date/PCP: 02/17/19 18:40 LATONYA FONG MD Patient complains of: Poor appetite difficulty eating weight loss History of Present Illness: ARGELIA JEAN is a 59 year old female who was initially admitted in mid December increasing dysphasia poor appetite and significant weight loss chronic nausea and early satiety. She was admitted and a work-up included a upper endoscopy by Dr. Izaguirre. I Was present for the examination. She had an obvious inflamed stomach with narrowing of the body of the stomach and evidence of cancer. biopsies were obtained confirmed gastric carcinoma. She was treated medically and eventually started eating what with slight improvement in her appetite. Was discharged home. During her stay at home she continued to have difficulty swallowing eating and poor appetite she was able to hold down some fluids but had chronic nausea and vomiting. She saw Dr. Fink in hematology oncology clinic PET scan was ordered. PET confirmed neoplastic process in the stomach questionable proximal esophagitis versus neoplastic process in the proximal esophagus and david-gastric adenopathy. She was planning to go to [place] for her care but she decided to stay here in [place]. She saw me yesterday in consultation for possible gastrectomy. During that visi t it was noted that she was chronically vomiting she did have significant weight loss, malnutrition poor appetite unable to hold down any significant nutrition. I arranged for admission to the hospital for IV rehydration central venous access and peripheral nutrition She continues to complain of weakness poor appetite nausea and vomiting general feeling of malaise. Past Medical History Cardiac Medical History: Denies: Atrial Fibrillation, Coronary Artery Disease, DVT, Myocardial Infarction, Hypertension, Pulmonary Embolism Pulmonary Medical History: Denies: Asthma, Bronchitis, Chronic Obstructive Pulmonary Disease (COPD), Pneumonia, Tuberculosis Neurological Medical History: Denies: Seizures Endocrine Medical History: Reports: Hypothyroidism Denies: Diabetes Mellitus Type 1, Diabetes Mellitus Type 2, Hyperthyroidism GI Medical History: Denies: Cirrhosis, Crohn's Disease, Hepatitis, Ulcerative Colitis Musculoskeltal Medical History: Reports: Arthritis - OA Denies: Fibromyalgia, Gout Skin Medical History: Denies: Eczema, Psoriasis Psychiatric Medical History: Reports: Depression, Post Traumatic Stress Disorder Hematology: Reports: Anemia Denies: Bleeding Tendencies Past Surgical History Past Surgical History: Reports: Cardiac Catheterization - 2002 neg fo CAD, Cholecystectomy, Hysterectomy, Tubal Ligation, Other - Hernia surgery x 3 Bowel obstruction with partial bowel resection Hernia s Social History Smoking Status: Unknown if Ever Smoked Frequency of Alcohol Use: Rare Hx Recreational Drug Use: No Drugs: None Hx Prescription Drug Abuse: No - Advance Directive Resuscitation Status: Full Code Family History Family History: Hypertension, Thyroid Disfunction. denies: CAD, DM, Malignancy Parental Family History Reviewed: Yes Children Family History Reviewed: NA Sibling(s) Family History Reviewed.: NA Medication/Allergy Home Medications: Dronabinol [Marinol 2.5 mg Capsule] 2.5 mg PO QAM 02/17/19 Folic Acid [Folvite 1 mg Tablet] 1 mg PO DAILY 02/17/19 Levothyroxine Sodium [Synthroid 0.025 mg Tablet] 0.025 mg PO Q6AM 02/17/19 Promethazine HCl [Phenergan 25 mg Tablet] 25 mg PO Q4HP PRN 02/17/19 Ranitidine HCl [Zantac 150 mg Tablet] 150 mg PO BID 02/17/19 Sucralfate [Carafate 1 gm Tablet] 1 gm PO MEALSHS 02/17/19 Allergies/Adverse Reactions: cetirizine HCl [From Zyrtec] Adverse Reaction (Verified 02/17/19 14:19) Migraine diphenhydramine [From Benadryl] Adverse Reaction (Verified 02/17/19 14:19) temazepam [From Restoril] Adverse Reaction (Verified 02/17/19 14:19) Review of Systems Constitutional: PRESENT: fatigue, weight loss Eyes: ABSENT: visual disturbances Ears: ABSENT: hearing changes Nose, Mouth, and Throat: PRESENT: headache(s), sore throat Cardiovascular: ABSENT: chest pain, dyspnea on exertion, edema, orthropnea, palpitations Respiratory: ABSENT: cough, hemoptysis Gastrointestinal: PRESENT: dysphagia, heartburn, nausea, vomiting Genitourinary: ABSENT: dysuria, hematuria Musculoskeletal: PRESENT: muscle weakness Integumentary: ABSENT: rash, wounds Neurological: ABSENT: abnormal gait, abnormal speech, confusion, dizziness, focal weakness, syncope Psychiatric: PRESENT: anxiety, depression Endocrine: ABSENT: cold intolerance, heat intolerance, polydipsia, polyuria Hematologic/Lymphatic: ABSENT: easy bleeding, easy bruising Allergic/Immunologic: PRESENT: as per HPI Physical Exam Vital Signs: Temp Pulse Resp BP Pulse Ox 97.2 F 81 17 133/52 H 93 02/18/19 04:00 02/18/19 04:00 02/18/19 04:00 02/18/19 04:00 02/18/19 04:00 Intake & Output 02/17/19 02/18/19 02/19/19 06:59 06:59 06:59 Intake Total 1100 Output Total 275 Balance 825 Weight 60 kg General appearance: PRESENT: mild distress, thin Head exam: PRESENT: atraumatic Eye exam: PRESENT: conjunctiva pink, EOMI Mouth exam: PRESENT: dry mucosa, neck supple Neck exam: PRESENT: full ROM Respiratory exam: PRESENT: clear to auscultation benjamin Cardiovascular exam: PRESENT: RRR Pulses: PRESENT: normal carotid pulses, normal radial pulses, normal femoral pulses Vascular exam: PRESENT: normal capillary refill GI/Abdominal exam: PRESENT: soft, tenderness - mild rlq tenderness Rectal exam: PRESENT: deferred Extremities exam: PRESENT: full ROM Musculoskeletal exam: PRESENT: full ROM Neurological exam: PRESENT: alert, awake, oriented to person, oriented to place, oriented to time, oriented to situation Psychiatric exam: PRESENT: appropriate affect, depressed Skin exam: PRESENT: dry Results Laboratory Results: 02/17/19 14:54 02/18/19 02:02 02/17/19 02/17/19 02/18/19 14:54 14:54 02:02 WBC 6.1 RBC 3.64 L Hgb 10.4 L Hct 29.9 L MCV 82 MCH 28.5 MCHC 34.7 RDW 16.2 H Plt Count 461 H Seg Neutrophils % 80.0 H Lymphocytes % 12.2 L Monocytes % 7.2 Eosinophils % 0.2 Basophils % 0.4 Absolute Neutrophils 4.9 Absolute Lymphocytes 0.7 Absolute Monocytes 0.4 Absolute Eosinophils 0.0 Absolute Basophils 0.0 Sodium 139.2 142.8 Potassium 3.0 L* 3.4 L Chloride 101 106 Carbon Dioxide 26 23 Anion Gap 12 14 BUN 18 17 Creatinine 0.40 L 0.35 L Est GFR ( Amer) > 60 > 60 Est GFR (Non-Af Amer) > 60 > 60 Glucose 94 80 Calcium 9.7 8.9 Phosphorus Magnesium 1.7 Total Bilirubin 0.5 AST 21 ALT 24 Alkaline Phosphatase 43 Total Protein 7.1 Albumin 3.3 L Lipase 366.6 H 02/18/19 02:02 WBC RBC Hgb Hct MCV MCH MCHC RDW Plt Count Seg Neutrophils % Lymphocytes % Monocytes % Eosinophils % Basophils % Absolute Neutrophils Absolute Lymphocytes Absolute Monocytes Absolute Eosinophils Absolute Basophils Sodium Potassium Chloride Carbon Dioxide Anion Gap BUN Creatinine Est GFR ( Amer) Est GFR (Non-Af Amer) Glucose Calcium Phosphorus 3.3 Magnesium Total Bilirubin AST ALT Alkaline Phosphatase Total Protein Albumin Lipase 02/17/19 02/17/19 14:54 14:54 Creatine Kinase < 20 L CK-MB (CK-2) < 0.22 Troponin I < 0.012 Impressions: Chest X-Ray 02/17/19 14:42 IMPRESSION: NO ACUTE RADIOGRAPHIC FINDING IN THE CHEST. Assessment & Plan - Plan Summary Plan Summary: She will be admitted to the hospital for IV hydration. Started on PPN An order has been placed for a PICC line placement and the patient will be added on TPN All for this discussed the patient with Dr. Fink on Wednesday discussed whether neoadjuvant chemotherapy versus early surgery and postoperative chemotherapy would be the treatment of choice At this point her nutritional status precludes either chemotherapy or surgery. She will require a venous access port placement and this will probably be arranged during his hospital stay.
--- NOTE | 2019-02-18 10:56 | PDOC CONSULTATION ---
Consultation Consult Date: 02/18/19 Consult reason:: Hematology/Oncology consultation was requested for patient with newly diagnosed adenocarcinoma of the stomach. History of Present Illness Admission Date/PCP: 02/17/19 18:40 LATONYA FONG MD History of Present Illness: ARGELIA JEAN is a 59 year old female who has been followed for abdominal pain and vomitting over the past few months. She has lost weight and had difficulty obtaining EGD due to insurance reasons. However, recent EGD did confirm adenocarcinoma of the stomach. Staging CT and PET/CT have been performed and indicate a stage III cancer. However, before any treatment can start, patient will need to improve her nutrition. She has been admitted for TPN prior to treatment start. Today, she reports continued nausea. She received Zofran, but this did not seem to help. Some abdominal pain. No other problems today. She is just anxious to get on with treatment. Past Medical History Cardiac Medical History: Denies: Atrial Fibrillation, Coronary Artery Disease, DVT, Myocardial Infarction, Hypertension, Pulmonary Embolism Pulmonary Medical History: Denies: Asthma, Bronchitis, Chronic Obstructive Pulmonary Disease (COPD), Pneumonia, Tuberculosis Neurological Medical History: Denies: Seizures Endocrine Medical History: Reports: Hypothyroidism Denies: Diabetes Mellitus Type 1, Diabetes Mellitus Type 2, Hyperthyroidism GI Medical History: Denies: Cirrhosis, Crohn's Disease, Hepatitis, Ulcerative Colitis Musculoskeltal Medical History: Reports: Arthritis - OA Denies: Fibromyalgia, Gout Skin Medical History: Denies: Eczema, Psoriasis Psychiatric Medical History: Reports: Depression, Post Traumatic Stress Disorder Hematology: Reports: Anemia Denies: Bleeding Tendencies Past Surgical History Past Surgical History: Reports: Cardiac Catheterization - 2002 neg fo CAD, Cholecystectomy, Hysterectomy, Tubal Ligation, Other - Hernia surgery x 3 Bowel obstruction with partial bowel resection Hernia s Social History Smoking Status: Unknown if Ever Smoked Frequency of Alcohol Use: Rare Hx Recreational Drug Use: No Drugs: None Hx Prescription Drug Abuse: No - Advance Directive Resuscitation Status: Full Code Family History Family History: Hypertension, Thyroid Disfunction. denies: CAD, DM, Malignancy Parental Family History Reviewed: Yes Children Family History Reviewed: No Sibling(s) Family History Reviewed.: Yes Medication/Allergy Home Medications: Dronabinol [Marinol 2.5 mg Capsule] 2.5 mg PO QAM 02/17/19 Folic Acid [Folvite 1 mg Tablet] 1 mg PO DAILY 02/17/19 Levothyroxine Sodium [Synthroid 0.025 mg Tablet] 0.025 mg PO Q6AM 02/17/19 Promethazine HCl [Phenergan 25 mg Tablet] 25 mg PO Q4HP PRN 02/17/19 Ranitidine HCl [Zantac 150 mg Tablet] 150 mg PO BID 02/17/19 Sucralfate [Carafate 1 gm Tablet] 1 gm PO MEALSHS 02/17/19 Allergies/Adverse Reactions: cetirizine HCl [From Zyrtec] Adverse Reaction (Verified 02/17/19 14:19) Migraine diphenhydramine [From Benadryl] Adverse Reaction (Verified 02/17/19 14:19) temazepam [From Restoril] Adverse Reaction (Verified 02/17/19 14:19) Review of Systems Constitutional: PRESENT: weight loss. ABSENT: fever(s), headache(s) Eyes: ABSENT: visual disturbances Ears: ABSENT: hearing changes Nose, Mouth, and Throat: ABSENT: sore throat Gastrointestinal: PRESENT: nausea, vomiting Genitourinary: ABSENT: dysuria Integumentary: ABSENT: rash Neurological: PRESENT: weakness. ABSENT: confusion, dizziness Hematologic/Lymphatic: ABSENT: lymphadenopathy Physical Exam Vital Signs: Temp Pulse Resp BP Pulse Ox 97.2 F 81 17 133/52 H 93 02/18/19 04:00 02/18/19 04:00 02/18/19 04:00 02/18/19 04:00 02/18/19 04:00 Intake & Output 02/17/19 02/18/19 02/19/19 06:59 06:59 06:59 Intake Total 1100 Output Total 275 Balance 825 Weight 60 kg General appearance: PRESENT: no acute distress, thin Exam: 59 year old female. Head exam: PRESENT: atraumatic, normocephalic Eye exam: PRESENT: conjunctiva pink, EOMI Mouth exam: PRESENT: tongue midline Neck exam: ABSENT: lymphadenopathy, tenderness Respiratory exam: PRESENT: clear to auscultation benjamin, unlabored Cardiovascular exam: PRESENT: RRR GI/Abdominal exam: PRESENT: soft, tenderness Extremities exam: ABSENT: pedal edema Musculoskeletal exam: PRESENT: normal inspection Neurological exam: PRESENT: alert, awake, oriented to person, oriented to place, oriented to time, oriented to situation Psychiatric exam: PRESENT: appropriate affect Focused psych exam: ABSENT: pressured speech Skin exam: PRESENT: normal color Results Laboratory Results: 02/17/19 14:54 02/18/19 02:02 02/17/19 02/17/19 02/18/19 14:54 14:54 02:02 WBC 6.1 RBC 3.64 L Hgb 10.4 L Hct 29.9 L MCV 82 MCH 28.5 MCHC 34.7 RDW 16.2 H Plt Count 461 H Seg Neutrophils % 80.0 H Lymphocytes % 12.2 L Monocytes % 7.2 Eosinophils % 0.2 Basophils % 0.4 Absolute Neutrophils 4.9 Absolute Lymphocytes 0.7 Absolute Monocytes 0.4 Absolute Eosinophils 0.0 Absolute Basophils 0.0 Sodium 139.2 142.8 Potassium 3.0 L* 3.4 L Chloride 101 106 Carbon Dioxide 26 23 Anion Gap 12 14 BUN 18 17 Creatinine 0.40 L 0.35 L Est GFR ( Amer) > 60 > 60 Est GFR (Non-Af Amer) > 60 > 60 Glucose 94 80 Calcium 9.7 8.9 Phosphorus Magnesium 1.7 Total Bilirubin 0.5 AST 21 ALT 24 Alkaline Phosphatase 43 Total Protein 7.1 Albumin 3.3 L Lipase 366.6 H 02/18/19 02:02 WBC RBC Hgb Hct MCV MCH MCHC RDW Plt Count Seg Neutrophils % Lymphocytes % Monocytes % Eosinophils % Basophils % Absolute Neutrophils Absolute Lymphocytes Absolute Monocytes Absolute Eosinophils Absolute Basophils Sodium Potassium Chloride Carbon Dioxide Anion Gap BUN Creatinine Est GFR ( Amer) Est GFR (Non-Af Amer) Glucose Calcium Phosphorus 3.3 Magnesium Total Bilirubin AST ALT Alkaline Phosphatase Total Protein Albumin Lipase 02/17/19 02/17/19 14:54 14:54 Creatine Kinase < 20 L CK-MB (CK-2) < 0.22 Troponin I < 0.012 Impressions: Chest X-Ray 02/17/19 14:42 IMPRESSION: NO ACUTE RADIOGRAPHIC FINDING IN THE CHEST. Assessment & Plan - Diagnosis (1) Gastric adenocarcinoma Is this a current diagnosis for this admission?: Yes Plan: Natalio was discussed with Dr. Estrada. Plan is for 7-10 days of TPN, then proceed with surgery and then discuss chemo/radiation, based on pathology report. She will have PICC line placed on Wednesday to begin TPN. She will need n utrition consult. (2) Intractable nausea and vomiting Is this a current diagnosis for this admission?: Yes Plan: Continue Zofran. I will add Reglan IV RTC and would like to see her continue PO reglan as outpatient if she can tolerate this. (3) Anemia Qualifiers: Anemia type: iron deficiency Iron deficiency anemia type: inadequate dietary iron intake Qualified Code(s): D50.8 - Other iron deficiency anemias Is this a current diagnosis for this admission?: Yes Plan: Most recent iron levels have been normal. This may be due to chronic disease. Will watch her nutrition and monitor. No indication for transfusion at this time.
--- NOTE | 2019-02-18 11:18 | PDOC PROGRESS REPORT ---
Subjective Progress Note for:: 02/18/19 Subjective:: ARGELIA JEAN is a 59 year old female with a PMH of hypothyroidism, anxiety and recent diagnosis of gastric adenocarcinoma who was sent to the ER from due to nausea, vomiting and poor intake. She was found to be severely dehydrated and was admitted for IV fluids and initiation of TPN. No acute event overnight. She says she had partial relief with zofran but had f ew episodes of vomiting. She does say she feels a little better today. Denies abdominal pain. Reason For Visit: INTRACTABLE NAUSEA,VOMITING,DEHYDRATION Physical Exam Vital Signs: Temp Pulse Resp BP Pulse Ox 97.7 F 88 14 128/82 H 100 02/18/19 07:56 02/18/19 07:56 02/18/19 07:56 02/18/19 07:56 02/18/19 07:56 Intake & Output 02/17/19 02/18/19 02/19/19 06:59 06:59 06:59 Intake Total 1100 100 Output Total 275 Balance 825 100 Weight 132 lb 4.438 oz General appearance: PRESENT: thin Head exam: PRESENT: atraumatic, normocephalic Eye exam: PRESENT: conjunctiva pink, EOMI, PERRLA. ABSENT: scleral icterus Ear exam: PRESENT: normal external ear exam Mouth exam: PRESENT: moist, tongue midline Neck exam: ABSENT: carotid bruit, JVD, lymphadenopathy, thyromegaly Respiratory exam: PRESENT: clear to auscultation benjamin. ABSENT: rales, rhonchi, wheezes Cardiovascular exam: PRESENT: RRR. ABSENT: diastolic murmur, rubs, systolic murmur Pulses: PRESENT: normal dorsalis pedis pul GI/Abdominal exam: PRESENT: normal bowel sounds, soft. ABSENT: distended, guarding, mass, organolmegaly, rebound, tenderness Rectal exam: PRESENT: deferred Extremities exam: PRESENT: full ROM. ABSENT: calf tenderness, clubbing, pedal edema Neurological exam: PRESENT: alert, awake, oriented to person, oriented to place, oriented to time, oriented to situation, CN II-XII grossly intact. ABSENT: motor sensory deficit Results Laboratory Results: 02/17/19 14:54 02/18/19 02:02 02/17/19 02/17/19 02/18/19 14:54 14:54 02:02 WBC 6.1 RBC 3.64 L Hgb 10.4 L Hct 29.9 L MCV 82 MCH 28.5 MCHC 34.7 RDW 16.2 H Plt Count 461 H Seg Neutrophils % 80.0 H Lymphocytes % 12.2 L Monocytes % 7.2 Eosinophils % 0.2 Basophils % 0.4 Absolute Neutrophils 4.9 Absolute Lymphocytes 0.7 Absolute Monocytes 0.4 Absolute Eosinophils 0.0 Absolute Basophils 0.0 Sodium 139.2 142.8 Potassium 3.0 L* 3.4 L Chloride 101 106 Carbon Dioxide 26 23 Anion Gap 12 14 BUN 18 17 Creatinine 0.40 L 0.35 L Est GFR ( Amer) > 60 > 60 Est GFR (Non-Af Amer) > 60 > 60 Glucose 94 80 Calcium 9.7 8.9 Phosphorus Magnesium 1.7 Total Bilirubin 0.5 AST 21 ALT 24 Alkaline Phosphatase 43 Total Protein 7.1 Albumin 3.3 L Lipase 366.6 H 02/18/19 02:02 WBC RBC Hgb Hct MCV MCH MCHC RDW Plt Count Seg Neutrophils % Lymphocytes % Monocytes % Eosinophils % Basophils % Absolute Neutrophils Absolute Lymphocytes Absolute Monocytes Absolute Eosinophils Absolute Basophils Sodium Potassium Chloride Carbon Dioxide Anion Gap BUN Creatinine Est GFR ( Amer) Est GFR (Non-Af Amer) Glucose Calcium Phosphorus 3.3 Magnesium Total Bilirubin AST ALT Alkaline Phosphatase Total Protein Albumin Lipase 02/17/19 02/17/19 14:54 14:54 Creatine Kinase < 20 L CK-MB (CK-2) < 0.22 Troponin I < 0.012 Impressions: Chest X-Ray 02/17/19 14:42 IMPRESSION: NO ACUTE RADIOGRAPHIC FINDING IN THE CHEST. Assessment and Plan - Diagnosis (1) Intractable nausea and vomiting Is this a current diagnosis for this admission?: Yes Plan: Continue IV fluids. Zofran prn. Reglan added by oncology. Initiated on PPN by surgery. PICC on Wednesday for initiation of TPN. (2) Dehydration Is this a current diagnosis for this admission?: Yes Plan: Improving. IV fluids. (3) Gastric adenocarcinoma Is this a current diagnosis for this admission?: Yes Plan: Surgery and oncology following. (4) Hypokalemia Is this a current diagnosis for this admission?: Yes Plan: Improved. Repeat K at 3.4. Will give another 20 meqs. - Time Time Spent with patient: 25-34 minutes
[2019-02-18] MEDS: METOCLOPRAMIDE HCL INJ/PF 10 MG/2 ML SDV IV SCH ×2 (11:29→18:19)
[2019-02-18 12:51] LABS: APPEARANCE,URINE SLIGHTLY-CLOUDY; BILIRUBIN,URINE SMALL (NEGATIVE); COLOR,URINE YELLOW; GLUCOSE, URINE NEGATIVE (NEGATIVE); KETONES,URINE 80 mg/dL (NEGATIVE); LEUKOCYTE ESTERASE,URINE TRACE (NEGATIVE); NITRITE,URINE NEGATIVE (NEGATIVE); PROTEIN,URINE 30 mg/dL (NEGATIVE); URINE SPECIFIC GRAVITY 1.026
[2019-02-18 15:12] LABS: ANION GAP 10 (5-19); BLOOD UREA NITROGEN 17 mg/dL (7-20); CALCIUM 9.1 mg/dL (8.4-10.2); CARBON DIOXIDE 24 mmol/L (22-30); CHLORIDE 106 mmol/L (98-107); GLUCOSE 89 mg/dL (75-110); POTASSIUM 3.9 mmol/L (3.6-5.0); SODIUM 139.6 mmol/L (137-145)
[2019-02-18] MEDS: AMINO ACIDS 4.25 %/DEXTROSE 5% 1,000 ML IV PRN (21:32)
[2019-02-19] MEDS: INSULIN LISPRO 100 UNIT/ML 3 ML VIAL SUBCUT SCH ×4 (01:05→17:28)
[2019-02-19] MEDS: METOCLOPRAMIDE HCL INJ/PF 10 MG/2 ML SDV IV SCH ×5 (01:07→23:56)
[2019-02-19] MEDS: ONDANSETRON HCL INJ/PF 4 MG/2 ML SDV IV PRN ×5 (02:00→23:37)
[2019-02-19] MEDS: DIAZEPAM INJ 10 MG/2 ML DISP.SYRIN IV PRN ×2 (06:07→20:53)
[2019-02-19] MEDS: PANTOPRAZOLE SODIUM 40 MG VIAL IV SCH (09:57)
[2019-02-19] MEDS: HEPARIN SOD (PORCINE) 5,000 UNIT/ML 1 ML SYRINGE SUBCUT SCH ×2 (09:58→22:12)
--- NOTE | 2019-02-19 10:07 | PDOC PROGRESS REPORT ---
Subjective Progress Note for:: 02/19/19 Subjective:: ARGELIA JEAN is a 59 year old female with a PMH of hypothyroidism, anxiety and recent diagnosis of gastric adenocarcinoma who was sent to the ER from due to nausea, vomiting and poor intake. She was found to be severely dehydrated and was admitted for IV fluids and initiation of TPN. 02/18: She says she had partial relief with zofran but had few episodes of vomi ting. She does say she feels a little better today. Denies abdominal pain. 02/19: She had a few episodes of nausea overnight. She refused the Reglan as she says it makes her agitated and restless. She does complain of heartburn. She is scheduled to get a PICC line tomorrow. Reason For Visit: INTRACTABLE NAUSEA,VOMITING,DEHYDRATION Physical Exam Vital Signs: Temp Pulse Resp BP Pulse Ox 97.9 F 92 16 128/81 H 100 02/19/19 03:13 02/19/19 08:22 02/19/19 03:13 02/19/19 03:13 02/19/19 03:13 Intake & Output 02/18/19 02/19/19 02/20/19 06:59 06:59 06:59 Intake Total 1100 2640 Output Total 275 Balance 825 2640 Weight 132 lb 4.438 oz 132 lb 4.438 oz General appearance: PRESENT: thin Head exam: PRESENT: atraumatic, normocephalic Eye exam: PRESENT: conjunctiva pink, EOMI, PERRLA. ABSENT: scleral icterus Ear exam: PRESENT: normal external ear exam Mouth exam: PRESENT: moist, tongue midline Neck exam: ABSENT: carotid bruit, JVD, lymphadenopathy, thyromegaly Respiratory exam: PRESENT: clear to auscultation benjamin. ABSENT: rales, rhonchi, wheezes Cardiovascular exam: PRESENT: RRR. ABSENT: diastolic murmur, rubs, systolic murmur Pulses: PRESENT: normal dorsalis pedis pul GI/Abdominal exam: PRESENT: normal bowel sounds, soft. ABSENT: distended, guarding, mass, organolmegaly, rebound, tenderness Rectal exam: PRESENT: deferred Neurological exam: PRESENT: alert, awake, oriented to person, oriented to place, oriented to time, oriented to situation, CN II-XII grossly intact. ABSENT: motor sensory deficit Results Laboratory Results: 02/17/19 14:54 02/18/19 14:36 02/18/19 02/18/19 12:16 14:36 Sodium 139.6 Potassium 3.9 Chloride 106 Carbon Dioxide 24 Anion Gap 10 BUN 17 Creatinine 0.35 L Est GFR ( Amer) > 60 Est GFR (Non-Af Amer) > 60 Glucose 89 Calcium 9.1 Magnesium 1.6 Urine Color YELLOW Urine Appearance SLIGHTLY-CLOUDY Urine pH 5.0 Ur Specific [place] 1.026 Urine Protein 30 H Urine Glucose (UA) NEGATIVE Urine Ketones 80 H Urine Blood NEGATIVE Urine Nitrite NEGATIVE Ur Leukocyte Esterase TRACE H Urine WBC (Auto) 10 Urine RBC (Auto) 3 02/17/19 02/17/19 14:54 14:54 Creatine Kinase < 20 L CK-MB (CK-2) < 0.22 Troponin I < 0.012 Impressions: Chest X-Ray 02/17/19 14:42 IMPRESSION: NO ACUTE RADIOGRAPHIC FINDING IN THE CHEST. Assessment and Plan - Diagnosis (1) Intractable nausea and vomiting Is this a current diagnosis for this admission?: Yes Plan: 02/18: Continue IV fluids. Zofran prn. Reglan added by oncology. Initiated on PPN by surgery. PICC on Wednesday for initiation of TPN. 02/19: Not tolerating Reglan. Continue zofran prn. Add phenergan prn. Will add Protonix for heartburn. (2) Dehydration Is this a current diagnosis for this admission?: Yes Plan: Improving. IV fluids. (3) Gastric adenocarcinoma Is this a current diagnosis for this admission?: Yes Plan: Surgery and oncology following. (4) Hypokalemia Is this a current diagnosis for this admission?: Yes Plan: Resolved. - Time Time Spent with patient: 15-24 minutes
[2019-02-19] MEDS: AMINO ACIDS 4.25 %/DEXTROSE 5% 1,000 ML IV PRN ×2 (10:59→23:37)
[2019-02-19] MEDS: PROMETHAZINE HCL INJ 25 MG/1 ML VIAL IV PRN ×3 (11:01→20:11)
[2019-02-19] MEDS ORDERED: MAG HYDROX/AL HYDROX/SIMETH SUSP 30 ML UDCUP ONE (14:15)
[2019-02-19] MEDS ORDERED: DICYCLOMINE HCL INJ 20 MG/2 ML AMPULE IM ONE (15:00)
[2019-02-19] MEDS ORDERED: MAG HYDROX/AL HYDROX/SIMETH SUSP 30 ML UDCUP PO ONE (15:00)
[2019-02-19] MEDS ORDERED: DIAZEPAM INJ 10 MG/2 ML DISP.SYRIN ONE (16:52)
[2019-02-19] MEDS ORDERED: DIAZEPAM INJ 10 MG/2 ML DISP.SYRIN IV ONE (17:00)
[2019-02-20] MEDS: INSULIN LISPRO 100 UNIT/ML 3 ML VIAL SUBCUT SCH ×4 (00:21→17:23)
[2019-02-20] MEDS: PROMETHAZINE HCL INJ 25 MG/1 ML VIAL IV PRN ×4 (03:49→17:54)
[2019-02-20] MEDS ORDERED: MAG HYDROX/AL HYDROX/SIMETH SUSP 30 ML UDCUP PO PRN (04:11)
[2019-02-20] MEDS: METOCLOPRAMIDE HCL INJ/PF 10 MG/2 ML SDV IV SCH ×3 (05:11→17:24)
[2019-02-20] MEDS: ONDANSETRON HCL INJ/PF 4 MG/2 ML SDV IV PRN ×3 (06:05→22:57)
--- NOTE | 2019-02-20 08:48 | PDOC PROGRESS REPORT ---
Subjective Progress Note for:: 02/20/19 Subjective:: Patient states that she still does not feel good. She is still having some nausea, but meds are helping. Still to able to eat. She is walking in the [place] some. Reason For Visit: INTRACTABLE N/V,DEHYDRATION,GASTRIC CANCER, Physical Exam Vital Signs: Temp Pulse Resp BP Pulse Ox 98.2 F 85 16 130/84 H 99 02/20/19 00:00 02/20/19 02:00 02/20/19 00:00 02/20/19 00:00 02/20/19 00:00 Intake & Output 02/19/19 02/20/19 02/21/19 06:59 06:59 06:59 Intake Total 2640 3960 Output Total 1280 Balance 2640 2680 Weight 60 kg 60 kg General appearance: PRESENT: thin Exam: Appears acutely ill and uncomfortable. Head exam: PRESENT: atraumatic, normocephalic Respiratory exam: PRESENT: clear to auscultation benjamin, unlabored Cardiovascular exam: PRESENT: RRR GI/Abdominal exam: PRESENT: soft, tenderness Extremities exam: ABSENT: pedal edema Neurological exam: PRESENT: alert, awake Psychiatric exam: PRESENT: appropriate affect Skin exam: PRESENT: normal color Results Laboratory Results: 02/17/19 14:54 02/18/19 14:36 02/17/19 02/17/19 14:54 14:54 Creatine Kinase < 20 L CK-MB (CK-2) < 0.22 Troponin I < 0.012 Impressions: Chest X-Ray 02/17/19 14:42 IMPRESSION: NO ACUTE RADIOGRAPHIC FINDING IN THE CHEST. Assessment & Plan - Diagnosis (1) Gastric adenocarcinoma Is this a current diagnosis for this admission?: Yes Plan: For PICC line today, then TPN, then schedule surgery in 7-10 days. (2) Intractable nausea and vomiting Is this a current diagnosis for this admission?: Yes Plan: She did not like the reglan. Continue phenergan and zofran. (3) Anemia Qualifiers: Anemia type: iron deficiency Iron deficiency anemia type: inadequate dietary iron intake Qualified Code(s): D50.8 - Other iron deficiency anemias Is this a current diagnosis for this admission?: Yes - Plan Summary Plan Summary: Will continue to follow. Please call if needed.
[2019-02-20] MEDS: DIAZEPAM INJ 10 MG/2 ML DISP.SYRIN IV PRN ×2 (09:10→16:52)
[2019-02-20] MEDS: HEPARIN SOD (PORCINE) 5,000 UNIT/ML 1 ML SYRINGE SUBCUT SCH (10:28)
[2019-02-20] MEDS: PANTOPRAZOLE SODIUM 40 MG VIAL IV SCH ×2 (10:28→19:50)
--- NOTE | 2019-02-20 12:43 | RADIOLOGY REPORT (SQ) ---
EXAM DESCRIPTION: PICC INSERTION; FLUORO/CV PLACEMENT; U/S GUIDE FOR VASCULAR ACCESS COMPLETED DATE/TIME: 02/20/2019 12:33 pm; 02/20/2019 12:34 pm REASON FOR STUDY: TPN COMPARISON: AP chest 02/17/2019 FLUOROSCOPY TIME: 1 minutes 1 digital fluoroscopic and 1 ultrasound images saved to PACS. TECHNIQUE: Fluoroscopic and ultrasound guided PICC placement. LIMITATIONS: None. PROCEDURE: After written consent and assessment were obtained, the patient was brought into the fluo roscopy room and placed supine on the table. Ultrasound evaluation of potential access sites were per formed. After successfully identifying a patent left basilic vein, the left arm was prepped and drape d in a sterile fashion along with the ultrasound probe. The entry site was anesthetized with 1% lidoc mauricio. A 21 gauge 7 cm needle was advanced through the skin and into the basilic vein under live ultra sound guidance. An ultrasound image was saved to PACS confirming access site. A .018 guide wire was then inserted through the needle and into the venous system. The needle was then removed and an 11 b lade scalpel was used to make a 1cm skin incision. A 5 fr peel-away sheath was advanced over the wir e and into the venous system. A measurement was then made using the existing wire and live fluoroscop ic guidance. The wire was then removed and trimmed. The PICC was advanced through the peel-away sheat h and into the venous system. The peel-away sheath was removed and the catheter was adhered to the pa tients arm with a stat lock. The catheter was then aspirated and flushed and a sterile bandage was pl aced over the access site. A fluoroscopic spot image was saved to PACS confirming the catheter tip w ithin the superior vena cava. IMPRESSION: SUCCESSFUL PLACEMENT OF A 5 FR DUAL LUMEN 38 CM PICC IN THE LEFT BASILIC VEIN. COMMENT: Patient medication list reviewed: Yes- Quality ID# 130:Eligible professional attests to doc umenting in the medical record they obtained, updated, or reviewed the patient's current medications. . Quality ID 145: Final reports for procedures using fluoroscopy that document radiation exposure aman mohini, or exposure time and number of fluorographic images (if radiation exposure indices are not avail able) Quality ID #76: The patient was prepped and draped using maximum sterile barrier technique including cap, mask, sterile gown, sterile gloves, a large sterile sheet, hand hygiene, and 2% Chlorhexidine fo r cutaneous antisepsis. When ultrasound is used, sterile ultrasound techniques are followed requiring sterile gel and sterile probes. TECHNICAL DOCUMENTATION: JOB ID: [id number] [employer]- All Rights Reserved rev-03/11 Reading location - IP/workstation name: [email or web address]
--- NOTE | 2019-02-20 12:45 | PDOC PROGRESS REPORT ---
Subjective Progress Note for:: 02/20/19 Subjective:: ARGELIA JEAN is a 59 year old female with a PMH of hypothyroidism, anxiety and recent diagnosis of gastric adenocarcinoma who was sent to the ER from due to nausea, vomiting and poor intake. She was found to be severely dehydrated and was admitted for IV fluids and initiation of TPN. 02/18: She says she had partial relief with zofran but had few episodes of vomi ting. She does say she feels a little better today. Denies abdominal pain. 02/19: She had a few episodes of nausea overnight. She refused the Reglan as she says it makes her agitated and restless. She does complain of heartburn. She is scheduled to get a PICC line tomorrow. 02/20: No acute event overnight. Nausea has slightly improved with zofran and phenergan. She is scheudled to get a PICC line todaty and will be started on TPN by surgery. Reason For Visit: INTRACTABLE N/V,DEHYDRATION,GASTRIC CANCER, Physical Exam Vital Signs: Temp Pulse Resp BP Pulse Ox 98.6 F 90 15 130/78 H 100 02/20/19 07:38 02/20/19 07:38 02/20/19 07:38 02/20/19 07:38 02/20/19 07:38 Intake & Output 02/19/19 02/20/19 02/21/19 06:59 06:59 06:59 Intake Total 2640 3960 Output Total 1280 Balance 2640 2680 Weight 132 lb 4.438 oz 132 lb 4.438 oz General appearance: PRESENT: no acute distress, thin Head exam: PRESENT: atraumatic, normocephalic Eye exam: PRESENT: conjunctiva pink, EOMI, PERRLA. ABSENT: scleral icterus Ear exam: PRESENT: normal external ear exam Mouth exam: PRESENT: moist, tongue midline Neck exam: ABSENT: carotid bruit, JVD, lymphadenopathy, thyromegaly Respiratory exam: PRESENT: clear to auscultation benjamin. ABSENT: rales, rhonchi, wheezes Cardiovascular exam: PRESENT: RRR. ABSENT: diastolic murmur, rubs, systolic murmur Pulses: PRESENT: normal dorsalis pedis pul GI/Abdominal exam: PRESENT: normal bowel sounds, soft. ABSENT: distended, guarding, mass, organolmegaly, rebound, tenderness Rectal exam: PRESENT: deferred Neurological exam: PRESENT: alert, awake, oriented to person, oriented to place, oriented to time, oriented to situation, CN II-XII grossly intact. ABSENT: motor sensory deficit Results Laboratory Results: 02/17/19 14:54 02/18/19 14:36 02/17/19 02/17/19 14:54 14:54 Creatine Kinase < 20 L CK-MB (CK-2) < 0.22 Troponin I < 0.012 Impressions: Chest X-Ray 02/17/19 14:42 IMPRESSION: NO ACUTE RADIOGRAPHIC FINDING IN THE CHEST. Assessment and Plan - Diagnosis (1) Intractable nausea and vomiting Is this a current diagnosis for this admission?: Yes Plan: 02/18: Continue IV fluids. Zofran prn. Reglan added by oncology. Initiated on PPN by surgery. PICC on Wednesday for initiation of TPN. 02/19: Not tolerating Reglan. Continue zofran prn. Add phenergan prn. Will add Protonix for heartburn. 02/20: Slightly improved. (2) Protein calorie malnutrition Is this a current diagnosis for this admission?: Yes Plan: 02/20: She is scheduled to get a PICC line today and will be started on TPN by surgery. Also consulted health and safety consultant. (3) Dehydration Is this a current diagnosis for this admission?: Yes Plan: Improving. IV fluids. (4) Gastric adenocarcinoma Is this a current diagnosis for this admission?: Yes Plan: Surgery and oncology following. (5) Hypokalemia Is this a current diagnosis for this admission?: Yes Plan: Resolved. - Time Time Spent with patient: 25-34 minutes
[2019-02-20] MEDS ORDERED: NORMAL SALINE 10 ML SDV (AFTER EACH USE) IV PRN (13:00)
[2019-02-20] MEDS: FAT EMULSIONS 250 ML IV SCH (14:16)
[2019-02-20] MEDS ORDERED: DEXTROSE 10%-WATER 1,000 ML IV PRN (14:30)
[2019-02-20 14:38] LABS: INTERNATIONAL RATION (INR) 1.09; PROTHROMBIN TIME 14.7 SEC (11.4-15.4)
[2019-02-20 14:49] LABS: PHOSPHORUS 1.8 mg/dL (2.5-4.5)
[2019-02-20 14:50] LABS: ALANINE AMINOTRANSFERASE 17 U/L (9-52); ALBUMIN 2.4 g/dL (3.5-5.0); ALKALINE PHOSPHATASE 33 U/L (38-126); ANION GAP 7 (5-19); ASPARTATE AMINO TRANSFERASE 16 U/L (14-36); BILIRUBIN,DIRECT 0.2 mg/dL (0.0-0.4); BILIRUBIN,TOTAL 0.4 mg/dL (0.2-1.3); BLOOD UREA NITROGEN 11 mg/dL (7-20); CALCIUM 8.9 mg/dL (8.4-10.2); CARBON DIOXIDE 31 mmol/L (22-30); CHLORIDE 95 mmol/L (98-107); GLUCOSE 111 mg/dL (75-110); SODIUM 132.9 mmol/L (137-145); TOTAL PROTEIN 5.3 g/dL (6.3-8.2)
[2019-02-20 14:56] LABS: PREALBUMIN 9.9 mg/dL (17.6-36.0)
[2019-02-20 15:13] LABS: POTASSIUM 2.6 mmol/L (3.6-5.0)
[2019-02-20 15:24] LABS: HEMATOCRIT 22.2 % (36.0-47.0); MEAN CORPUSCULAR HGB CONC 34.2 g/dL (32.0-36.0); MEAN CORPUSCULAR VOLUME 82 fl (80-97); PLATELET COUNT 276 10^3/uL (150-450); RED BLOOD COUNT 2.71 10^6/uL (3.72-5.28); RED CELL DISTRIBUTION WIDTH 16.8 % (11.5-14.0)
[2019-02-20 15:29] LABS: HEMOGLOBIN 7.6 g/dL (12.0-15.5)
--- NOTE | 2019-02-20 16:35 | Progress Note ---
Provider Note Provider Note: Routine labs repeated today and came back remarkable for acute Hb drop, repeated twice. No obvious sign or symptoms of bleeding. Will order a CT abdomen/pelvis to further assess for bleeding source. Potassium and Magnesium came back low. Likely a combination of poor oral intake and possible refeeding syndrome from PPN. Will order for IV replacements. Repeat CBC today at 6 PM. Repeat electrolytes after replacement. Will order a unit of pRBC. IV Protonix 40 mg bid. She does have a history of GI bleed and had prior EGDs by Dr. Izaguirre. Discussed with Dr. Izaguirre and updated about labs and plan.
--- NOTE | 2019-02-20 17:40 | RADIOLOGY REPORT (SQ) ---
EXAM DESCRIPTION: CT ABD/PELVIS NO ORAL OR IV COMPLETED DATE/TIME: 02/20/2019 5:25 pm REASON FOR STUDY: gastric CA, significant acute drop in Hb COMPARISON: 12/13/2018 TECHNIQUE: CT scan of the abdomen and pelvis performed without intravenous or oral contrast. Images reviewed with lung, soft tissue, and bone windows. Reconstructed coronal and sagittal MPR images revi ewed. All images stored on PACS. All CT scanners at this facility use dose modulation, iterative reconstruction, and/or weight based d osing when appropriate to reduce radiation dose to as low as reasonably achievable (ALARA). [facility]: Dose Right [facility]: CareDose [facility]: Dose Right [facility]: Teradose 4D [facility]: Smart ZAINA PHARMA RADIATION DOSE: CT Rad equipment meets quality standard of care and radiation dose reduction techniq ues were employed. CTDIvol: 5.0 mGy. DLP: 274 mGy-cm.mGy. LIMITATIONS: None. FINDINGS: LOWER CHEST: No significant findings. No nodules or infiltrates. NON-CONTRASTED LIVER, SPLEEN, ADRENALS: Evaluation limited by lack of IV contrast. No identified sign ificant masses. PANCREAS: No masses. No peripancreatic inflammatory changes. GALLBLADDER: Surgically absent. RIGHT KIDNEY AND URETER: No suspicious masses. Assessment limited by lack of IV contrast. No signif icant calcifications. No hydronephrosis or hydroureter. LEFT KIDNEY AND URETER: No suspicious masses. Assessment limited by lack of IV contrast. No signifi cant calcifications. No hydronephrosis or hydroureter. AORTA AND RETROPERITONEUM: No aneurysm. No retroperitoneal masses or adenopathy. BOWEL AND PERITONEAL CAVITY: No obvious masses or inflammatory changes. No free fluid. APPENDIX: Normal. PELVIS, BLADDER, AND ABDOMINAL WALL:Urinary bladder is normal. There is some free fluid in the pelvi s. BONES: No significant findings. OTHER: No other significant finding. IMPRESSION: There is some free fluid in the pelvis. No other significant finding in the abdomen or pelvis. COMMENT: Quality ID # [id number]: Final reports with documentation of one or more dose reduction techniques (e.g., Automated exposure control, adjustment of the mA and/or kV according to patient size, use of iterative reconstruction technique) TECHNICAL DOCUMENTATION: JOB ID: [id number] [employer]- All Rights Reserved Reading location - IP/workstation name: [email or web address]
[2019-02-20] MEDS ORDERED: NORMAL SALINE 250 ML IV PRN ×2 (17:52)
[2019-02-20] MEDS ORDERED: POTASSI CL 20 MEQ/50 ML RIDER 20 MEQ/50 ML RTUPB IV SCH (18:00)
[2019-02-20] MEDS: POTASSIUM CHLORIDE 20 MEQ/50 ML RTU IV SCH ×3 (18:12→22:13)
[2019-02-20 19:21] LABS: HEMATOCRIT 21.1 % (36.0-47.0); MEAN CORPUSCULAR HEMOGLOBIN 29.7 pg (27.0-33.4); MEAN CORPUSCULAR HGB CONC 36.2 g/dL (32.0-36.0); MEAN CORPUSCULAR VOLUME 82 fl (80-97); PLATELET COUNT 272 10^3/uL (150-450); RED BLOOD COUNT 2.57 10^6/uL (3.72-5.28); RED CELL DISTRIBUTION WIDTH 16.8 % (11.5-14.0); WHITE BLOOD COUNT 3.3 10^3/uL (4.0-10.5)
[2019-02-20 19:24] LABS: HEMOGLOBIN 7.6 g/dL (12.0-15.5)
[2019-02-20] MEDS: NORMAL SALINE 10 ML SDV (SCHEDULED) IV SCH (22:14)
[2019-02-21] MEDS: INSULIN LISPRO 100 UNIT/ML 3 ML VIAL SUBCUT SCH ×4 (00:36→17:03)
[2019-02-21] MEDS: METOCLOPRAMIDE HCL INJ/PF 10 MG/2 ML SDV IV SCH ×4 (00:36→17:03)
[2019-02-21] MEDS: POTASSIUM CHLORIDE 20 MEQ/50 ML RTU IV SCH (00:53)
[2019-02-21] MEDS: AMINO ACIDS 5 %/DEXTROSE 20 % 1,000 ML IV PRN ×2 (01:09→23:40)
[2019-02-21 06:00] LABS: ABSOLUTE LYMPHOCYTES (AUTO) 0.3 10^3/uL (0.5-4.7); ABSOLUTE MONOCYTES (AUTO) 0.3 10^3/uL (0.1-1.4); ABSOLUTE NEUT (AUTO) 2.6 10^3/uL (1.7-8.2); BASOPHILS % (AUTO) 0.2 % (0-2); EOSINOPHILS % (AUTO) 0.6 % (0-6); HEMATOCRIT 23.7 % (36.0-47.0); HEMOGLOBIN 8.1 g/dL (12.0-15.5); LYMPHOCYTES % (AUTO) 8.7 % (13-45); MEAN CORPUSCULAR HEMOGLOBIN 28.4 pg (27.0-33.4); MEAN CORPUSCULAR HGB CONC 34.2 g/dL (32.0-36.0); MEAN CORPUSCULAR VOLUME 83 fl (80-97); MONOCYTES % (AUTO) 8.2 % (3-13); PLATELET COUNT 198 10^3/uL (150-450); RED BLOOD COUNT 2.85 10^6/uL (3.72-5.28); RED CELL DISTRIBUTION WIDTH 16.1 % (11.5-14.0); SEGMENTED NEUTROPHILS % (AUTO) 82.3 % (42-78); TOTAL CELLS COUNTED % (AUTO) 100 %; WHITE BLOOD COUNT 3.2 10^3/uL (4.0-10.5)
[2019-02-21] MEDS: PANTOPRAZOLE SODIUM 40 MG VIAL IV SCH ×2 (06:24→17:26)
[2019-02-21 06:41] LABS: ANION GAP 6 (5-19); BLOOD UREA NITROGEN 8 mg/dL (7-20); CALCIUM 8.6 mg/dL (8.4-10.2); CARBON DIOXIDE 28 mmol/L (22-30); CHLORIDE 101 mmol/L (98-107); GLUCOSE 112 mg/dL (75-110); SODIUM 134.9 mmol/L (137-145)
[2019-02-21 06:53] LABS: ABSOLUTE LYMPHOCYTES (AUTO) 0.4 10^3/uL (0.5-4.7); ABSOLUTE MONOCYTES (AUTO) 0.3 10^3/uL (0.1-1.4); ABSOLUTE NEUT (AUTO) 2.1 10^3/uL (1.7-8.2); BASOPHILS % (AUTO) 0.1 % (0-2); EOSINOPHILS % (AUTO) 0.8 % (0-6); HEMATOCRIT 23.6 % (36.0-47.0); HEMOGLOBIN 8.1 g/dL (12.0-15.5); LYMPHOCYTES % (AUTO) 13.9 % (13-45); MEAN CORPUSCULAR HEMOGLOBIN 28.7 pg (27.0-33.4); MEAN CORPUSCULAR HGB CONC 34.2 g/dL (32.0-36.0); MEAN CORPUSCULAR VOLUME 84 fl (80-97); MONOCYTES % (AUTO) 9.1 % (3-13); PLATELET COUNT 194 10^3/uL (150-450); RED BLOOD COUNT 2.81 10^6/uL (3.72-5.28); RED CELL DISTRIBUTION WIDTH 16.6 % (11.5-14.0); SEGMENTED NEUTROPHILS % (AUTO) 76.1 % (42-78); TOTAL CELLS COUNTED % (AUTO) 100 %; WHITE BLOOD COUNT 2.8 10^3/uL (4.0-10.5)
[2019-02-21 07:11] LABS: POTASSIUM 3.6 mmol/L (3.6-5.0)
[2019-02-21 07:31] LABS: ALANINE AMINOTRANSFERASE 15 U/L (9-52); ALBUMIN 2.3 g/dL (3.5-5.0); ALKALINE PHOSPHATASE 30 U/L (38-126); ANION GAP 5 (5-19); ASPARTATE AMINO TRANSFERASE 16 U/L (14-36); BILIRUBIN,DIRECT 0.2 mg/dL (0.0-0.4); BILIRUBIN,TOTAL 0.5 mg/dL (0.2-1.3); BLOOD UREA NITROGEN 9 mg/dL (7-20); CALCIUM 8.8 mg/dL (8.4-10.2); CARBON DIOXIDE 30 mmol/L (22-30); CHLORIDE 100 mmol/L (98-107); GLUCOSE 115 mg/dL (75-110); PHOSPHORUS 1.5 mg/dL (2.5-4.5); POTASSIUM 3.6 mmol/L (3.6-5.0); SODIUM 135.2 mmol/L (137-145); TOTAL PROTEIN 5.1 g/dL (6.3-8.2)
[2019-02-21 07:39] LABS: PREALBUMIN 9.1 mg/dL (17.6-36.0)
--- NOTE | 2019-02-21 08:22 | PDOC PROGRESS REPORT ---
Subjective Progress Note for:: 02/21/19 Subjective:: feels a bit stronger after blood txn and tpn started now able to get up herself to the bathroom Reason For Visit: INTRACTABLE N/V,DEHYDRATION,GASTRIC CANCER, Physical Exam Vital Signs: Temp Pulse Resp BP Pulse Ox 98.0 F 96 15 136/79 H 100 02/21/19 03:09 02/21/19 03:09 02/21/19 03:09 02/21/19 03:09 02/21/19 03:09 Intake & Output 02/20/19 02/21/19 02/22/19 06:59 06:59 06:59 Intake Total 3960 2465 Output Total 1280 1300 Balance 2680 1165 Weight 60 kg 59.9 kg General appearance: PRESENT: no acute distress Eye exam: PRESENT: EOMI Mouth exam: PRESENT: moist Neck exam: PRESENT: full ROM Respiratory exam: PRESENT: clear to auscultation benjamin Cardiovascular exam: PRESENT: RRR Pulses: PRESENT: normal radial pulses, normal femoral pulses Vascular exam: PRESENT: normal capillary refill GI/Abdominal exam: PRESENT: normal bowel sounds Rectal exam: PRESENT: deferred Extremities exam: PRESENT: full ROM Musculoskeletal exam: PRESENT: full ROM Neurological exam: PRESENT: alert, awake, oriented to person, oriented to place, oriented to situation Psychiatric exam: PRESENT: depressed Skin exam: PRESENT: dry Results Laboratory Results: 02/21/19 05:50 02/21/19 05:50 02/20/19 02/20/19 02/20/19 13:54 13:54 13:54 WBC Cancelled RBC Cancelled Hgb Cancelled Hct Cancelled MCV Cancelled MCH Cancelled MCHC Cancelled RDW Cancelled Plt Count Cancelled Seg Neutrophils % Lymphocytes % Monocytes % Eosinophils % Basophils % Absolute Neutrophils Absolute Lymphocytes Absolute Monocytes Absolute Eosinophils Absolute Basophils Sodium 132.9 L Potassium 2.6 L* Chloride 95 L Carbon Dioxide 31 H Cancelled Anion Gap 7 BUN 11 Creatinine 0.34 L Est GFR ( Amer) > 60 Est GFR (Non-Af Amer) > 60 Glucose 111 H Calcium 8.9 Phosphorus 1.8 L Magnesium 1.3 L Total Bilirubin 0.4 AST 16 ALT 17 Alkaline Phosphatase 33 L Total Protein 5.3 L Albumin 2.4 L Prealbumin 9.9 L Triglycerides 161 H Blood Type Antibody Screen 02/20/19 02/20/19 02/20/19 14:55 18:18 18:29 WBC 4.0 3.3 L RBC 2.71 L 2.57 L Hgb 7.6 L 7.6 L Hct 22.2 L 21.1 L MCV 82 82 MCH 28.0 29.7 MCHC 34.2 36.2 H RDW 16.8 H 16.8 H Plt Count 276 272 Seg Neutrophils % Lymphocytes % Monocytes % Eosinophils % Basophils % Absolute Neutrophils Absolute Lymphocytes Absolute Monocytes Absolute Eosinophils Absolute Basophils Sodium Potassium Chloride Carbon Dioxide Anion Gap BUN Creatinine Est GFR ( Amer) Est GFR (Non-Af Amer) Glucose Calcium Phosphorus Magnesium Total Bilirubin AST ALT Alkaline Phosphatase Total Protein Albumin Prealbumin Triglycerides Blood Type A NEGATIVE Antibody Screen NEGATIVE 02/20/19 02/21/19 02/21/19 18:29 02:56 02:56 WBC 3.2 L RBC 2.85 L Hgb 8.1 L Hct 23.7 L MCV 83 MCH 28.4 MCHC 34.2 RDW 16.1 H Plt Count 198 Seg Neutrophils % 82.3 H Lymphocytes % 8.7 L Monocytes % 8.2 Eosinophils % 0.6 Basophils % 0.2 Absolute Neutrophils 2.6 Absolute Lymphocytes 0.3 L Absolute Monocytes 0.3 Absolute Eosinophils 0.0 Absolute Basophils 0.0 Sodium 134.9 L Potassium 3.6 D Chloride 101 Carbon Dioxide 28 Anion Gap 6 BUN 8 Creatinine 0.29 L Est GFR ( Amer) > 60 Est GFR (Non-Af Amer) > 60 Glucose 112 H Calcium 8.6 Phosphorus Magnesium 1.3 L Total Bilirubin AST ALT Alkaline Phosphatase Total Protein Albumin Prealbumin Triglycerides Blood Type Antibody Screen 02/21/19 02/21/19 05:50 05:50 WBC 2.8 L RBC 2.81 L Hgb 8.1 L Hct 23.6 L MCV 84 MCH 28.7 MCHC 34.2 RDW 16.6 H Plt Count 194 Seg Neutrophils % 76.1 Lymphocytes % 13.9 Monocytes % 9.1 Eosinophils % 0.8 Basophils % 0.1 Absolute Neutrophils 2.1 Absolute Lymphocytes 0.4 L Absolute Monocytes 0.3 Absolute Eosinophils 0.0 Absolute Basophils 0.0 Sodium 135.2 L Potassium 3.6 Chloride 100 Carbon Dioxide 30 Anion Gap 5 BUN 9 Creatinine 0.33 L Est GFR ( Amer) > 60 Est GFR (Non-Af Amer) > 60 Glucose 115 H Calcium 8.8 Phosphorus 1.5 L Magnesium Total Bilirubin 0.5 AST 16 ALT 15 Alkaline Phosphatase 30 L Total Protein 5.1 L Albumin 2.3 L Prealbumin 9.1 L Triglycerides Blood Type Antibody Screen 02/17/19 02/17/19 14:54 14:54 Creatine Kinase < 20 L CK-MB (CK-2) < 0.22 Troponin I < 0.012 Impressions: Chest X-Ray 02/17/19 14:42 IMPRESSION: NO ACUTE RADIOGRAPHIC FINDING IN THE CHEST. Guidance Fluoroscopy 02/20/19 00:00 IMPRESSION: SUCCESSFUL PLACEMENT OF A 5 FR DUAL LUMEN 38 CM PICC IN THE LEFT BASILIC VEIN. Interventional Vascular Procedure 02/20/19 00:00 IMPRESSION: SUCCESSFUL PLACEMENT OF A 5 FR DUAL LUMEN 38 CM PICC IN THE LEFT BASILIC VEIN. PICC Line Insertion 02/20/19 06:00 IMPRESSION: SUCCESSFUL PLACEMENT OF A 5 FR DUAL LUMEN 38 CM PICC IN THE LEFT BASILIC VEIN. Abdomen/Pelvis CT 02/20/19 16:32 IMPRESSION: There is some free fluid in the pelvis. No other significant finding in the abdomen or pelvis. Assessment & Plan - Plan Summary Plan Summary: will cont tpn and will plan on surgery march 02 plan on dc home in 2-3 days on home tpn and then return for surgery on march 02.
[2019-02-21] MEDS: NORMAL SALINE 10 ML SDV (SCHEDULED) IV SCH ×2 (09:15→21:16)
--- NOTE | 2019-02-21 11:12 | PDOC PROGRESS REPORT ---
Subjective Progress Note for:: 02/21/19 Subjective:: Patient states she is feeling a bit better. She is tolerating the TPN without difficulty. She is still only able to tolerate some clear liquid by mouth. Reason For Visit: INTRACTABLE N/V,DEHYDRATION,GASTRIC CANCER, Physical Exam Vital Signs: Temp Pulse Resp BP Pulse Ox 98.0 F 91 16 125/78 100 02/21/19 07:35 02/21/19 07:35 02/21/19 07:35 02/21/19 07:35 02/21/19 07:35 Intake & Output 02/20/19 02/21/19 02/22/19 06:59 06:59 06:59 Intake Total 3960 2465 Output Total 1280 1300 Balance 2680 1165 Weight 60 kg 59.9 kg General appearance: PRESENT: thin, well-developed Head exam: PRESENT: normocephalic Respiratory exam: PRESENT: unlabored Extremities exam: ABSENT: pedal edema Neurological exam: PRESENT: alert, awake Psychiatric exam: PRESENT: appropriate affect Skin exam: PRESENT: normal color Results Laboratory Results: 02/21/19 05:50 02/21/19 05:50 02/20/19 02/20/19 02/20/19 13:54 13:54 13:54 WBC Cancelled RBC Cancelled Hgb Cancelled Hct Cancelled MCV Cancelled MCH Cancelled MCHC Cancelled RDW Cancelled Plt Count Cancelled Seg Neutrophils % Lymphocytes % Monocytes % Eosinophils % Basophils % Absolute Neutrophils Absolute Lymphocytes Absolute Monocytes Absolute Eosinophils Absolute Basophils Sodium 132.9 L Potassium 2.6 L* Chloride 95 L Carbon Dioxide 31 H Cancelled Anion Gap 7 BUN 11 Creatinine 0.34 L Est GFR ( Amer) > 60 Est GFR (Non-Af Amer) > 60 Glucose 111 H Calcium 8.9 Phosphorus 1.8 L Magnesium 1.3 L Total Bilirubin 0.4 AST 16 ALT 17 Alkaline Phosphatase 33 L Total Protein 5.3 L Albumin 2.4 L Prealbumin 9.9 L Triglycerides 161 H Blood Type Antibody Screen 02/20/19 02/20/19 02/20/19 14:55 18:18 18:29 WBC 4.0 3.3 L RBC 2.71 L 2.57 L Hgb 7.6 L 7.6 L Hct 22.2 L 21.1 L MCV 82 82 MCH 28.0 29.7 MCHC 34.2 36.2 H RDW 16.8 H 16.8 H Plt Count 276 272 Seg Neutrophils % Lymphocytes % Monocytes % Eosinophils % Basophils % Absolute Neutrophils Absolute Lymphocytes Absolute Monocytes Absolute Eosinophils Absolute Basophils Sodium Potassium Chloride Carbon Dioxide Anion Gap BUN Creatinine Est GFR ( Amer) Est GFR (Non-Af Amer) Glucose Calcium Phosphorus Magnesium Total Bilirubin AST ALT Alkaline Phosphatase Total Protein Albumin Prealbumin Triglycerides Blood Type A NEGATIVE Antibody Screen NEGATIVE 02/20/19 02/21/19 02/21/19 18:29 02:56 02:56 WBC 3.2 L RBC 2.85 L Hgb 8.1 L Hct 23.7 L MCV 83 MCH 28.4 MCHC 34.2 RDW 16.1 H Plt Count 198 Seg Neutrophils % 82.3 H Lymphocytes % 8.7 L Monocytes % 8.2 Eosinophils % 0.6 Basophils % 0.2 Absolute Neutrophils 2.6 Absolute Lymphocytes 0.3 L Absolute Monocytes 0.3 Absolute Eosinophils 0.0 Absolute Basophils 0.0 Sodium 134.9 L Potassium 3.6 D Chloride 101 Carbon Dioxide 28 Anion Gap 6 BUN 8 Creatinine 0.29 L Est GFR ( Amer) > 60 Est GFR (Non-Af Amer) > 60 Glucose 112 H Calcium 8.6 Phosphorus Magnesium 1.3 L Total Bilirubin AST ALT Alkaline Phosphatase Total Protein Albumin Prealbumin Triglycerides Blood Type Antibody Screen 02/21/19 02/21/19 05:50 05:50 WBC 2.8 L RBC 2.81 L Hgb 8.1 L Hct 23.6 L MCV 84 MCH 28.7 MCHC 34.2 RDW 16.6 H Plt Count 194 Seg Neutrophils % 76.1 Lymphocytes % 13.9 Monocytes % 9.1 Eosinophils % 0.8 Basophils % 0.1 Absolute Neutrophils 2.1 Absolute Lymphocytes 0.4 L Absolute Monocytes 0.3 Absolute Eosinophils 0.0 Absolute Basophils 0.0 Sodium 135.2 L Potassium 3.6 Chloride 100 Carbon Dioxide 30 Anion Gap 5 BUN 9 Creatinine 0.33 L Est GFR ( Amer) > 60 Est GFR (Non-Af Amer) > 60 Glucose 115 H Calcium 8.8 Phosphorus 1.5 L Magnesium Total Bilirubin 0.5 AST 16 ALT 15 Alkaline Phosphatase 30 L Total Protein 5.1 L Albumin 2.3 L Prealbumin 9.1 L Triglycerides Blood Type Antibody Screen 02/17/19 02/17/19 14:54 14:54 Creatine Kinase < 20 L CK-MB (CK-2) < 0.22 Troponin I < 0.012 Impressions: Chest X-Ray 02/17/19 14:42 IMPRESSION: NO ACUTE RADIOGRAPHIC FINDING IN THE CHEST. Guidance Fluoroscopy 02/20/19 00:00 IMPRESSION: SUCCESSFUL PLACEMENT OF A 5 FR DUAL LUMEN 38 CM PICC IN THE LEFT BASILIC VEIN. Interventional Vascular Procedure 02/20/19 00:00 IMPRESSION: SUCCESSFUL PLACEMENT OF A 5 FR DUAL LUMEN 38 CM PICC IN THE LEFT BASILIC VEIN. PICC Line Insertion 02/20/19 06:00 IMPRESSION: SUCCESSFUL PLACEMENT OF A 5 FR DUAL LUMEN 38 CM PICC IN THE LEFT BASILIC VEIN. Abdomen/Pelvis CT 02/20/19 16:32 IMPRESSION: There is some free fluid in the pelvis. No other significant finding in the abdomen or pelvis. Assessment & Plan - Diagnosis (1) Gastric adenocarcinoma Is this a current diagnosis for this admission?: Yes (2) Intractable nausea and vomiting Is this a current diagnosis for this admission?: Yes (3) Anemia Qualifiers: Anemia type: iron deficiency Iron deficiency anemia type: inadequate dietary iron intake Qualified Code(s): D50.8 - Other iron deficiency anemias Is this a current diagnosis for this admission?: Yes - Plan Summary Plan Summary: Continue nutrition. Plans for surgery in the near future. Will continue to monitor blood counts. Anemia work-up earlier this month showed no evidence of iron, B12 or folate deficiency. Hopefully, this will improve with nutrition.
--- NOTE | 2019-02-21 11:52 | PDOC PROGRESS REPORT ---
Subjective Progress Note for:: 02/21/19 Subjective:: ARGELIA JEAN is a 59 year old female with a PMH of hypothyroidism, anxiety and recent diagnosis of gastric adenocarcinoma who was sent to the ER from due to nausea, vomiting and poor intake. PICC line placed yesterday and patient was started on TPN. She was seen this morning on rounds, states she feels 'much better' since the initiation of TPN. Patient's Hgb remains low this morning (8.1) but does not require transfusion. She is now post-transfusion of 1 U PRBC yesterday for a Hgb of 7.6. No obvious source of bleeding, the patient denies recent bowel movement and denies coffee- ground emesis. Plan for anemia studies with AM labs. Plan for discharge home in 24-48 hours on TPN. Reason For Visit: INTRACTABLE N/V,DEHYDRATION,GASTRIC CANCER, Physical Exam Vital Signs: Temp Pulse Resp BP Pulse Ox 98.0 F 91 16 125/78 100 02/21/19 07:35 02/21/19 07:35 02/21/19 07:35 02/21/19 07:35 02/21/19 07:35 Intake & Output 02/20/19 02/21/19 02/22/19 06:59 06:59 06:59 Intake Total 3960 2465 Output Total 1280 1300 Balance 2680 1165 Weight 60 kg 59.9 kg General appearance: PRESENT: well-developed, well-nourished Eye exam: PRESENT: conjunctiva pale, PERRLA Mouth exam: PRESENT: moist, tongue midline Neck exam: PRESENT: full ROM Respiratory exam: PRESENT: symmetrical, unlabored Cardiovascular exam: PRESENT: RRR Pulses: PRESENT: normal radial pulses Vascular exam: PRESENT: pallor GI/Abdominal exam: PRESENT: soft, tenderness - RLQ and LLQ. ABSENT: distended Rectal exam: PRESENT: deferred Extremities exam: PRESENT: full ROM. ABSENT: pedal edema Musculoskeletal exam: PRESENT: ambulatory, full ROM Neurological exam: PRESENT: alert, awake, oriented to person, oriented to place, oriented to time, oriented to situation Psychiatric exam: PRESENT: appropriate affect, normal mood Skin exam: PRESENT: dry, intact, pallor Results Laboratory Results: 02/21/19 05:50 02/21/19 05:50 02/20/19 02/20/19 02/20/19 13:54 13:54 13:54 WBC Cancelled RBC Cancelled Hgb Cancelled Hct Cancelled MCV Cancelled MCH Cancelled MCHC Cancelled RDW Cancelled Plt Count Cancelled Seg Neutrophils % Lymphocytes % Monocytes % Eosinophils % Basophils % Absolute Neutrophils Absolute Lymphocytes Absolute Monocytes Absolute Eosinophils Absolute Basophils Sodium 132.9 L Potassium 2.6 L* Chloride 95 L Carbon Dioxide 31 H Cancelled Anion Gap 7 BUN 11 Creatinine 0.34 L Est GFR ( Amer) > 60 Est GFR (Non-Af Amer) > 60 Glucose 111 H Calcium 8.9 Phosphorus 1.8 L Magnesium 1.3 L Total Bilirubin 0.4 AST 16 ALT 17 Alkaline Phosphatase 33 L Total Protein 5.3 L Albumin 2.4 L Prealbumin 9.9 L Triglycerides 161 H Blood Type Antibody Screen 02/20/19 02/20/19 02/20/19 14:55 18:18 18:29 WBC 4.0 3.3 L RBC 2.71 L 2.57 L Hgb 7.6 L 7.6 L Hct 22.2 L 21.1 L MCV 82 82 MCH 28.0 29.7 MCHC 34.2 36.2 H RDW 16.8 H 16.8 H Plt Count 276 272 Seg Neutrophils % Lymphocytes % Monocytes % Eosinophils % Basophils % Absolute Neutrophils Absolute Lymphocytes Absolute Monocytes Absolute Eosinophils Absolute Basophils Sodium Potassium Chloride Carbon Dioxide Anion Gap BUN Creatinine Est GFR ( Amer) Est GFR (Non-Af Amer) Glucose Calcium Phosphorus Magnesium Total Bilirubin AST ALT Alkaline Phosphatase Total Protein Albumin Prealbumin Triglycerides Blood Type A NEGATIVE Antibody Screen NEGATIVE 02/20/19 02/21/19 02/21/19 18:29 02:56 02:56 WBC 3.2 L RBC 2.85 L Hgb 8.1 L Hct 23.7 L MCV 83 MCH 28.4 MCHC 34.2 RDW 16.1 H Plt Count 198 Seg Neutrophils % 82.3 H Lymphocytes % 8.7 L Monocytes % 8.2 Eosinophils % 0.6 Basophils % 0.2 Absolute Neutrophils 2.6 Absolute Lymphocytes 0.3 L Absolute Monocytes 0.3 Absolute Eosinophils 0.0 Absolute Basophils 0.0 Sodium 134.9 L Potassium 3.6 D Chloride 101 Carbon Dioxide 28 Anion Gap 6 BUN 8 Creatinine 0.29 L Est GFR ( Amer) > 60 Est GFR (Non-Af Amer) > 60 Glucose 112 H Calcium 8.6 Phosphorus Magnesium 1.3 L Total Bilirubin AST ALT Alkaline Phosphatase Total Protein Albumin Prealbumin Triglycerides Blood Type Antibody Screen 02/21/19 02/21/19 05:50 05:50 WBC 2.8 L RBC 2.81 L Hgb 8.1 L Hct 23.6 L MCV 84 MCH 28.7 MCHC 34.2 RDW 16.6 H Plt Count 194 Seg Neutrophils % 76.1 Lymphocytes % 13.9 Monocytes % 9.1 Eosinophils % 0.8 Basophils % 0.1 Absolute Neutrophils 2.1 Absolute Lymphocytes 0.4 L Absolute Monocytes 0.3 Absolute Eosinophils 0.0 Absolute Basophils 0.0 Sodium 135.2 L Potassium 3.6 Chloride 100 Carbon Dioxide 30 Anion Gap 5 BUN 9 Creatinine 0.33 L Est GFR ( Amer) > 60 Est GFR (Non-Af Amer) > 60 Glucose 115 H Calcium 8.8 Phosphorus 1.5 L Magnesium Total Bilirubin 0.5 AST 16 ALT 15 Alkaline Phosphatase 30 L Total Protein 5.1 L Albumin 2.3 L Prealbumin 9.1 L Triglycerides Blood Type Antibody Screen 02/17/19 02/17/19 14:54 14:54 Creatine Kinase < 20 L CK-MB (CK-2) < 0.22 Troponin I < 0.012 Impressions: Chest X-Ray 02/17/19 14:42 IMPRESSION: NO ACUTE RADIOGRAPHIC FINDING IN THE CHEST. Guidance Fluoroscopy 02/20/19 00:00 IMPRESSION: SUCCESSFUL PLACEMENT OF A 5 FR DUAL LUMEN 38 CM PICC IN THE LEFT BASILIC VEIN. Interventional Vascular Procedure 02/20/19 00:00 IMPRESSION: SUCCESSFUL PLACEMENT OF A 5 FR DUAL LUMEN 38 CM PICC IN THE LEFT BASILIC VEIN. PICC Line Insertion 02/20/19 06:00 IMPRESSION: SUCCESSFUL PLACEMENT OF A 5 FR DUAL LUMEN 38 CM PICC IN THE LEFT BASILIC VEIN. Abdomen/Pelvis CT 02/20/19 16:32 IMPRESSION: There is some free fluid in the pelvis. No other significant finding in the abdomen or pelvis. Status: Imported from PACS Assessment and Plan - Diagnosis (1) Intractable nausea and vomiting Qualifiers: Vomiting type: unspecified Qualified Code(s): R11.2 - Nausea with vomiting, unspecified Is this a current diagnosis for this admission?: Yes Plan: Secondary to gastric carcinoma Clear liquid diet Patient endorses anorexia, unable to advance diet PICC line placed yesterday, continue TPN PRN Zofran and phergan and protonix (2) Dehydration Is this a current diagnosis for this admission?: Yes Plan: Improving with IVF (3) Gastric adenocarcinoma Is this a current diagnosis for this admission?: Yes Plan: Management per Oncology Appreciate their expertise Plan for surgery March 02 (4) Hypokalemia Is this a current diagnosis for this admission?: Yes Plan: Resolved Likely secondary to poor PO intake K 3.6 this morning Continue to monitor with daily chemistries (5) Protein calorie malnutrition Is this a current diagnosis for this admission?: Yes Plan: Secondary to anorexia and poor PO intake stemming from gastric carcinoma PICC line placed yesterday and initiated TPN Plan to continue for now until patient is able to undergo surgery on March 02 - Time Time Spent with patient: 15-24 minutes Medications reviewed and adjusted accordingly: Yes Anticipated discharge: Home - Inpatient Certification Based on my medical assessment, after consideration of the patient's comorbidities, presenting symptoms, or acuity I expect that the services needed warrant INPATIENT care.: Yes I certify that my determination is in accordance with my understanding of Medicare's requirements for reasonable and necessary INPATIENT services [42 CFR 412.3e].: Yes Medical Necessity: Risk of Complication if Not Cared For in Hospital
[2019-02-21] MEDS ORDERED: DIPHENHYDRAMINE HCL 50 MG/ML VIAL IV PRN (18:59)
[2019-02-21] MEDS ORDERED: PROMETHAZINE HCL 25 MG TABLET PO PRN (18:59)
[2019-02-21] MEDS: PROMETHAZINE HCL INJ 25 MG/1 ML VIAL IV PRN (19:27)
[2019-02-21] MEDS: DRONABINOL 2.5 MG CAPSULE PO SCH (21:09)
[2019-02-21] MEDS: DIAZEPAM INJ 10 MG/2 ML DISP.SYRIN IV PRN (21:10)
[2019-02-21] MEDS: SUCRALFATE 1 GM TABLET PO SCH (21:10)
[2019-02-22] MEDS: INSULIN LISPRO 100 UNIT/ML 3 ML VIAL SUBCUT SCH ×4 (01:01→17:34)
[2019-02-22] MEDS: METOCLOPRAMIDE HCL INJ/PF 10 MG/2 ML SDV IV SCH ×4 (01:02→18:36)
[2019-02-22] MEDS: PANTOPRAZOLE SODIUM 40 MG VIAL IV SCH ×2 (05:45→17:49)
[2019-02-22] MEDS: LEVOTHYROXINE SODIUM 0.025 MG TABLET PO SCH (05:45)
[2019-02-22] MEDS: ONDANSETRON HCL INJ/PF 4 MG/2 ML SDV IV PRN ×3 (05:45→22:21)
[2019-02-22 06:44] LABS: HEMATOCRIT 24.8 % (36.0-47.0); HEMOGLOBIN 8.6 g/dL (12.0-15.5); MEAN CORPUSCULAR HEMOGLOBIN 29.1 pg (27.0-33.4); MEAN CORPUSCULAR HGB CONC 34.6 g/dL (32.0-36.0); MEAN CORPUSCULAR VOLUME 84 fl (80-97); PLATELET COUNT 219 10^3/uL (150-450); RED BLOOD COUNT 2.94 10^6/uL (3.72-5.28); RED CELL DISTRIBUTION WIDTH 16.4 % (11.5-14.0)
[2019-02-22 07:05] LABS: ALANINE AMINOTRANSFERASE 20 U/L (9-52); ALBUMIN 2.4 g/dL (3.5-5.0); ALKALINE PHOSPHATASE 34 U/L (38-126); ANION GAP 6 (5-19); ASPARTATE AMINO TRANSFERASE 19 U/L (14-36); BILIRUBIN,DIRECT 0.2 mg/dL (0.0-0.4); BILIRUBIN,TOTAL 0.4 mg/dL (0.2-1.3); BLOOD UREA NITROGEN 9 mg/dL (7-20); CALCIUM 8.8 mg/dL (8.4-10.2); CARBON DIOXIDE 32 mmol/L (22-30); CHLORIDE 99 mmol/L (98-107); GLUCOSE 98 mg/dL (75-110); POTASSIUM 3.4 mmol/L (3.6-5.0); SODIUM 136.9 mmol/L (137-145); TOTAL PROTEIN 5.3 g/dL (6.3-8.2); TRIGLYCERIDES 105 mg/dL (<150)
[2019-02-22 07:12] LABS: PREALBUMIN 9.8 mg/dL (17.6-36.0)
[2019-02-22] MEDS: DRONABINOL 2.5 MG CAPSULE PO SCH (08:20)
[2019-02-22] MEDS: SUCRALFATE 1 GM TABLET PO SCH ×4 (08:20→21:37)
--- NOTE | 2019-02-22 09:40 | PDOC PROGRESS REPORT ---
Subjective Progress Note for:: 02/22/19 Subjective:: feeling a bit stronger Reason For Visit: INTRACTABLE N/V,DEHYDRATION,GASTRIC CANCER, Physical Exam Vital Signs: Temp Pulse Resp BP Pulse Ox 98.0 F 104 H 16 121/71 99 02/22/19 03:26 02/22/19 03:26 02/22/19 03:26 02/22/19 03:26 02/22/19 03:26 Intake & Output 02/21/19 02/22/19 02/23/19 06:59 06:59 06:59 Intake Total 2465 1608 Output Total 1300 950 Balance 1165 658 Weight 59.9 kg 57.9 kg General appearance: PRESENT: no acute distress Head exam: PRESENT: normocephalic Eye exam: PRESENT: conjunctiva pink Mouth exam: PRESENT: dry mucosa Neck exam: PRESENT: full ROM Respiratory exam: PRESENT: clear to auscultation benjamin Cardiovascular exam: PRESENT: RRR Pulses: PRESENT: +2 pedal pulses bilateral Vascular exam: PRESENT: normal capillary refill GI/Abdominal exam: PRESENT: soft Rectal exam: PRESENT: deferred Extremities exam: PRESENT: full ROM Musculoskeletal exam: PRESENT: full ROM Neurological exam: PRESENT: alert, awake, oriented to person, oriented to place Psychiatric exam: PRESENT: depressed Skin exam: PRESENT: dry Results Laboratory Results: 02/22/19 05:45 02/22/19 05:45 02/22/19 02/22/19 05:45 05:45 WBC 3.0 L RBC 2.94 L Hgb 8.6 L Hct 24.8 L MCV 84 MCH 29.1 MCHC 34.6 RDW 16.4 H Plt Count 219 Sodium 136.9 L Potassium 3.4 L Chloride 99 Carbon Dioxide 32 H Anion Gap 6 BUN 9 Creatinine 0.29 L Est GFR ( Amer) > 60 Est GFR (Non-Af Amer) > 60 Glucose 98 Calcium 8.8 Phosphorus 2.0 L Magnesium 1.8 Total Bilirubin 0.4 AST 19 ALT 20 Alkaline Phosphatase 34 L Total Protein 5.3 L Albumin 2.4 L Prealbumin 9.8 L Triglycerides 105 02/17/19 02/17/19 14:54 14:54 Creatine Kinase < 20 L CK-MB (CK-2) < 0.22 Troponin I < 0.012 Impressions: Chest X-Ray 02/17/19 14:42 IMPRESSION: NO ACUTE RADIOGRAPHIC FINDING IN THE CHEST. Guidance Fluoroscopy 02/20/19 00:00 IMPRESSION: SUCCESSFUL PLACEMENT OF A 5 FR DUAL LUMEN 38 CM PICC IN THE LEFT BASILIC VEIN. Interventional Vascular Procedure 02/20/19 00:00 IMPRESSION: SUCCESSFUL PLACEMENT OF A 5 FR DUAL LUMEN 38 CM PICC IN THE LEFT BASILIC VEIN. PICC Line Insertion 02/20/19 06:00 IMPRESSION: SUCCESSFUL PLACEMENT OF A 5 FR DUAL LUMEN 38 CM PICC IN THE LEFT BASILIC VEIN. Abdomen/Pelvis CT 02/20/19 16:32 IMPRESSION: There is some free fluid in the pelvis. No other significant finding in the abdomen or pelvis. Assessment & Plan - Plan Summary Plan Summary: feeling a bit better now with tpn wbc 3 plan surgery scheduled for march 02 will cont tpn till then discharge planning working on poss home tpn.
[2019-02-22] MEDS: NORMAL SALINE 10 ML SDV (SCHEDULED) IV SCH ×2 (10:21→22:00)
[2019-02-22] MEDS: FAT EMULSIONS 250 ML IV SCH (10:36)
[2019-02-22] MEDS: FOLIC ACID 1 MG TABLET PO SCH (10:37)
[2019-02-22 11:14] LABS: IRON(TIBC) < 10.1 ug/dL (37-170)
--- NOTE | 2019-02-22 21:37 | PDOC PROGRESS REPORT ---
Subjective Progress Note for:: 02/22/19 Subjective:: ARGELIA JEAN is a 59 year old female with a PMH of hypothyroidism, anxiety and recent diagnosis of gastric adenocarcinoma who was sent to the ER from due to nausea, vomiting and poor intake. Patient tolerating TPN. The patient complains that she cannot tolerate carafate, it makes her very ill. Plan for discharge home in 24-48 hours on TPN. Reason For Visit: INTRACTABLE N/V,DEHYDRATION,GASTRIC CANCER, Physical Exam Vital Signs: Temp Pulse Resp BP Pulse Ox 98.1 F 95 17 123/76 96 02/22/19 16:00 02/22/19 19:00 02/22/19 16:00 02/22/19 16:00 02/22/19 16:00 Intake & Output 02/21/19 02/22/19 02/23/19 06:59 06:59 06:59 Intake Total 2465 1608 460 Output Total 1300 950 Balance 1165 658 460 Weight 59.9 kg 57.9 kg General appearance: PRESENT: thin Eye exam: PRESENT: conjunctiva pale Mouth exam: PRESENT: moist, tongue midline Teeth exam: PRESENT: poor dentation Neck exam: PRESENT: full ROM Respiratory exam: PRESENT: clear to auscultation benjamin, symmetrical, unlabored Cardiovascular exam: PRESENT: RRR Pulses: PRESENT: normal radial pulses, normal dorsalis pedis pul Vascular exam: PRESENT: pallor GI/Abdominal exam: PRESENT: distended, hypoactive bowel sounds, soft, tenderness Rectal exam: PRESENT: deferred Extremities exam: PRESENT: full ROM. ABSENT: pedal edema Musculoskeletal exam: PRESENT: ambulatory, full ROM. ABSENT: deformity Neurological exam: PRESENT: alert, awake, oriented to person, oriented to place, oriented to time, oriented to situation Psychiatric exam: PRESENT: appropriate affect Skin exam: PRESENT: dry, intact, normal color Results Laboratory Results: 02/22/19 05:45 02/22/19 05:45 02/22/19 02/22/19 02/22/19 05:45 05:45 05:45 WBC 3.0 L RBC 2.94 L Hgb 8.6 L Hct 24.8 L MCV 84 MCH 29.1 MCHC 34.6 RDW 16.4 H Plt Count 219 Retic Count (auto) 3.00 H Absolute Retic 0.090 Sodium 136.9 L Potassium 3.4 L Chloride 99 Carbon Dioxide 32 H Anion Gap 6 BUN 9 Creatinine 0.29 L Est GFR ( Amer) > 60 Est GFR (Non-Af Amer) > 60 Glucose 98 Calcium 8.8 Phosphorus 2.0 L Magnesium 1.8 Iron TIBC % Saturation Ferritin Total Bilirubin 0.4 AST 19 ALT 20 Alkaline Phosphatase 34 L Total Protein 5.3 L Albumin 2.4 L Prealbumin 9.8 L Triglycerides 105 Vitamin B12 Folate 02/22/19 05:45 WBC RBC Hgb Hct MCV MCH MCHC RDW Plt Count Retic Count (auto) Absolute Retic Sodium Potassium Chloride Carbon Dioxide Anion Gap BUN Creatinine Est GFR ( Amer) Est GFR (Non-Af Amer) Glucose Calcium Phosphorus Magnesium Iron < 10.1 L TIBC 271 % Saturation UNABLE TO CALCULATE Ferritin 103.00 Total Bilirubin AST ALT Alkaline Phosphatase Total Protein Albumin Prealbumin Triglycerides Vitamin B12 407.0 Folate 4.30 02/17/19 02/17/19 14:54 14:54 Creatine Kinase < 20 L CK-MB (CK-2) < 0.22 Troponin I < 0.012 Impressions: Chest X-Ray 02/17/19 14:42 IMPRESSION: NO ACUTE RADIOGRAPHIC FINDING IN THE CHEST. Guidance Fluoroscopy 02/20/19 00:00 IMPRESSION: SUCCESSFUL PLACEMENT OF A 5 FR DUAL LUMEN 38 CM PICC IN THE LEFT BASILIC VEIN. Interventional Vascular Procedure 02/20/19 00:00 IMPRESSION: SUCCESSFUL PLACEMENT OF A 5 FR DUAL LUMEN 38 CM PICC IN THE LEFT BASILIC VEIN. PICC Line Insertion 02/20/19 06:00 IMPRESSION: SUCCESSFUL PLACEMENT OF A 5 FR DUAL LUMEN 38 CM PICC IN THE LEFT BASILIC VEIN. Abdomen/Pelvis CT 02/20/19 16:32 IMPRESSION: There is some free fluid in the pelvis. No other significant finding in the abdomen or pelvis. Status: Imported from PACS Assessment and Plan - Diagnosis (1) Intractable nausea and vomiting Qualifiers: Vomiting type: unspecified Qualified Code(s): R11.2 - Nausea with vomiting, unspecified Is this a current diagnosis for this admission?: Yes Plan: Secondary to gastric carcinoma Clear liquid diet Patient endorses anorexia, unable to advance diet PICC line placed, now on TPN PRN Zofran and phergan and protonix (2) Dehydration Is this a current diagnosis for this admission?: Yes Plan: Improving with IVF (3) Gastric adenocarcinoma Is this a current diagnosis for this admission?: Yes Plan: Management per Oncology Appreciate their expertise Plan for surgery March 02 (4) Hypokalemia Is this a current diagnosis for this admission?: Yes Plan: Resolved Likely secondary to poor PO intake Continue to monitor with daily chemistries (5) Protein calorie malnutrition Is this a current diagnosis for this admission?: Yes Plan: Secondary to anorexia and poor PO intake stemming from gastric carcinoma PICC line placed yesterday and initiated TPN Plan to continue for now until patient is able to undergo surgery on March 02 - Time Time Spent with patient: 15-24 minutes Medications reviewed and adjusted accordingly: Yes Anticipated discharge: Home, Home with Homehealth Within: within 24 hours - Inpatient Certification Based on my medical assessment, after consideration of the patient's comorbidities, presenting symptoms, or acuity I expect that the services needed warrant INPATIENT care.: Yes I certify that my determination is in accordance with my understanding of Medicare's requirements for reasonable and necessary INPATIENT services [42 CFR 412.3e].: Yes Medical Necessity: Need for Surgery, Risk of Complication if Not Cared For in Hospital
[2019-02-22] MEDS: AMINO ACIDS 5 %/DEXTROSE 20 % 1,000 ML IV PRN (22:44)
[2019-02-23] MEDS: METOCLOPRAMIDE HCL INJ/PF 10 MG/2 ML SDV IV SCH ×4 (00:15→17:05)
[2019-02-23] MEDS: INSULIN LISPRO 100 UNIT/ML 3 ML VIAL SUBCUT SCH ×4 (00:15→17:02)
[2019-02-23] MEDS: LEVOTHYROXINE SODIUM 0.025 MG TABLET PO SCH (05:48)
[2019-02-23] MEDS: PANTOPRAZOLE SODIUM 40 MG VIAL IV SCH (05:49)
[2019-02-23 06:38] LABS: ALANINE AMINOTRANSFERASE 23 U/L (9-52); ALBUMIN 2.3 g/dL (3.5-5.0); ALKALINE PHOSPHATASE 31 U/L (38-126); ANION GAP 5 (5-19); ASPARTATE AMINO TRANSFERASE 17 U/L (14-36); BILIRUBIN,DIRECT 0.3 mg/dL (0.0-0.4); BILIRUBIN,TOTAL 0.3 mg/dL (0.2-1.3); BLOOD UREA NITROGEN 11 mg/dL (7-20); CALCIUM 8.7 mg/dL (8.4-10.2); CARBON DIOXIDE 29 mmol/L (22-30); CHLORIDE 98 mmol/L (98-107); PHOSPHORUS 3.5 mg/dL (2.5-4.5); SODIUM 132.2 mmol/L (137-145)
[2019-02-23 06:45] LABS: PREALBUMIN 10.7 mg/dL (17.6-36.0)
[2019-02-23 06:49] LABS: GLUCOSE 646 mg/dL (75-110)
[2019-02-23] MEDS: SUCRALFATE 1 GM TABLET PO SCH ×4 (07:36→21:08)
[2019-02-23] MEDS: DIAZEPAM INJ 10 MG/2 ML DISP.SYRIN IV PRN (07:53)
[2019-02-23] MEDS: DRONABINOL 2.5 MG CAPSULE PO SCH (07:53)
[2019-02-23 08:34] LABS: POTASSIUM 4.9 mmol/L (3.6-5.0)
[2019-02-23] MEDS: NORMAL SALINE 10 ML SDV (SCHEDULED) IV SCH ×2 (10:57→21:10)
[2019-02-23] MEDS: FOLIC ACID 1 MG TABLET PO SCH (10:57)
[2019-02-23] MEDS ORDERED: NORMAL SALINE 10 ML SDV (AFTER EACH USE) IV PRN (11:30)
--- NOTE | 2019-02-23 13:12 | PDOC PROGRESS REPORT ---
Subjective Progress Note for:: 02/23/19 Subjective:: Patient states that she is starting to feel a little better each day. She was able to take a short walk in the [place] yesterday. She now has a walker in her room to use if needed. ROS: abdominal pain, no BMs. No dyspnea. Reason For Visit: INTRACTABLE N/V,DEHYDRATION,GASTRIC CANCER, Physical Exam Vital Signs: Temp Pulse Resp BP Pulse Ox 97.7 F 108 H 15 101/84 100 02/23/19 07:58 02/23/19 07:58 02/23/19 07:58 02/23/19 07:58 02/23/19 07:58 Intake & Output 02/22/19 02/23/19 02/24/19 06:59 06:59 06:59 Intake Total 1608 2280 Output Total 950 1300 Balance 658 980 Weight 57.9 kg 60.1 kg General appearance: PRESENT: thin Head exam: PRESENT: normocephalic Respiratory exam: PRESENT: unlabored Extremities exam: ABSENT: pedal edema Neurological exam: PRESENT: alert, awake Psychiatric exam: PRESENT: appropriate affect Skin exam: PRESENT: normal color Results Laboratory Results: 02/22/19 05:45 02/23/19 05:45 02/22/19 02/23/19 21:57 05:45 Sodium 132.2 L Potassium 4.9 D Chloride 98 Carbon Dioxide 29 Anion Gap 5 BUN 11 Creatinine 0.51 L Est GFR ( Amer) > 60 Est GFR (Non-Af Amer) > 60 Glucose 646 H* Calcium 8.7 Phosphorus 3.5 Total Bilirubin 0.3 AST 17 ALT 23 Alkaline Phosphatase 31 L Total Protein 5.0 L Albumin 2.3 L Prealbumin 10.7 L Triglycerides 98 02/17/19 02/17/19 14:54 14:54 Creatine Kinase < 20 L CK-MB (CK-2) < 0.22 Troponin I < 0.012 Impressions: Chest X-Ray 02/17/19 14:42 IMPRESSION: NO ACUTE RADIOGRAPHIC FINDING IN THE CHEST. Guidance Fluoroscopy 02/20/19 00:00 IMPRESSION: SUCCESSFUL PLACEMENT OF A 5 FR DUAL LUMEN 38 CM PICC IN THE LEFT BASILIC VEIN. Interventional Vascular Procedure 02/20/19 00:00 IMPRESSION: SUCCESSFUL PLACEMENT OF A 5 FR DUAL LUMEN 38 CM PICC IN THE LEFT BASILIC VEIN. PICC Line Insertion 02/20/19 06:00 IMPRESSION: SUCCESSFUL PLACEMENT OF A 5 FR DUAL LUMEN 38 CM PICC IN THE LEFT BASILIC VEIN. Abdomen/Pelvis CT 02/20/19 16:32 IMPRESSION: There is some free fluid in the pelvis. No other significant finding in the abdomen or pelvis. Assessment & Plan - Diagnosis (1) Gastric adenocarcinoma Is this a current diagnosis for this admission?: Yes (2) Intractable nausea and vomiting Qualifiers: Vomiting type: unspecified Qualified Code(s): R11.2 - Nausea with vomiting, unspecified Is this a current diagnosis for this admission?: Yes (3) Anemia Qualifiers: Anemia type: iron deficiency Iron deficiency anemia type: inadequate dietary iron intake Qualified Code(s): D50.8 - Other iron deficiency anemias Is this a current diagnosis for this admission?: Yes - Plan Summary Plan Summary: Plan is still to continue TPN until surgery next week. I have encouraged her to continue walking and trying to eat if possible. She will continue the valium PRN. Watch for any signs of BM.
[2019-02-23] MEDS: AMINO ACIDS 5 %/DEXTROSE 20 % 1,000 ML IV PRN (21:02)
[2019-02-23] MEDS: HEPARIN SOD (PORCINE) 5,000 UNIT/ML 1 ML SYRINGE SUBCUT SCH (21:09)
[2019-02-23] MEDS: FAMOTIDINE 20 MG TABLET PO SCH (21:11)
[2019-02-23] MEDS: ONDANSETRON HCL INJ/PF 4 MG/2 ML SDV IV PRN (21:25)
[2019-02-24] MEDS: LEVOTHYROXINE SODIUM 0.025 MG TABLET PO SCH (05:04)
[2019-02-24] MEDS: METOCLOPRAMIDE HCL INJ/PF 10 MG/2 ML SDV IV SCH ×4 (05:13→17:11)
[2019-02-24] MEDS: INSULIN LISPRO 100 UNIT/ML 3 ML VIAL SUBCUT SCH ×4 (06:38→17:10)
[2019-02-24 07:13] LABS: ALANINE AMINOTRANSFERASE 21 U/L (9-52); ALBUMIN 2.5 g/dL (3.5-5.0); ALKALINE PHOSPHATASE 41 U/L (38-126); ASPARTATE AMINO TRANSFERASE 19 U/L (14-36); BILIRUBIN,DIRECT 0.2 mg/dL (0.0-0.4); BILIRUBIN,TOTAL 0.3 mg/dL (0.2-1.3); BLOOD UREA NITROGEN 12 mg/dL (7-20); CALCIUM 8.9 mg/dL (8.4-10.2); GLUCOSE 86 mg/dL (75-110); PHOSPHORUS 3.5 mg/dL (2.5-4.5); POTASSIUM 4.1 mmol/L (3.6-5.0); TOTAL PROTEIN 5.6 g/dL (6.3-8.2); TRIGLYCERIDES 105 mg/dL (<150)
[2019-02-24 07:19] LABS: ANION GAP 6 (5-19); CARBON DIOXIDE 29 mmol/L (22-30); CHLORIDE 101 mmol/L (98-107); SODIUM 135.5 mmol/L (137-145)
[2019-02-24 07:20] LABS: PREALBUMIN 12.2 mg/dL (17.6-36.0)
[2019-02-24] MEDS: SUCRALFATE 1 GM TABLET PO SCH ×4 (07:41→21:29)
[2019-02-24] MEDS: DRONABINOL 2.5 MG CAPSULE PO SCH (07:44)
[2019-02-24] MEDS ORDERED: GLYCERIN (ADULT) SUPP.RECT PR PRN (08:06)
--- NOTE | 2019-02-24 08:12 | PDOC PROGRESS REPORT ---
Subjective Progress Note for:: 02/24/19 Subjective:: Patient states she is getting stronger. She was able to walk with walker 3 times yesterday in [place]. No BM for several weeks. Nausea improved. Passing gas. ROS: no dyspnea. Abdominal pain improved. Reason For Visit: INTRACTABLE N/V,DEHYDRATION,GASTRIC CANCER, Physical Exam Vital Signs: Temp Pulse Resp BP Pulse Ox 97.8 F 98 19 115/75 100 02/24/19 00:28 02/24/19 07:00 02/24/19 00:28 02/24/19 00:28 02/24/19 00:28 Intake & Output 02/23/19 02/24/19 02/25/19 06:59 06:59 06:59 Intake Total 2280 1490 Output Total 1300 1000 Balance 980 490 Weight 60.1 kg 59.8 kg General appearance: PRESENT: thin, well-developed Head exam: PRESENT: normocephalic Respiratory exam: PRESENT: clear to auscultation benjamin, unlabored Cardiovascular exam: PRESENT: RRR Extremities exam: ABSENT: pedal edema Neurological exam: PRESENT: alert, awake Psychiatric exam: PRESENT: appropriate affect, other - More talkative now. Skin exam: PRESENT: normal color Results Laboratory Results: 02/22/19 05:45 02/24/19 05:05 02/23/19 02/24/19 05:45 05:05 Sodium 135.5 L Potassium 4.9 D 4.1 Chloride 101 Carbon Dioxide 29 Anion Gap 6 BUN 12 Creatinine 0.40 L Est GFR ( Amer) > 60 Est GFR (Non-Af Amer) > 60 Glucose 86 Calcium 8.9 Phosphorus 3.5 Magnesium 2.0 Total Bilirubin 0.3 AST 19 ALT 21 Alkaline Phosphatase 41 Total Protein 5.6 L Albumin 2.5 L Prealbumin 12.2 L Triglycerides 105 02/17/19 02/17/19 14:54 14:54 Creatine Kinase < 20 L CK-MB (CK-2) < 0.22 Troponin I < 0.012 Impressions: Chest X-Ray 02/17/19 14:42 IMPRESSION: NO ACUTE RADIOGRAPHIC FINDING IN THE CHEST. Guidance Fluoroscopy 02/20/19 00:00 IMPRESSION: SUCCESSFUL PLACEMENT OF A 5 FR DUAL LUMEN 38 CM PICC IN THE LEFT BASILIC VEIN. Interventional Vascular Procedure 02/20/19 00:00 IMPRESSION: SUCCESSFUL PLACEMENT OF A 5 FR DUAL LUMEN 38 CM PICC IN THE LEFT BASILIC VEIN. PICC Line Insertion 02/20/19 06:00 IMPRESSION: SUCCESSFUL PLACEMENT OF A 5 FR DUAL LUMEN 38 CM PICC IN THE LEFT BASILIC VEIN. Abdomen/Pelvis CT 02/20/19 16:32 IMPRESSION: There is some free fluid in the pelvis. No other significant finding in the abdomen or pelvis. Assessment & Plan - Diagnosis (1) Gastric adenocarcinoma Is this a current diagnosis for this admission?: Yes Plan: Plan surgery March 02. (2) Intractable nausea and vomiting Qualifiers: Vomiting type: unspecified Qualified Code(s): R11.2 - Nausea with vomiting, unspecified Is this a current diagnosis for this admission?: Yes Plan: Improving with hydration and TPN. I will add mild laxative to see if this will stimulate the bowels to start moving in the right direction. (3) Anemia Qualifiers: Anemia type: iron deficiency Iron deficiency anemia type: inadequate dietary iron intake Qualified Code(s): D50.8 - Other iron deficiency anemias Is this a current diagnosis for this admission?: Yes Plan: Improving with nutrition. Continue to monitor and consider transfusions for HGB<7.5. - Plan Summary Plan Summary: Dr. May will be available over the weekend if needed, but I will return Wednesday. Please call with any concerns. I have encouraged her to try to eat a bit more and continue to exercise.
--- NOTE | 2019-02-24 08:27 | PDOC PROGRESS REPORT ---
Subjective Progress Note for:: 02/23/19 Subjective:: ARGELIA JEAN is a 59 year old female with a PMH of hypothyroidism, anxiety and recent diagnosis of gastric adenocarcinoma who was sent to the ER from due to nausea, vomiting and poor intake. Patient tolerating TPN. The patient complains that she cannot tolerate carafate, it makes her very ill. Plan for discharge home in 24-48 hours on TPN, although this could be very difficult because the patient does not have insurance. She would incur a tremendous out of pocket cost. Discussed with discharge planning, attempting to figure out appropriate treatment plan for the patient. For now, discharge home is on hold. Reason For Visit: INTRACTABLE N/V,DEHYDRATION,GASTRIC CANCER, Physical Exam Vital Signs: Temp Pulse Resp BP Pulse Ox 97.9 F 103 H 16 124/84 100 02/23/19 20:13 02/23/19 20:13 02/23/19 20:13 02/23/19 20:13 02/23/19 20:13 Intake & Output 02/22/19 02/23/19 02/24/19 06:59 06:59 06:59 Intake Total 1608 2280 1240 Output Total 950 1300 200 Balance 383 088 8171 Weight 57.9 kg 60.1 kg General appearance: PRESENT: thin Eye exam: PRESENT: conjunctiva pink, PERRLA Mouth exam: PRESENT: moist Teeth exam: PRESENT: poor dentation Neck exam: PRESENT: full ROM Respiratory exam: PRESENT: clear to auscultation benjamin, symmetrical, unlabored Cardiovascular exam: PRESENT: RRR Pulses: PRESENT: normal radial pulses, normal dorsalis pedis pul Vascular exam: PRESENT: pallor GI/Abdominal exam: PRESENT: hypoactive bowel sounds, soft, tenderness - b/l lower quadrants Rectal exam: PRESENT: deferred Extremities exam: PRESENT: full ROM Musculoskeletal exam: PRESENT: ambulatory, full ROM Neurological exam: PRESENT: alert, awake, oriented to person, oriented to place, oriented to time, oriented to situation Psychiatric exam: PRESENT: appropriate affect Skin exam: PRESENT: dry, intact, pallor Results Laboratory Results: 02/22/19 05:45 02/23/19 05:45 02/22/19 02/23/19 21:57 05:45 Sodium 132.2 L Potassium 4.9 D Chloride 98 Carbon Dioxide 29 Anion Gap 5 BUN 11 Creatinine 0.51 L Est GFR ( Amer) > 60 Est GFR (Non-Af Amer) > 60 Glucose 646 H* Calcium 8.7 Phosphorus 3.5 Total Bilirubin 0.3 AST 17 ALT 23 Alkaline Phosphatase 31 L Total Protein 5.0 L Albumin 2.3 L Prealbumin 10.7 L Triglycerides 98 02/17/19 02/17/19 14:54 14:54 Creatine Kinase < 20 L CK-MB (CK-2) < 0.22 Troponin I < 0.012 Impressions: Chest X-Ray 02/17/19 14:42 IMPRESSION: NO ACUTE RADIOGRAPHIC FINDING IN THE CHEST. Guidance Fluoroscopy 02/20/19 00:00 IMPRESSION: SUCCESSFUL PLACEMENT OF A 5 FR DUAL LUMEN 38 CM PICC IN THE LEFT BASILIC VEIN. Interventional Vascular Procedure 02/20/19 00:00 IMPRESSION: SUCCESSFUL PLACEMENT OF A 5 FR DUAL LUMEN 38 CM PICC IN THE LEFT BASILIC VEIN. PICC Line Insertion 02/20/19 06:00 IMPRESSION: SUCCESSFUL PLACEMENT OF A 5 FR DUAL LUMEN 38 CM PICC IN THE LEFT BASILIC VEIN. Abdomen/Pelvis CT 02/20/19 16:32 IMPRESSION: There is some free fluid in the pelvis. No other significant finding in the abdomen or pelvis. Status: Imported from PACS Assessment and Plan - Diagnosis (1) Intractable nausea and vomiting Qualifiers: Vomiting type: unspecified Qualified Code(s): R11.2 - Nausea with vomiting, unspecified Is this a current diagnosis for this admission?: Yes Plan: Secondary to gastric carcinoma Clear liquid diet Patient endorses anorexia, unable to advance diet PICC line placed, now on TPN PRN Zofran and phergan and protonix (2) Dehydration Is this a current diagnosis for this admission?: Yes Plan: Improving with IVF (3) Gastric adenocarcinoma Is this a current diagnosis for this admission?: Yes Plan: Management per Oncology Appreciate their expertise Plan for surgery March 02 (4) Hypokalemia Is this a current diagnosis for this admission?: Yes Plan: Resolved Likely secondary to poor PO intake Continue to monitor with daily chemistries (5) Protein calorie malnutrition Is this a current diagnosis for this admission?: Yes Plan: Secondary to anorexia and poor PO intake stemming from gastric carcinoma PICC line placed for continuous TPN Plan to continue for now until patient is able to undergo surgery on March 02 - Time Time Spent with patient: 15-24 minutes Medications reviewed and adjusted accordingly: Yes Anticipated discharge: Home Within: within 48 hours - Inpatient Certification Based on my medical assessment, after consideration of the patient's comorbidities, presenting symptoms, or acuity I expect that the services needed warrant INPATIENT care.: Yes I certify that my determination is in accordance with my understanding of Medicare's requirements for reasonable and necessary INPATIENT services [42 CFR 412.3e].: Yes Medical Necessity: Risk of Complication if Not Cared For in Hospital
--- NOTE | 2019-02-24 09:25 | PDOC PROGRESS REPORT ---
Subjective Progress Note for:: 02/24/19 Subjective:: reported by nurses feeling better on tpn Reason For Visit: INTRACTABLE N/V,DEHYDRATION,GASTRIC CANCER, Physical Exam Vital Signs: Temp Pulse Resp BP Pulse Ox 97.9 F 105 H 18 123/83 100 02/24/19 08:08 02/24/19 08:08 02/24/19 08:08 02/24/19 08:08 02/24/19 08:08 Intake & Output 02/23/19 02/24/19 02/25/19 06:59 06:59 06:59 Intake Total 2280 1490 Output Total 1300 1000 Balance 980 490 Weight 60.1 kg 59.8 kg Results Laboratory Results: 02/22/19 05:45 02/24/19 05:05 02/24/19 05:05 Sodium 135.5 L Potassium 4.1 Chloride 101 Carbon Dioxide 29 Anion Gap 6 BUN 12 Creatinine 0.40 L Est GFR ( Amer) > 60 Est GFR (Non-Af Amer) > 60 Glucose 86 Calcium 8.9 Phosphorus 3.5 Magnesium 2.0 Total Bilirubin 0.3 AST 19 ALT 21 Alkaline Phosphatase 41 Total Protein 5.6 L Albumin 2.5 L Prealbumin 12.2 L Triglycerides 105 02/17/19 02/17/19 14:54 14:54 Creatine Kinase < 20 L CK-MB (CK-2) < 0.22 Troponin I < 0.012 Impressions: Chest X-Ray 02/17/19 14:42 IMPRESSION: NO ACUTE RADIOGRAPHIC FINDING IN THE CHEST. Guidance Fluoroscopy 02/20/19 00:00 IMPRESSION: SUCCESSFUL PLACEMENT OF A 5 FR DUAL LUMEN 38 CM PICC IN THE LEFT BASILIC VEIN. Interventional Vascular Procedure 02/20/19 00:00 IMPRESSION: SUCCESSFUL PLACEMENT OF A 5 FR DUAL LUMEN 38 CM PICC IN THE LEFT BASILIC VEIN. PICC Line Insertion 02/20/19 06:00 IMPRESSION: SUCCESSFUL PLACEMENT OF A 5 FR DUAL LUMEN 38 CM PICC IN THE LEFT BASILIC VEIN. Abdomen/Pelvis CT 02/20/19 16:32 IMPRESSION: There is some free fluid in the pelvis. No other significant finding in the abdomen or pelvis. Assessment & Plan - Plan Summary Plan Summary: pt now on tpn ambulating better cannot be discharged on home tpn will probably stay in hosp till surgery on march 02.
[2019-02-24] MEDS: HEPARIN SOD (PORCINE) 5,000 UNIT/ML 1 ML SYRINGE SUBCUT SCH ×2 (09:54→21:29)
[2019-02-24] MEDS: FAMOTIDINE 20 MG TABLET PO SCH ×2 (09:58→21:20)
[2019-02-24] MEDS: SENNOSIDES/DOCUSATE 8.6-50 MG 1 EACH TABLET PO SCH (09:58)
[2019-02-24] MEDS: FOLIC ACID 1 MG TABLET PO SCH (09:58)
[2019-02-24] MEDS: FAT EMULSIONS 250 ML IV SCH (09:59)
[2019-02-24] MEDS: NORMAL SALINE 10 ML SDV (SCHEDULED) IV SCH ×2 (10:00→21:30)
--- NOTE | 2019-02-24 16:31 | PDOC PROGRESS REPORT ---
Subjective Progress Note for:: 02/24/19 Subjective:: ARGELIA JEAN is a 59 year old female with a PMH of hypothyroidism, anxiety and recent diagnosis of gastric adenocarcinoma who was sent to the ER from due to nausea, vomiting and poor intake. Patient tolerating TPN. Increased rate to 55mL/hr per pharmacist request. The patient will remain inpatient to receive TPN until her scheduled gastrectomy with Dr. Estrada on March 02. She endorses mild abdominal distention and b/l lower quadrant pain, but states it is greatly improved compared to 5 days ago. (+) Hypoactive bowel sounds. The patient is very thin but she has mild lower abdominal distention and TTP. Today the patient endorses right ear "fullness." She states that she frequently gets a buildup of earwax. Ordered debrox ear drops. Reason For Visit: INTRACTABLE N/V,DEHYDRATION,GASTRIC CANCER, Physical Exam Vital Signs: Temp Pulse Resp BP Pulse Ox 97.9 F 106 H 18 125/92 H 100 02/24/19 12:35 02/24/19 12:35 02/24/19 12:35 02/24/19 12:35 02/24/19 12:35 Intake & Output 02/23/19 02/24/19 02/25/19 06:59 06:59 06:59 Intake Total 2280 1490 Output Total 1300 1000 Balance 980 490 Weight 60.1 kg 59.8 kg General appearance: PRESENT: thin Head exam: PRESENT: atraumatic Eye exam: PRESENT: conjunctiva pale, PERRLA Mouth exam: PRESENT: moist, tongue midline Teeth exam: PRESENT: poor dentation Neck exam: PRESENT: full ROM Respiratory exam: PRESENT: clear to auscultation benjamin, symmetrical, unlabored Cardiovascular exam: PRESENT: RRR Pulses: PRESENT: normal radial pulses, normal dorsalis pedis pul Vascular exam: PRESENT: pallor GI/Abdominal exam: PRESENT: distended - Mild distention in the lower quadrants, hypoactive bowel sounds, soft, tenderness - Mild tenderness in the lower quadrants Rectal exam: PRESENT: deferred Extremities exam: PRESENT: full ROM. ABSENT: pedal edema Musculoskeletal exam: PRESENT: ambulatory, full ROM Neurological exam: PRESENT: alert, awake, oriented to person, oriented to place, oriented to time, oriented to situation Psychiatric exam: PRESENT: appropriate affect Skin exam: PRESENT: dry, intact, pallor Results Laboratory Results: 02/22/19 05:45 02/24/19 05:05 02/24/19 05:05 Sodium 135.5 L Potassium 4.1 Chloride 101 Carbon Dioxide 29 Anion Gap 6 BUN 12 Creatinine 0.40 L Est GFR ( Amer) > 60 Est GFR (Non-Af Amer) > 60 Glucose 86 Calcium 8.9 Phosphorus 3.5 Magnesium 2.0 Total Bilirubin 0.3 AST 19 ALT 21 Alkaline Phosphatase 41 Total Protein 5.6 L Albumin 2.5 L Prealbumin 12.2 L Triglycerides 105 02/17/19 02/17/19 14:54 14:54 Creatine Kinase < 20 L CK-MB (CK-2) < 0.22 Troponin I < 0.012 Impressions: Chest X-Ray 02/17/19 14:42 IMPRESSION: NO ACUTE RADIOGRAPHIC FINDING IN THE CHEST. Guidance Fluoroscopy 02/20/19 00:00 IMPRESSION: SUCCESSFUL PLACEMENT OF A 5 FR DUAL LUMEN 38 CM PICC IN THE LEFT BASILIC VEIN. Interventional Vascular Procedure 02/20/19 00:00 IMPRESSION: SUCCESSFUL PLACEMENT OF A 5 FR DUAL LUMEN 38 CM PICC IN THE LEFT BASILIC VEIN. PICC Line Insertion 02/20/19 06:00 IMPRESSION: SUCCESSFUL PLACEMENT OF A 5 FR DUAL LUMEN 38 CM PICC IN THE LEFT BASILIC VEIN. Abdomen/Pelvis CT 02/20/19 16:32 IMPRESSION: There is some free fluid in the pelvis. No other significant finding in the abdomen or pelvis. Status: Imported from PACS Assessment and Plan - Diagnosis (1) Intractable nausea and vomiting Qualifiers: Vomiting type: unspecified Qualified Code(s): R11.2 - Nausea with vomiting, unspecified Is this a current diagnosis for this admission?: Yes Plan: Secondary to gastric carcinoma Clear liquid diet Patient endorses anorexia, unable to advance diet PICC line placed, now on TPN PRN Zofran and phergan and pepcid (2) Dehydration Is this a current diagnosis for this admission?: Yes Plan: Improving with IVF (3) Gastric adenocarcinoma Is this a current diagnosis for this admission?: Yes Plan: Management per Oncology Appreciate their expertise Plan for surgery March 02 (4) Hypokalemia Is this a current diagnosis for this admission?: Yes Plan: Resolved Likely secondary to poor PO intake Continue to monitor with daily chemistries (5) Protein calorie malnutrition Is this a current diagnosis for this admission?: Yes Plan: Secondary to anorexia and poor PO intake stemming from gastric carcinoma PICC line placed for continuous TPN Plan to continue for now until patient is able to undergo surgery on March 02 - Time Time Spent with patient: 15-24 minutes Medications reviewed and adjusted accordingly: Yes Anticipated discharge: Home - Inpatient Certification Based on my medical assessment, after consideration of the patient's comorbidities, presenting symptoms, or acuity I expect that the services needed warrant INPATIENT care.: Yes I certify that my determination is in accordance with my understanding of Medicare's requirements for reasonable and necessary INPATIENT services [42 CFR 412.3e].: Yes Medical Necessity: Significant Comorbidiites Make Outpatient Treatment Too Risky, Need For IV Fluids, Risk of Complication if Not Cared For in Hospital
[2019-02-24] MEDS: ONDANSETRON HCL INJ/PF 4 MG/2 ML SDV IV PRN ×2 (17:13→21:20)
[2019-02-24] MEDS: CARBAMIDE PEROXIDE 6.5% OTIC SOLN 15 ML AD SCH ×2 (17:14→21:25)
[2019-02-24] MEDS: AMINO ACIDS 5 %/DEXTROSE 20 % 1,000 ML IV PRN (20:07)
[2019-02-24] MEDS: NORMAL SALINE 1000 ML 1,000 ML IV PRN (21:22)
[2019-02-25] MEDS: LEVOTHYROXINE SODIUM 0.025 MG TABLET PO SCH (05:20)
[2019-02-25] MEDS: METOCLOPRAMIDE HCL INJ/PF 10 MG/2 ML SDV IV SCH ×4 (05:27→17:50)
[2019-02-25 07:35] LABS: ALANINE AMINOTRANSFERASE 17 U/L (9-52); ALBUMIN 2.1 g/dL (3.5-5.0); ALKALINE PHOSPHATASE 40 U/L (38-126); ANION GAP 6 (5-19); ASPARTATE AMINO TRANSFERASE 15 U/L (14-36); BILIRUBIN,DIRECT 0.2 mg/dL (0.0-0.4); BILIRUBIN,TOTAL 0.3 mg/dL (0.2-1.3); BLOOD UREA NITROGEN 11 mg/dL (7-20); CALCIUM 8.1 mg/dL (8.4-10.2); CARBON DIOXIDE 25 mmol/L (22-30); CHLORIDE 107 mmol/L (98-107); GLUCOSE 84 mg/dL (75-110); PHOSPHORUS 3.4 mg/dL (2.5-4.5); POTASSIUM 3.7 mmol/L (3.6-5.0); SODIUM 137.5 mmol/L (137-145); TOTAL PROTEIN 4.9 g/dL (6.3-8.2)
[2019-02-25 07:41] LABS: PREALBUMIN 10.1 mg/dL (17.6-36.0)
[2019-02-25 08:02] LABS: MEAN CORPUSCULAR HEMOGLOBIN 28.6 pg (27.0-33.4); MEAN CORPUSCULAR HGB CONC 33.2 g/dL (32.0-36.0); MEAN CORPUSCULAR VOLUME 86 fl (80-97); PLATELET COUNT 214 10^3/uL (150-450); RED BLOOD COUNT 2.55 10^6/uL (3.72-5.28); RED CELL DISTRIBUTION WIDTH 17.6 % (11.5-14.0); WHITE BLOOD COUNT 2.8 10^3/uL (4.0-10.5)
[2019-02-25 08:04] LABS: HEMOGLOBIN 7.3 g/dL (12.0-15.5)
[2019-02-25] MEDS ORDERED: NORMAL SALINE 250 ML IV PRN ×2 (08:16)
[2019-02-25] MEDS: SUCRALFATE 1 GM TABLET PO SCH ×4 (08:23→21:30)
[2019-02-25] MEDS: DRONABINOL 2.5 MG CAPSULE PO SCH (08:23)
[2019-02-25] MEDS: INSULIN LISPRO 100 UNIT/ML 3 ML VIAL SUBCUT SCH ×4 (08:25→17:49)
[2019-02-25] MEDS: HEPARIN SOD (PORCINE) 5,000 UNIT/ML 1 ML SYRINGE SUBCUT SCH ×2 (10:10→21:30)
[2019-02-25] MEDS: FOLIC ACID 1 MG TABLET PO SCH (10:11)
[2019-02-25] MEDS: SENNOSIDES/DOCUSATE 8.6-50 MG 1 EACH TABLET PO SCH (10:11)
[2019-02-25] MEDS: FAMOTIDINE 20 MG TABLET PO SCH ×2 (10:11→21:26)
[2019-02-25] MEDS: CARBAMIDE PEROXIDE 6.5% OTIC SOLN 15 ML AD SCH ×2 (10:14→18:39)
[2019-02-25] MEDS: NORMAL SALINE 10 ML SDV (SCHEDULED) IV SCH ×2 (10:15→21:26)
[2019-02-25] MEDS: AMINO ACIDS 5 %/DEXTROSE 20 % 1,000 ML IV PRN (14:16)
--- NOTE | 2019-02-25 17:51 | PDOC PROGRESS REPORT ---
Subjective Progress Note for:: 02/25/19 Subjective:: ARGELIA JEAN is a 59 year old female with a PMH of hypothyroidism, anxiety and recent diagnosis of gastric adenocarcinoma who was admitted for dehydration due to nausea, vomiting and poor intake. Patient was seen on morning rounds. She was found to be resting in bed comfortably on room air. She reports that she is feeling somewhat better today, does have a slight appetite and tried some scrambled eggs that her friend brought in today. She asks to have her diet advanced; she is advised that we will need to discuss this with surgery first. She reports that her pain is well controlled and she is not having any symptoms of nausea or vomiting after attempting solid foods this morning. She denies fever, chills, chest pain, palpitations, dyspnea, orthopnea, cough, abdominal pain, nausea vomiting or diarrhea. She reports that she has passed a small amount of gas but without bowel movement. She has no other questions or concerns at this time. No concerns per nursing. Reason For Visit: INTRACTABLE N/V,DEHYDRATION,GASTRIC CANCER, Physical Exam Vital Signs: Temp Pulse Resp BP Pulse Ox 98.4 F 87 16 120/76 99 02/25/19 16:50 02/25/19 16:50 02/25/19 16:50 02/25/19 16:50 02/25/19 16:50 Intake & Output 02/24/19 02/25/19 02/26/19 06:59 06:59 06:59 Intake Total 1490 2084 1298 Output Total 1000 2000 Balance 769 47 5465 Weight 59.8 kg 59.8 kg General appearance: PRESENT: no acute distress, cooperative, thin, well- developed Head exam: PRESENT: atraumatic, normocephalic Eye exam: PRESENT: conjunctiva pale, EOMI, PERRLA. ABSENT: scleral icterus Ear exam: PRESENT: normal external ear exam Mouth exam: PRESENT: moist, tongue midline Teeth exam: PRESENT: poor dentation Neck exam: ABSENT: carotid bruit, JVD, lymphadenopathy, thyromegaly Respiratory exam: PRESENT: clear to auscultation benjamin, symmetrical, unlabored. ABSENT: rales, rhonchi, wheezes Cardiovascular exam: PRESENT: RRR, +S1, +S2. ABSENT: diastolic murmur, rubs, systolic murmur Pulses: PRESENT: normal dorsalis pedis pul Vascular exam: PRESENT: normal capillary refill GI/Abdominal exam: PRESENT: distended, hypoactive bowel sounds, soft, tenderness. ABSENT: guarding, mass, organolmegaly, rebound Rectal exam: PRESENT: deferred Extremities exam: PRESENT: full ROM. ABSENT: calf tenderness, clubbing, pedal edema Musculoskeletal exam: PRESENT: ambulatory Neurological exam: PRESENT: alert, awake, oriented to person, oriented to place, oriented to time, oriented to situation, CN II-XII grossly intact. ABSENT: motor sensory deficit Psychiatric exam: PRESENT: appropriate affect, normal mood. ABSENT: homicidal ideation, suicidal ideation Skin exam: PRESENT: dry, intact, pallor, warm. ABSENT: cyanosis, rash Results Laboratory Results: 02/25/19 05:15 02/25/19 05:15 02/25/19 02/25/19 02/25/19 05:15 05:15 09:34 WBC 2.8 L RBC 2.55 L Hgb 7.3 L Hct 22.0 L MCV 86 MCH 28.6 MCHC 33.2 RDW 17.6 H Plt Count 214 Sodium 137.5 Potassium 3.7 Chloride 107 Carbon Dioxide 25 Anion Gap 6 BUN 11 Creatinine 0.37 L Est GFR ( Amer) > 60 Est GFR (Non-Af Amer) > 60 Glucose 84 Calcium 8.1 L Phosphorus 3.4 Total Bilirubin 0.3 AST 15 ALT 17 Alkaline Phosphatase 40 Total Protein 4.9 L Albumin 2.1 L Prealbumin 10.1 L Blood Type A NEGATIVE Antibody Screen NEGATIVE 02/17/19 02/17/19 14:54 14:54 Creatine Kinase < 20 L CK-MB (CK-2) < 0.22 Troponin I < 0.012 Impressions: Chest X-Ray 02/17/19 14:42 IMPRESSION: NO ACUTE RADIOGRAPHIC FINDING IN THE CHEST. Guidance Fluoroscopy 02/20/19 00:00 IMPRESSION: SUCCESSFUL PLACEMENT OF A 5 FR DUAL LUMEN 38 CM PICC IN THE LEFT BASILIC VEIN. Interventional Vascular Procedure 02/20/19 00:00 IMPRESSION: SUCCESSFUL PLACEMENT OF A 5 FR DUAL LUMEN 38 CM PICC IN THE LEFT BASILIC VEIN. PICC Line Insertion 02/20/19 06:00 IMPRESSION: SUCCESSFUL PLACEMENT OF A 5 FR DUAL LUMEN 38 CM PICC IN THE LEFT BASILIC VEIN. Abdomen/Pelvis CT 02/20/19 16:32 IMPRESSION: There is some free fluid in the pelvis. No other significant finding in the abdomen or pelvis. Assessment and Plan - Diagnosis (1) Gastric adenocarcinoma Is this a current diagnosis for this admission?: Yes Plan: Management per Oncology; Appreciate their expertise Surgery has been consulted; Plan for gastrectomy March 02 (2) Intractable nausea and vomiting Qualifiers: Vomiting type: unspecified Qualified Code(s): R11.2 - Nausea with vomiting, unspecified Is this a current diagnosis for this admission?: Yes Plan: Significant improvement. Secondary to gastric carcinoma Clear liquid diet Patient asking to advance diet today. Will discuss with surgery. PICC line placed, now on TPN PRN Zofran, Phenergan, and pepcid (3) Protein calorie malnutrition Is this a current diagnosis for this admission?: Yes Plan: Secondary to anorexia and poor PO intake stemming from gastric carcinoma PICC line Continuous TPN; discussed with pharmacy today, rate increase again tonight. Plan to continue TPN until patient is able to undergo surgery on March 02 Registered dietitian is consulted. (4) Dehydration Is this a current diagnosis for this admission?: Yes Plan: Improving with IVF (5) Hypokalemia Is this a current diagnosis for this admission?: Yes Plan: Resolved Likely secondary to poor PO intake Continue to monitor with daily chemistries (6) Anemia Qualifiers: Anemia type: unspecified type Qualified Code(s): D64.9 - Anemia, unspecified Is this a current diagnosis for this admission?: Yes Plan: Multifactorial secondary to malnutrition malignancy. Hemoglobin has trended down; 10.4-> 7.3 She is already received 1 unit PRBCs this admission. We will transfuse an additional 2 units today. Continue to monitor daily CBC and transfuse for hemoglobin <7.5. - Time Time Spent with patient: 25-34 minutes Medications reviewed and adjusted accordingly: Yes
[2019-02-25 22:32] LABS: ABSOLUTE EOSINOPHILS # (AUTO) 0.1 10^3/uL (0.0-0.6); ABSOLUTE LYMPHOCYTES (AUTO) 0.6 10^3/uL (0.5-4.7); ABSOLUTE MONOCYTES (AUTO) 0.4 10^3/uL (0.1-1.4); ABSOLUTE NEUT (AUTO) 2.2 10^3/uL (1.7-8.2); BASOPHILS % (AUTO) 0.8 % (0-2); EOSINOPHILS % (AUTO) 2.8 % (0-6); HEMATOCRIT 28.2 % (36.0-47.0); LYMPHOCYTES % (AUTO) 18.4 % (13-45); MEAN CORPUSCULAR HEMOGLOBIN 28.5 pg (27.0-33.4); MEAN CORPUSCULAR HGB CONC 33.5 g/dL (32.0-36.0); MEAN CORPUSCULAR VOLUME 85 fl (80-97); MONOCYTES % (AUTO) 11.5 % (3-13); PLATELET COUNT 197 10^3/uL (150-450); RED BLOOD COUNT 3.32 10^6/uL (3.72-5.28); SEGMENTED NEUTROPHILS % (AUTO) 66.5 % (42-78); TOTAL CELLS COUNTED % (AUTO) 100 %; WHITE BLOOD COUNT 3.3 10^3/uL (4.0-10.5)
[2019-02-25 22:33] LABS: HEMOGLOBIN 9.5 g/dL (12.0-15.5)
[2019-02-26] MEDS: INSULIN LISPRO 100 UNIT/ML 3 ML VIAL SUBCUT SCH ×4 (00:56→17:45)
[2019-02-26] MEDS: METOCLOPRAMIDE HCL INJ/PF 10 MG/2 ML SDV IV SCH ×4 (00:57→17:09)
[2019-02-26] MEDS: LEVOTHYROXINE SODIUM 0.025 MG TABLET PO SCH (05:40)
[2019-02-26] MEDS: NORMAL SALINE 1000 ML 1,000 ML IV PRN ×2 (05:42→17:21)
[2019-02-26] MEDS: SUCRALFATE 1 GM TABLET PO SCH ×4 (07:31→22:31)
[2019-02-26] MEDS: DRONABINOL 2.5 MG CAPSULE PO SCH (07:50)
--- NOTE | 2019-02-26 08:38 | PDOC PROGRESS REPORT ---
Subjective Progress Note for:: 02/26/19 Subjective:: feels better/stronger Reason For Visit: INTRACTABLE N/V,DEHYDRATION,GASTRIC CANCER, Physical Exam Vital Signs: Temp Pulse Resp BP Pulse Ox 97.4 F 87 16 149/88 H 100 02/26/19 08:24 02/26/19 08:24 02/26/19 08:24 02/26/19 08:24 02/26/19 08:24 Intake & Output 02/25/19 02/26/19 02/27/19 06:59 06:59 06:59 Intake Total 2084 3318 240 Output Total 1999 700 200 Balance 84 2618 40 Weight 59.8 kg 61.9 kg General appearance: PRESENT: no acute distress Head exam: PRESENT: normocephalic Eye exam: PRESENT: EOMI Mouth exam: PRESENT: moist Neck exam: PRESENT: full ROM Respiratory exam: PRESENT: clear to auscultation benjamin Cardiovascular exam: PRESENT: RRR Pulses: PRESENT: normal radial pulses, normal femoral pulses, +2 pedal pulses bilateral GI/Abdominal exam: PRESENT: soft Rectal exam: PRESENT: deferred Extremities exam: PRESENT: full ROM Musculoskeletal exam: PRESENT: full ROM Neurological exam: PRESENT: alert, awake, oriented to person Psychiatric exam: PRESENT: appropriate affect Skin exam: PRESENT: dry Results Laboratory Results: 02/25/19 21:25 02/25/19 05:15 02/25/19 02/25/19 09:34 21:25 WBC 3.3 L RBC 3.32 L Hgb 9.5 L D Hct 28.2 L MCV 85 MCH 28.5 MCHC 33.5 RDW 17.0 H Plt Count 197 Seg Neutrophils % 66.5 Lymphocytes % 18.4 Monocytes % 11.5 Eosinophils % 2.8 Basophils % 0.8 Absolute Neutrophils 2.2 Absolute Lymphocytes 0.6 Absolute Monocytes 0.4 Absolute Eosinophils 0.1 Absolute Basophils 0.0 Blood Type A NEGATIVE Antibody Screen NEGATIVE 02/17/19 02/17/19 14:54 14:54 Creatine Kinase < 20 L CK-MB (CK-2) < 0.22 Troponin I < 0.012 Impressions: Chest X-Ray 02/17/19 14:42 IMPRESSION: NO ACUTE RADIOGRAPHIC FINDING IN THE CHEST. Guidance Fluoroscopy 02/20/19 00:00 IMPRESSION: SUCCESSFUL PLACEMENT OF A 5 FR DUAL LUMEN 38 CM PICC IN THE LEFT BASILIC VEIN. Interventional Vascular Procedure 02/20/19 00:00 IMPRESSION: SUCCESSFUL PLACEMENT OF A 5 FR DUAL LUMEN 38 CM PICC IN THE LEFT BASILIC VEIN. PICC Line Insertion 02/20/19 06:00 IMPRESSION: SUCCESSFUL PLACEMENT OF A 5 FR DUAL LUMEN 38 CM PICC IN THE LEFT BASILIC VEIN. Abdomen/Pelvis CT 02/20/19 16:32 IMPRESSION: There is some free fluid in the pelvis. No other significant finding in the abdomen or pelvis. Assessment & Plan - Plan Summary Plan Summary: improved strength with tpn surgery planned for next thurs wants to try more solid foods '
[2019-02-26] MEDS: FOLIC ACID 1 MG TABLET PO SCH (10:28)
[2019-02-26] MEDS: FAMOTIDINE 20 MG TABLET PO SCH ×2 (10:28→22:33)
[2019-02-26] MEDS: SENNOSIDES/DOCUSATE 8.6-50 MG 1 EACH TABLET PO SCH (10:28)
[2019-02-26] MEDS: CARBAMIDE PEROXIDE 6.5% OTIC SOLN 15 ML AD SCH ×2 (10:30→17:18)
[2019-02-26] MEDS: HEPARIN SOD (PORCINE) 5,000 UNIT/ML 1 ML SYRINGE SUBCUT SCH ×2 (10:32→22:31)
[2019-02-26] MEDS: AMINO ACIDS 5 %/DEXTROSE 20 % 1,000 ML IV PRN (10:49)
[2019-02-26] MEDS: NORMAL SALINE 10 ML SDV (SCHEDULED) IV SCH ×2 (10:57→22:31)
--- NOTE | 2019-02-26 16:27 | PDOC PROGRESS REPORT ---
Subjective Progress Note for:: 02/26/19 Subjective:: ARGELIA JEAN is a 59 year old female with a PMH of hypothyroidism, anxiety and recent diagnosis of gastric adenocarcinoma who was admitted for dehydration due to nausea, vomiting and poor intake. Patient was seen on morning rounds. She was found to be resting in bed comfortably on room air. She reports that she is feeling somewhat better today, does have a slight appetite and is pleased her diet was advanced by surgery today. She is also proud of herself for being able to ambulate a further distance this morning without significant fatigue. She denies fever, chills, chest pain, palpitations, dyspnea, orthopnea, cough, abdominal pain, nausea vomiting or diarrhea. She reports that she has passed a small amount of gas but without bowel movement; does not feel constipated.. She has no other questions or concerns at this time. No concerns per nursing. Reason For Visit: INTRACTABLE N/V,DEHYDRATION,GASTRIC CANCER, Physical Exam Vital Signs: Temp Pulse Resp BP Pulse Ox 97.4 F 85 16 126/72 H 100 02/26/19 12:56 02/26/19 14:00 02/26/19 12:56 02/26/19 12:56 02/26/19 12:56 Intake & Output 02/25/19 02/26/19 02/27/19 06:59 06:59 06:59 Intake Total 2084 3318 1590 Output Total 2000 700 500 Balance 84 2618 1090 Weight 59.8 kg 61.9 kg General appearance: PRESENT: no acute distress, cooperative, thin, well- developed Head exam: PRESENT: atraumatic, normocephalic Eye exam: PRESENT: conjunctiva pink, EOMI, PERRLA. ABSENT: scleral icterus Mouth exam: PRESENT: moist, tongue midline Teeth exam: PRESENT: poor dentation Neck exam: ABSENT: carotid bruit, JVD, lymphadenopathy, thyromegaly Respiratory exam: PRESENT: clear to auscultation benjamin, symmetrical, unlabored. ABSENT: rales, rhonchi, wheezes Cardiovascular exam: PRESENT: RRR. ABSENT: diastolic murmur, rubs, systolic murmur Pulses: PRESENT: normal dorsalis pedis pul Vascular exam: PRESENT: normal capillary refill GI/Abdominal exam: PRESENT: distended, normal bowel sounds, soft, tenderness. ABSENT: guarding, mass, organolmegaly, rebound Rectal exam: PRESENT: deferred Extremities exam: PRESENT: full ROM. ABSENT: calf tenderness, clubbing, pedal edema Musculoskeletal exam: PRESENT: ambulatory Neurological exam: PRESENT: alert, awake, oriented to person, oriented to place, oriented to time, oriented to situation, CN II-XII grossly intact. ABSENT: motor sensory deficit Psychiatric exam: PRESENT: appropriate affect, normal mood. ABSENT: homicidal ideation, suicidal ideation Skin exam: PRESENT: dry, intact, warm. ABSENT: cyanosis, rash Results Laboratory Results: 02/25/19 21:25 02/25/19 05:15 02/25/19 02/25/19 09:34 21:25 WBC 3.3 L RBC 3.32 L Hgb 9.5 L D Hct 28.2 L MCV 85 MCH 28.5 MCHC 33.5 RDW 17.0 H Plt Count 197 Seg Neutrophils % 66.5 Lymphocytes % 18.4 Monocytes % 11.5 Eosinophils % 2.8 Basophils % 0.8 Absolute Neutrophils 2.2 Absolute Lymphocytes 0.6 Absolute Monocytes 0.4 Absolute Eosinophils 0.1 Absolute Basophils 0.0 Blood Type A NEGATIVE Antibody Screen NEGATIVE 02/17/19 02/17/19 14:54 14:54 Creatine Kinase < 20 L CK-MB (CK-2) < 0.22 Troponin I < 0.012 Impressions: Chest X-Ray 02/17/19 14:42 IMPRESSION: NO ACUTE RADIOGRAPHIC FINDING IN THE CHEST. Guidance Fluoroscopy 02/20/19 00:00 IMPRESSION: SUCCESSFUL PLACEMENT OF A 5 FR DUAL LUMEN 38 CM PICC IN THE LEFT BASILIC VEIN. Interventional Vascular Procedure 02/20/19 00:00 IMPRESSION: SUCCESSFUL PLACEMENT OF A 5 FR DUAL LUMEN 38 CM PICC IN THE LEFT BASILIC VEIN. PICC Line Insertion 02/20/19 06:00 IMPRESSION: SUCCESSFUL PLACEMENT OF A 5 FR DUAL LUMEN 38 CM PICC IN THE LEFT BASILIC VEIN. Abdomen/Pelvis CT 02/20/19 16:32 IMPRESSION: There is some free fluid in the pelvis. No other significant finding in the abdomen or pelvis. Assessment and Plan - Diagnosis (1) Gastric adenocarcinoma Is this a current diagnosis for this admission?: Yes Plan: Management per Oncology; Appreciate their expertise Surgery has been consulted; Plan for gastrectomy March 02 (2) Intractable nausea and vomiting Qualifiers: Vomiting type: unspecified Qualified Code(s): R11.2 - Nausea with vomiting, unspecified Is this a current diagnosis for this admission?: Yes Plan: Significant improvement. Secondary to gastric carcinoma Advance to regular diet per surgery PICC line placed, now on TPN PRN Zofran, Phenergan, and pepcid (3) Protein calorie malnutrition Is this a current diagnosis for this admission?: Yes Plan: Secondary to anorexia and poor PO intake stemming from gastric carcinoma PICC line Continuous TPN Plan to continue TPN until patient is able to undergo surgery on March 02 Registered dietitian is consulted. (4) Dehydration Is this a current diagnosis for this admission?: Yes Plan: Resolved. (5) Hypokalemia Is this a current diagnosis for this admission?: Yes Plan: Resolved Likely secondary to poor PO intake Continue to monitor with daily chemistries (6) Anemia Qualifiers: Anemia type: unspecified type Qualified Code(s): D64.9 - Anemia, unspecified Is this a current diagnosis for this admission?: Yes Plan: Multifactorial secondary to malnutrition malignancy. Hemoglobin has trended down; 10.4-> 7.3-> 9.5 Now s/p 3 units PRBC this admission Continue to monitor daily CBC and transfuse for hemoglobin <7.5. - Time Time Spent with patient: 25-34 minutes Medications reviewed and adjusted accordingly: Yes
[2019-02-26] MEDS: ONDANSETRON HCL INJ/PF 4 MG/2 ML SDV IV PRN (17:25)
[2019-02-26 19:41] LABS: ALANINE AMINOTRANSFERASE 23 U/L (9-52); ALBUMIN 2.5 g/dL (3.5-5.0); ALKALINE PHOSPHATASE 49 U/L (38-126); ANION GAP 7 (5-19); ASPARTATE AMINO TRANSFERASE 19 U/L (14-36); BILIRUBIN,DIRECT 0.2 mg/dL (0.0-0.4); BILIRUBIN,TOTAL 0.4 mg/dL (0.2-1.3); BLOOD UREA NITROGEN 12 mg/dL (7-20); CALCIUM 8.6 mg/dL (8.4-10.2); CARBON DIOXIDE 24 mmol/L (22-30); CHLORIDE 106 mmol/L (98-107); GLUCOSE 85 mg/dL (75-110); PHOSPHORUS 4.3 mg/dL (2.5-4.5); POTASSIUM 4.2 mmol/L (3.6-5.0); SODIUM 136.6 mmol/L (137-145); TOTAL PROTEIN 5.5 g/dL (6.3-8.2)
[2019-02-26 19:48] LABS: PREALBUMIN 12.7 mg/dL (17.6-36.0)
[2019-02-27] MEDS: INSULIN LISPRO 100 UNIT/ML 3 ML VIAL SUBCUT SCH ×4 (02:40→17:17)
[2019-02-27] MEDS: METOCLOPRAMIDE HCL INJ/PF 10 MG/2 ML SDV IV SCH ×4 (02:41→17:17)
[2019-02-27] MEDS: NORMAL SALINE 1000 ML 1,000 ML IV PRN ×2 (06:01→16:39)
[2019-02-27] MEDS: LEVOTHYROXINE SODIUM 0.025 MG TABLET PO SCH (06:05)
[2019-02-27] MEDS: AMINO ACIDS 5 %/DEXTROSE 20 % 1,000 ML IV PRN (06:15)
[2019-02-27 08:31] LABS: HEMATOCRIT 29.8 % (36.0-47.0); HEMOGLOBIN 10.2 g/dL (12.0-15.5); MEAN CORPUSCULAR HEMOGLOBIN 29.1 pg (27.0-33.4); MEAN CORPUSCULAR HGB CONC 34.1 g/dL (32.0-36.0); MEAN CORPUSCULAR VOLUME 85 fl (80-97); PLATELET COUNT 224 10^3/uL (150-450); RED CELL DISTRIBUTION WIDTH 17.3 % (11.5-14.0); WHITE BLOOD COUNT 3.3 10^3/uL (4.0-10.5)
[2019-02-27] MEDS: SUCRALFATE 1 GM TABLET PO SCH ×4 (09:10→22:37)
[2019-02-27] MEDS: FAMOTIDINE 20 MG TABLET PO SCH ×2 (09:10→23:39)
[2019-02-27] MEDS: DRONABINOL 2.5 MG CAPSULE PO SCH (09:10)
[2019-02-27] MEDS: FOLIC ACID 1 MG TABLET PO SCH (09:10)
[2019-02-27] MEDS: HEPARIN SOD (PORCINE) 5,000 UNIT/ML 1 ML SYRINGE SUBCUT SCH ×2 (09:11→22:37)
[2019-02-27 09:19] LABS: ALANINE AMINOTRANSFERASE 20 U/L (9-52); ALBUMIN 2.4 g/dL (3.5-5.0); ALKALINE PHOSPHATASE 51 U/L (38-126); ANION GAP 9 (5-19); ASPARTATE AMINO TRANSFERASE 19 U/L (14-36); BILIRUBIN,DIRECT 0.2 mg/dL (0.0-0.4); BILIRUBIN,TOTAL 0.4 mg/dL (0.2-1.3); BLOOD UREA NITROGEN 11 mg/dL (7-20); CALCIUM 8.5 mg/dL (8.4-10.2); CARBON DIOXIDE 23 mmol/L (22-30); CHLORIDE 106 mmol/L (98-107); GLUCOSE 122 mg/dL (75-110); PHOSPHORUS 4.1 mg/dL (2.5-4.5); POTASSIUM 3.9 mmol/L (3.6-5.0); SODIUM 137.8 mmol/L (137-145); TOTAL PROTEIN 5.3 g/dL (6.3-8.2); TRIGLYCERIDES 87 mg/dL (<150)
[2019-02-27 09:33] LABS: PREALBUMIN 13.9 mg/dL (17.6-36.0)
[2019-02-27] MEDS: CARBAMIDE PEROXIDE 6.5% OTIC SOLN 15 ML AD SCH ×2 (11:38→17:17)
--- NOTE | 2019-02-27 12:14 | PDOC PROGRESS REPORT ---
Subjective Progress Note for:: 02/27/19 Subjective:: Patient states that she is trying to eat solid food. She was able to walk in the hallway, but today, she plans to take a shower which will wear her out, so she will walk again tomorrow. She is happy about upcoming surgery. No new complaints voiced. Reason For Visit: INTRACTABLE N/V,DEHYDRATION,GASTRIC CANCER, Physical Exam Vital Signs: Temp Pulse Resp BP Pulse Ox 98.1 F 88 16 142/96 H 100 02/27/19 08:00 02/27/19 08:00 02/27/19 08:00 02/27/19 08:00 02/27/19 08:00 Intake & Output 02/26/19 02/27/19 02/28/19 06:59 06:59 06:59 Intake Total 3318 5687 Output Total 700 2550 Balance 2618 3137 Weight 61.9 kg 63.4 kg General appearance: PRESENT: thin, well-developed Head exam: PRESENT: normocephalic Respiratory exam: PRESENT: unlabored Extremities exam: ABSENT: pedal edema Neurological exam: PRESENT: alert, awake Psychiatric exam: PRESENT: appropriate affect Skin exam: PRESENT: normal color Results Laboratory Results: 02/27/19 07:30 02/27/19 07:30 02/26/19 02/27/19 02/27/19 19:05 07:30 07:30 WBC 3.3 L RBC 3.50 L Hgb 10.2 L Hct 29.8 L MCV 85 MCH 29.1 MCHC 34.1 RDW 17.3 H Plt Count 224 Sodium 136.6 L 137.8 Potassium 4.2 3.9 Chloride 106 106 Carbon Dioxide 24 23 Anion Gap 7 9 BUN 12 11 Creatinine 0.33 L 0.35 L Est GFR ( Amer) > 60 > 60 Est GFR (Non-Af Amer) > 60 > 60 Glucose 85 122 H Calcium 8.6 8.5 Phosphorus 4.3 4.1 Magnesium 2.2 Total Bilirubin 0.4 0.4 AST 19 19 ALT 23 20 Alkaline Phosphatase 49 51 Total Protein 5.5 L 5.3 L Albumin 2.5 L 2.4 L Prealbumin 12.7 L 13.9 L Triglycerides 87 02/17/19 02/17/19 14:54 14:54 Creatine Kinase < 20 L CK-MB (CK-2) < 0.22 Troponin I < 0.012 Impressions: Chest X-Ray 02/17/19 14:42 IMPRESSION: NO ACUTE RADIOGRAPHIC FINDING IN THE CHEST. Guidance Fluoroscopy 02/20/19 00:00 IMPRESSION: SUCCESSFUL PLACEMENT OF A 5 FR DUAL LUMEN 38 CM PICC IN THE LEFT BASILIC VEIN. Interventional Vascular Procedure 02/20/19 00:00 IMPRESSION: SUCCESSFUL PLACEMENT OF A 5 FR DUAL LUMEN 38 CM PICC IN THE LEFT BASILIC VEIN. PICC Line Insertion 02/20/19 06:00 IMPRESSION: SUCCESSFUL PLACEMENT OF A 5 FR DUAL LUMEN 38 CM PICC IN THE LEFT BASILIC VEIN. Abdomen/Pelvis CT 02/20/19 16:32 IMPRESSION: There is some free fluid in the pelvis. No other significant finding in the abdomen or pelvis. Assessment & Plan - Diagnosis (1) Gastric adenocarcinoma Is this a current diagnosis for this admission?: Yes Plan: For Surgery this coming . (2) Intractable nausea and vomiting Qualifiers: Vomiting type: unspecified Qualified Code(s): R11.2 - Nausea with vomiting, unspecified Is this a current diagnosis for this admission?: Yes Plan: Now improved with medications and TPN. Continue to slowly advance diet as tolerated. She is gaining weight slowly. (3) Anemia Qualifiers: Anemia type: iron deficiency Iron deficiency anemia type: inadequate dietary iron intake Qualified Code(s): D50.8 - Other iron deficiency anemias Is this a current diagnosis for this admission?: Yes Plan: Improving with nutrition.
[2019-02-27] MEDS: NORMAL SALINE 10 ML SDV (SCHEDULED) IV SCH ×2 (16:14→22:37)
--- NOTE | 2019-02-27 16:19 | PDOC PROGRESS REPORT ---
Subjective Progress Note for:: 02/27/19 Subjective:: ARGELIA JEAN is a 59 year old female with a PMH of hypothyroidism, anxiety and recent diagnosis of gastric adenocarcinoma who was admitted for dehydration due to nausea, vomiting and poor intake. Patient was seen on morning rounds. She was found to be resting in bed comfortably on room air. She reports that she is feeling somewhat better today. She has been able to tolerate small amounts of food without increased abd discomfort, nausea, or vomiting. She has not yet had a bowel movement but is passing gas. She continues to ambulate twice daily with assistance; was able to walk further last night. She denies fever, chills, chest pain, palpitations, dyspnea, orthopnea, cough, abdominal pain, nausea vomiting or diarrhea. She has no other questions or concerns at this time. No concerns per nursing. Reason For Visit: INTRACTABLE N/V,DEHYDRATION,GASTRIC CANCER, Physical Exam Vital Signs: Temp Pulse Resp BP Pulse Ox 97.7 F 95 17 127/78 H 100 02/27/19 12:00 02/27/19 14:00 02/27/19 12:00 02/27/19 12:00 02/27/19 12:00 Intake & Output 02/26/19 02/27/19 02/28/19 06:59 06:59 06:59 Intake Total 3318 5687 Output Total 700 2550 Balance 2618 3137 Weight 61.9 kg 63.4 kg General appearance: PRESENT: no acute distress, cooperative, thin, well- developed Head exam: PRESENT: atraumatic, normocephalic Eye exam: PRESENT: conjunctiva pink, EOMI, PERRLA. ABSENT: scleral icterus Mouth exam: PRESENT: moist, tongue midline Teeth exam: PRESENT: poor dentation Neck exam: ABSENT: carotid bruit, JVD, lymphadenopathy, thyromegaly Respiratory exam: PRESENT: clear to auscultation benjamin, symmetrical, unlabored. ABSENT: rales, rhonchi, wheezes Cardiovascular exam: PRESENT: RRR, +S1, +S2. ABSENT: diastolic murmur, rubs, systolic murmur Pulses: PRESENT: normal dorsalis pedis pul Vascular exam: PRESENT: normal capillary refill GI/Abdominal exam: PRESENT: diminished bowel sounds, soft, tenderness. ABSENT: distended, guarding, mass, organolmegaly, rebound Rectal exam: PRESENT: deferred Extremities exam: PRESENT: full ROM. ABSENT: calf tenderness, clubbing, pedal edema Musculoskeletal exam: PRESENT: ambulatory Neurological exam: PRESENT: alert, awake, oriented to person, oriented to place, oriented to time, oriented to situation, CN II-XII grossly intact. ABSENT: motor sensory deficit Psychiatric exam: PRESENT: appropriate affect, normal mood. ABSENT: homicidal ideation, suicidal ideation Skin exam: PRESENT: dry, intact, warm. ABSENT: cyanosis, rash Results Laboratory Results: 02/27/19 07:30 02/27/19 07:30 02/26/19 02/27/19 02/27/19 19:05 07:30 07:30 WBC 3.3 L RBC 3.50 L Hgb 10.2 L Hct 29.8 L MCV 85 MCH 29.1 MCHC 34.1 RDW 17.3 H Plt Count 224 Sodium 136.6 L 137.8 Potassium 4.2 3.9 Chloride 106 106 Carbon Dioxide 24 23 Anion Gap 7 9 BUN 12 11 Creatinine 0.33 L 0.35 L Est GFR ( Amer) > 60 > 60 Est GFR (Non-Af Amer) > 60 > 60 Glucose 85 122 H Calcium 8.6 8.5 Phosphorus 4.3 4.1 Magnesium 2.2 Total Bilirubin 0.4 0.4 AST 19 19 ALT 23 20 Alkaline Phosphatase 49 51 Total Protein 5.5 L 5.3 L Albumin 2.5 L 2.4 L Prealbumin 12.7 L 13.9 L Triglycerides 87 02/17/19 02/17/19 14:54 14:54 Creatine Kinase < 20 L CK-MB (CK-2) < 0.22 Troponin I < 0.012 Impressions: Chest X-Ray 02/17/19 14:42 IMPRESSION: NO ACUTE RADIOGRAPHIC FINDING IN THE CHEST. Guidance Fluoroscopy 02/20/19 00:00 IMPRESSION: SUCCESSFUL PLACEMENT OF A 5 FR DUAL LUMEN 38 CM PICC IN THE LEFT BASILIC VEIN. Interventional Vascular Procedure 02/20/19 00:00 IMPRESSION: SUCCESSFUL PLACEMENT OF A 5 FR DUAL LUMEN 38 CM PICC IN THE LEFT BASILIC VEIN. PICC Line Insertion 02/20/19 06:00 IMPRESSION: SUCCESSFUL PLACEMENT OF A 5 FR DUAL LUMEN 38 CM PICC IN THE LEFT BASILIC VEIN. Abdomen/Pelvis CT 02/20/19 16:32 IMPRESSION: There is some free fluid in the pelvis. No other significant finding in the abdomen or pelvis. Assessment and Plan - Diagnosis (1) Gastric adenocarcinoma Is this a current diagnosis for this admission?: Yes Plan: Management per Oncology; Appreciate their expertise Surgery has been consulted; Plan for gastrectomy March 02 (2) Intractable nausea and vomiting Qualifiers: Vomiting type: unspecified Qualified Code(s): R11.2 - Nausea with vomiting, unspecified Is this a current diagnosis for this admission?: Yes Plan: Resolved. Secondary to gastric carcinoma Advance to regular diet per surgery PICC line placed, now on TPN PRN Zofran, Phenergan, and pepcid (3) Protein calorie malnutrition Is this a current diagnosis for this admission?: Yes Plan: Secondary to anorexia and poor PO intake stemming from gastric carcinoma Prealbumin and weight are trending up. Prealbumin 9.9-> 13.9; weight 58.8-> 63.4kg Continuous TPN Plan to continue TPN until patient is able to undergo surgery on March 02 Discussed with pharmacy today; will increase rate to 70 ml/hr with goal of 80 ml/hr Registered dietitian is consulted. (4) Anemia Qualifiers: Anemia type: unspecified type Qualified Code(s): D64.9 - Anemia, unspecified Is this a current diagnosis for this admission?: Yes Plan: Multifactorial secondary to malnutrition malignancy. Hemoglobin has trended down; 10.4-> 7.3-> 9.5-> 10.2 Now s/p 3 units PRBC this admission Continue to monitor daily CBC and transfuse for hemoglobin <7.5. (5) Hypokalemia Is this a current diagnosis for this admission?: Yes Plan: Resolved Likely secondary to poor PO intake Continue to monitor with daily chemistries (6) Dehydration Is this a current diagnosis for this admission?: Yes Plan: Resolved.
[2019-02-27] MEDS: FAT EMULSIONS 250 ML IV SCH (17:09)
[2019-02-27] MEDS: DIAZEPAM INJ 10 MG/2 ML DISP.SYRIN IV PRN (23:40)
[2019-02-28] MEDS: METOCLOPRAMIDE HCL INJ/PF 10 MG/2 ML SDV IV SCH ×4 (00:13→18:00)
[2019-02-28] MEDS: INSULIN LISPRO 100 UNIT/ML 3 ML VIAL SUBCUT SCH ×4 (00:14→18:02)
[2019-02-28] MEDS: AMINO ACIDS 5 %/DEXTROSE 20 % 1,000 ML IV PRN ×2 (00:44→15:30)
[2019-02-28] MEDS: ONDANSETRON HCL INJ/PF 4 MG/2 ML SDV IV PRN ×4 (00:44→22:45)
[2019-02-28] MEDS: NORMAL SALINE 1000 ML 1,000 ML IV PRN ×2 (05:15→15:11)
[2019-02-28] MEDS: LEVOTHYROXINE SODIUM 0.025 MG TABLET PO SCH (05:28)
[2019-02-28] MEDS: SUCRALFATE 1 GM TABLET PO SCH ×4 (07:46→21:28)
[2019-02-28] MEDS: DRONABINOL 2.5 MG CAPSULE PO SCH (08:47)
[2019-02-28] MEDS ORDERED: NA PHOS,M-B/NA PHOS,DI-BA (ADULT) 133 ML ENEMA PR ONE (09:00)
[2019-02-28] MEDS: HEPARIN SOD (PORCINE) 5,000 UNIT/ML 1 ML SYRINGE SUBCUT SCH ×2 (10:20→21:27)
[2019-02-28] MEDS: NORMAL SALINE 10 ML SDV (SCHEDULED) IV SCH ×2 (10:21→21:27)
[2019-02-28] MEDS: CARBAMIDE PEROXIDE 6.5% OTIC SOLN 15 ML AD SCH ×2 (11:46→18:16)
[2019-02-28] MEDS: FOLIC ACID 1 MG TABLET PO SCH (11:47)
[2019-02-28] MEDS: FAMOTIDINE 20 MG TABLET PO SCH ×2 (11:47→21:32)
[2019-02-28] MEDS ORDERED: OXYCODONE-ACETAMINOPHEN 5-325 MG TABLET ONE (13:10)
[2019-02-28] MEDS ORDERED: OXYCODONE-ACETAMINOPHEN 5-325 MG TABLET PO PRN (13:31)
[2019-02-28 16:46] LABS: ABSOLUTE LYMPHOCYTES (AUTO) 0.3 10^3/uL (0.5-4.7); ABSOLUTE MONOCYTES (AUTO) 0.3 10^3/uL (0.1-1.4); ABSOLUTE NEUT (AUTO) 4.3 10^3/uL (1.7-8.2); BASOPHILS % (AUTO) 0.7 % (0-2); EOSINOPHILS % (AUTO) 0.9 % (0-6); HEMATOCRIT 29.2 % (36.0-47.0); HEMOGLOBIN 9.9 g/dL (12.0-15.5); MEAN CORPUSCULAR HEMOGLOBIN 29.1 pg (27.0-33.4); MEAN CORPUSCULAR HGB CONC 33.9 g/dL (32.0-36.0); MEAN CORPUSCULAR VOLUME 86 fl (80-97); MONOCYTES % (AUTO) 5.3 % (3-13); PLATELET COUNT 232 10^3/uL (150-450); RED CELL DISTRIBUTION WIDTH 17.5 % (11.5-14.0); SEGMENTED NEUTROPHILS % (AUTO) 87.1 % (42-78); TOTAL CELLS COUNTED % (AUTO) 100 %; WHITE BLOOD COUNT 4.9 10^3/uL (4.0-10.5)
--- NOTE | 2019-02-28 17:00 | PDOC PROGRESS REPORT ---
Subjective Progress Note for:: 02/28/19 Subjective:: ARGELIA JEAN is a 59 year old female with a PMH of hypothyroidism, anxiety and recent diagnosis of gastric adenocarcinoma who was admitted for dehydration due to nausea, vomiting and poor intake. Patient was seen on morning rounds. She was found to be resting in bed comfortably on room air. She complains of feeling cold/shivering following bath last night and enema this morning; normal temperature between. She reports constipation this morning. Otherwise, she denies fever, chest pain, palpitations, dyspnea, orthopnea, cough, abdominal pain, nausea vomiting or diarrhea. She has no other questions or concerns at this time. No concerns per nursing. Reason For Visit: INTRACTABLE N/V,DEHYDRATION,GASTRIC CANCER, Physical Exam Vital Signs: Temp Pulse Resp BP Pulse Ox 98.7 F 99 16 145/85 H 100 02/28/19 12:00 02/28/19 12:00 02/28/19 12:00 02/28/19 12:00 02/28/19 12:00 Intake & Output 02/27/19 02/28/19 03/01/19 06:59 06:59 06:59 Intake Total 5687 4510 1024 Output Total 2550 1750 250 Balance 3137 2760 774 Weight 63.4 kg 65.9 kg General appearance: PRESENT: no acute distress, cooperative, thin, well- developed Head exam: PRESENT: atraumatic, normocephalic Eye exam: PRESENT: conjunctiva pink, EOMI, PERRLA. ABSENT: scleral icterus Mouth exam: PRESENT: moist, tongue midline Neck exam: ABSENT: carotid bruit, JVD, lymphadenopathy, thyromegaly Respiratory exam: PRESENT: clear to auscultation benjamin, symmetrical, unlabored. ABSENT: rales, rhonchi, wheezes Cardiovascular exam: PRESENT: RRR, +S1, +S2. ABSENT: diastolic murmur, rubs, systolic murmur Pulses: PRESENT: normal dorsalis pedis pul Vascular exam: PRESENT: normal capillary refill GI/Abdominal exam: PRESENT: diminished bowel sounds, soft, tenderness. ABSENT: distended, guarding, mass, organolmegaly, rebound Rectal exam: PRESENT: fecal impaction Extremities exam: PRESENT: full ROM. ABSENT: calf tenderness, clubbing, pedal edema Neurological exam: PRESENT: alert, awake, oriented to person, oriented to place, oriented to time, oriented to situation, CN II-XII grossly intact. ABSENT: motor sensory deficit Psychiatric exam: PRESENT: appropriate affect, normal mood. ABSENT: homicidal ideation, suicidal ideation Skin exam: PRESENT: dry, intact, warm. ABSENT: cyanosis, rash Results Laboratory Results: 02/28/19 11:30 02/28/19 11:30 WBC 4.9 RBC 3.40 L Hgb 9.9 L Hct 29.2 L MCV 86 MCH 29.1 MCHC 33.9 RDW 17.5 H Plt Count 232 Seg Neutrophils % 87.1 H Lymphocytes % 6.0 L Monocytes % 5.3 Eosinophils % 0.9 Basophils % 0.7 Absolute Neutrophils 4.3 Absolute Lymphocytes 0.3 L Absolute Monocytes 0.3 Absolute Eosinophils 0.0 Absolute Basophils 0.0 02/17/19 02/17/19 14:54 14:54 Creatine Kinase < 20 L CK-MB (CK-2) < 0.22 Troponin I < 0.012 Impressions: Chest X-Ray 02/17/19 14:42 IMPRESSION: NO ACUTE RADIOGRAPHIC FINDING IN THE CHEST. Guidance Fluoroscopy 02/20/19 00:00 IMPRESSION: SUCCESSFUL PLACEMENT OF A 5 FR DUAL LUMEN 38 CM PICC IN THE LEFT BASILIC VEIN. Interventional Vascular Procedure 02/20/19 00:00 IMPRESSION: SUCCESSFUL PLACEMENT OF A 5 FR DUAL LUMEN 38 CM PICC IN THE LEFT BASILIC VEIN. PICC Line Insertion 02/20/19 06:00 IMPRESSION: SUCCESSFUL PLACEMENT OF A 5 FR DUAL LUMEN 38 CM PICC IN THE LEFT BASILIC VEIN. Abdomen/Pelvis CT 02/20/19 16:32 IMPRESSION: There is some free fluid in the pelvis. No other significant finding in the abdomen or pelvis. Assessment and Plan - Diagnosis (1) Gastric adenocarcinoma Is this a current diagnosis for this admission?: Yes Plan: Management per Oncology; Appreciate their expertise Surgery has been consulted; Plan for gastrectomy March 07 (2) Intractable nausea and vomiting Qualifiers: Vomiting type: unspecified Qualified Code(s): R11.2 - Nausea with vomiting, unspecified Is this a current diagnosis for this admission?: Yes Plan: Resolved. Secondary to gastric carcinoma Advance to regular diet per surgery PICC line placed, now on TPN PRN Zofran, Phenergan, and pepcid (3) Protein calorie malnutrition Is this a current diagnosis for this admission?: Yes Plan: Secondary to anorexia and poor PO intake stemming from gastric carcinoma Prealbumin and weight are trending up. Prealbumin 9.9-> 13.9; weight 58.8-> 65.9kg Continuous TPN Plan to continue TPN until patient is able to undergo surgery on March 07 Discussed with pharmacy today; continue 70 ml/hr Registered dietitian is consulted. (4) Anemia Qualifiers: Anemia type: unspecified type Qualified Code(s): D64.9 - Anemia, unspecified Is this a current diagnosis for this admission?: Yes Plan: Multifactorial secondary to malnutrition malignancy. Currently stable at Hbg 9.9 Now s/p 3 units PRBC this admission Continue to monitor daily CBC and transfuse for hemoglobin <7.5. (5) Hypokalemia Is this a current diagnosis for this admission?: Yes Plan: Resolved Likely secondary to poor PO intake Continue to monitor with daily chemistries (6) Dehydration Is this a current diagnosis for this admission?: Yes Plan: Resolved. (7) Constipation Is this a current diagnosis for this admission?: Yes Plan: Unresponsive to Sennakot and Fleets enema. Discussed w/ surgery today; will trial soap suds enema. - Time Time Spent with patient: 15-24 minutes Medications reviewed and adjusted accordingly: Yes Anticipated discharge: Home
[2019-02-28 17:09] LABS: ALANINE AMINOTRANSFERASE 22 U/L (9-52); ALBUMIN 2.3 g/dL (3.5-5.0); ALKALINE PHOSPHATASE 48 U/L (38-126); ANION GAP 7 (5-19); ASPARTATE AMINO TRANSFERASE 18 U/L (14-36); BILIRUBIN,DIRECT 0.2 mg/dL (0.0-0.4); BILIRUBIN,TOTAL 0.3 mg/dL (0.2-1.3); BLOOD UREA NITROGEN 10 mg/dL (7-20); CALCIUM 8.2 mg/dL (8.4-10.2); CARBON DIOXIDE 25 mmol/L (22-30); CHLORIDE 106 mmol/L (98-107); GLUCOSE 109 mg/dL (75-110); PHOSPHORUS 3.9 mg/dL (2.5-4.5); SODIUM 138.1 mmol/L (137-145); TOTAL PROTEIN 5.2 g/dL (6.3-8.2)
[2019-02-28] MEDS: DIAZEPAM INJ 10 MG/2 ML DISP.SYRIN IV PRN (21:32)
[2019-03-01] MEDS: INSULIN LISPRO 100 UNIT/ML 3 ML VIAL SUBCUT SCH ×4 (00:03→17:22)
[2019-03-01] MEDS: METOCLOPRAMIDE HCL INJ/PF 10 MG/2 ML SDV IV SCH ×4 (00:04→17:27)
[2019-03-01] MEDS ORDERED: KETOROLAC TROMETHAMINE INJ/PF 30 MG/1 ML SDV IV PRN (02:07)
[2019-03-01] MEDS: MORPHINE SULFATE 10 MG/ML INJ IV PRN ×5 (03:02→20:10)
[2019-03-01] MEDS: ONDANSETRON HCL INJ/PF 4 MG/2 ML SDV IV PRN ×5 (03:03→20:08)
[2019-03-01] MEDS: NORMAL SALINE 1000 ML 1,000 ML IV PRN (03:15)
[2019-03-01] MEDS: LEVOTHYROXINE SODIUM 0.025 MG TABLET PO SCH (05:44)
[2019-03-01] MEDS: AMINO ACIDS 5 %/DEXTROSE 20 % 1,000 ML IV PRN ×2 (07:12→22:16)
--- NOTE | 2019-03-01 07:37 | PDOC PROGRESS REPORT ---
Subjective Progress Note for:: 03/01/19 Reason For Visit: INTRACTABLE N/V,DEHYDRATION,GASTRIC CANCER, Physical Exam Vital Signs: Temp Pulse Resp BP Pulse Ox 97.4 F 103 H 16 145/86 H 99 03/01/19 03:29 03/01/19 03:29 03/01/19 03:29 03/01/19 03:29 03/01/19 03:29 Intake & Output 02/28/19 03/01/19 03/02/19 06:59 06:59 06:59 Intake Total 4510 4025 Output Total 1750 250 Balance 2760 3775 Weight 65.9 kg 65.9 kg General appearance: PRESENT: no acute distress Head exam: PRESENT: normocephalic Eye exam: PRESENT: EOMI Mouth exam: PRESENT: moist Neck exam: PRESENT: full ROM Respiratory exam: PRESENT: clear to auscultation benjamin Cardiovascular exam: PRESENT: RRR Pulses: PRESENT: normal radial pulses, normal femoral pulses Vascular exam: PRESENT: normal capillary refill GI/Abdominal exam: PRESENT: soft Rectal exam: PRESENT: deferred Extremities exam: PRESENT: full ROM Musculoskeletal exam: PRESENT: full ROM Neurological exam: PRESENT: alert, awake, oriented to person Psychiatric exam: PRESENT: appropriate affect Skin exam: PRESENT: dry Results Laboratory Results: 02/28/19 11:30 02/28/19 11:30 02/28/19 02/28/19 02/28/19 11:30 11:30 11:40 WBC 4.9 RBC 3.40 L Hgb 9.9 L Hct 29.2 L MCV 86 MCH 29.1 MCHC 33.9 RDW 17.5 H Plt Count 232 Seg Neutrophils % 87.1 H Lymphocytes % 6.0 L Monocytes % 5.3 Eosinophils % 0.9 Basophils % 0.7 Absolute Neutrophils 4.3 Absolute Lymphocytes 0.3 L Absolute Monocytes 0.3 Absolute Eosinophils 0.0 Absolute Basophils 0.0 Sodium 138.1 Potassium 4.0 Chloride 106 Carbon Dioxide 25 Anion Gap 7 BUN 10 Creatinine 0.33 L Est GFR ( Amer) > 60 Est GFR (Non-Af Amer) > 60 Glucose 109 Calcium 8.2 L Phosphorus 3.9 Magnesium 2.1 Total Bilirubin 0.3 AST 18 ALT 22 Alkaline Phosphatase 48 Total Protein 5.2 L Albumin 2.3 L Triglycerides 51 02/17/19 02/17/19 14:54 14:54 Creatine Kinase < 20 L CK-MB (CK-2) < 0.22 Troponin I < 0.012 Impressions: Chest X-Ray 02/17/19 14:42 IMPRESSION: NO ACUTE RADIOGRAPHIC FINDING IN THE CHEST. Guidance Fluoroscopy 02/20/19 00:00 IMPRESSION: SUCCESSFUL PLACEMENT OF A 5 FR DUAL LUMEN 38 CM PICC IN THE LEFT BASILIC VEIN. Interventional Vascular Procedure 02/20/19 00:00 IMPRESSION: SUCCESSFUL PLACEMENT OF A 5 FR DUAL LUMEN 38 CM PICC IN THE LEFT BASILIC VEIN. PICC Line Insertion 02/20/19 06:00 IMPRESSION: SUCCESSFUL PLACEMENT OF A 5 FR DUAL LUMEN 38 CM PICC IN THE LEFT BASILIC VEIN. Abdomen/Pelvis CT 02/20/19 16:32 IMPRESSION: There is some free fluid in the pelvis. No other significant finding in the abdomen or pelvis. Assessment & Plan - Plan Summary Plan Summary: doing well on tpn ]feeling better had some nausea last pm after trying a peanutbutter/jelly sandwich this am better will cont tpn surgery scheduled for wednesday preop tomorrow.
--- NOTE | 2019-03-01 08:46 | PDOC PROGRESS REPORT ---
Subjective Progress Note for:: 03/01/19 Subjective:: Patient reports nausea again today. She ate a peanut butter and jelly sandwich which did not sit well. Prior to this, she was doing better. She was able to take a shower yesterday. Her bottom is getting sore from sitting up in bed, but she is afraid to lie down due to the nausea. She did have good BM yesterday after enema. Reason For Visit: INTRACTABLE N/V,DEHYDRATION,GASTRIC CANCER, Physical Exam Vital Signs: Temp Pulse Resp BP Pulse Ox 97.4 F 99 16 145/86 H 99 03/01/19 03:29 03/01/19 07:00 03/01/19 03:29 03/01/19 03:29 03/01/19 03:29 Intake & Output 02/28/19 03/01/19 03/02/19 06:59 06:59 06:59 Intake Total 4510 4025 Output Total 1750 250 Balance 2760 3775 Weight 65.9 kg 65.9 kg General appearance: PRESENT: no acute distress, thin Head exam: PRESENT: normocephalic Respiratory exam: PRESENT: clear to auscultation benjamin, unlabored Cardiovascular exam: PRESENT: RRR Extremities exam: ABSENT: pedal edema Neurological exam: PRESENT: alert, awake Psychiatric exam: PRESENT: appropriate affect, other - Talkative. Skin exam: PRESENT: normal color Results Laboratory Results: 02/28/19 11:30 02/28/19 11:30 02/28/19 02/28/19 02/28/19 11:30 11:30 11:40 WBC 4.9 RBC 3.40 L Hgb 9.9 L Hct 29.2 L MCV 86 MCH 29.1 MCHC 33.9 RDW 17.5 H Plt Count 232 Seg Neutrophils % 87.1 H Lymphocytes % 6.0 L Monocytes % 5.3 Eosinophils % 0.9 Basophils % 0.7 Absolute Neutrophils 4.3 Absolute Lymphocytes 0.3 L Absolute Monocytes 0.3 Absolute Eosinophils 0.0 Absolute Basophils 0.0 Sodium 138.1 Potassium 4.0 Chloride 106 Carbon Dioxide 25 Anion Gap 7 BUN 10 Creatinine 0.33 L Est GFR ( Amer) > 60 Est GFR (Non-Af Amer) > 60 Glucose 109 Calcium 8.2 L Phosphorus 3.9 Magnesium 2.1 Total Bilirubin 0.3 AST 18 ALT 22 Alkaline Phosphatase 48 Total Protein 5.2 L Albumin 2.3 L Triglycerides 51 02/17/19 02/17/19 14:54 14:54 Creatine Kinase < 20 L CK-MB (CK-2) < 0.22 Troponin I < 0.012 Impressions: Chest X-Ray 02/17/19 14:42 IMPRESSION: NO ACUTE RADIOGRAPHIC FINDING IN THE CHEST. Guidance Fluoroscopy 02/20/19 00:00 IMPRESSION: SUCCESSFUL PLACEMENT OF A 5 FR DUAL LUMEN 38 CM PICC IN THE LEFT BASILIC VEIN. Interventional Vascular Procedure 02/20/19 00:00 IMPRESSION: SUCCESSFUL PLACEMENT OF A 5 FR DUAL LUMEN 38 CM PICC IN THE LEFT BASILIC VEIN. PICC Line Insertion 02/20/19 06:00 IMPRESSION: SUCCESSFUL PLACEMENT OF A 5 FR DUAL LUMEN 38 CM PICC IN THE LEFT BASILIC VEIN. Abdomen/Pelvis CT 02/20/19 16:32 IMPRESSION: There is some free fluid in the pelvis. No other significant finding in the abdomen or pelvis. Assessment & Plan - Diagnosis (1) Gastric adenocarcinoma Is this a current diagnosis for this admission?: Yes Plan: Surgery now scheduled for Wednesday. (2) Intractable nausea and vomiting Qualifiers: Vomiting type: unspecified Qualified Code(s): R11.2 - Nausea with vomiting, unspecified Is this a current diagnosis for this admission?: Yes Plan: Continue current meds. We discussed trying a softer diet. TPN continues. (3) Anemia Qualifiers: Anemia type: iron deficiency Iron deficiency anemia type: inadequate dietary iron intake Qualified Code(s): D50.8 - Other iron deficiency anemias Is this a current diagnosis for this admission?: Yes Plan: Improving.
[2019-03-01] MEDS: SUCRALFATE 1 GM TABLET PO SCH ×4 (10:46→22:17)
[2019-03-01] MEDS: FAMOTIDINE 20 MG TABLET PO SCH ×2 (11:03→22:21)
[2019-03-01] MEDS: FOLIC ACID 1 MG TABLET PO SCH (11:03)
[2019-03-01] MEDS: SENNOSIDES/DOCUSATE 8.6-50 MG 1 EACH TABLET PO SCH ×2 (11:03→17:27)
[2019-03-01] MEDS: HEPARIN SOD (PORCINE) 5,000 UNIT/ML 1 ML SYRINGE SUBCUT SCH ×2 (11:04→22:21)
[2019-03-01] MEDS: FAT EMULSIONS 250 ML IV SCH (11:09)
[2019-03-01] MEDS: NORMAL SALINE 10 ML SDV (SCHEDULED) IV SCH ×2 (11:10→22:21)
[2019-03-01] MEDS: CARBAMIDE PEROXIDE 6.5% OTIC SOLN 15 ML AD SCH ×3 (11:19→17:38)
--- NOTE | 2019-03-01 17:46 | PDOC PROGRESS REPORT ---
Subjective Progress Note for:: 03/01/19 Subjective:: ARGELIA JEAN is a 59 year old female with a PMH of hypothyroidism, anxiety and recent diagnosis of gastric adenocarcinoma who was admitted for dehydration due to nausea, vomiting and poor intake. Patient was seen on morning rounds. She was found to be resting in the recliner, comfortably on room air. She complains of nausea and abdominal discomfort this morning; attributes it to a peanut butter and jelly sandwich yesterday. She does report that she is somewhat improved as compared to earlier this morning. She did have a large bowel movement yesterday and is no longer feeling constipated. Otherwise, she denies fever, chills, chest pain, palpitations, dyspnea, orthopnea, and cough. She has no other questions or concerns at this time. No concerns per nursing. Reason For Visit: INTRACTABLE N/V,DEHYDRATION,GASTRIC CANCER, Physical Exam Vital Signs: Temp Pulse Resp BP Pulse Ox 98.1 F 100 18 140/84 H 98 03/01/19 16:00 03/01/19 16:00 03/01/19 16:00 03/01/19 16:00 03/01/19 16:00 Intake & Output 02/28/19 03/01/19 03/02/19 06:59 06:59 06:59 Intake Total 4510 4025 437 Output Total 1750 250 Balance 2760 3775 437 Weight 65.9 kg 65.9 kg General appearance: PRESENT: no acute distress, cooperative, thin, well- developed Head exam: PRESENT: atraumatic, normocephalic Eye exam: PRESENT: conjunctiva pink, EOMI, PERRLA. ABSENT: scleral icterus Mouth exam: PRESENT: moist, tongue midline Teeth exam: PRESENT: poor dentation Neck exam: ABSENT: carotid bruit, JVD, lymphadenopathy, thyromegaly Respiratory exam: PRESENT: clear to auscultation benjamin, symmetrical, unlabored. ABSENT: rales, rhonchi, wheezes Cardiovascular exam: PRESENT: RRR, +S2. ABSENT: diastolic murmur, rubs, systolic murmur Pulses: PRESENT: normal dorsalis pedis pul Vascular exam: PRESENT: normal capillary refill GI/Abdominal exam: PRESENT: diminished bowel sounds, soft, tenderness. ABSENT: distended, guarding, mass, organolmegaly, rebound Rectal exam: PRESENT: deferred Extremities exam: PRESENT: full ROM. ABSENT: calf tenderness, clubbing, pedal edema Neurological exam: PRESENT: alert, awake, oriented to person, oriented to place, oriented to time, oriented to situation, CN II-XII grossly intact. ABSENT: motor sensory deficit Psychiatric exam: PRESENT: appropriate affect, normal mood. ABSENT: homicidal ideation, suicidal ideation Skin exam: PRESENT: dry, intact, warm. ABSENT: cyanosis, rash Results Laboratory Results: 02/28/19 11:30 02/28/19 11:40 Triglycerides 51 02/17/19 02/17/19 14:54 14:54 Creatine Kinase < 20 L CK-MB (CK-2) < 0.22 Troponin I < 0.012 Impressions: Chest X-Ray 02/17/19 14:42 IMPRESSION: NO ACUTE RADIOGRAPHIC FINDING IN THE CHEST. Guidance Fluoroscopy 02/20/19 00:00 IMPRESSION: SUCCESSFUL PLACEMENT OF A 5 FR DUAL LUMEN 38 CM PICC IN THE LEFT BASILIC VEIN. Interventional Vascular Procedure 02/20/19 00:00 IMPRESSION: SUCCESSFUL PLACEMENT OF A 5 FR DUAL LUMEN 38 CM PICC IN THE LEFT BASILIC VEIN. PICC Line Insertion 02/20/19 06:00 IMPRESSION: SUCCESSFUL PLACEMENT OF A 5 FR DUAL LUMEN 38 CM PICC IN THE LEFT BASILIC VEIN. Abdomen/Pelvis CT 02/20/19 16:32 IMPRESSION: There is some free fluid in the pelvis. No other significant finding in the abdomen or pelvis. Assessment and Plan - Diagnosis (1) Gastric adenocarcinoma Is this a current diagnosis for this admission?: Yes Plan: Management per Oncology; Appreciate their expertise Surgery has been consulted; Plan for gastrectomy on Wednesday (2) Intractable nausea and vomiting Qualifiers: Vomiting type: unspecified Qualified Code(s): R11.2 - Nausea with vomiting, unspecified Is this a current diagnosis for this admission?: Yes Plan: Recurrent Secondary to gastric carcinoma Advance to regular diet per surgery; advised patient to eat small portions/slowly PICC line placed, now on TPN PRN Zofran, Phenergan, and pepcid (3) Protein calorie malnutrition Is this a current diagnosis for this admission?: Yes Plan: Secondary to anorexia and poor PO intake stemming from gastric carcinoma Prealbumin and weight are trending up. Prealbumin 9.9-> 13.9; weight 58.8-> 65.9kg Continuous TPN Plan to continue TPN until patient is able to undergo surgery on Wednesday Registered dietitian is consulted. (4) Anemia Qualifiers: Anemia type: unspecified type Qualified Code(s): D64.9 - Anemia, unspecified Is this a current diagnosis for this admission?: Yes Plan: Multifactorial secondary to malnutrition malignancy. Currently stable at Hbg 9.9 Now s/p 3 units PRBC this admission Continue to monitor daily CBC and transfuse for hemoglobin <7.5. (5) Hypokalemia Is this a current diagnosis for this admission?: Yes Plan: Resolved Likely secondary to poor PO intake Continue to monitor with daily chemistries (6) Dehydration Is this a current diagnosis for this admission?: Yes Plan: Resolved. (7) Constipation Is this a current diagnosis for this admission?: Yes Plan: Resolved Continue daily Senna - Time Time Spent with patient: 15-24 minutes Medications reviewed and adjusted accordingly: Yes Anticipated discharge: Home
[2019-03-01 20:16] LABS: ALANINE AMINOTRANSFERASE 547 U/L (9-52); ALBUMIN 2.5 g/dL (3.5-5.0); ALKALINE PHOSPHATASE 216 U/L (38-126); ANION GAP 6 (5-19); ASPARTATE AMINO TRANSFERASE 635 U/L (14-36); BILIRUBIN,DIRECT 0.3 mg/dL (0.0-0.4); BILIRUBIN,TOTAL 0.3 mg/dL (0.2-1.3); BLOOD UREA NITROGEN 13 mg/dL (7-20); CALCIUM 8.5 mg/dL (8.4-10.2); CARBON DIOXIDE 24 mmol/L (22-30); CHLORIDE 105 mmol/L (98-107); GLUCOSE 137 mg/dL (75-110); PHOSPHORUS 3.5 mg/dL (2.5-4.5); POTASSIUM 4.2 mmol/L (3.6-5.0); SODIUM 135.3 mmol/L (137-145); TOTAL PROTEIN 5.6 g/dL (6.3-8.2)
[2019-03-01 20:23] LABS: PREALBUMIN 12.2 mg/dL (17.6-36.0)
[2019-03-02] MEDS: INSULIN LISPRO 100 UNIT/ML 3 ML VIAL SUBCUT SCH ×5 (00:13→23:28)
[2019-03-02] MEDS: METOCLOPRAMIDE HCL INJ/PF 10 MG/2 ML SDV IV SCH ×5 (00:13→23:28)
[2019-03-02] MEDS: ONDANSETRON HCL INJ/PF 4 MG/2 ML SDV IV PRN ×5 (00:31→22:14)
[2019-03-02] MEDS: MORPHINE SULFATE 10 MG/ML INJ IV PRN ×5 (00:31→22:15)
[2019-03-02] MEDS: LEVOTHYROXINE SODIUM 0.025 MG TABLET PO SCH (05:25)
[2019-03-02 08:40] LABS: HEMATOCRIT 31.3 % (36.0-47.0); HEMOGLOBIN 10.4 g/dL (12.0-15.5); MEAN CORPUSCULAR HEMOGLOBIN 28.5 pg (27.0-33.4); MEAN CORPUSCULAR HGB CONC 33.4 g/dL (32.0-36.0); MEAN CORPUSCULAR VOLUME 86 fl (80-97); PLATELET COUNT 274 10^3/uL (150-450); RED BLOOD COUNT 3.66 10^6/uL (3.72-5.28); RED CELL DISTRIBUTION WIDTH 16.8 % (11.5-14.0); WHITE BLOOD COUNT 4.8 10^3/uL (4.0-10.5)
[2019-03-02 08:52] LABS: ALANINE AMINOTRANSFERASE 421 U/L (9-52); ALBUMIN 2.4 g/dL (3.5-5.0); ALKALINE PHOSPHATASE 195 U/L (38-126); ANION GAP 7 (5-19); ASPARTATE AMINO TRANSFERASE 324 U/L (14-36); BILIRUBIN,DIRECT 0.3 mg/dL (0.0-0.4); BILIRUBIN,TOTAL 0.3 mg/dL (0.2-1.3); BLOOD UREA NITROGEN 13 mg/dL (7-20); CALCIUM 8.5 mg/dL (8.4-10.2); CARBON DIOXIDE 23 mmol/L (22-30); CHLORIDE 105 mmol/L (98-107); GLUCOSE 120 mg/dL (75-110); PHOSPHORUS 3.7 mg/dL (2.5-4.5); POTASSIUM 4.4 mmol/L (3.6-5.0); SODIUM 135.4 mmol/L (137-145); TOTAL PROTEIN 5.1 g/dL (6.3-8.2)
[2019-03-02 09:00] LABS: PREALBUMIN 11.8 mg/dL (17.6-36.0)
[2019-03-02] MEDS: CARBAMIDE PEROXIDE 6.5% OTIC SOLN 15 ML AD SCH ×2 (09:05→17:55)
[2019-03-02] MEDS: HEPARIN SOD (PORCINE) 5,000 UNIT/ML 1 ML SYRINGE SUBCUT SCH ×2 (09:05→22:13)
[2019-03-02] MEDS: NORMAL SALINE 10 ML SDV (SCHEDULED) IV SCH ×2 (09:05→22:13)
[2019-03-02] MEDS: SUCRALFATE 1 GM TABLET PO SCH ×4 (09:05→22:13)
[2019-03-02] MEDS: SENNOSIDES/DOCUSATE 8.6-50 MG 1 EACH TABLET PO SCH ×2 (10:18→17:55)
[2019-03-02] MEDS: FOLIC ACID 1 MG TABLET PO SCH (10:18)
[2019-03-02] MEDS: FAMOTIDINE 20 MG TABLET PO SCH ×2 (10:18→22:19)
--- NOTE | 2019-03-02 13:08 | RADIOLOGY REPORT (SQ) ---
EXAM DESCRIPTION: CHEST SINGLE VIEW COMPLETED DATE/TIME: 03/02/2019 12:58 pm REASON FOR STUDY: PRE OP COMPARISON: 02/17/2019 TECHNIQUE: Single frontal radiographic view of the chest acquired. NUMBER OF VIEWS: One view. LIMITATIONS: None. FINDINGS: LUNGS AND PLEURA: No pneumothorax. Mild right medial basilar subsegmental atelectasis. N o dense consolidation or pleural effusion. MEDIASTINUM AND HILAR STRUCTURES: Stable. HEART AND VASCULAR STRUCTURES: Stable. BONES: No acute findings. HARDWARE: Left PICC line, tip overlying the SVC at the level of the donya. OTHER: No other significant finding. IMPRESSION: Mild right medial basilar subsegmental atelectasis. No dense consolidation or pleural e ffusion. TECHNICAL DOCUMENTATION: JOB ID: [id number] [id number] 2010 [employer]- All Rights Reserved Reading location - IP/workstation name: [email or web address]
--- NOTE | 2019-03-02 15:54 | PDOC PROGRESS REPORT ---
Subjective Progress Note for:: 03/02/19 Subjective:: ARGELIA JEAN is a 59 year old female with a PMH of hypothyroidism, anxiety and recent diagnosis of gastric adenocarcinoma who was admitted for dehydration due to nausea, vomiting and poor intake. Patient was seen on morning rounds. She was found to be resting in the recliner, comfortably on room air. She complains of nausea and abdominal discomfort this morning; somewhat improved today. She is now tolerating clears. Otherwise, she denies fever, chills, chest pain, palpitations, dyspnea, orthopnea, and cough. She has no other questions or concerns at this time. No concerns per nursing. Reason For Visit: INTRACTABLE N/V,DEHYDRATION,GASTRIC CANCER, Physical Exam Vital Signs: Temp Pulse Resp BP Pulse Ox 97.8 F 97 20 145/75 H 97 03/02/19 11:56 03/02/19 11:56 03/02/19 11:56 03/02/19 11:56 03/02/19 11:56 Intake & Output 03/01/19 03/02/19 03/03/19 06:59 06:59 06:59 Intake Total 4025 2004 1223 Output Total 250 300 Balance 3775 2004 923 Weight 65.9 kg 65.9 kg General appearance: PRESENT: no acute distress, cooperative, thin, well- developed, well-nourished Head exam: PRESENT: atraumatic, normocephalic Eye exam: PRESENT: conjunctiva pink, EOMI, PERRLA. ABSENT: scleral icterus Ear exam: PRESENT: normal external ear exam Mouth exam: PRESENT: moist, tongue midline Teeth exam: PRESENT: poor dentation Neck exam: ABSENT: carotid bruit, JVD, lymphadenopathy, thyromegaly Respiratory exam: PRESENT: clear to auscultation benjamin, symmetrical, unlabored. ABSENT: rales, rhonchi, wheezes Cardiovascular exam: PRESENT: RRR, +S1, +S2. ABSENT: diastolic murmur, rubs, systolic murmur Pulses: PRESENT: normal dorsalis pedis pul Vascular exam: PRESENT: normal capillary refill GI/Abdominal exam: PRESENT: diminished bowel sounds, soft, tenderness. ABSENT: distended, guarding, mass, organolmegaly, rebound Rectal exam: PRESENT: deferred Extremities exam: PRESENT: full ROM. ABSENT: calf tenderness, clubbing, pedal edema Neurological exam: PRESENT: alert, awake, oriented to person, oriented to place, oriented to time, oriented to situation, CN II-XII grossly intact. ABSENT: motor sensory deficit Psychiatric exam: PRESENT: appropriate affect, normal mood. ABSENT: homicidal ideation, suicidal ideation Skin exam: PRESENT: dry, intact, warm. ABSENT: cyanosis, rash Results Laboratory Results: 03/02/19 07:52 03/02/19 07:52 03/01/19 03/01/19 03/02/19 16:15 19:40 05:05 WBC RBC Hgb Hct MCV MCH MCHC RDW Plt Count Sodium Cancelled 135.3 L Cancelled Potassium Cancelled 4.2 Cancelled Chloride Cancelled 105 Cancelled Carbon Dioxide Cancelled 24 Cancelled Anion Gap Cancelled 6 Cancelled BUN Cancelled 13 Cancelled Creatinine Cancelled 0.31 L Cancelled Est GFR ( Amer) Cancelled > 60 Cancelled Est GFR (Non-Af Amer) Cancelled > 60 Cancelled Glucose Cancelled 137 H Cancelled Calcium Cancelled 8.5 Cancelled Phosphorus Cancelled 3.5 Cancelled Total Bilirubin Cancelled 0.3 Cancelled AST Cancelled 635 H Cancelled ALT Cancelled 547 H Cancelled Alkaline Phosphatase Cancelled 216 H Cancelled Total Protein Cancelled 5.6 L Cancelled Albumin Cancelled 2.5 L Cancelled Prealbumin Cancelled 12.2 L Cancelled Blood Type Antibody Screen 03/02/19 03/02/19 03/02/19 05:05 07:52 07:52 WBC Cancelled 4.8 RBC Cancelled 3.66 L Hgb Cancelled 10.4 L Hct Cancelled 31.3 L MCV Cancelled 86 MCH Cancelled 28.5 MCHC Cancelled 33.4 RDW Cancelled 16.8 H Plt Count Cancelled 274 Sodium 135.4 L Potassium 4.4 Chloride 105 Carbon Dioxide 23 Anion Gap 7 BUN 13 Creatinine 0.30 L Est GFR ( Amer) > 60 Est GFR (Non-Af Amer) > 60 Glucose 120 H Calcium 8.5 Phosphorus 3.7 Total Bilirubin 0.3 AST 324 H ALT 421 H Alkaline Phosphatase 195 H Total Protein 5.1 L Albumin 2.4 L Prealbumin 11.8 L Blood Type Antibody Screen 03/02/19 12:35 WBC RBC Hgb Hct MCV MCH MCHC RDW Plt Count Sodium Potassium Chloride Carbon Dioxide Anion Gap BUN Creatinine Est GFR ( Amer) Est GFR (Non-Af Amer) Glucose Calcium Phosphorus Total Bilirubin AST ALT Alkaline Phosphatase Total Protein Albumin Prealbumin Blood Type A NEGATIVE Antibody Screen NEGATIVE 02/17/19 02/17/19 14:54 14:54 Creatine Kinase < 20 L CK-MB (CK-2) < 0.22 Troponin I < 0.012 Impressions: Guidance Fluoroscopy 02/20/19 00:00 IMPRESSION: SUCCESSFUL PLACEMENT OF A 5 FR DUAL LUMEN 38 CM PICC IN THE LEFT BASILIC VEIN. Interventional Vascular Procedure 02/20/19 00:00 IMPRESSION: SUCCESSFUL PLACEMENT OF A 5 FR DUAL LUMEN 38 CM PICC IN THE LEFT BASILIC VEIN. PICC Line Insertion 02/20/19 06:00 IMPRESSION: SUCCESSFUL PLACEMENT OF A 5 FR DUAL LUMEN 38 CM PICC IN THE LEFT BASILIC VEIN. Abdomen/Pelvis CT 02/20/19 16:32 IMPRESSION: There is some free fluid in the pelvis. No other significant finding in the abdomen or pelvis. Chest X-Ray 03/02/19 11:37 IMPRESSION: Mild right medial basilar subsegmental atelectasis. No dense consolidation or pleural effusion. Assessment and Plan - Diagnosis (1) Gastric adenocarcinoma Is this a current diagnosis for this admission?: Yes Plan: Management per Oncology; Appreciate their expertise Surgery has been consulted; Plan for gastrectomy on Wednesday NPO after midnight (2) Intractable nausea and vomiting Qualifiers: Vomiting type: unspecified Qualified Code(s): R11.2 - Nausea with vomiting, unspecified Is this a current diagnosis for this admission?: Yes Plan: Recurrent Secondary to gastric carcinoma Clear liquid diet; advised patient to eat small portions/slowly PICC line placed, now on TPN PRN Zofran, Phenergan, and pepcid (3) Protein calorie malnutrition Is this a current diagnosis for this admission?: Yes Plan: Secondary to anorexia and poor PO intake stemming from gastric carcinoma Prealbumin and weight are trending up. Prealbumin 9.9-> 11.8; weight 58.8-> 65.9kg Continuous TPN Plan to continue TPN until patient is able to undergo surgery on Wednesday Registered dietitian is consulted. (4) Anemia Qualifiers: Anemia type: unspecified type Qualified Code(s): D64.9 - Anemia, unspecified Is this a current diagnosis for this admission?: Yes Plan: Multifactorial secondary to malnutrition malignancy. Currently stable at Hbg 10.4 Now s/p 3 units PRBC this admission Continue to monitor daily CBC and transfuse for hemoglobin <7.5. (5) Hypokalemia Is this a current diagnosis for this admission?: Yes Plan: Resolved Likely secondary to poor PO intake Continue to monitor with daily chemistries (6) Dehydration Is this a current diagnosis for this admission?: Yes Plan: Resolved. (7) Constipation Is this a current diagnosis for this admission?: Yes Plan: Resolved Continue daily Senna - Time Time Spent with patient: 15-24 minutes Medications reviewed and adjusted accordingly: Yes
[2019-03-02] MEDS: AMINO ACIDS 5 %/DEXTROSE 20 % 1,000 ML IV PRN (16:33)
[2019-03-02] MEDS: NORMAL SALINE 1000 ML 1,000 ML IV PRN (16:34)
--- NOTE | 2019-03-02 17:39 | PDOC PROGRESS REPORT ---
Subjective Progress Note for:: 03/02/19 Reason For Visit: INTRACTABLE N/V,DEHYDRATION,GASTRIC CANCER, gastric cancer Physical Exam Vital Signs: Temp Pulse Resp BP Pulse Ox 98.4 F 96 19 132/81 H 97 03/02/19 16:00 03/02/19 16:00 03/02/19 16:00 03/02/19 16:00 03/02/19 11:56 Intake & Output 03/01/19 03/02/19 03/03/19 06:59 06:59 06:59 Intake Total 4025 3005 1600 Output Total 250 300 Balance 3775 3005 1300 Weight 65.9 kg 65.9 kg General appearance: PRESENT: mild distress Head exam: PRESENT: normocephalic Eye exam: PRESENT: EOMI Mouth exam: PRESENT: moist Neck exam: PRESENT: full ROM Respiratory exam: PRESENT: clear to auscultation benjamin Cardiovascular exam: PRESENT: RRR Pulses: PRESENT: normal radial pulses, normal femoral pulses GI/Abdominal exam: PRESENT: normal bowel sounds Rectal exam: PRESENT: deferred Extremities exam: PRESENT: full ROM Musculoskeletal exam: PRESENT: full ROM Neurological exam: PRESENT: alert, awake, oriented to person, oriented to place Psychiatric exam: PRESENT: depressed Skin exam: PRESENT: dry Results Laboratory Results: 03/02/19 07:52 03/02/19 07:52 03/01/19 03/01/19 03/02/19 16:15 19:40 05:05 WBC RBC Hgb Hct MCV MCH MCHC RDW Plt Count Sodium Cancelled 135.3 L Cancelled Potassium Cancelled 4.2 Cancelled Chloride Cancelled 105 Cancelled Carbon Dioxide Cancelled 24 Cancelled Anion Gap Cancelled 6 Cancelled BUN Cancelled 13 Cancelled Creatinine Cancelled 0.31 L Cancelled Est GFR ( Amer) Cancelled > 60 Cancelled Est GFR (Non-Af Amer) Cancelled > 60 Cancelled Glucose Cancelled 137 H Cancelled Calcium Cancelled 8.5 Cancelled Phosphorus Cancelled 3.5 Cancelled Total Bilirubin Cancelled 0.3 Cancelled AST Cancelled 635 H Cancelled ALT Cancelled 547 H Cancelled Alkaline Phosphatase Cancelled 216 H Cancelled Total Protein Cancelled 5.6 L Cancelled Albumin Cancelled 2.5 L Cancelled Prealbumin Cancelled 12.2 L Cancelled Blood Type Antibody Screen 03/02/19 03/02/19 03/02/19 05:05 07:52 07:52 WBC Cancelled 4.8 RBC Cancelled 3.66 L Hgb Cancelled 10.4 L Hct Cancelled 31.3 L MCV Cancelled 86 MCH Cancelled 28.5 MCHC Cancelled 33.4 RDW Cancelled 16.8 H Plt Count Cancelled 274 Sodium 135.4 L Potassium 4.4 Chloride 105 Carbon Dioxide 23 Anion Gap 7 BUN 13 Creatinine 0.30 L Est GFR ( Amer) > 60 Est GFR (Non-Af Amer) > 60 Glucose 120 H Calcium 8.5 Phosphorus 3.7 Total Bilirubin 0.3 AST 324 H ALT 421 H Alkaline Phosphatase 195 H Total Protein 5.1 L Albumin 2.4 L Prealbumin 11.8 L Blood Type Antibody Screen 03/02/19 12:35 WBC RBC Hgb Hct MCV MCH MCHC RDW Plt Count Sodium Potassium Chloride Carbon Dioxide Anion Gap BUN Creatinine Est GFR ( Amer) Est GFR (Non-Af Amer) Glucose Calcium Phosphorus Total Bilirubin AST ALT Alkaline Phosphatase Total Protein Albumin Prealbumin Blood Type A NEGATIVE Antibody Screen NEGATIVE 02/17/19 02/17/19 14:54 14:54 Creatine Kinase < 20 L CK-MB (CK-2) < 0.22 Troponin I < 0.012 Impressions: Guidance Fluoroscopy 02/20/19 00:00 IMPRESSION: SUCCESSFUL PLACEMENT OF A 5 FR DUAL LUMEN 38 CM PICC IN THE LEFT BASILIC VEIN. Interventional Vascular Procedure 02/20/19 00:00 IMPRESSION: SUCCESSFUL PLACEMENT OF A 5 FR DUAL LUMEN 38 CM PICC IN THE LEFT BASILIC VEIN. PICC Line Insertion 02/20/19 06:00 IMPRESSION: SUCCESSFUL PLACEMENT OF A 5 FR DUAL LUMEN 38 CM PICC IN THE LEFT BASILIC VEIN. Abdomen/Pelvis CT 02/20/19 16:32 IMPRESSION: There is some free fluid in the pelvis. No other significant finding in the abdomen or pelvis. Chest X-Ray 03/02/19 11:37 IMPRESSION: Mild right medial basilar subsegmental atelectasis. No dense consolidation or pleural effusion. Assessment & Plan - Plan Summary Plan Summary: gastric cancer plan is for laparoscopic possible open gastrectomy in am will also place jejunostomy tube I discussed the risks iwth pt. including unresectable cancer need for additional surgery' bleeding, infection, stroke, mi, d4eath leak from anastomosis pulm emboli pt understands risks and agrees to proceed.
[2019-03-03] MEDS ORDERED: LORAZEPAM INJ 2 MG/1 ML VIAL IV ONE (01:15)
[2019-03-03] MEDS: NORMAL SALINE 1000 ML 1,000 ML IV PRN (05:36)
[2019-03-03] MEDS: ONDANSETRON HCL INJ/PF 4 MG/2 ML SDV IV PRN ×3 (05:36→22:40)
[2019-03-03] MEDS: METOCLOPRAMIDE HCL INJ/PF 10 MG/2 ML SDV IV SCH ×3 (05:51→17:51)
[2019-03-03] MEDS: LEVOTHYROXINE SODIUM 0.025 MG TABLET PO SCH (05:52)
[2019-03-03] MEDS: INSULIN LISPRO 100 UNIT/ML 3 ML VIAL SUBCUT SCH ×3 (06:12→18:41)
[2019-03-03 07:09] LABS: ALANINE AMINOTRANSFERASE 300 U/L (9-52); ALBUMIN 2.2 g/dL (3.5-5.0); ALKALINE PHOSPHATASE 222 U/L (38-126); ANION GAP 6 (5-19); ASPARTATE AMINO TRANSFERASE 173 U/L (14-36); BILIRUBIN,DIRECT 0.2 mg/dL (0.0-0.4); BILIRUBIN,TOTAL 0.3 mg/dL (0.2-1.3); BLOOD UREA NITROGEN 15 mg/dL (7-20); CALCIUM 8.4 mg/dL (8.4-10.2); CARBON DIOXIDE 26 mmol/L (22-30); CHLORIDE 103 mmol/L (98-107); GLUCOSE 98 mg/dL (75-110); PHOSPHORUS 3.7 mg/dL (2.5-4.5); SODIUM 134.8 mmol/L (137-145); TOTAL PROTEIN 5.2 g/dL (6.3-8.2)
[2019-03-03] MEDS: AMINO ACIDS 5 %/DEXTROSE 20 % 1,000 ML IV PRN ×2 (07:29→21:15)
[2019-03-03] MEDS: SUCRALFATE 1 GM TABLET PO SCH ×4 (08:32→22:31)
[2019-03-03] MEDS: CARBAMIDE PEROXIDE 6.5% OTIC SOLN 15 ML AD SCH ×2 (09:13→17:50)
[2019-03-03] MEDS: FOLIC ACID 1 MG TABLET PO SCH (09:13)
[2019-03-03] MEDS: HEPARIN SOD (PORCINE) 5,000 UNIT/ML 1 ML SYRINGE SUBCUT SCH (09:13)
[2019-03-03] MEDS: NORMAL SALINE 10 ML SDV (SCHEDULED) IV SCH ×2 (09:15→22:31)
[2019-03-03] MEDS: FAMOTIDINE 20 MG TABLET PO SCH ×2 (09:16→22:31)
[2019-03-03] MEDS: SENNOSIDES/DOCUSATE 8.6-50 MG 1 EACH TABLET PO SCH ×2 (09:16→17:50)
[2019-03-03] MEDS: MORPHINE SULFATE 10 MG/ML INJ IV PRN ×2 (09:35→22:39)
[2019-03-03] MEDS: FAT EMULSIONS 250 ML IV SCH (09:37)
[2019-03-03] MEDS ORDERED: BUPIVACAINE HCL 0.5%-EPI 1:200000 INJ/PF 30 ML VIAL ONE (10:57)
[2019-03-03] MEDS ORDERED: HYDROMORPHONE HCL INJ/PF 2 MG/ML AMPULE ONE ×2 (11:13→11:15)
[2019-03-03] MEDS ORDERED: EPHEDRINE SULFATE INJ 50 MG/1 ML AMPULE ONE (11:13)
[2019-03-03] MEDS ORDERED: PROPOFOL INJ 200 MG/20 ML VIAL IV ONE (11:13)
[2019-03-03] MEDS ORDERED: MIDAZOLAM 2 MG/2 ML INJ ONE (11:13)
[2019-03-03] MEDS ORDERED: FENTANYL CITRATE INJ/PF 250 MCG/5 ML AMPULE ONE (11:13)
[2019-03-03] MEDS ORDERED: ACETAMINOPHEN 0 MG/0 ML RTUPB IV ONE (11:14)
[2019-03-03] MEDS ORDERED: LIDOCAINE 2% INJ-PF (20 MG/ML) 10 ML AMPUL ONE (11:17)
[2019-03-03] MEDS ORDERED: VASOPRESSIN INJ 20 UNIT/1 ML VIAL ONE (11:18)
[2019-03-03] MEDS ORDERED: SUCCINYLCHOLINE CHLORIDE INJ 200 MG/10 ML VIAL ONE (11:30)
[2019-03-03] MEDS ORDERED: LIDOCAINE 2% INJ-PF (20 MG/ML) 2 ML AMPUL ONE (11:30)
[2019-03-03] MEDS ORDERED: CEFAZOLIN INJ 1 GM VIAL ONE (11:52)
[2019-03-03] MEDS ORDERED: METRONIDAZOLE 500 MG/NS RTU 500 MG/100 ML RTUPB IV ONE (11:52)
[2019-03-03] MEDS ORDERED: ONDANSETRON HCL INJ/PF 4 MG/2 ML SDV IV PRN (14:03)
[2019-03-03] MEDS ORDERED: FENTANYL CITRATE INJ/PF 100 MCG/2 ML AMPUL IV PRN ×3 (14:03)
[2019-03-03] MEDS ORDERED: MEPERIDINE HCL/PF INJ 25 MG/1 ML DISP.SYRIN IV PRN (14:03)
[2019-03-03] MEDS ORDERED: PROMETHAZINE HCL INJ 25 MG/1 ML VIAL IV PRN ×2 (14:03)
[2019-03-03] MEDS ORDERED: SUGAMMADEX SODIUM 200 MG/2 ML SDV IV ONE (14:50)
--- NOTE | 2019-03-03 15:09 | Operative Report ---
Nonrecallable Operative Report DATE OF SURGERY: 03/03/19 PREOPERATIVE DIAGNOSIS: gastric cancer POSTOPERATIVE DIAGNOSIS: gastric cancer with carcinomatosis OPERATION: diagnostic laparoscopy with peritioneal biopsy 1ST METHODS ANALYST: RON KINSEY ANESTHESIA: GA TISSUE REMOVED OR ALTERED: peritioneal biopsy COMPLICATIONS: none ESTIMATED BLOOD LOSS: 5cc INTRAOPERATIVE FINDINGS: see dictation PROCEDURE: see dictation
--- NOTE | 2019-03-03 17:27 | PDOC PROGRESS REPORT ---
Subjective Progress Note for:: 03/03/19 Subjective:: ARGELIA JEAN is a 59 year old female with a PMH of hypothyroidism, anxiety and recent diagnosis of gastric adenocarcinoma who was admitted for dehydration due to nausea, vomiting and poor intake. The patient was not seen on rounds today. She was taken to the OR prior to my arrival this morning and had not returned to the floor when I rounded again later on this afternoon. Did discuss with pharmacy her recent lab results and plans to continue TPN tonight unless alternate orders were received by Dr. Estrada following surgery. Overnight events and vital signs reviewed. Discussed plan of care w/ nursing. Reason For Visit: INTRACTABLE N/V,DEHYDRATION,GASTRIC CANCER, Physical Exam Vital Signs: Temp Pulse Resp BP Pulse Ox 98.2 F 112 H 16 150/80 H 100 03/03/19 16:30 03/03/19 16:30 03/03/19 16:30 03/03/19 16:30 03/03/19 16:30 Intake & Output 03/02/19 03/03/19 03/04/19 06:59 06:59 06:59 Intake Total 3005 3800 Output Total 600 Balance 3005 3200 Weight 65.9 kg 65.9 kg Results Laboratory Results: 03/02/19 07:52 03/03/19 05:48 03/03/19 05:48 Sodium 134.8 L Potassium 4.0 Chloride 103 Carbon Dioxide 26 Anion Gap 6 BUN 15 Creatinine 0.31 L Est GFR ( Amer) > 60 Est GFR (Non-Af Amer) > 60 Glucose 98 Calcium 8.4 Phosphorus 3.7 Total Bilirubin 0.3 AST 173 H ALT 300 H Alkaline Phosphatase 222 H Total Protein 5.2 L Albumin 2.2 L Prealbumin 12.0 L 02/17/19 02/17/19 14:54 14:54 Creatine Kinase < 20 L CK-MB (CK-2) < 0.22 Troponin I < 0.012 Impressions: Guidance Fluoroscopy 02/20/19 00:00 IMPRESSION: SUCCESSFUL PLACEMENT OF A 5 FR DUAL LUMEN 38 CM PICC IN THE LEFT BASILIC VEIN. Interventional Vascular Procedure 02/20/19 00:00 IMPRESSION: SUCCESSFUL PLACEMENT OF A 5 FR DUAL LUMEN 38 CM PICC IN THE LEFT BASILIC VEIN. PICC Line Insertion 02/20/19 06:00 IMPRESSION: SUCCESSFUL PLACEMENT OF A 5 FR DUAL LUMEN 38 CM PICC IN THE LEFT BASILIC VEIN. Abdomen/Pelvis CT 02/20/19 16:32 IMPRESSION: There is some free fluid in the pelvis. No other significant finding in the abdomen or pelvis. Chest X-Ray 03/02/19 11:37 IMPRESSION: Mild right medial basilar subsegmental atelectasis. No dense consolidation or pleural effusion. Assessment and Plan - Diagnosis (1) Gastric adenocarcinoma Is this a current diagnosis for this admission?: Yes Plan: Management per Oncology; Appreciate their expertise Surgery has been consulted To OR for possible gastrectomy today. (2) Intractable nausea and vomiting Qualifiers: Vomiting type: unspecified Qualified Code(s): R11.2 - Nausea with vomiting, unspecified Is this a current diagnosis for this admission?: Yes Plan: Recurrent Secondary to gastric carcinoma PRN Zofran, Phenergan, and pepcid (3) Protein calorie malnutrition Is this a current diagnosis for this admission?: Yes Plan: Secondary to anorexia and poor PO intake stemming from gastric carcinoma Prealbumin and weight are trending up. Prealbumin 9.9-> 12; weight 58.8-> 65.9kg Continuous TPN Further nutritional options as determined by surgery (p.o vs TF via J tube) Registered dietitian is consulted. (4) Anemia Qualifiers: Anemia type: unspecified type Qualified Code(s): D64.9 - Anemia, unspecified Is this a current diagnosis for this admission?: Yes Plan: Multifactorial secondary to malnutrition and malignancy. Currently stable at Hbg 10.4 Now s/p 3 units PRBC this admission Continue to monitor daily CBC and transfuse for hemoglobin <7.5. (5) Hypokalemia Is this a current diagnosis for this admission?: Yes Plan: Resolved Likely secondary to poor PO intake Continue to monitor with daily chemistries (6) Dehydration Is this a current diagnosis for this admission?: Yes Plan: Resolved. (7) Constipation Is this a current diagnosis for this admission?: Yes Plan: Resolved Continue daily Senna
--- NOTE | 2019-03-03 19:19 | OPERATIVE REPORT E ---
Operative Report NAME: ARGELIA JEAN : 1960 AGE: 59Y DATE OF SURGERY: 03/03/2019 ROOM: 402 PREOPERATIVE DIAGNOSIS: GASTRIC CANCER. POSTOPERATIVE DIAGNOSIS: GASTRIC CANCER WITH CARCINOMATOSIS. OPERATION: Diagnostic laparoscopic with peritoneal biopsy. SURGEON: MICHAEL ESPINAL M.D. STEELSCOPE OPERATOR: Candice Garcia PA-C, who was present for the entire procedure for aide in retraction and closure. INDICATIONS FOR OPERATION: This is a 59-year-old female with a diagnosis of gastric cancer upon endoscopy a few weeks ago. She has been in the hospital now for approximately 10 days on IV TPN as she was significantly malnourished prior to this planned procedure. She underwent a preoperative CT scan as well as a PET scan, which showed the cancer was localized to the stomach and distal esophagus. She was, therefore, scheduled for a gastrectomy. PROCEDURE IN DETAIL: The patient was brought to the operating room in an awake, alert, and stable condition. Placed on the operating room table in supine position, induced under general anesthesia, intubated. Her abdomen was prepped and draped in the usual sterile fashion. After appropriate timeout and site verification the Veress needle was placed into the umbilicus. The abdomen was insufflated with 6 liters of CO2 gas. A supraumbilical longitudinal incision was made with a 15 blade and a 10 mm port was placed in the abdominal cavity. Intraabdominal visualization immediately revealed no evidence of a Veress needle or trocar injury. However, there was some significant ascites and some omental caking to the anterior abdominal wall. We, therefore, placed 2 lateral ports so we could more adequately visualize the intraabdominal structures. 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 It was not malleable and not compressible. It was fixed to the transverse colon. Along the lesser curvature there were large nodes emanating from the lesser sac, that appeared to be enveloping the lesser curvature of the stomach and the vasculature. The liver appeared to be normal. However, the diaphragm and the peritoneal surfaces as well as the omentum showed evidence of a carcinomatosis with white excrescences throughout the entire abdominal cavity. One of these were biopsied with the biopsy forceps and sent to pathology. Particular biopsy was on the peritoneal surface on the lateral abdominal wall. It proved to be carcinoma. For this reason and because of intraabdominal findings we elected not to perform a gastrectomy. In addition to that, the small bowel was somewhat dilated with air and there was no evidence of any point of obstruction; however, the small bowel was dilated and because of the ascites and the obvious carcinomatosis I elected not to perform a feeding tube at this time. Therefore, we elected to close. We closed the umbilical port site and the right lower quadrant 10 mm port site with 0-Vicryl in the fascia and then closed the skin with intracuticular 4-0 Biosyn. Steri-Strips completed the procedure. Estimated blood loss for the procedure was less than 5 mL. Sponge and needle counts were correct x2. The patient was awakened in the operating, extubated, and transferred to recovery in stable condition. No complications. DICTATING PHYSICIAN: MICHAEL ESPINAL M.D. [id number] PHY#: [id number] ID: [id number] JOB#: [id number] ACCT: [id number] cc:MICHAEL ESPINAL M.D. >
[2019-03-03] MEDS: LORAZEPAM INJ 2 MG/1 ML VIAL IV PRN (19:42)
[2019-03-04] MEDS: METOCLOPRAMIDE HCL INJ/PF 10 MG/2 ML SDV IV SCH ×4 (00:02→17:42)
[2019-03-04] MEDS: INSULIN LISPRO 100 UNIT/ML 3 ML VIAL SUBCUT SCH ×4 (00:04→17:58)
[2019-03-04] MEDS: NORMAL SALINE 1000 ML 1,000 ML IV PRN ×2 (00:04→12:55)
[2019-03-04] MEDS: LORAZEPAM INJ 2 MG/1 ML VIAL IV PRN ×5 (00:10→17:43)
[2019-03-04] MEDS: LEVOTHYROXINE SODIUM 0.025 MG TABLET PO SCH (05:51)
[2019-03-04 06:27] LABS: HEMATOCRIT 26.4 % (36.0-47.0); HEMOGLOBIN 8.9 g/dL (12.0-15.5); MEAN CORPUSCULAR HEMOGLOBIN 28.6 pg (27.0-33.4); MEAN CORPUSCULAR HGB CONC 33.6 g/dL (32.0-36.0); MEAN CORPUSCULAR VOLUME 85 fl (80-97); PLATELET COUNT 238 10^3/uL (150-450); RED CELL DISTRIBUTION WIDTH 16.3 % (11.5-14.0)
[2019-03-04 06:41] LABS: WHITE BLOOD COUNT 2.8 10^3/uL (4.0-10.5)
[2019-03-04] MEDS: SUCRALFATE 1 GM TABLET PO SCH ×4 (07:46→21:45)
[2019-03-04] MEDS: AMINO ACIDS 5 %/DEXTROSE 20 % 1,000 ML IV PRN ×2 (09:53→22:33)
[2019-03-04] MEDS: NORMAL SALINE 10 ML SDV (SCHEDULED) IV SCH ×2 (09:56→21:45)
[2019-03-04] MEDS: FOLIC ACID 1 MG TABLET PO SCH (09:56)
[2019-03-04] MEDS: CARBAMIDE PEROXIDE 6.5% OTIC SOLN 15 ML AD SCH ×2 (09:56→17:42)
[2019-03-04] MEDS: FAMOTIDINE 20 MG TABLET PO SCH ×2 (09:56→21:45)
[2019-03-04] MEDS: SENNOSIDES/DOCUSATE 8.6-50 MG 1 EACH TABLET PO SCH ×2 (09:56→17:42)
--- NOTE | 2019-03-04 09:59 | PDOC PROGRESS REPORT ---
Subjective Progress Note for:: 03/04/19 Subjective:: Patient states she is having pain, meds do not last long enough. Family reports that she did not like the morphine and has been using ativan for the pain instead. She also has pain in a small patch on her back. She has been able to drink some water. Reason For Visit: INTRACTABLE N/V,DEHYDRATION,GASTRIC CANCER, Physical Exam Vital Signs: Temp Pulse Resp BP Pulse Ox 98.7 F 90 20 113/64 94 03/04/19 08:00 03/04/19 08:00 03/04/19 08:00 03/04/19 08:00 03/04/19 08:00 Intake & Output 03/03/19 03/04/19 03/05/19 06:59 06:59 06:59 Intake Total 3800 4600 Output Total 600 1730 Balance 3200 2870 Weight 65.9 kg General appearance: PRESENT: thin Head exam: PRESENT: normocephalic Respiratory exam: PRESENT: clear to auscultation benjamin, unlabored Cardiovascular exam: PRESENT: RRR GI/Abdominal exam: PRESENT: normal bowel sounds, soft, tenderness, other - dressings in place. Extremities exam: ABSENT: pedal edema Neurological exam: PRESENT: alert, awake Skin exam: PRESENT: normal color Results Laboratory Results: 03/04/19 05:35 03/03/19 05:48 03/04/19 05:35 WBC 2.8 L D RBC 3.10 L Hgb 8.9 L Hct 26.4 L MCV 85 MCH 28.6 MCHC 33.6 RDW 16.3 H Plt Count 238 02/17/19 02/17/19 14:54 14:54 Creatine Kinase < 20 L CK-MB (CK-2) < 0.22 Troponin I < 0.012 Impressions: Guidance Fluoroscopy 02/20/19 00:00 IMPRESSION: SUCCESSFUL PLACEMENT OF A 5 FR DUAL LUMEN 38 CM PICC IN THE LEFT BASILIC VEIN. Interventional Vascular Procedure 02/20/19 00:00 IMPRESSION: SUCCESSFUL PLACEMENT OF A 5 FR DUAL LUMEN 38 CM PICC IN THE LEFT BASILIC VEIN. PICC Line Insertion 02/20/19 06:00 IMPRESSION: SUCCESSFUL PLACEMENT OF A 5 FR DUAL LUMEN 38 CM PICC IN THE LEFT BASILIC VEIN. Abdomen/Pelvis CT 02/20/19 16:32 IMPRESSION: There is some free fluid in the pelvis. No other significant finding in the abdomen or pelvis. Chest X-Ray 03/02/19 11:37 IMPRESSION: Mild right medial basilar subsegmental atelectasis. No dense consolidation or pleural effusion. Assessment & Plan - Diagnosis (1) Gastric adenocarcinoma Is this a current diagnosis for this admission?: Yes Plan: I spent from 9:00 am until 9:45 am with the patient and/or family in discussion. Dr. Estrada was also present for most of the discussion. The family is angry at the overall situation. They state that they were told that a doctor told a friend of the family that she only had [address] Estrada and I explained that we do not know who would have said that but we are her primary ph ysicians and we cannot say with any certainty how much time she has. We have explained to the family that this type of cancer, unlike typical gastric cancers did not start in the stomach lining, and so was not visible on prior endoscopies. It also does not grow in a large mass like fashion, so is not visible on scans. However, it is now quite extensive and has spread throughout her abdominal cavity. I discussed the fact that we can offer her chemotherapy to palliate symptoms, but this would not be done for at least 2-4 week, and would only be done if she agrees and is strong enough. The patient and the family may also choose Hospice/palliative services at home. This will give them support and still allow her to be at home with family. If she is able to gain strength, then chemotherapy may still be an option. Family states that there are no family members who can currently take care of her outside a hospital setting. They are still discussing this and other possibilities. We also discussed transferring her to another facility as family seems greatly upset with the situation in general and believe that other physicians in an other hospital would be able to care for her better. We decided to meet again on Wednesday at 8:00 am so that family can be present for any conversations that happen. (2) Intractable nausea and vomiting Qualifiers: Vomiting type: unspecified Qualified Code(s): R11.2 - Nausea with vomiting, unspecified Is this a current diagnosis for this admission?: Yes (3) Anemia Qualifiers: Anemia type: iron deficiency Iron deficiency anemia type: inadequate dietary iron intake Qualified Code(s): D50.8 - Other iron deficiency anemias Is this a current diagnosis for this admission?: Yes Plan: Will continue to follow blood counts. - Plan Summary Plan Summary: Please call if needed.
--- NOTE | 2019-03-04 10:20 | PDOC PROGRESS REPORT ---
Subjective Progress Note for:: 03/04/19 Subjective:: sedated, currently pain controlled tu some sips of clears Reason For Visit: INTRACTABLE N/V,DEHYDRATION,GASTRIC CANCER, Physical Exam Vital Signs: Temp Pulse Resp BP Pulse Ox 98.7 F 90 20 113/64 94 03/04/19 08:00 03/04/19 08:00 03/04/19 08:00 03/04/19 08:00 03/04/19 08:00 Intake & Output 03/03/19 03/04/19 03/05/19 06:59 06:59 06:59 Intake Total 3800 4600 1000 Output Total 600 1730 Balance 3200 2870 1000 Weight 65.9 kg General appearance: PRESENT: mild distress Head exam: PRESENT: normocephalic Eye exam: PRESENT: EOMI Mouth exam: PRESENT: moist Neck exam: PRESENT: full ROM Respiratory exam: PRESENT: clear to auscultation benjamin Cardiovascular exam: PRESENT: RRR Pulses: PRESENT: normal radial pulses, normal femoral pulses GI/Abdominal exam: PRESENT: firm, normal bowel sounds Rectal exam: PRESENT: deferred Extremities exam: PRESENT: full ROM Musculoskeletal exam: PRESENT: full ROM Neurological exam: PRESENT: awake, oriented to person, other - drowsy Psychiatric exam: PRESENT: depressed Skin exam: PRESENT: dry Results Laboratory Results: 03/04/19 05:35 03/03/19 05:48 03/04/19 05:35 WBC 2.8 L D RBC 3.10 L Hgb 8.9 L Hct 26.4 L MCV 85 MCH 28.6 MCHC 33.6 RDW 16.3 H Plt Count 238 02/17/19 02/17/19 14:54 14:54 Creatine Kinase < 20 L CK-MB (CK-2) < 0.22 Troponin I < 0.012 Impressions: Guidance Fluoroscopy 02/20/19 00:00 IMPRESSION: SUCCESSFUL PLACEMENT OF A 5 FR DUAL LUMEN 38 CM PICC IN THE LEFT BASILIC VEIN. Interventional Vascular Procedure 02/20/19 00:00 IMPRESSION: SUCCESSFUL PLACEMENT OF A 5 FR DUAL LUMEN 38 CM PICC IN THE LEFT BASILIC VEIN. PICC Line Insertion 02/20/19 06:00 IMPRESSION: SUCCESSFUL PLACEMENT OF A 5 FR DUAL LUMEN 38 CM PICC IN THE LEFT BASILIC VEIN. Abdomen/Pelvis CT 02/20/19 16:32 IMPRESSION: There is some free fluid in the pelvis. No other significant finding in the abdomen or pelvis. Chest X-Ray 03/02/19 11:37 IMPRESSION: Mild right medial basilar subsegmental atelectasis. No dense consolidation or pleural effusion. Assessment & Plan - Plan Summary Plan Summary: I was present during the discussion Dr Hartmann had with family this am pt has unresectable metastatic gastric cancer currently family considering chemo vs hospice further discussion to follow see Dr Hartmann's note.
[2019-03-04] MEDS: ONDANSETRON HCL INJ/PF 4 MG/2 ML SDV IV PRN ×2 (14:14→21:36)
[2019-03-04] MEDS: MORPHINE SULFATE 10 MG/ML INJ IV PRN (21:39)
--- NOTE | 2019-03-04 22:21 | PDOC PROGRESS REPORT ---
Subjective Progress Note for:: 03/04/19 Subjective:: ARGELIA JEAN is a 59 year old female with a PMH of hypothyroidism, anxiety and recent diagnosis of gastric adenocarcinoma who was admitted for dehydration due to nausea, vomiting and poor intake. The patient went to the OR yesterday but Dr Estrada was unable to resect her gastric cancer as it was too widespread. Discussion with family, Dr. Estrada and Dr. Kemp today. Plan for continued TPN while patient and family attempts to decide if they want to pursue hospice vs. palliative chemo. The patient appears comfortable upon assessment. She is resting in bed, no family at bedside. She endorses pain but is able to tolerate it, does not ask for morphine. Patient states she only wants Ativan to help calm her nerves. Reason For Visit: INTRACTABLE N/V,DEHYDRATION,GASTRIC CANCER, Physical Exam Vital Signs: Temp Pulse Resp BP Pulse Ox 98.6 F 108 H 15 124/61 98 03/04/19 20:00 03/04/19 20:00 03/04/19 20:00 03/04/19 20:00 03/04/19 20:00 Intake & Output 03/03/19 03/04/19 03/05/19 06:59 06:59 06:59 Intake Total 3800 4600 2000 Output Total 600 1730 620 Balance 3200 2870 1380 Weight 65.9 kg General appearance: PRESENT: thin Head exam: PRESENT: atraumatic Eye exam: PRESENT: conjunctiva pale, PERRLA Mouth exam: PRESENT: moist, tongue midline Neck exam: PRESENT: full ROM Respiratory exam: PRESENT: clear to auscultation benjamin, symmetrical, unlabored Cardiovascular exam: PRESENT: RRR Pulses: PRESENT: normal radial pulses Vascular exam: PRESENT: pallor GI/Abdominal exam: PRESENT: distended - lower quadrants (R&L), hypoactive bowel sounds, soft, tenderness Rectal exam: PRESENT: deferred Extremities exam: PRESENT: full ROM. ABSENT: pedal edema Musculoskeletal exam: PRESENT: full ROM, normal inspection Neurological exam: PRESENT: alert, awake, oriented to person, oriented to place, oriented to time, oriented to situation Psychiatric exam: PRESENT: appropriate affect Skin exam: PRESENT: dry, intact Results Laboratory Results: 03/04/19 05:35 03/03/19 05:48 03/04/19 05:35 WBC 2.8 L D RBC 3.10 L Hgb 8.9 L Hct 26.4 L MCV 85 MCH 28.6 MCHC 33.6 RDW 16.3 H Plt Count 238 02/17/19 02/17/19 14:54 14:54 Creatine Kinase < 20 L CK-MB (CK-2) < 0.22 Troponin I < 0.012 Impressions: Guidance Fluoroscopy 02/20/19 00:00 IMPRESSION: SUCCESSFUL PLACEMENT OF A 5 FR DUAL LUMEN 38 CM PICC IN THE LEFT BASILIC VEIN. Interventional Vascular Procedure 02/20/19 00:00 IMPRESSION: SUCCESSFUL PLACEMENT OF A 5 FR DUAL LUMEN 38 CM PICC IN THE LEFT BASILIC VEIN. PICC Line Insertion 02/20/19 06:00 IMPRESSION: SUCCESSFUL PLACEMENT OF A 5 FR DUAL LUMEN 38 CM PICC IN THE LEFT BASILIC VEIN. Abdomen/Pelvis CT 02/20/19 16:32 IMPRESSION: There is some free fluid in the pelvis. No other significant finding in the abdomen or pelvis. Chest X-Ray 03/02/19 11:37 IMPRESSION: Mild right medial basilar subsegmental atelectasis. No dense consolidation or pleural effusion. Status: Imported from PACS Assessment and Plan - Diagnosis (1) Intractable nausea and vomiting Qualifiers: Vomiting type: unspecified Qualified Code(s): R11.2 - Nausea with vomiting, unspecified Is this a current diagnosis for this admission?: Yes Plan: Recurrent Secondary to gastric carcinoma PRN Zofran, Phenergan, and pepcid (2) Dehydration Is this a current diagnosis for this admission?: Yes Plan: Resolved. (3) Gastric adenocarcinoma Is this a current diagnosis for this admission?: Yes Plan: Management per Oncology; Appreciate their expertise Surgery has been consulted Unsuccessful gastrectomy due to widespread carcinoma Family meeting today with Surgery and Oncology Discussion about hospice vs palliative chemo - no decision at this time (4) Hypokalemia Is this a current diagnosis for this admission?: Yes Plan: Resolved Likely secondary to poor PO intake Continue to monitor with daily chemistries (5) Protein calorie malnutrition Is this a current diagnosis for this admission?: Yes Plan: Secondary to anorexia and poor PO intake stemming from gastric carcinoma Prealbumin and weight are trending up. Prealbumin 9.9-> 12; weight 58.8-> 65.9kg Continuous TPN Further nutritional options as determined by surgery (p.o vs TF via J tube) Registered dietitian is consulted. - Time Time Spent with patient: 15-24 minutes Medications reviewed and adjusted accordingly: Yes Within: Other - when medically stable - Inpatient Certification Based on my medical assessment, after consideration of the patient's comorbidities, presenting symptoms, or acuity I expect that the services needed warrant INPATIENT care.: Yes I certify that my determination is in accordance with my understanding of Medicare's requirements for reasonable and necessary INPATIENT services [42 CFR 412.3e].: Yes Medical Necessity: Significant Comorbidiites Make Outpatient Treatment Too Risky, Need For IV Fluids, Risk of Complication if Not Cared For in Hospital
[2019-03-05] MEDS: METOCLOPRAMIDE HCL INJ/PF 10 MG/2 ML SDV IV SCH ×5 (00:26→23:29)
[2019-03-05] MEDS: INSULIN LISPRO 100 UNIT/ML 3 ML VIAL SUBCUT SCH ×5 (00:26→23:29)
[2019-03-05] MEDS: NORMAL SALINE 1000 ML 1,000 ML IV PRN ×2 (01:00→14:46)
[2019-03-05] MEDS: LORAZEPAM INJ 2 MG/1 ML VIAL IV PRN ×3 (01:00→18:02)
[2019-03-05] MEDS: ONDANSETRON HCL INJ/PF 4 MG/2 ML SDV IV PRN ×4 (02:28→20:28)
[2019-03-05] MEDS: MORPHINE SULFATE 10 MG/ML INJ IV PRN (02:30)
[2019-03-05] MEDS: LEVOTHYROXINE SODIUM 0.025 MG TABLET PO SCH (05:38)
[2019-03-05 06:12] LABS: HEMATOCRIT 24.4 % (36.0-47.0); HEMOGLOBIN 8.1 g/dL (12.0-15.5); MEAN CORPUSCULAR HEMOGLOBIN 28.6 pg (27.0-33.4); MEAN CORPUSCULAR HGB CONC 33.2 g/dL (32.0-36.0); MEAN CORPUSCULAR VOLUME 86 fl (80-97); PLATELET COUNT 216 10^3/uL (150-450); RED BLOOD COUNT 2.83 10^6/uL (3.72-5.28); RED CELL DISTRIBUTION WIDTH 16.2 % (11.5-14.0); WHITE BLOOD COUNT 2.8 10^3/uL (4.0-10.5)
[2019-03-05 06:31] LABS: ALANINE AMINOTRANSFERASE 307 U/L (9-52); ALBUMIN 1.8 g/dL (3.5-5.0); ALKALINE PHOSPHATASE 271 U/L (38-126); ASPARTATE AMINO TRANSFERASE 154 U/L (14-36); BILIRUBIN,DIRECT 0.2 mg/dL (0.0-0.4); BILIRUBIN,TOTAL 0.2 mg/dL (0.2-1.3); BLOOD UREA NITROGEN 14 mg/dL (7-20); CALCIUM 7.7 mg/dL (8.4-10.2); GLUCOSE 79 mg/dL (75-110); TOTAL PROTEIN 4.3 g/dL (6.3-8.2)
[2019-03-05 06:36] LABS: CARBON DIOXIDE 28 mmol/L (22-30); CHLORIDE 103 mmol/L (98-107); SODIUM 134.1 mmol/L (137-145)
[2019-03-05 06:39] LABS: ANION GAP 3 (5-19)
[2019-03-05] MEDS: SUCRALFATE 1 GM TABLET PO SCH ×4 (07:55→21:13)
--- NOTE | 2019-03-05 09:20 | PDOC PROGRESS REPORT ---
Subjective Progress Note for:: 03/05/19 Subjective:: c/o of some abd pain with deep inspiration afeb vss Reason For Visit: INTRACTABLE N/V,DEHYDRATION,GASTRIC CANCER, Physical Exam Vital Signs: Temp Pulse Resp BP Pulse Ox 98.2 F 103 H 20 114/60 100 03/05/19 07:56 03/05/19 07:56 03/05/19 07:56 03/05/19 07:56 03/05/19 07:56 Intake & Output 03/04/19 03/05/19 03/06/19 06:59 06:59 06:59 Intake Total 4600 4180 Output Total 1730 2095 Balance 2870 2085 Results Laboratory Results: 03/05/19 05:45 03/05/19 05:45 03/05/19 03/05/19 05:45 05:45 WBC 2.8 L RBC 2.83 L Hgb 8.1 L Hct 24.4 L MCV 86 MCH 28.6 MCHC 33.2 RDW 16.2 H Plt Count 216 Sodium 134.1 L Potassium 4.0 Chloride 103 Carbon Dioxide 28 Anion Gap 3 L BUN 14 Creatinine 0.36 L Est GFR ( Amer) > 60 Est GFR (Non-Af Amer) > 60 Glucose 79 Calcium 7.7 L Phosphorus 4.0 Magnesium 1.8 Total Bilirubin 0.2 AST 154 H ALT 307 H Alkaline Phosphatase 271 H Total Protein 4.3 L Albumin 1.8 L 02/17/19 02/17/19 14:54 14:54 Creatine Kinase < 20 L CK-MB (CK-2) < 0.22 Troponin I < 0.012 Impressions: Guidance Fluoroscopy 02/20/19 00:00 IMPRESSION: SUCCESSFUL PLACEMENT OF A 5 FR DUAL LUMEN 38 CM PICC IN THE LEFT BASILIC VEIN. Interventional Vascular Procedure 02/20/19 00:00 IMPRESSION: SUCCESSFUL PLACEMENT OF A 5 FR DUAL LUMEN 38 CM PICC IN THE LEFT BASILIC VEIN. PICC Line Insertion 02/20/19 06:00 IMPRESSION: SUCCESSFUL PLACEMENT OF A 5 FR DUAL LUMEN 38 CM PICC IN THE LEFT BASILIC VEIN. Abdomen/Pelvis CT 02/20/19 16:32 IMPRESSION: There is some free fluid in the pelvis. No other significant finding in the abdomen or pelvis. Chest X-Ray 03/02/19 11:37 IMPRESSION: Mild right medial basilar subsegmental atelectasis. No dense consolidation or pleural effusion. Assessment & Plan - Plan Summary Plan Summary: pt seen Darlin Jin appears somewhat sedated however communicates well taking some sips of clear no bm for 6-7 days receiving ativan, which she is taking for pain and anxiety. she does not like the narcotics I have still not discussed intraop findings per family request. no further surgical plans at this time I will however cont to follow with Dr Hartmann.
[2019-03-05] MEDS: CARBAMIDE PEROXIDE 6.5% OTIC SOLN 15 ML AD SCH ×2 (09:29→17:57)
[2019-03-05] MEDS: FOLIC ACID 1 MG TABLET PO SCH (09:29)
[2019-03-05] MEDS: NORMAL SALINE 10 ML SDV (SCHEDULED) IV SCH ×2 (09:30→21:13)
[2019-03-05] MEDS: SENNOSIDES/DOCUSATE 8.6-50 MG 1 EACH TABLET PO SCH ×2 (09:35→17:58)
[2019-03-05] MEDS: FAMOTIDINE 20 MG TABLET PO SCH ×2 (09:35→21:13)
[2019-03-05] MEDS: ALBUMIN HUMAN 12.5 GM/50 ML RTUINJ IV SCH ×2 (09:36→10:21)
[2019-03-05] MEDS ORDERED: FENTANYL 25 MCG/HR PATCH.TD72 TD SCH (10:00)
[2019-03-05] MEDS: HYDROMORPHONE HCL INJ/PF 2 MG/ML AMPULE IV PRN ×4 (12:02→23:24)
[2019-03-05] MEDS: AMINO ACIDS 5 %/DEXTROSE 20 % 1,000 ML IV PRN (15:01)
--- NOTE | 2019-03-05 16:22 | PDOC PROGRESS REPORT ---
Subjective Progress Note for:: 03/05/19 Subjective:: ARGELIA JEAN is a 59 year old female with a PMH of hypothyroidism, anxiety and recent diagnosis of gastric adenocarcinoma who was admitted for dehydration due to nausea, vomiting and poor intake. Planned resection of gastric cancer was aborted because it was too widespread. Plan for continued TPN while patient and family attempts to decide if they want to pursue hospice vs. palliative chemo. The patient endorses abdominal pain but does not want IV morhine, or IV narcotics, because they make her feel "high as a kite." Will attempt fentanyl patch and offer very low dose IV dilaudid for breakthrough pain. Patient appears uncomfortable during exam, she is intermittently wincing in pain, even while at rest. Reason For Visit: INTRACTABLE N/V,DEHYDRATION,GASTRIC CANCER, Physical Exam Vital Signs: Temp Pulse Resp BP Pulse Ox 98.2 F 109 H 19 106/57 L 95 03/05/19 13:10 03/05/19 13:10 03/05/19 13:10 03/05/19 13:10 03/05/19 13:10 Intake & Output 03/04/19 03/05/19 03/06/19 06:59 06:59 06:59 Intake Total 4600 4180 2447 Output Total 1730 2095 1300 Balance 2870 2085 1147 General appearance: PRESENT: thin Head exam: PRESENT: atraumatic Eye exam: PRESENT: conjunctiva pale, PERRLA Mouth exam: PRESENT: moist, tongue midline Teeth exam: PRESENT: poor dentation Neck exam: PRESENT: full ROM Respiratory exam: PRESENT: clear to auscultation benjamin, symmetrical, unlabored Cardiovascular exam: PRESENT: RRR Pulses: PRESENT: normal radial pulses, normal dorsalis pedis pul Vascular exam: PRESENT: pallor GI/Abdominal exam: PRESENT: distended - lower abdominal quadrants, normal bowel sounds, soft, tenderness. ABSENT: firm Rectal exam: PRESENT: deferred Extremities exam: PRESENT: full ROM Musculoskeletal exam: PRESENT: ambulatory, full ROM Neurological exam: PRESENT: alert, awake, oriented to person, oriented to place, oriented to time, oriented to situation Psychiatric exam: PRESENT: appropriate affect, depressed Skin exam: PRESENT: dry, intact, pallor Results Laboratory Results: 03/05/19 05:45 03/05/19 05:45 03/05/19 03/05/19 05:45 05:45 WBC 2.8 L RBC 2.83 L Hgb 8.1 L Hct 24.4 L MCV 86 MCH 28.6 MCHC 33.2 RDW 16.2 H Plt Count 216 Sodium 134.1 L Potassium 4.0 Chloride 103 Carbon Dioxide 28 Anion Gap 3 L BUN 14 Creatinine 0.36 L Est GFR ( Amer) > 60 Est GFR (Non-Af Amer) > 60 Glucose 79 Calcium 7.7 L Phosphorus 4.0 Magnesium 1.8 Total Bilirubin 0.2 AST 154 H ALT 307 H Alkaline Phosphatase 271 H Total Protein 4.3 L Albumin 1.8 L 02/17/19 02/17/19 14:54 14:54 Creatine Kinase < 20 L CK-MB (CK-2) < 0.22 Troponin I < 0.012 Impressions: Guidance Fluoroscopy 02/20/19 00:00 IMPRESSION: SUCCESSFUL PLACEMENT OF A 5 FR DUAL LUMEN 38 CM PICC IN THE LEFT BA SILIC VEIN. Interventional Vascular Procedure 02/20/19 00:00 IMPRESSION: SUCCESSFUL PLACEMENT OF A 5 FR DUAL LUMEN 38 CM PICC IN THE LEFT BASILIC VEIN. PICC Line Insertion 02/20/19 06:00 IMPRESSION: SUCCESSFUL PLACEMENT OF A 5 FR DUAL LUMEN 38 CM PICC IN THE LEFT BASILIC VEIN. Abdomen/Pelvis CT 02/20/19 16:32 IMPRESSION: There is some free fluid in the pelvis. No other significant finding in the abdomen or pelvis. Chest X-Ray 03/02/19 11:37 IMPRESSION: Mild right medial basilar subsegmental atelectasis. No dense consolidation or pleural effusion. Status: Imported from PACS Assessment and Plan - Diagnosis (1) Intractable nausea and vomiting Qualifiers: Vomiting type: unspecified Qualified Code(s): R11.2 - Nausea with vomiting, unspecified Is this a current diagnosis for this admission?: Yes Plan: Recurrent Secondary to gastric carcinoma PRN Zofran, Phenergan, and pepcid (2) Dehydration Is this a current diagnosis for this admission?: Yes Plan: Resolved. (3) Gastric adenocarcinoma Is this a current diagnosis for this admission?: Yes Plan: Management per Oncology; Appreciate their expertise Surgery has been consulted Unsuccessful gastrectomy due to widespread carcinoma Family meeting with Surgery and Oncology Discussion about hospice vs palliative chemo - no decision at this time Fentanyl patch initiated today with IV dilaudid for breakthrough pain (4) Hypokalemia Is this a current diagnosis for this admission?: Yes Plan: Resolved Likely secondary to poor PO intake Continue to monitor with daily chemistries (5) Protein calorie malnutrition Is this a current diagnosis for this admission?: Yes Plan: Secondary to anorexia and poor PO intake stemming from gastric carcinoma Prealbumin and weight are trending up. Albumin down to 1.8 today, plan to infuse 25Gm IV weight 58.8-> 65.9kg Continuous TPN Further nutritional options as determined by surgery (p.o vs TF via J tube) Registered dietitian is consulted. - Time Time Spent with patient: 15-24 minutes Medications reviewed and adjusted accordingly: Yes Anticipated discharge: Home - Inpatient Certification Based on my medical assessment, after consideration of the patient's comorbidities, presenting symptoms, or acuity I expect that the services needed warrant INPATIENT care.: Yes I certify that my determination is in accordance with my understanding of Medicare's requirements for reasonable and necessary INPATIENT services [42 CFR 412.3e].: Yes Medical Necessity: Need For IV Fluids, Risk of Complication if Not Cared For in Hospital
[2019-03-05] MEDS: BISACODYL 10 MG SUPP.RECT PR SCH (17:55)
[2019-03-05] MEDS: NA PHOS,M-B/NA PHOS,DI-BA (ADULT) 133 ML ENEMA PR SCH (17:55)
[2019-03-06] MEDS: ONDANSETRON HCL INJ/PF 4 MG/2 ML SDV IV PRN ×5 (04:17→22:28)
[2019-03-06] MEDS: HYDROMORPHONE HCL INJ/PF 2 MG/ML AMPULE IV PRN ×5 (04:18→18:22)
[2019-03-06] MEDS: AMINO ACIDS 5 %/DEXTROSE 20 % 1,000 ML IV PRN ×2 (04:20→18:26)
[2019-03-06] MEDS: NORMAL SALINE 1000 ML 1,000 ML IV PRN ×2 (04:24→22:30)
[2019-03-06] MEDS: METOCLOPRAMIDE HCL INJ/PF 10 MG/2 ML SDV IV SCH ×3 (05:15→17:24)
[2019-03-06] MEDS: INSULIN LISPRO 100 UNIT/ML 3 ML VIAL SUBCUT SCH ×3 (05:47→18:35)
[2019-03-06] MEDS: LEVOTHYROXINE SODIUM 0.025 MG TABLET PO SCH (05:49)
[2019-03-06 05:58] LABS: HEMATOCRIT 23.9 % (36.0-47.0); MEAN CORPUSCULAR HEMOGLOBIN 28.2 pg (27.0-33.4); MEAN CORPUSCULAR HGB CONC 32.9 g/dL (32.0-36.0); MEAN CORPUSCULAR VOLUME 86 fl (80-97); PLATELET COUNT 205 10^3/uL (150-450); RED BLOOD COUNT 2.79 10^6/uL (3.72-5.28); RED CELL DISTRIBUTION WIDTH 16.4 % (11.5-14.0); WHITE BLOOD COUNT 2.4 10^3/uL (4.0-10.5)
[2019-03-06 06:00] LABS: HEMOGLOBIN 7.9 g/dL (12.0-15.5)
[2019-03-06 06:23] LABS: ALANINE AMINOTRANSFERASE 196 U/L (9-52); ALBUMIN 1.8 g/dL (3.5-5.0); ALKALINE PHOSPHATASE 356 U/L (38-126); ASPARTATE AMINO TRANSFERASE 107 U/L (14-36); BILIRUBIN,DIRECT 0.3 mg/dL (0.0-0.4); BILIRUBIN,TOTAL 0.5 mg/dL (0.2-1.3); BLOOD UREA NITROGEN 10 mg/dL (7-20); CALCIUM 7.6 mg/dL (8.4-10.2); GLUCOSE 85 mg/dL (75-110); PHOSPHORUS 4.2 mg/dL (2.5-4.5); POTASSIUM 4.1 mmol/L (3.6-5.0); TOTAL PROTEIN 4.4 g/dL (6.3-8.2)
[2019-03-06 06:28] LABS: CARBON DIOXIDE 26 mmol/L (22-30); CHLORIDE 106 mmol/L (98-107); SODIUM 135.8 mmol/L (137-145)
[2019-03-06 06:30] LABS: PREALBUMIN 6.9 mg/dL (17.6-36.0)
[2019-03-06 06:33] LABS: ANION GAP 4 (5-19)
[2019-03-06] MEDS: SUCRALFATE 1 GM TABLET PO SCH ×4 (07:33→21:11)
--- NOTE | 2019-03-06 08:30 | PDOC PROGRESS REPORT ---
Subjective Progress Note for:: 03/06/19 Reason For Visit: INTRACTABLE N/V,DEHYDRATION,GASTRIC CANCER, Physical Exam Vital Signs: Temp Pulse Resp BP Pulse Ox 98.2 F 103 H 16 117/64 100 03/06/19 07:54 03/06/19 07:54 03/06/19 07:54 03/06/19 07:54 03/06/19 07:54 Intake & Output 03/05/19 03/06/19 03/07/19 06:59 06:59 06:59 Intake Total 4180 4927 Output Total 2095 3700 Balance 2085 1227 Weight 75.8 kg General appearance: PRESENT: no acute distress Head exam: PRESENT: normocephalic Eye exam: PRESENT: EOMI Mouth exam: PRESENT: moist Neck exam: PRESENT: full ROM GI/Abdominal exam: PRESENT: soft Results Laboratory Results: 03/06/19 05:30 03/06/19 05:30 03/06/19 03/06/19 03/06/19 05:30 05:30 05:30 WBC 2.4 L RBC 2.79 L Hgb 7.9 L Hct 23.9 L MCV 86 MCH 28.2 MCHC 32.9 RDW 16.4 H Plt Count 205 Sodium 135.8 L Potassium 4.1 Chloride 106 Carbon Dioxide 26 Anion Gap 4 L BUN 10 Creatinine 0.32 L Est GFR ( Amer) > 60 Est GFR (Non-Af Amer) > 60 Glucose 85 Calcium 7.6 L Phosphorus 4.2 Magnesium 1.8 Total Bilirubin 0.5 AST 107 H ALT 196 H Alkaline Phosphatase 356 H Total Protein 4.4 L Albumin 1.8 L Prealbumin 6.9 L Triglycerides 49 02/17/19 02/17/19 14:54 14:54 Creatine Kinase < 20 L CK-MB (CK-2) < 0.22 Troponin I < 0.012 Impressions: Guidance Fluoroscopy 02/20/19 00:00 IMPRESSION: SUCCESSFUL PLACEMENT OF A 5 FR DUAL LUMEN 38 CM PICC IN THE LEFT BASILIC VEIN. Interventional Vascular Procedure 02/20/19 00:00 IMPRESSION: SUCCESSFUL PLACEMENT OF A 5 FR DUAL LUMEN 38 CM PICC IN THE LEFT BASILIC VEIN. PICC Line Insertion 02/20/19 06:00 IMPRESSION: SUCCESSFUL PLACEMENT OF A 5 FR DUAL LUMEN 38 CM PICC IN THE LEFT BASILIC VEIN. Abdomen/Pelvis CT 02/20/19 16:32 IMPRESSION: There is some free fluid in the pelvis. No other significant finding in the abdomen or pelvis. Chest X-Ray 03/02/19 11:37 IMPRESSION: Mild right medial basilar subsegmental atelectasis. No dense consolidation or pleural effusion. Assessment & Plan - Plan Summary Plan Summary: s/p diagnostic laparoscopy and biopsy for unresectable metastatic gastric cancer pt still does not know about unrestability per family wishes today more alert comfortable will disucss plan with oncology.
--- NOTE | 2019-03-06 08:52 | PDOC PROGRESS REPORT ---
Subjective Progress Note for:: 03/06/19 Subjective:: Patient much more alert today and talkative. Family is at bedside. Patient states that her pain has done better with the dilaudid and ativan. At times, pain is tolerable, but at other times, it is not. SHe is able to roll from side to side now. She is taking clear liquids without difficulty. Reason For Visit: INTRACTABLE N/V,DEHYDRATION,GASTRIC CANCER, Physical Exam Vital Signs: Temp Pulse Resp BP Pulse Ox 98.2 F 103 H 16 117/64 100 03/06/19 07:54 03/06/19 07:54 03/06/19 07:54 03/06/19 07:54 03/06/19 07:54 Intake & Output 03/05/19 03/06/19 03/07/19 06:59 06:59 06:59 Intake Total 4180 4927 Output Total 2095 3700 Balance 2085 1227 Weight 75.8 kg General appearance: PRESENT: no acute distress, thin Head exam: PRESENT: normocephalic Respiratory exam: PRESENT: unlabored Neurological exam: PRESENT: alert, awake, oriented to person, oriented to place, oriented to situation Psychiatric exam: PRESENT: appropriate affect Skin exam: PRESENT: normal color Results Laboratory Results: 03/06/19 05:30 03/06/19 05:30 03/06/19 03/06/19 03/06/19 05:30 05:30 05:30 WBC 2.4 L RBC 2.79 L Hgb 7.9 L Hct 23.9 L MCV 86 MCH 28.2 MCHC 32.9 RDW 16.4 H Plt Count 205 Sodium 135.8 L Potassium 4.1 Chloride 106 Carbon Dioxide 26 Anion Gap 4 L BUN 10 Creatinine 0.32 L Est GFR ( Amer) > 60 Est GFR (Non-Af Amer) > 60 Glucose 85 Calcium 7.6 L Phosphorus 4.2 Magnesium 1.8 Total Bilirubin 0.5 AST 107 H ALT 196 H Alkaline Phosphatase 356 H Total Protein 4.4 L Albumin 1.8 L Prealbumin 6.9 L Triglycerides 49 02/17/19 02/17/19 14:54 14:54 Creatine Kinase < 20 L CK-MB (CK-2) < 0.22 Troponin I < 0.012 Impressions: Guidance Fluoroscopy 02/20/19 00:00 IMPRESSION: SUCCESSFUL PLACEMENT OF A 5 FR DUAL LUMEN 38 CM PICC IN THE LEFT BASILIC VEIN. Interventional Vascular Procedure 02/20/19 00:00 IMPRESSION: SUCCESSFUL PLACEMENT OF A 5 FR DUAL LUMEN 38 CM PICC IN THE LEFT BASILIC VEIN. PICC Line Insertion 02/20/19 06:00 IMPRESSION: SUCCESSFUL PLACEMENT OF A 5 FR DUAL LUMEN 38 CM PICC IN THE LEFT BASILIC VEIN. Abdomen/Pelvis CT 02/20/19 16:32 IMPRESSION: There is some free fluid in the pelvis. No other significant finding in the abdomen or pelvis. Chest X-Ray 03/02/19 11:37 IMPRESSION: Mild right medial basilar subsegmental atelectasis. No dense consolidation or pleural effusion. Assessment & Plan - Diagnosis (1) Gastric adenocarcinoma Is this a current diagnosis for this admission?: Yes Plan: Patient asked about the surgery as well as the prognosis for the cancer. I explained that this type of cancer was much more challenging and at this point has formed a spider-web type of problem throughout her entire abdomen. It is not curable, and surgery is not possible. We discussed the fact that a full esophageal resection was not performed but palliative treatment with chemotherapy may be an option, if she is able to get stronger. All of patient's and family's questions were answered. I have discussed with nursing staff the need to get her insurance now that we have a diagnosis of terminal cancer JOSE and help arrange for further treatment as outpatient once she has recovered from this surgery. (2) Intractable nausea and vomiting Qualifiers: Vomiting type: unspecified Qualified Code(s): R11.2 - Nausea with vomiting, unspecified Is this a current diagnosis for this admission?: Yes Plan: Improved. Continue current anti-emetics. (3) Anemia Qualifiers: Anemia type: iron deficiency Iron deficiency anemia type: inadequate dietary iron intake Qualified Code(s): D50.8 - Other iron deficiency anemias Is this a current diagnosis for this admission?: Yes (4) Abdominal pain Qualifiers: Abdominal location: right lower quadrant Qualified Code(s): R10.31 - Right lower quadrant pain Is this a current diagnosis for this admission?: Yes Plan: I will increase the duragesic to 50 mcg and titrate up as needed. Continue Dilaudid PRN as well as ativan PRN.
[2019-03-06] MEDS: CARBAMIDE PEROXIDE 6.5% OTIC SOLN 15 ML AD SCH ×2 (09:24→17:04)
[2019-03-06] MEDS: FOLIC ACID 1 MG TABLET PO SCH (09:25)
[2019-03-06] MEDS: FAMOTIDINE 20 MG TABLET PO SCH ×2 (09:26→21:11)
[2019-03-06] MEDS: NORMAL SALINE 10 ML SDV (SCHEDULED) IV SCH ×2 (09:26→21:11)
[2019-03-06] MEDS: SENNOSIDES/DOCUSATE 8.6-50 MG 1 EACH TABLET PO SCH ×2 (09:27→17:25)
[2019-03-06] MEDS: FAT EMULSIONS 250 ML IV SCH (09:46)
[2019-03-06] MEDS: FENTANYL 50 MCG/HR PATCH.TD72 TD SCH (09:46)
[2019-03-06] MEDS: BISACODYL 10 MG SUPP.RECT PR SCH (09:47)
[2019-03-06] MEDS: LORAZEPAM INJ 2 MG/1 ML VIAL IV PRN (22:32)
[2019-03-07] MEDS: INSULIN LISPRO 100 UNIT/ML 3 ML VIAL SUBCUT SCH ×4 (00:50→17:26)
[2019-03-07] MEDS: METOCLOPRAMIDE HCL INJ/PF 10 MG/2 ML SDV IV SCH ×4 (00:51→17:34)
[2019-03-07] MEDS: LEVOTHYROXINE SODIUM 0.025 MG TABLET PO SCH (05:55)
[2019-03-07] MEDS: ONDANSETRON HCL INJ/PF 4 MG/2 ML SDV IV PRN ×3 (06:17→21:34)
[2019-03-07] MEDS: LORAZEPAM INJ 2 MG/1 ML VIAL IV PRN ×3 (06:18→21:35)
--- NOTE | 2019-03-07 07:43 | PDOC PROGRESS REPORT ---
Subjective Progress Note for:: 03/07/19 Subjective:: Patient is talkative this morning. She is complaining about her mother and would like to limit the number of hours she has visitors. She would like to get up today and try to walk. She would like to try to have [place] removed. Her pain is well controlled. No nausea, but only drinking water. Reason For Visit: INTRACTABLE N/V,DEHYDRATION,GASTRIC CANCER, Physical Exam Vital Signs: Temp Pulse Resp BP Pulse Ox 98.2 F 104 H 18 112/71 99 03/07/19 04:52 03/07/19 04:52 03/07/19 04:52 03/07/19 04:52 03/07/19 04:52 Intake & Output 03/06/19 03/07/19 03/08/19 06:59 06:59 06:59 Intake Total 4927 2630 Output Total 3700 4800 Balance 1227 -2170 Weight 75.8 kg General appearance: PRESENT: no acute distress Head exam: PRESENT: normocephalic Respiratory exam: PRESENT: unlabored Cardiovascular exam: PRESENT: RRR Extremities exam: ABSENT: pedal edema Neurological exam: PRESENT: alert, awake Psychiatric exam: PRESENT: appropriate affect Skin exam: PRESENT: normal color Results Laboratory Results: 03/06/19 05:30 03/06/19 05:30 02/17/19 02/17/19 14:54 14:54 Creatine Kinase < 20 L CK-MB (CK-2) < 0.22 Troponin I < 0.012 Impressions: Guidance Fluoroscopy 02/20/19 00:00 IMPRESSION: SUCCESSFUL PLACEMENT OF A 5 FR DUAL LUMEN 38 CM PICC IN THE LEFT BASILIC VEIN. Interventional Vascular Procedure 02/20/19 00:00 IMPRESSION: SUCCESSFUL PLACEMENT OF A 5 FR DUAL LUMEN 38 CM PICC IN THE LEFT BASILIC VEIN. PICC Line Insertion 02/20/19 06:00 IMPRESSION: SUCCESSFUL PLACEMENT OF A 5 FR DUAL LUMEN 38 CM PICC IN THE LEFT BASILIC VEIN. Abdomen/Pelvis CT 02/20/19 16:32 IMPRESSION: There is some free fluid in the pelvis. No other significant finding in the abdomen or pelvis. Chest X-Ray 03/02/19 11:37 IMPRESSION: Mild right medial basilar subsegmental atelectasis. No dense consolidation or pleural effusion. Assessment & Plan - Diagnosis (1) Gastric adenocarcinoma Is this a current diagnosis for this admission?: Yes Plan: Patient understands that this is not a curable cancer. She is still hoping to get stronger to consider chemotherapy. (2) Intractable nausea and vomiting Qualifiers: Vomiting type: unspecified Qualified Code(s): R11.2 - Nausea with vomiting, unspecified Is this a current diagnosis for this admission?: Yes Plan: Patient still unable to eat enough to sustain herself. I am unsure if this will ever be the case. Her LFTs are elevated due to the TPN. Patient and family slowly coming to the realization that she may never be strong enough for treatment, but patient still wants to fight. (3) Anemia Qualifiers: Anemia type: iron deficiency Iron deficiency anemia type: inadequate di etary iron intake Qualified Code(s): D50.8 - Other iron deficiency anemias Is this a current diagnosis for this admission?: Yes Plan: I will order 2 unit pRBCs today. (4) Abdominal pain Qualifiers: Abdominal location: right lower quadrant Qualified Code(s): R10.31 - Right lower quadrant pain Is this a current diagnosis for this admission?: Yes Plan: Continue current pain management. Will consider increasing Duragesic tomorrow, if appropriate.
[2019-03-07] MEDS ORDERED: NORMAL SALINE 250 ML IV PRN (07:44)
[2019-03-07] MEDS: AMINO ACIDS 5 %/DEXTROSE 20 % 1,000 ML IV PRN ×2 (07:56→21:27)
[2019-03-07] MEDS: HYDROMORPHONE HCL INJ/PF 2 MG/ML AMPULE IV PRN ×3 (09:48→16:48)
[2019-03-07] MEDS: CARBAMIDE PEROXIDE 6.5% OTIC SOLN 15 ML AD SCH ×2 (10:05→17:26)
[2019-03-07] MEDS: SUCRALFATE 1 GM TABLET PO SCH ×4 (10:05→21:23)
[2019-03-07] MEDS: FOLIC ACID 1 MG TABLET PO SCH (10:06)
[2019-03-07] MEDS: NORMAL SALINE 10 ML SDV (SCHEDULED) IV SCH ×2 (10:06→21:23)
[2019-03-07] MEDS: FAMOTIDINE 20 MG TABLET PO SCH ×2 (10:06→21:23)
[2019-03-07] MEDS: SENNOSIDES/DOCUSATE 8.6-50 MG 1 EACH TABLET PO SCH ×2 (10:06→17:35)
--- NOTE | 2019-03-07 12:37 | PDOC PROGRESS REPORT ---
Subjective Progress Note for:: 03/07/19 Subjective:: ARGELIA JEAN is a 59 year old female with a PMH of hypothyroidism, anxiety and recent diagnosis of gastric adenocarcinoma who was admitted for dehydration due to nausea, vomiting and poor intake. Planned resection of gastric cancer was aborted because it was too widespread. Plan for continued TPN while patient and family attempts to decide if they want to pursue hospice vs. palliative chemo. Requesting 2nd opinion from Dr. Anderson's office. She was contacted today. The patient states her pain is tolerable. She would like to get OOB and ambulate in the hallway today. Additionally, she is asking for a soap suds enema. Reason For Visit: INTRACTABLE N/V,DEHYDRATION,GASTRIC CANCER, Physical Exam Vital Signs: Temp Pulse Resp BP Pulse Ox 98.1 F 104 H 15 114/72 99 03/07/19 08:00 03/07/19 08:00 03/07/19 08:00 03/07/19 08:00 03/07/19 08:00 Intake & Output 03/06/19 03/07/19 03/08/19 06:59 06:59 06:59 Intake Total 4927 3630 0 Output Total 3700 4800 Balance 1227 -1170 0 Weight 75.8 kg General appearance: PRESENT: thin Eye exam: PRESENT: conjunctiva pale, PERRLA Mouth exam: PRESENT: moist, tongue midline Teeth exam: PRESENT: poor dentation Neck exam: PRESENT: full ROM Respiratory exam: PRESENT: clear to auscultation benjamin, symmetrical, unlabored Cardiovascular exam: PRESENT: RRR Pulses: PRESENT: normal radial pulses, normal dorsalis pedis pul Vascular exam: PRESENT: pallor GI/Abdominal exam: PRESENT: distended - LOWER QUADRANTS, soft, tenderness Results Laboratory Results: 03/06/19 05:30 03/06/19 05:30 03/07/19 08:40 Blood Type A NEGATIVE Antibody Screen NEGATIVE 02/17/19 02/17/19 14:54 14:54 Creatine Kinase < 20 L CK-MB (CK-2) < 0.22 Troponin I < 0.012 Impressions: Guidance Fluoroscopy 02/20/19 00:00 IMPRESSION: SUCCESSFUL PLACEMENT OF A 5 FR DUAL LUMEN 38 CM PICC IN THE LEFT BASILIC VEIN. Interventional Vascular Procedure 02/20/19 00:00 IMPRESSION: SUCCESSFUL PLACEMENT OF A 5 FR DUAL LUMEN 38 CM PICC IN THE LEFT BASILIC VEIN. PICC Line Insertion 02/20/19 06:00 IMPRESSION: SUCCESSFUL PLACEMENT OF A 5 FR DUAL LUMEN 38 CM PICC IN THE LEFT BASILIC VEIN. Abdomen/Pelvis CT 02/20/19 16:32 IMPRESSION: There is some free fluid in the pelvis. No other significant finding in the abdomen or pelvis. Chest X-Ray 03/02/19 11:37 IMPRESSION: Mild right medial basilar subsegmental atelectasis. No dense consolidation or pleural effusion. Assessment and Plan - Diagnosis (1) Intractable nausea and vomiting Qualifiers: Vomiting type: unspecified Qualified Code(s): R11.2 - Nausea with vomiting, unspecified Is this a current diagnosis for this admission?: Yes Plan: Recurrent Secondary to gastric carcinoma PRN Zofran, Phenergan, and pepcid (2) Dehydration Is this a current diagnosis for this admission?: Yes Plan: Resolved. (3) Gastric adenocarcinoma Is this a current diagnosis for this admission?: Yes Plan: Management per Oncology; Appreciate their expertise Surgery has been consulted Unsuccessful gastrectomy due to widespread carcinoma Family meeting with Surgery and Oncology Discussion about hospice vs palliative chemo - no decision at this time. Family is requesting a second opinion from Dr. Anderson's office. Fentanyl patch with IV dilaudid for breakthrough pain (4) Hypokalemia Is this a current diagnosis for this admission?: Yes Plan: Resolved Likely secondary to poor PO intake Continue to monitor with daily chemistries (5) Protein calorie malnutrition Is this a current diagnosis for this admission?: Yes Plan: Secondary to anorexia and poor PO intake stemming from gastric carcinoma Prealbumin and weight are trending up. weight 58.8-> 75.8kg Continuous TPN PO nutritional options as determined by surgery. She is not a candidate for a PEG or J tube, according to surgeon Registered dietitian consulted, recommend TPN at 80 mL/hr, for a total volume of 1920mL/24 hours, with lipids twice a week, provides: 1803 calories , 96 gm of protein - Time Time Spent with patient: 15-24 minutes Medications reviewed and adjusted accordingly: Yes Anticipated discharge: Home Within: within 36 hours - Inpatient Certification Based on my medical assessment, after consideration of the patient's co morbidities, presenting symptoms, or acuity I expect that the services needed warrant INPATIENT care.: Yes I certify that my determination is in accordance with my understanding of Medicare's requirements for reasonable and necessary INPATIENT services [42 CFR 412.3e].: Yes Medical Necessity: Risk of Complication if Not Cared For in Hospital - Plan Summary Plan Summary: FAXED RECORDS TO DR. ANDERSON'S OFFICE. AWAITING ON CONSULTATION AND FOR FAMILY TO DECIDE TREATMENT VS. HOSPICE
[2019-03-07] MEDS: NA PHOS,M-B/NA PHOS,DI-BA (ADULT) 133 ML ENEMA PR SCH (13:40)
[2019-03-07] MEDS: BISACODYL 10 MG SUPP.RECT PR SCH (13:40)
[2019-03-08] MEDS: INSULIN LISPRO 100 UNIT/ML 3 ML VIAL SUBCUT SCH ×4 (00:41→17:05)
[2019-03-08] MEDS: METOCLOPRAMIDE HCL INJ/PF 10 MG/2 ML SDV IV SCH ×4 (00:42→17:05)
[2019-03-08] MEDS: ONDANSETRON HCL INJ/PF 4 MG/2 ML SDV IV PRN ×4 (04:01→22:58)
[2019-03-08] MEDS: NORMAL SALINE 1000 ML 1,000 ML IV PRN ×2 (04:02→16:21)
[2019-03-08] MEDS: HYDROMORPHONE HCL INJ/PF 2 MG/ML AMPULE IV PRN ×4 (04:03→22:58)
[2019-03-08] MEDS: LEVOTHYROXINE SODIUM 0.025 MG TABLET PO SCH (06:00)
[2019-03-08] MEDS: SUCRALFATE 1 GM TABLET PO SCH ×4 (08:45→21:18)
--- NOTE | 2019-03-08 08:50 | PDOC PROGRESS REPORT ---
Subjective Progress Note for:: 03/08/19 Subjective:: Patient is in good spirits today. She was able to shower yesterday. She is able to move her legs better today. No BM, but she is trying. She has many questions today. Her Daughter is at bedside. Reason For Visit: INTRACTABLE N/V,DEHYDRATION,GASTRIC CANCER, Physical Exam Vital Signs: Temp Pulse Resp BP Pulse Ox 98.2 F 103 H 16 110/70 95 03/07/19 23:30 03/07/19 23:30 03/07/19 23:30 03/07/19 23:30 03/07/19 23:30 Intake & Output 03/07/19 03/08/19 03/09/19 06:59 06:59 06:59 Intake Total 3630 3440 Output Total 4800 4400 Balance -1170 -960 Weight 75.8 kg General appearance: PRESENT: no acute distress, thin Head exam: PRESENT: normocephalic Neurological exam: PRESENT: alert, awake Psychiatric exam: PRESENT: appropriate affect Skin exam: PRESENT: normal color Results Laboratory Results: 03/06/19 05:30 03/06/19 05:30 03/07/19 08:40 Blood Type A NEGATIVE Antibody Screen NEGATIVE 02/17/19 02/17/19 14:54 14:54 Creatine Kinase < 20 L CK-MB (CK-2) < 0.22 Troponin I < 0.012 Impressions: Guidance Fluoroscopy 02/20/19 00:00 IMPRESSION: SUCCESSFUL PLACEMENT OF A 5 FR DUAL LUMEN 38 CM PICC IN THE LEFT BASILIC VEIN. Interventional Vascular Procedure 02/20/19 00:00 IMPRESSION: SUCCESSFUL PLACEMENT OF A 5 FR DUAL LUMEN 38 CM PICC IN THE LEFT BASILIC VEIN. PICC Line Insertion 02/20/19 06:00 IMPRESSION: SUCCESSFUL PLACEMENT OF A 5 FR DUAL LUMEN 38 CM PICC IN THE LEFT BASILIC VEIN. Abdomen/Pelvis CT 02/20/19 16:32 IMPRESSION: There is some free fluid in the pelvis. No other significant finding in the abdomen or pelvis. Chest X-Ray 03/02/19 11:37 IMPRESSION: Mild right medial basilar subsegmental atelectasis. No dense consolidation or pleural effusion. Assessment & Plan - Diagnosis (1) Gastric adenocarcinoma Is this a current diagnosis for this admission?: Yes Plan: I had a long discussion and spent >30 minutes with patient and family in counseling again today. Patient told me that she still wants to hear and still wants to believe that this is curable. She wants to try to get stronger. I have told her again today, that this is not curable, but if she is able to get strong enough, we can try some chemotherapy. However, there is no guarantee that she will be able to get strong enough, nor that the chemo will help instead of make things worse. She has started a photo journal, as well as a written journal to help document her progress. She is setting herself small goals to work toward. We also discussed discharge plans. All are in agreement that a halfway facility with capabilities to do some PT/rehab would be the best situation so that she may continue to try to get stronger, but if this is not possible, that she will still have care for end of life. She does not wish to consider Hospice at this time. I also spoke with the daughter in private and all of her questions were answered as well. (2) Intractable nausea and vomiting Qualifiers: Vomiting type: unspecified Qualified Code(s): R11.2 - Nausea with vomiting, unspecified Is this a current diagnosis for this admission?: Yes (3) Anemia Qualifiers: Anemia type: iron deficiency Iron deficiency anemia type: inadequate dietary iron intake Qualified Code(s): D50.8 - Other iron deficiency anemias Is this a current diagnosis for this admission?: Yes (4) Abdominal pain Qualifiers: Abdominal location: right lower quadrant Qualified Code(s): R10.31 - Right lower quadrant pain Is this a current diagnosis for this admission?: Yes
[2019-03-08] MEDS: LORAZEPAM INJ 2 MG/1 ML VIAL IV PRN ×2 (10:27→16:20)
[2019-03-08] MEDS: FAT EMULSIONS 250 ML IV SCH (10:27)
[2019-03-08] MEDS: BISACODYL 10 MG SUPP.RECT PR SCH (10:40)
[2019-03-08] MEDS: FOLIC ACID 1 MG TABLET PO SCH (10:40)
[2019-03-08] MEDS: CARBAMIDE PEROXIDE 6.5% OTIC SOLN 15 ML AD SCH ×2 (10:40→17:05)
[2019-03-08] MEDS: SENNOSIDES/DOCUSATE 8.6-50 MG 1 EACH TABLET PO SCH ×2 (10:41→17:07)
[2019-03-08] MEDS: NORMAL SALINE 10 ML SDV (SCHEDULED) IV SCH ×2 (10:41→21:18)
[2019-03-08] MEDS: FAMOTIDINE 20 MG TABLET PO SCH ×2 (10:41→21:18)
[2019-03-08] MEDS: AMINO ACIDS 5 %/DEXTROSE 20 % 1,000 ML IV PRN (11:00)
[2019-03-09] MEDS: INSULIN LISPRO 100 UNIT/ML 3 ML VIAL SUBCUT SCH ×4 (00:31→17:59)
[2019-03-09] MEDS: METOCLOPRAMIDE HCL INJ/PF 10 MG/2 ML SDV IV SCH ×4 (00:32→17:28)
[2019-03-09] MEDS: LORAZEPAM INJ 2 MG/1 ML VIAL IV PRN ×2 (00:37→21:40)
[2019-03-09] MEDS: AMINO ACIDS 5 %/DEXTROSE 20 % 1,000 ML IV PRN ×2 (00:40→14:29)
[2019-03-09] MEDS: HYDROMORPHONE HCL INJ/PF 2 MG/ML AMPULE IV PRN ×4 (05:26→23:39)
[2019-03-09] MEDS: ONDANSETRON HCL INJ/PF 4 MG/2 ML SDV IV PRN ×4 (05:26→23:39)
[2019-03-09] MEDS: NORMAL SALINE 1000 ML 1,000 ML IV PRN ×2 (05:26→18:10)
--- NOTE | 2019-03-09 05:26 | PDOC PROGRESS REPORT ---
Subjective Progress Note for:: 03/08/19 Subjective:: ARGELIA JEAN is a 59 year old female with a PMH of hypothyroidism, anxiety and recent diagnosis of gastric adenocarcinoma who was admitted for dehydration due to nausea, vomiting and poor intake. Planned resection of gastric adenocarcinoma was aborted because it was too widespread. Original plan was to discharge from [facility] to SNF/Rehab for physical therapy so the patient can attempt to regain strength. She understands she will eventually require Hospice care. The patient was very tearful with her sisters in the room, stating that she did not want to go to a SNF. She would rather live at her mother's house in one of the spare bedrooms. She expressed a wish to be around family in her final weeks/months. The patient was able to ambulate yesterday, which she stated made her very happy. Reason For Visit: INTRACTABLE N/V,DEHYDRATION,GASTRIC CANCER, Physical Exam Vital Signs: Temp Pulse Resp BP Pulse Ox 98.1 F 107 H 16 116/69 97 03/08/19 19:29 03/08/19 19:29 03/08/19 19:29 03/08/19 19:29 03/08/19 19:29 Intake & Output 03/07/19 03/08/19 03/09/19 06:59 06:59 06:59 Intake Total 3630 3440 2886 Output Total 4800 4400 1650 Balance -1170 -960 1236 Weight 75.8 kg General appearance: PRESENT: thin Eye exam: PRESENT: conjunctiva pale, PERRLA Mouth exam: PRESENT: moist, tongue midline Neck exam: PRESENT: full ROM Respiratory exam: PRESENT: clear to auscultation benjamin, symmetrical, unlabored Cardiovascular exam: PRESENT: RRR Pulses: PRESENT: normal radial pulses, normal dorsalis pedis pul Vascular exam: PRESENT: pallor GI/Abdominal exam: PRESENT: distended - b/l lower quadrants, hypoactive bowel sounds, soft, tenderness Rectal exam: PRESENT: deferred Gentrourinary exam: PRESENT: indwelling catheter Musculoskeletal exam: PRESENT: ambulatory, full ROM Neurological exam: PRESENT: alert, awake, oriented to person, oriented to place, oriented to time, oriented to situation Psychiatric exam: PRESENT: appropriate affect, other - TEARFUL Skin exam: PRESENT: dry, intact, pallor Results Laboratory Results: 03/06/19 05:30 03/06/19 05:30 02/17/19 02/17/19 14:54 14:54 Creatine Kinase < 20 L CK-MB (CK-2) < 0.22 Troponin I < 0.012 Impressions: Guidance Fluoroscopy 02/20/19 00:00 IMPRESSION: SUCCESSFUL PLACEMENT OF A 5 FR DUAL LUMEN 38 CM PICC IN THE LEFT BASILIC VEIN. Interventional Vascular Procedure 02/20/19 00:00 IMPRESSION: SUCCESSFUL PLACEMENT OF A 5 FR DUAL LUMEN 38 CM PICC IN THE LEFT BASILIC VEIN. PICC Line Insertion 02/20/19 06:00 IMPRESSION: SUCCESSFUL PLACEMENT OF A 5 FR DUAL LUMEN 38 CM PICC IN THE LEFT BASILIC VEIN. Abdomen/Pelvis CT 02/20/19 16:32 IMPRESSION: There is some free fluid in the pelvis. No other significant finding in the abdomen or pelvis. Chest X-Ray 03/02/19 11:37 IMPRESSION: Mild right medial basilar subsegmental atelectasis. No dense consolidation or pleural effusion. Status: Imported from PACS Assessment and Plan - Diagnosis (1) Intractable nausea and vomiting Qualifiers: Vomiting type: unspecified Qualified Code(s): R11.2 - Nausea with vomiting, unspecified Is this a current diagnosis for this admission?: Yes Plan: Recurrent Secondary to gastric carcinoma PRN Zofran, Phenergan, and pepcid (2) Dehydration Is this a current diagnosis for this admission?: Yes Plan: Resolved. (3) Gastric adenocarcinoma Is this a current diagnosis for this admission?: Yes Plan: Management per Oncology; Appreciate their expertise Surgery has been consulted Unsuccessful gastrectomy due to widespread adenocarcinoma Family meeting with Surgery and Oncology Discussion about hospice vs palliative chemo - no decision at this time. Family is requesting a second opinion from Dr. Cui's office. Fentanyl patch with IV dilaudid for breakthrough pain (4) Hypokalemia Is this a current diagnosis for this admission?: Yes Plan: Resolved Likely secondary to poor PO intake Continue to monitor with daily chemistries (5) Protein calorie malnutrition Is this a current diagnosis for this admission?: Yes Plan: Secondary to anorexia and poor PO intake stemming from gastric carcinoma Prealbumin and weight are trending up. weight 58.8-> 75.8kg Continuous TPN PO nutritional options as determined by surgery. She is not a candidate for a PEG or J tube, according to surgeon Registered dietitian consulted, recommend TPN at 80 mL/hr, for a total volume of 1920mL/24 hours, with lipids twice a week, provides: 1803 calories , 96 gm of protein - Time Time Spent with patient: 25-34 minutes Medications reviewed and adjusted accordingly: Yes Anticipated discharge: Home with Homehealth - Inpatient Certification Based on my medical assessment, after consideration of the patient's comorbid ities, presenting symptoms, or acuity I expect that the services needed warrant INPATIENT care.: Yes I certify that my determination is in accordance with my understanding of Medicare's requirements for reasonable and necessary INPATIENT services [42 CFR 412.3e].: Yes Medical Necessity: Risk of Complication if Not Cared For in Hospital - Plan Summary Plan Summary: At this time the patient is requesting to go home with home health & PT/OT. She emphasized to me and her sisters that she does not want to go to a SNF. Will inform discharge planning about the change in treatment plan. Will need to make arrangements for home TPN, home health with [facility] and PT/OT.
[2019-03-09] MEDS: LEVOTHYROXINE SODIUM 0.025 MG TABLET PO SCH (05:27)
[2019-03-09] MEDS: SUCRALFATE 1 GM TABLET PO SCH ×4 (07:32→21:37)
[2019-03-09] MEDS: BISACODYL 10 MG SUPP.RECT PR SCH (09:34)
[2019-03-09] MEDS: CARBAMIDE PEROXIDE 6.5% OTIC SOLN 15 ML AD SCH ×2 (09:34→17:28)
[2019-03-09] MEDS: FOLIC ACID 1 MG TABLET PO SCH (09:34)
[2019-03-09] MEDS: SENNOSIDES/DOCUSATE 8.6-50 MG 1 EACH TABLET PO SCH ×2 (09:35→17:28)
[2019-03-09] MEDS: FAMOTIDINE 20 MG TABLET PO SCH ×2 (09:35→21:41)
[2019-03-09] MEDS: NORMAL SALINE 10 ML SDV (SCHEDULED) IV SCH ×2 (09:35→21:37)
[2019-03-09] MEDS: FENTANYL 50 MCG/HR PATCH.TD72 TD SCH (10:11)
[2019-03-09 10:18] LABS: HEMATOCRIT 34.5 % (36.0-47.0); HEMOGLOBIN 11.4 g/dL (12.0-15.5); MEAN CORPUSCULAR HEMOGLOBIN 28.6 pg (27.0-33.4); MEAN CORPUSCULAR VOLUME 87 fl (80-97); PLATELET COUNT 219 10^3/uL (150-450); RED BLOOD COUNT 3.98 10^6/uL (3.72-5.28); RED CELL DISTRIBUTION WIDTH 15.9 % (11.5-14.0); WHITE BLOOD COUNT 2.9 10^3/uL (4.0-10.5)
[2019-03-09 10:41] LABS: ALANINE AMINOTRANSFERASE 193 U/L (9-52); ALBUMIN 2.2 g/dL (3.5-5.0); ALKALINE PHOSPHATASE 735 U/L (38-126); ANION GAP 6 (5-19); ASPARTATE AMINO TRANSFERASE 186 U/L (14-36); BILIRUBIN,DIRECT 0.4 mg/dL (0.0-0.4); BILIRUBIN,TOTAL 0.7 mg/dL (0.2-1.3); BLOOD UREA NITROGEN 13 mg/dL (7-20); CARBON DIOXIDE 24 mmol/L (22-30); CHLORIDE 105 mmol/L (98-107); GLUCOSE 101 mg/dL (75-110); PHOSPHORUS 4.1 mg/dL (2.5-4.5); POTASSIUM 4.5 mmol/L (3.6-5.0); SODIUM 135.2 mmol/L (137-145); TOTAL PROTEIN 5.2 g/dL (6.3-8.2)
[2019-03-09] MEDS: NA PHOS,M-B/NA PHOS,DI-BA (ADULT) 133 ML ENEMA PR SCH (14:19)
--- NOTE | 2019-03-09 21:10 | PDOC PROGRESS REPORT ---
Subjective Progress Note for:: 03/09/19 Subjective:: ARGELIA JEAN is a 59 year old female with a PMH of hypothyroidism, anxiety and recent diagnosis of gastric adenocarcinoma who was admitted for dehydration due to nausea, vomiting and poor intake. Planned resection of gastric adenocarcinoma was aborted because it was too widespread. Planning for patient to go home with home health on TPN. The patient states she will live at her mother's house in one of the spare bedrooms. She expressed a wish to be around family in her final weeks/months. I discussed the risks associated with fpc TPN use and the patient stated she wanted to stay on TPN to "help get strength" to be able to work with PT/OT. She realizes that she will eventually need hospice. Reason For Visit: INTRACTABLE N/V,DEHYDRATION,GASTRIC CANCER, Physical Exam Vital Signs: Temp Pulse Resp BP Pulse Ox 98.2 F 98 16 116/73 98 03/09/19 11:28 03/09/19 11:28 03/09/19 11:28 03/09/19 11:28 03/09/19 11:28 Intake & Output 03/08/19 03/09/19 03/10/19 06:59 06:59 06:59 Intake Total 3440 5366 2620 Output Total 4400 2250 1750 Balance -960 3116 870 Weight 75.8 kg 75.8 kg General appearance: PRESENT: thin Eye exam: PRESENT: conjunctiva pale, PERRLA Mouth exam: PRESENT: moist, tongue midline Neck exam: PRESENT: full ROM Respiratory exam: PRESENT: clear to auscultation benjamin, symmetrical, unlabored Cardiovascular exam: PRESENT: RRR Results Laboratory Results: 03/09/19 09:50 03/09/19 09:50 03/09/19 03/09/19 09:50 09:50 WBC 2.9 L RBC 3.98 Hgb 11.4 L Hct 34.5 L MCV 87 MCH 28.6 MCHC 33.0 RDW 15.9 H Plt Count 219 Sodium 135.2 L Potassium 4.5 Chloride 105 Carbon Dioxide 24 Anion Gap 6 BUN 13 Creatinine 0.30 L Est GFR ( Amer) > 60 Est GFR (Non-Af Amer) > 60 Glucose 101 Calcium 8.0 L Phosphorus 4.1 Magnesium 1.9 Total Bilirubin 0.7 AST 186 H ALT 193 H Alkaline Phosphatase 735 H Total Protein 5.2 L Albumin 2.2 L Prealbumin 8.0 L 02/17/19 02/17/19 14:54 14:54 Creatine Kinase < 20 L CK-MB (CK-2) < 0.22 Troponin I < 0.012 Impressions: Guidance Fluoroscopy 02/20/19 00:00 IMPRESSION: SUCCESSFUL PLACEMENT OF A 5 FR DUAL LUMEN 38 CM PICC IN THE LEFT BASILIC VEIN. Interventional Vascular Procedure 02/20/19 00:00 IMPRESSION: SUCCESSFUL PLACEMENT OF A 5 FR DUAL LUMEN 38 CM PICC IN THE LEFT BASILIC VEIN. PICC Line Insertion 02/20/19 06:00 IMPRESSION: SUCCESSFUL PLACEMENT OF A 5 FR DUAL LUMEN 38 CM PICC IN THE LEFT BASILIC VEIN. Abdomen/Pelvis CT 02/20/19 16:32 IMPRESSION: There is some free fluid in the pelvis. No other significant finding in the abdomen or pelvis. Chest X-Ray 03/02/19 11:37 IMPRESSION: Mild right medial basilar subsegmental atelectasis. No dense consolidation or pleural effusion. Assessment and Plan - Diagnosis (1) Intractable nausea and vomiting Qualifiers: Vomiting type: unspecified Qualified Code(s): R11.2 - Nausea with vomiting, unspecified Is this a current diagnosis for this admission?: Yes Plan: Recurrent Secondary to gastric carcinoma PRN Zofran, Phenergan, and pepcid (2) Dehydration Is this a current diagnosis for this admission?: Yes Plan: Resolved. (3) Gastric adenocarcinoma Is this a current diagnosis for this admission?: Yes Plan: Management per Oncology; Appreciate their expertise Surgery has been consulted Unsuccessful gastrectomy due to widespread adenocarcinoma Multiple family meetings Discussion about hospice vs palliative chemo - no decision at this time. Daughter is requesting a second opinion from Dr. Cui's office. Patient wants to go home with home health, PT/OT and TPN, understanding that one day (in the near future) she will require hospice Fentanyl patch with IV dilaudid for breakthrough pain (4) Hypokalemia Is this a current diagnosis for this admission?: Yes Plan: Resolved Likely secondary to poor PO intake Continue to monitor with daily chemistries (5) Protein calorie malnutrition Is this a current diagnosis for this admission?: Yes Plan: Secondary to anorexia and poor PO intake stemming from gastric carcinoma Prealbumin and weight are trending up. weight 58.8-> 75.8kg Continuous TPN PO nutritional options as determined by surgery. She is not a candidate for a PEG or J tube, according to surgeon Registered dietitian consulted, recommend TPN at 80 mL/hr, for a total volume of 1920mL/24 hours, with lipids twice a week, provides: 1803 calories , 96 gm of protein - Time Time Spent with patient: 15-24 minutes Medications reviewed and adjusted accordingly: Yes Anticipated discharge: Home, Home with Homehealth Within: Other - Inpatient Certification Based on my medical assessment, after consideration of the patient's comorbidities, presenting symptoms, or acuity I expect that the services needed warrant INPATIENT care.: Yes I certify that my determination is in accordance with my understanding of Medicare's requirements for reasonable and necessary INPATIENT services [42 CFR 412.3e].: Yes Post Hospital Care: Other - wednesday march 13, 2019
[2019-03-10] MEDS: METOCLOPRAMIDE HCL INJ/PF 10 MG/2 ML SDV IV SCH ×2 (00:30→05:12)
[2019-03-10] MEDS: HYDROMORPHONE HCL INJ/PF 2 MG/ML AMPULE IV PRN ×4 (05:10→19:48)
[2019-03-10] MEDS: AMINO ACIDS 5 %/DEXTROSE 20 % 1,000 ML IV PRN (05:11)
[2019-03-10] MEDS: ONDANSETRON HCL INJ/PF 4 MG/2 ML SDV IV PRN ×4 (05:11→19:48)
[2019-03-10] MEDS: NORMAL SALINE 1000 ML 1,000 ML IV PRN (05:11)
[2019-03-10] MEDS: LEVOTHYROXINE SODIUM 0.025 MG TABLET PO SCH (05:11)
[2019-03-10] MEDS: INSULIN LISPRO 100 UNIT/ML 3 ML VIAL SUBCUT SCH ×4 (06:46→17:06)
[2019-03-10] MEDS ORDERED: HYDROMORPHONE HCL 2 MG TABLET PO PRN (08:11)
[2019-03-10] MEDS ORDERED: LORAZEPAM 0.5 MG TABLET PO PRN (08:12)
[2019-03-10] MEDS ORDERED: ONDANSETRON 4 MG TAB.RAPDIS PO PRN (08:13)
--- NOTE | 2019-03-10 08:19 | PDOC PROGRESS REPORT ---
Subjective Progress Note for:: 03/10/19 Subjective:: Patient happy to have [facility] out. Able to ambulate to bedside commode with assistance. Still only tolerating liquids. Pain well controlled with current regimen. Reason For Visit: INTRACTABLE N/V,DEHYDRATION,GASTRIC CANCER, Physical Exam Vital Signs: Temp Pulse Resp BP Pulse Ox 97.7 F 98 14 108/62 93 03/09/19 23:54 03/09/19 23:54 03/09/19 23:54 03/09/19 23:54 03/09/19 23:54 Intake & Output 03/09/19 03/10/19 03/11/19 06:59 06:59 06:59 Intake Total 5366 4659 Output Total 2250 1750 Balance 3116 2909 Weight 75.8 kg 74.8 kg General appearance: PRESENT: thin Head exam: PRESENT: normocephalic Respiratory exam: PRESENT: unlabored Neurological exam: PRESENT: alert, awake Psychiatric exam: PRESENT: other - Talkative. Still in denial, but has a good grasp of the situation otherwise. Skin exam: PRESENT: normal color Results Laboratory Results: 03/09/19 09:50 03/09/19 09:50 03/09/19 03/09/19 09:50 09:50 WBC 2.9 L RBC 3.98 Hgb 11.4 L Hct 34.5 L MCV 87 MCH 28.6 MCHC 33.0 RDW 15.9 H Plt Count 219 Sodium 135.2 L Potassium 4.5 Chloride 105 Carbon Dioxide 24 Anion Gap 6 BUN 13 Creatinine 0.30 L Est GFR ( Amer) > 60 Est GFR (Non-Af Amer) > 60 Glucose 101 Calcium 8.0 L Phosphorus 4.1 Magnesium 1.9 Total Bilirubin 0.7 AST 186 H ALT 193 H Alkaline Phosphatase 735 H Total Protein 5.2 L Albumin 2.2 L Prealbumin 8.0 L 02/17/19 02/17/19 14:54 14:54 Creatine Kinase < 20 L CK-MB (CK-2) < 0.22 Troponin I < 0.012 Impressions: Guidance Fluoroscopy 02/20/19 00:00 IMPRESSION: SUCCESSFUL PLACEMENT OF A 5 FR DUAL LUMEN 38 CM PICC IN THE LEFT BASILIC VEIN. Interventional Vascular Procedure 02/20/19 00:00 IMPRESSION: SUCCESSFUL PLACEMENT OF A 5 FR DUAL LUMEN 38 CM PICC IN THE LEFT BASILIC VEIN. PICC Line Insertion 02/20/19 06:00 IMPRESSION: SUCCESSFUL PLACEMENT OF A 5 FR DUAL LUMEN 38 CM PICC IN THE LEFT BASILIC VEIN. Abdomen/Pelvis CT 02/20/19 16:32 IMPRESSION: There is some free fluid in the pelvis. No other significant finding in the abdomen or pelvis. Chest X-Ray 03/02/19 11:37 IMPRESSION: Mild right medial basilar subsegmental atelectasis. No dense consolidation or pleural effusion. Assessment & Plan - Diagnosis (1) Gastric adenocarcinoma Is this a current diagnosis for this admission?: Yes (2) Intractable nausea and vomiting Qualifiers: Vomiting type: unspecified Qualified Code(s): R11.2 - Nausea with vomiting, unspecified Is this a current diagnosis for this admission?: Yes (3) Anemia Qualifiers: Anemia type: iron deficiency Iron deficiency anemia type: inadequate dietary iron intake Qualified Code(s): D50.8 - Other iron deficiency anemias Is this a current diagnosis for this admission?: Yes (4) Abdominal pain Qualifiers: Abdominal location: right lower quadrant Qualified Code(s): R10.31 - Right lower quadrant pain Is this a current diagnosis for this admission?: Yes - Plan Summary Plan Summary: Patient was seen with Dr. Estrada and patient's sister at bedside. We all discussed plan which is to stop the TPN, use IV fluids at home, if needed and transition meds to PO in preparation for discharge. Family wants to take her home to her mother's house with [facility] for support. Plan to discharge in 2 days, once family is ready at home.
[2019-03-10] MEDS: SUCRALFATE 1 GM TABLET PO SCH ×4 (08:48→21:47)
[2019-03-10] MEDS: CARBAMIDE PEROXIDE 6.5% OTIC SOLN 15 ML AD SCH ×2 (09:25→17:06)
[2019-03-10] MEDS: BISACODYL 10 MG SUPP.RECT PR SCH (09:25)
[2019-03-10] MEDS: SENNOSIDES/DOCUSATE 8.6-50 MG 1 EACH TABLET PO SCH ×2 (09:26→17:07)
[2019-03-10] MEDS: DEXTROSE 5%-1/2 NORMAL SALINE 1,000 ML IV PRN ×2 (09:27→21:47)
[2019-03-10] MEDS: FOLIC ACID 1 MG TABLET PO SCH (09:27)
[2019-03-10] MEDS: NORMAL SALINE 10 ML SDV (SCHEDULED) IV SCH ×2 (09:27→21:47)
[2019-03-10] MEDS: FAMOTIDINE 20 MG TABLET PO SCH ×2 (09:27→22:56)
[2019-03-10] MEDS: LORAZEPAM INJ 2 MG/1 ML VIAL IV PRN ×3 (10:51→22:56)
[2019-03-10 12:53] LABS: ALANINE AMINOTRANSFERASE 220 U/L (9-52); ALBUMIN 2.1 g/dL (3.5-5.0); ALKALINE PHOSPHATASE 1004 U/L (38-126); ANION GAP 7 (5-19); ASPARTATE AMINO TRANSFERASE 271 U/L (14-36); BILIRUBIN,TOTAL 1.3 mg/dL (0.2-1.3); BLOOD UREA NITROGEN 11 mg/dL (7-20); CARBON DIOXIDE 23 mmol/L (22-30); CHLORIDE 106 mmol/L (98-107); GLUCOSE 89 mg/dL (75-110); PHOSPHORUS 4.5 mg/dL (2.5-4.5); POTASSIUM 4.2 mmol/L (3.6-5.0); SODIUM 135.5 mmol/L (137-145); TOTAL PROTEIN 5.2 g/dL (6.3-8.2)
--- NOTE | 2019-03-10 21:56 | PDOC PROGRESS REPORT ---
Subjective Progress Note for:: 03/10/19 Subjective:: ARGELIA JEAN is a 59 year old female with a PMH of hypothyroidism, anxiety and recent diagnosis of gastric adenocarcinoma who was admitted for dehydration due to nausea, vomiting and poor intake. Planned resection of gastric adenocarcinoma was aborted because it was too widespread. After discussion with Dr. Estrada and Dr. Kemp, the current plan for the pa nery is to go home with home health on D5 1/2NS infusion. The patient states she will live at her mother's house in one of the spare bedrooms. She expressed a wish to be around family in her final weeks/months. The patient was able to take pills today and eat a few ounces of grits. Unfortunately, she experienced nausea and abdominal pain for hours afterwards. Reason For Visit: INTRACTABLE N/V,DEHYDRATION,GASTRIC CANCER, Physical Exam Vital Signs: Temp Pulse Resp BP Pulse Ox 98.5 F 107 H 14 114/72 97 03/10/19 20:00 03/10/19 20:00 03/10/19 20:00 03/10/19 20:00 03/10/19 20:00 Intake & Output 03/09/19 03/10/19 03/11/19 06:59 06:59 06:59 Intake Total 5366 4659 1872 Output Total 2250 1750 Balance 3116 2909 1872 Weight 75.8 kg 74.8 kg General appearance: PRESENT: thin Head exam: PRESENT: atraumatic Eye exam: PRESENT: conjunctiva pale, PERRLA Mouth exam: PRESENT: moist, tongue midline Neck exam: PRESENT: full ROM Respiratory exam: PRESENT: clear to auscultation benjamin, symmetrical, unlabored Cardiovascular exam: PRESENT: RRR Pulses: PRESENT: normal radial pulses, normal dorsalis pedis pul Vascular exam: PRESENT: pallor GI/Abdominal exam: PRESENT: distended - lower quadrants, hypoactive bowel sounds, soft, tenderness Rectal exam: PRESENT: deferred Gentrourinary exam: ABSENT: indwelling catheter Extremities exam: PRESENT: full ROM Musculoskeletal exam: PRESENT: ambulatory - with 1 person assist, full ROM Neurological exam: PRESENT: alert, awake, oriented to person, oriented to place, oriented to time, oriented to situation Psychiatric exam: PRESENT: appropriate affect Skin exam: PRESENT: dry, intact, pallor Results Laboratory Results: 03/09/19 09:50 03/10/19 12:10 03/10/19 12:10 Sodium 135.5 L Potassium 4.2 Chloride 106 Carbon Dioxide 23 Anion Gap 7 BUN 11 Creatinine 0.33 L Est GFR ( Amer) > 60 Est GFR (Non-Af Amer) > 60 Glucose 89 Calcium 8.0 L Phosphorus 4.5 Magnesium 1.8 Total Bilirubin 1.3 AST 271 H ALT 220 H Alkaline Phosphatase 1004 H Total Protein 5.2 L Albumin 2.1 L 02/17/19 02/17/19 14:54 14:54 Creatine Kinase < 20 L CK-MB (CK-2) < 0.22 Troponin I < 0.012 Impressions: Guidance Fluoroscopy 02/20/19 00:00 IMPRESSION: SUCCESSFUL PLACEMENT OF A 5 FR DUAL LUMEN 38 CM PICC IN THE LEFT BASILIC VEIN. Interventional Vascular Procedure 02/20/19 00:00 IMPRESSION: SUCCESSFUL PLACEMENT OF A 5 FR DUAL LUMEN 38 CM PICC IN THE LEFT BASILIC VEIN. PICC Line Insertion 02/20/19 06:00 IMPRESSION: SUCCESSFUL PLACEMENT OF A 5 FR DUAL LUMEN 38 CM PICC IN THE LEFT BASILIC VEIN. Abdomen/Pelvis CT 02/20/19 16:32 IMPRESSION: There is some free fluid in the pelvis. No other significant finding in the abdomen or pelvis. Chest X-Ray 03/02/19 11:37 IMPRESSION: Mild right medial basilar subsegmental atelectasis. No dense consolidation or pleural effusion. Status: Imported from PACS Assessment and Plan - Diagnosis (1) Intractable nausea and vomiting Qualifiers: Vomiting type: unspecified Qualified Code(s): R11.2 - Nausea with vomiting, unspecified Is this a current diagnosis for this admission?: Yes Plan: Recurrent Secondary to gastric carcinoma PRN Zofran, Phenergan, and pepcid (2) Dehydration Is this a current diagnosis for this admission?: Yes Plan: Resolved. (3) Gastric adenocarcinoma Is this a current diagnosis for this admission?: Yes Plan: Management per Oncology; Appreciate their expertise Surgery has been consulted Unsuccessful gastrectomy due to widespread adenocarcinoma Multiple family meetings Discussion about hospice vs palliative chemo - no decision at this time. Daughter is requesting a second opinion from Dr. Cui's office. Patient wants to go home with home health, PT/OT, understanding that one day (in the near future) she will require hospice Fentanyl patch with IV dilaudid for breakthrough pain (4) Hypokalemia Is this a current diagnosis for this admission?: Yes Plan: Resolved Likely secondary to poor PO intake Continue to monitor with daily chemistries (5) Protein calorie malnutrition Is this a current diagnosis for this admission?: Yes Plan: Secondary to anorexia and poor PO intake stemming from gastric carcinoma Prealbumin and weight are trending up. weight 58.8-> 75.8kg Was previously on continuous TPN, now switched to IVF She is not a candidate for a PEG or J tube, according to surgeon - Time Time Spent with patient: 15-24 minutes Medications reviewed and adjusted accordingly: Yes Anticipated discharge: Home Within: Other - when medically stable - Inpatient Certification Based on my medical assessment, after consideration of the patient's comorbidities, presenting symptoms, or acuity I expect that the services needed warrant INPATIENT care.: Yes I certify that my determination is in accordance with my understanding of Medicare's requirements for reasonable and necessary INPATIENT services [42 CFR 412.3e].: Yes Medical Necessity: Need For Continuous Telemetry Monitoring, Risk of Complication if Not Cared For in Hospital
[2019-03-11] MEDS: INSULIN LISPRO 100 UNIT/ML 3 ML VIAL SUBCUT SCH ×4 (00:05→18:11)
[2019-03-11] MEDS ORDERED: ALTEPLASE INJ 2 MG VIAL (CATH CLEARANCE) INJ ONE (00:40)
[2019-03-11] MEDS: HYDROMORPHONE HCL INJ/PF 2 MG/ML AMPULE IV PRN ×6 (01:50→23:32)
[2019-03-11] MEDS: ONDANSETRON HCL INJ/PF 4 MG/2 ML SDV IV PRN ×5 (01:50→23:32)
[2019-03-11] MEDS: LEVOTHYROXINE SODIUM 0.025 MG TABLET PO SCH (05:11)
[2019-03-11] MEDS: SUCRALFATE 1 GM TABLET PO SCH ×4 (08:04→21:18)
[2019-03-11] MEDS: CARBAMIDE PEROXIDE 6.5% OTIC SOLN 15 ML AD SCH ×2 (09:03→18:00)
[2019-03-11] MEDS: BISACODYL 10 MG SUPP.RECT PR SCH (10:33)
[2019-03-11] MEDS: NORMAL SALINE 10 ML SDV (SCHEDULED) IV SCH ×2 (10:34→21:18)
[2019-03-11] MEDS: FOLIC ACID 1 MG TABLET PO SCH (10:35)
[2019-03-11] MEDS: LORAZEPAM INJ 2 MG/1 ML VIAL IV PRN (10:55)
[2019-03-11] MEDS: FAMOTIDINE 20 MG TABLET PO SCH ×2 (10:56→21:18)
[2019-03-11] MEDS: SENNOSIDES/DOCUSATE 8.6-50 MG 1 EACH TABLET PO SCH ×2 (10:56→18:24)
[2019-03-11 11:03] LABS: ALANINE AMINOTRANSFERASE 317 U/L (9-52); ALBUMIN 2.2 g/dL (3.5-5.0); ALKALINE PHOSPHATASE 1434 U/L (38-126); ANION GAP 7 (5-19); ASPARTATE AMINO TRANSFERASE 370 U/L (14-36); BILIRUBIN,DIRECT 1.7 mg/dL (0.0-0.4); BILIRUBIN,TOTAL 2.3 mg/dL (0.2-1.3); BLOOD UREA NITROGEN 7 mg/dL (7-20); CALCIUM 8.3 mg/dL (8.4-10.2); CARBON DIOXIDE 24 mmol/L (22-30); CHLORIDE 103 mmol/L (98-107); GLUCOSE 77 mg/dL (75-110); PHOSPHORUS 4.8 mg/dL (2.5-4.5); POTASSIUM 3.8 mmol/L (3.6-5.0); TOTAL PROTEIN 5.3 g/dL (6.3-8.2)
[2019-03-11] MEDS: DEXTROSE 5%-1/2 NORMAL SALINE 1,000 ML IV PRN (11:12)
[2019-03-11] MEDS: NA PHOS,M-B/NA PHOS,DI-BA (ADULT) 133 ML ENEMA PR SCH (18:01)
[2019-03-11] MEDS: CALCIUM CARBONATE 500 MG TAB.CHEW PO PRN (20:32)
[2019-03-11] MEDS: DEXTROSE 10%-WATER 1,000 ML IV PRN (20:33)
[2019-03-12] MEDS: ONDANSETRON HCL INJ/PF 4 MG/2 ML SDV IV PRN ×5 (03:45→23:40)
[2019-03-12] MEDS: HYDROMORPHONE HCL INJ/PF 2 MG/ML AMPULE IV PRN ×6 (03:45→23:39)
[2019-03-12] MEDS: LEVOTHYROXINE SODIUM 0.025 MG TABLET PO SCH (05:22)
[2019-03-12] MEDS: INSULIN LISPRO 100 UNIT/ML 3 ML VIAL SUBCUT SCH ×4 (05:27→17:53)
[2019-03-12] MEDS: DEXTROSE 10%-WATER 1,000 ML IV PRN ×2 (06:12→15:26)
[2019-03-12] MEDS: SUCRALFATE 1 GM TABLET PO SCH ×4 (07:50→21:52)
[2019-03-12] MEDS: CARBAMIDE PEROXIDE 6.5% OTIC SOLN 15 ML AD SCH ×2 (09:34→17:11)
[2019-03-12] MEDS: SENNOSIDES/DOCUSATE 8.6-50 MG 1 EACH TABLET PO SCH ×2 (09:53→17:54)
[2019-03-12] MEDS: FENTANYL 50 MCG/HR PATCH.TD72 TD SCH (09:53)
[2019-03-12] MEDS: FOLIC ACID 1 MG TABLET PO SCH (09:58)
[2019-03-12] MEDS: BISACODYL 10 MG SUPP.RECT PR SCH (10:44)
[2019-03-12] MEDS: FAMOTIDINE 20 MG TABLET PO SCH ×2 (10:46→21:53)
[2019-03-12] MEDS: NORMAL SALINE 10 ML SDV (SCHEDULED) IV SCH ×2 (10:46→21:53)
[2019-03-12] MEDS: CALCIUM CARBONATE 500 MG TAB.CHEW PO PRN (11:03)
[2019-03-12] MEDS: LORAZEPAM INJ 2 MG/1 ML VIAL IV PRN ×2 (11:27→21:53)
--- NOTE | 2019-03-12 21:30 | PDOC PROGRESS REPORT ---
Subjective Progress Note for:: 03/11/19 Subjective:: ARGELIA JEAN is a 59 year old female with a PMH of hypothyroidism, anxiety and recent diagnosis of gastric adenocarcinoma who was admitted for dehydration due to nausea, vomiting and poor intake. Planned resection of gastric adenocarcinoma was aborted because it was too widespread. After discussion with Dr. Estrada and Dr. Kemp, the current plan for the pa nery is to go home with home health on D5 1/2NS infusion. The patient states she will live at her mother's house in one of the spare bedrooms. She expressed a wish to be around family in her final weeks/months. The patient was able to take pills today and eat a few ounces of grits. Unfortunately, she experienced nausea and abdominal pain for hours afterwards. Reason For Visit: INTRACTABLE N/V,DEHYDRATION,GASTRIC CANCER, Physical Exam Vital Signs: Temp Pulse Resp BP Pulse Ox 98.7 F 105 H 16 120/78 97 03/11/19 20:00 03/11/19 20:00 03/11/19 20:00 03/11/19 20:00 03/11/19 20:00 Intake & Output 03/10/19 03/11/19 03/12/19 06:59 06:59 06:59 Intake Total 4659 2227 1240 Output Total 1750 900 300 Balance 2909 1327 940 Weight 74.8 kg 73.8 kg General appearance: PRESENT: thin Eye exam: PRESENT: conjunctiva pale Mouth exam: PRESENT: moist, tongue midline Teeth exam: PRESENT: poor dentation Respiratory exam: PRESENT: clear to auscultation benjamin, symmetrical, unlabored Cardiovascular exam: PRESENT: RRR Pulses: PRESENT: normal radial pulses, normal dorsalis pedis pul GI/Abdominal exam: PRESENT: hypoactive bowel sounds, soft, tenderness Rectal exam: PRESENT: deferred Extremities exam: PRESENT: full ROM Musculoskeletal exam: PRESENT: ambulatory - w/assistance, full ROM Neurological exam: PRESENT: alert, awake, oriented to person, oriented to place, oriented to time, oriented to situation Psychiatric exam: PRESENT: appropriate affect Skin exam: PRESENT: dry, intact Results Laboratory Results: 03/09/19 09:50 03/11/19 10:30 03/11/19 10:30 Sodium 134.0 L Potassium 3.8 Chloride 103 Carbon Dioxide 24 Anion Gap 7 BUN 7 Creatinine 0.34 L Est GFR ( Amer) > 60 Est GFR (Non-Af Amer) > 60 Glucose 77 Calcium 8.3 L Phosphorus 4.8 H Magnesium 1.7 Total Bilirubin 2.3 H AST 370 H ALT 317 H Alkaline Phosphatase 1434 H Total Protein 5.3 L Albumin 2.2 L 02/17/19 02/17/19 14:54 14:54 Creatine Kinase < 20 L CK-MB (CK-2) < 0.22 Troponin I < 0.012 Impressions: Guidance Fluoroscopy 02/20/19 00:00 IMPRESSION: SUCCESSFUL PLACEMENT OF A 5 FR DUAL LUMEN 38 CM PICC IN THE LEFT BASILIC VEIN. Interventional Vascular Procedure 02/20/19 00:00 IMPRESSION: SUCCESSFUL PLACEMENT OF A 5 FR DUAL LUMEN 38 CM PICC IN THE LEFT BASILIC VEIN. PICC Line Insertion 02/20/19 06:00 IMPRESSION: SUCCESSFUL PLACEMENT OF A 5 FR DUAL LUMEN 38 CM PICC IN THE LEFT BASILIC VEIN. Abdomen/Pelvis CT 02/20/19 16:32 IMPRESSION: There is some free fluid in the pelvis. No other significant finding in the abdomen or pelvis. Chest X-Ray 03/02/19 11:37 IMPRESSION: Mild right medial basilar subsegmental atelectasis. No dense consolidation or pleural effusion. Status: Imported from PACS Assessment and Plan - Diagnosis (1) Intractable nausea and vomiting Qualifiers: Vomiting type: unspecified Qualified Code(s): R11.2 - Nausea with vomiting, unspecified Is this a current diagnosis for this admission?: Yes Plan: Recurrent Secondary to gastric carcinoma PRN Zofran, Phenergan, and pepcid (2) Dehydration Is this a current diagnosis for this admission?: Yes Plan: Resolved. (3) Gastric adenocarcinoma Is this a current diagnosis for this admission?: Yes Plan: Management per Oncology; Appreciate their expertise Surgery has been consulted Unsuccessful gastrectomy due to widespread adenocarcinoma Multiple family meetings Discussion about hospice vs palliative chemo - no decision at this time. Jacqueline ball is requesting a second opinion from Dr. Cui's office. Patient wants to go home with home health, PT/OT, understanding that one day (in the near future) she will require hospice Fentanyl patch with IV dilaudid for breakthrough pain (4) Hypokalemia Is this a current diagnosis for this admission?: Yes Plan: Resolved Likely secondary to poor PO intake Continue to monitor with daily chemistries (5) Protein calorie malnutrition Qualifiers: Protein-calorie malnutrition severity: moderate Qualified Code(s): E44.0 - Moderate protein-calorie malnutrition Is this a current diagnosis for this admission?: Yes Plan: Secondary to anorexia and poor PO intake stemming from gastric carcinoma Prealbumin and weight are trending up. weight 58.8-> 75.8kg Was previously on continuous TPN, now switched to IVF She is not a candidate for a PEG or J tube, according to surgeon - Time Time Spent with patient: 15-24 minutes Medications reviewed and adjusted accordingly: Yes Anticipated discharge: Home, Hospice Within: Other - ONCE INSURANCE IS APPROVED - Inpatient Certification Based on my medical assessment, after consideration of the patient's comorbiditi es, presenting symptoms, or acuity I expect that the services needed warrant INPATIENT care.: Yes I certify that my determination is in accordance with my understanding of [facility]'s requirements for reasonable and necessary INPATIENT services [42 CFR 412.3e].: Yes Medical Necessity: Need For IV Fluids, Need For Continuous Telemetry Monitoring, Risk of Complication if Not Cared For in Hospital
--- NOTE | 2019-03-12 22:37 | PDOC PROGRESS REPORT ---
Subjective Progress Note for:: 03/12/19 Subjective:: ARGELIA JEAN is a 59 year old female with a PMH of hypothyroidism, anxiety and recent diagnosis of gastric adenocarcinoma who was admitted for dehydration due to nausea, vomiting and poor intake. Planned resection of gastric adenocarcinoma was aborted because it was too widespread. Planning to go home with home health in 24 hours. Nursing staff alerted today of an area of erythema on the medial R thigh. It is tender and warm to touch. Plan to get US to evaluate for underlying abscess vs. DVT. Reason For Visit: INTRACTABLE N/V,DEHYDRATION,GASTRIC CANCER, Physical Exam Vital Signs: Temp Pulse Resp BP Pulse Ox 98.0 F 107 H 13 123/76 98 03/12/19 16:02 03/12/19 16:02 03/12/19 16:02 03/12/19 16:02 03/12/19 16:02 Intake & Output 03/11/19 03/12/19 03/13/19 06:59 06:59 06:59 Intake Total 2227 3933 1163 Output Total 900 900 Balance 1327 3033 1163 Weight 73.8 kg 72.8 kg General appearance: PRESENT: no acute distress, thin Eye exam: PRESENT: conjunctiva pale, PERRLA Mouth exam: PRESENT: moist, tongue midline Neck exam: PRESENT: full ROM Respiratory exam: PRESENT: clear to auscultation benjamin, symmetrical, unlabored Cardiovascular exam: PRESENT: RRR Pulses: PRESENT: normal radial pulses, normal dorsalis pedis pul Vascular exam: PRESENT: pallor GI/Abdominal exam: PRESENT: distended, hypoactive bowel sounds, soft, tenderness Rectal exam: PRESENT: deferred Extremities exam: PRESENT: full ROM Musculoskeletal exam: PRESENT: ambulatory, full ROM Neurological exam: PRESENT: alert, awake, oriented to person, oriented to place, oriented to time, oriented to situation Psychiatric exam: PRESENT: appropriate affect Skin exam: PRESENT: dry, erythema - area of erythema to r medial thigh, intact Results Laboratory Results: 03/09/19 09:50 03/11/19 10:30 02/17/19 02/17/19 14:54 14:54 Creatine Kinase < 20 L CK-MB (CK-2) < 0.22 Troponin I < 0.012 Impressions: Guidance Fluoroscopy 02/20/19 00:00 IMPRESSION: SUCCESSFUL PLACEMENT OF A 5 FR DUAL LUMEN 38 CM PICC IN THE LEFT BASILIC VEIN. Interventional Vascular Procedure 02/20/19 00:00 IMPRESSION: SUCCESSFUL PLACEMENT OF A 5 FR DUAL LUMEN 38 CM PICC IN THE LEFT BASILIC VEIN. PICC Line Insertion 02/20/19 06:00 IMPRESSION: SUCCESSFUL PLACEMENT OF A 5 FR DUAL LUMEN 38 CM PICC IN THE LEFT BASILIC VEIN. Abdomen/Pelvis CT 02/20/19 16:32 IMPRESSION: There is some free fluid in the pelvis. No other significant finding in the abdomen or pelvis. Chest X-Ray 03/02/19 11:37 IMPRESSION: Mild right medial basilar subsegmental atelectasis. No dense consolidation or pleural effusion. Status: Imported from PACS Assessment and Plan - Diagnosis (1) Intractable nausea and vomiting Qualifiers: Vomiting type: unspecified Qualified Code(s): R11.2 - Nausea with vomiting, unspecified Is this a current diagnosis for this admission?: Yes Plan: Recurrent Secondary to gastric carcinoma PRN Zofran, Phenergan, and pepcid (2) Dehydration Is this a current diagnosis for this admission?: Yes Plan: Resolved. (3) Gastric adenocarcinoma Is this a current diagnosis for this admission?: Yes Plan: Management per Oncology; Appreciate their expertise Surgery has been consulted Unsuccessful gastrectomy due to widespread adenocarcinoma Multiple family meetings Discussion about hospice vs palliative chemo - no decision at this time. Daughter is requesting a second opinion from Dr. Cui's office. Patient wants to go home with home health, PT/OT, understanding that one day (in the near future) she will require hospice Fentanyl patch with IV dilaudid for breakthrough pain (4) Hypokalemia Is this a current diagnosis for this admission?: Yes Plan: Resolved Likely secondary to poor PO intake Continue to monitor with daily chemistries (5) Protein calorie malnutrition Qualifiers: Protein-calorie malnutrition severity: moderate Qualified Code(s): E44.0 - Moderate protein-calorie malnutrition Is this a current diagnosis for this admission?: Yes Plan: Secondary to anorexia and poor PO intake stemming from gastric carcinoma Prealbumin and weight are trending up. weight 58.8-> 75.8kg Was previously on continuous TPN, now switched to IVF She is not a candidate for a PEG or J tube, according to surgeon - Time Time Spent with patient: 15-24 minutes Medications reviewed and adjusted accordingly: Yes Anticipated discharge: Home Within: within 24 hours - Inpatient Certification Based on my medical assessment, after consideration of the patient's comorbidities, presenting symptoms, or acuity I expect that the services needed warrant INPATIENT care.: Yes I certify that my determination is in accordance with my understanding of Medicare's requirements for reasonable and necessary INPATIENT services [42 CFR 412.3e].: Yes Medical Necessity: Risk of Complication if Not Cared For in Hospital
--- NOTE | 2019-03-12 22:53 | RADIOLOGY REPORT (SQ) ---
EXAM DESCRIPTION: US EXTREMITY MUSCULOSKELETAL LIMITED COMPLETED DATE/TME: 03/12/2019 at 9:25 PM CLINICAL HISTORY: 59 years, Female, focal area of redness on the patient's medial upper right thigh, rule out abscess COMPARISON: None TECHNIQUE: Grayscale and color Doppler imaging of the right upper thigh was performed in the area of concern. LIMITATIONS: None. FINDINGS: Sonographic imaging of the medial right upper thigh reveals reticulation of the subcutaneous fat consistent with edema. No discrete solid or cystic mass lesions are identified. There is no evidence of posterior acoustical shadowing. There is a tortuous, tubular hypoechoic structure along the medial aspect of the right thigh corresponding to the area of redness. Doppler imaging reveals some peripheral color Doppler signal. No internal Doppler signal is identified. There are some low-level internal echoes within this tubular hypoechoic structure. This likely represents superficial thrombophlebitis. IMPRESSION: 1. Diffuse edema of the soft tissues of the upper medial right thigh in the area of concern. 2. Tortuous, tubular avascular hypoechoic structure along the medial aspect of the right thigh corresponding to the area of redness most likely reflecting superficial thrombophlebitis. 3. No discrete abscess is identified.
[2019-03-13] MEDS: DEXTROSE 10%-WATER 1,000 ML IV PRN ×3 (02:42→22:48)
[2019-03-13] MEDS: LEVOTHYROXINE SODIUM 0.025 MG TABLET PO SCH (05:18)
[2019-03-13] MEDS: INSULIN LISPRO 100 UNIT/ML 3 ML VIAL SUBCUT SCH ×4 (05:19→18:18)
[2019-03-13 05:26] LABS: HEMATOCRIT 30.9 % (36.0-47.0); HEMOGLOBIN 10.3 g/dL (12.0-15.5); MEAN CORPUSCULAR HEMOGLOBIN 28.6 pg (27.0-33.4); MEAN CORPUSCULAR HGB CONC 33.3 g/dL (32.0-36.0); MEAN CORPUSCULAR VOLUME 86 fl (80-97); PLATELET COUNT 297 10^3/uL (150-450); RED BLOOD COUNT 3.61 10^6/uL (3.72-5.28); RED CELL DISTRIBUTION WIDTH 15.9 % (11.5-14.0); WHITE BLOOD COUNT 4.2 10^3/uL (4.0-10.5)
[2019-03-13] MEDS: ONDANSETRON HCL INJ/PF 4 MG/2 ML SDV IV PRN ×5 (06:01→22:45)
[2019-03-13] MEDS: HYDROMORPHONE HCL INJ/PF 2 MG/ML AMPULE IV PRN ×5 (06:01→22:44)
[2019-03-13] MEDS: SUCRALFATE 1 GM TABLET PO SCH ×4 (07:33→23:26)
--- NOTE | 2019-03-13 08:27 | PDOC PROGRESS REPORT ---
Subjective Progress Note for:: 03/13/19 Subjective:: Patient states that she had a bad nightmare last night. Her leg is still a bit red and swollen. She denies any pain. She remains excited to go home. She asks about the IV fluids. I have explained that she may keep these as long as she likes, but it's OK for her to stop them at any time, she will just need to let me know. Reason For Visit: INTRACTABLE N/V,DEHYDRATION,GASTRIC CANCER, Physical Exam Vital Signs: Temp Pulse Resp BP Pulse Ox 98.1 F 111 H 15 130/81 H 96 03/13/19 00:00 03/13/19 00:00 03/13/19 00:00 03/13/19 00:00 03/13/19 00:00 Intake & Output 03/12/19 03/13/19 03/14/19 06:59 06:59 06:59 Intake Total 3933 2413 Output Total 900 Balance 3033 2413 Weight 72.8 kg 72.8 kg General appearance: PRESENT: no acute distress, thin Respiratory exam: PRESENT: unlabored Extremities exam: PRESENT: +1 edema, other - TEDs in place. Neurological exam: PRESENT: alert, awake, oriented to person, oriented to place, oriented to time, oriented to situation Psychiatric exam: PRESENT: appropriate affect Skin exam: PRESENT: other - erythema right inner thigh. Does not appear to be expanding. Results Laboratory Results: 03/13/19 05:15 03/11/19 10:30 03/13/19 05:15 WBC 4.2 RBC 3.61 L Hgb 10.3 L Hct 30.9 L MCV 86 MCH 28.6 MCHC 33.3 RDW 15.9 H Plt Count 297 02/17/19 02/17/19 14:54 14:54 Creatine Kinase < 20 L CK-MB (CK-2) < 0.22 Troponin I < 0.012 Impressions: Guidance Fluoroscopy 02/20/19 00:00 IMPRESSION: SUCCESSFUL PLACEMENT OF A 5 FR DUAL LUMEN 38 CM PICC IN THE LEFT BASILIC VEIN. Interventional Vascular Procedure 02/20/19 00:00 IMPRESSION: SUCCESSFUL PLACEMENT OF A 5 FR DUAL LUMEN 38 CM PICC IN THE LEFT BASILIC VEIN. PICC Line Insertion 02/20/19 06:00 IMPRESSION: SUCCESSFUL PLACEMENT OF A 5 FR DUAL LUMEN 38 CM PICC IN THE LEFT BASILIC VEIN. Abdomen/Pelvis CT 02/20/19 16:32 IMPRESSION: There is some free fluid in the pelvis. No other significant finding in the abdomen or pelvis. Chest X-Ray 03/02/19 11:37 IMPRESSION: Mild right medial basilar subsegmental atelectasis. No dense consolidation or pleural effusion. Extremity Ultrasound 03/12/19 17:31 IMPRESSION: 1. Diffuse edema of the soft tissues of the upper medial right thigh in the area of concern. 2. Tortuous, tubular avascular hypoechoic structure along the medial aspect of the right thigh corresponding to the area of redness most likely reflecting superficial thrombophlebitis. 3. No discrete abscess is identified. Assessment & Plan - Diagnosis (1) Gastric adenocarcinoma Is this a current diagnosis for this admission?: Yes (2) Intractable nausea and vomiting Qualifiers: Vomiting type: unspecified Qualified Code(s): R11.2 - Nausea with vomiting, unspecified Is this a current diagnosis for this admission?: Yes (3) Anemia Qualifiers: Anemia type: iron deficiency Iron deficiency anemia type: inadequate dietary iron intake Qualified Code(s): D50.8 - Other iron deficiency anemias Is this a current diagnosis for this admission?: Yes (4) Abdominal pain Qualifiers: Abdominal location: right lower quadrant Qualified Code(s): R10.31 - Right lower quadrant pain Is this a current diagnosis for this admission?: Yes - Plan Summary Plan Summary: Plan to go home with HHN and transition to Hospice in the near future. She requests to continue IV fluids and PICC line for now. I discussed with family as well. They are all in agreement.
[2019-03-13] MEDS: BISACODYL 10 MG SUPP.RECT PR SCH (09:11)
[2019-03-13] MEDS: CARBAMIDE PEROXIDE 6.5% OTIC SOLN 15 ML AD SCH ×2 (09:11→17:04)
[2019-03-13] MEDS: SENNOSIDES/DOCUSATE 8.6-50 MG 1 EACH TABLET PO SCH ×2 (09:13→17:14)
[2019-03-13] MEDS: FOLIC ACID 1 MG TABLET PO SCH (09:13)
[2019-03-13] MEDS: FAMOTIDINE 20 MG TABLET PO SCH ×2 (09:13→23:26)
[2019-03-13] MEDS: NORMAL SALINE 10 ML SDV (SCHEDULED) IV SCH ×2 (09:14→23:26)
[2019-03-13] MEDS: NA PHOS,M-B/NA PHOS,DI-BA (ADULT) 133 ML ENEMA PR SCH (11:30)
[2019-03-13] MEDS: LORAZEPAM INJ 2 MG/1 ML VIAL IV PRN (19:56)
[2019-03-14] MEDS: ONDANSETRON HCL INJ/PF 4 MG/2 ML SDV IV PRN ×3 (03:21→13:51)
[2019-03-14] MEDS: INSULIN LISPRO 100 UNIT/ML 3 ML VIAL SUBCUT SCH ×3 (04:18→12:19)
[2019-03-14] MEDS: LEVOTHYROXINE SODIUM 0.025 MG TABLET PO SCH (05:34)
--- NOTE | 2019-03-14 05:43 | PDOC PROGRESS REPORT ---
Subjective Progress Note for:: 03/13/19 Subjective:: ARGELIA JEAN is a 59 year old female with a PMH of hypothyroidism, anxiety and recent diagnosis of gastric adenocarcinoma who was admitted for dehydration due to nausea, vomiting and poor intake. Planned resection of gastric adenocarcinoma was aborted because it was too widespread. Planning to go home with home health today, unfortunately, since the patient just qualified for Medicaid and does not have a Medicaid ID card, she is unable to fill prescriptions once she leaves the hospital. Will need certified letter from [facility] Medicaid herbicide service sales representative to use at local pharmacies until she received her ID card. Family updated on discharge delay. Case management is aware. Will obtain letter as soon as possible tomorrow. Anticipate discharge tomorrow morning. Reason For Visit: INTRACTABLE N/V,DEHYDRATION,GASTRIC CANCER, Physical Exam Vital Signs: Temp Pulse Resp BP Pulse Ox 98.7 F 98 16 113/69 99 03/14/19 00:10 03/14/19 00:10 03/14/19 00:10 03/14/19 00:10 03/14/19 00:10 Intake & Output 03/12/19 03/13/19 03/14/19 06:59 06:59 06:59 Intake Total 3933 2413 2920 Output Total 900 150 Balance 3033 2413 2770 Weight 72.8 kg 72.8 kg General appearance: PRESENT: no acute distress, thin Head exam: PRESENT: atraumatic, normocephalic Eye exam: PRESENT: conjunctiva pink, EOMI, PERRLA. ABSENT: scleral icterus Ear exam: PRESENT: normal external ear exam Mouth exam: PRESENT: moist, tongue midline Neck exam: ABSENT: carotid bruit, JVD, lymphadenopathy, thyromegaly Respiratory exam: PRESENT: clear to auscultation benjamin, symmetrical, unlabored. ABSENT: rales, rhonchi, wheezes Cardiovascular exam: PRESENT: RRR. ABSENT: diastolic murmur, rubs, systolic murmur Pulses: PRESENT: normal radial pulses, normal dorsalis pedis pul Vascular exam: PRESENT: pallor GI/Abdominal exam: PRESENT: distended, hypoactive bowel sounds, soft, tenderness. ABSENT: guarding, mass, organolmegaly, rebound Rectal exam: PRESENT: deferred Extremities exam: PRESENT: full ROM. ABSENT: calf tenderness, clubbing, pedal edema Musculoskeletal exam: PRESENT: ambulatory - with assistance, full ROM Neurological exam: PRESENT: alert, awake, oriented to person, oriented to place, oriented to time, oriented to situation Psychiatric exam: PRESENT: appropriate affect, normal mood Skin exam: PRESENT: dry, intact, warm. ABSENT: cyanosis, rash Results Laboratory Results: 03/13/19 05:15 03/11/19 10:30 02/17/19 02/17/19 14:54 14:54 Creatine Kinase < 20 L CK-MB (CK-2) < 0.22 Troponin I < 0.012 Impressions: Guidance Fluoroscopy 02/20/19 00:00 IMPRESSION: SUCCESSFUL PLACEMENT OF A 5 FR DUAL LUMEN 38 CM PICC IN THE LEFT BASILIC VEIN. Interventional Vascular Procedure 02/20/19 00:00 IMPRESSION: SUCCESSFUL PLACEMENT OF A 5 FR DUAL LUMEN 38 CM PICC IN THE LEFT BASILIC VEIN. PICC Line Insertion 02/20/19 06:00 IMPRESSION: SUCCESSFUL PLACEMENT OF A 5 FR DUAL LUMEN 38 CM PICC IN THE LEFT BASILIC VEIN. Abdomen/Pelvis CT 02/20/19 16:32 IMPRESSION: There is some free fluid in the pelvis. No other significant finding in the abdomen or pelvis. Chest X-Ray 03/02/19 11:37 IMPRESSION: Mild right medial basilar subsegmental atelectasis. No dense consolidation or pleural effusion. Extremity Ultrasound 03/12/19 17:31 IMPRESSION: 1. Diffuse edema of the soft tissues of the upper medial right thigh in the area of concern. 2. Tortuous, tubular avascular hypoechoic structure along the medial aspect of the right thigh corresponding to the area of redness most likely reflecting superficial thrombophlebitis. 3. No discrete abscess is identified. Status: Imported from PACS Assessment and Plan - Diagnosis (1) Gastric adenocarcinoma Is this a current diagnosis for this admission?: Yes Plan: Management per Oncology; Appreciate their expertise Surgery has been consulted Unsuccessful gastrectomy due to widespread adenocarcinoma Multiple family meetings Discussion about hospice vs palliative chemo. Patient and family are not interested in hospice yet. Daughter requested a second opinion from Dr. Cui's office. They were contacted. Dr. Cui has not seen the patient here at [facility], will need outpatient visit. Patient states she is happy with care provided by Dr. Kemp, does not need second opinion. Plan for patient to go home with home health, PT/OT, understanding that one day (in the near future) she will require hospice IV dilaudid for pain control. (2) Intractable nausea and vomiting Qualifiers: Vomiting type: unspecified Qualified Code(s): R11.2 - Nausea with vomiting, unspecified Is this a current diagnosis for this admission?: Yes Plan: Recurrent Secondary to gastric carcinoma PRN Zofran, Phenergan, and pepcid (3) Dehydration Is this a current diagnosis for this admission?: Yes Plan: Resolved. Continue IVF (4) Hypokalemia Is this a current diagnosis for this admission?: Yes Plan: Resolved Likely secondary to poor PO intake Continue to monitor with daily chemistries (5) Protein calorie malnutrition Qualifiers: Protein-calorie malnutrition severity: moderate Qualified Code(s): E44.0 - Moderate protein-calorie malnutrition Is this a current diagnosis for this admission?: Yes Plan: Secondary to anorexia and poor PO intake stemming from gastric carcinoma weight 58.8-> 72.8kg Was previously on continuous TPN, now switched to IVF She is not a candidate for a PEG or J tube, according to surgeon Plan to d/c home on continuous IVF - Time Time Spent with patient: 15-24 minutes Medications reviewed and adjusted accordingly: Yes Anticipated discharge: Home with Homehealth Within: within 24 hours - Inpatient Certification Based on my medical assessment, after consideration of the patient's comorbidities, presenting symptoms, or acuity I expect that the services needed warrant INPATIENT care.: Yes I certify that my determination is in accordance with my understanding of Medicare's requirements for reasonable and necessary INPATIENT services [42 CFR 412.3e].: Yes Medical Necessity: Need for Pain Control, Risk of Complication if Not Cared For in Hospital - Plan Summary Plan Summary: PATIENT IS OK TO GO HOME WITH ONCE SHE RECEIVES CERTIFIED LETTER FROM [facility] MEDICAID REP. NURSING STAFF WILL NEED TO MAKE MEDICAL TRANSPORT ARRANGEMENTS.
[2019-03-14] MEDS: HYDROMORPHONE HCL INJ/PF 2 MG/ML AMPULE IV PRN ×2 (07:50→13:51)
[2019-03-14] MEDS: SUCRALFATE 1 GM TABLET PO SCH ×2 (08:21→12:19)
[2019-03-14] MEDS: CARBAMIDE PEROXIDE 6.5% OTIC SOLN 15 ML AD SCH (09:25)
[2019-03-14] MEDS: BISACODYL 10 MG SUPP.RECT PR SCH (10:10)
[2019-03-14] MEDS: FAMOTIDINE 20 MG TABLET PO SCH (10:11)
[2019-03-14] MEDS: NORMAL SALINE 10 ML SDV (SCHEDULED) IV SCH (10:11)
[2019-03-14] MEDS: FOLIC ACID 1 MG TABLET PO SCH (10:11)
[2019-03-14] MEDS: SENNOSIDES/DOCUSATE 8.6-50 MG 1 EACH TABLET PO SCH (10:11)
[2019-03-14] MEDS: LORAZEPAM INJ 2 MG/1 ML VIAL IV PRN (10:57)
[2019-03-14] MEDS: DEXTROSE 10%-WATER 1,000 ML IV PRN (13:20)
[2019-03-14 13:34] VITALS: BP 113/69
--- NOTE | 2019-03-15 17:55 | PDOC DISCHARGE SUMMARY ---
General - Admit/Disc Date/PCP Admission Date/Primary Care Provider: 02/19/19 15:36 LATONYA KEMP MD Discharge Date: 03/15/19 - Discharge Diagnosis (1) Intractable nausea and vomiting Is this a current diagnosis for this admission?: Yes (2) Protein calorie malnutrition Is this a current diagnosis for this admission?: Yes (3) Dehydration Is this a current diagnosis for this admission?: Yes (4) Gastric adenocarcinoma Is this a current diagnosis for this admission?: Yes (5) Hypokalemia Is this a current diagnosis for this admission?: Yes - Additional Information Resuscitation Status: Full Code Discharge Diet: As Tolerated Discharge Activity: Activity As Tolerated Prescriptions: Bisacodyl [Dulcolax 10 mg Supp.rect] 10 mg NE DAILY #20 supp.rect Carbamide Peroxide [Debrox 6.5 % Otic Drops 15 ml] 10 drop AD BID #1 bottle Famotidine [Pepcid 20 mg Tablet] 20 mg PO Q12 #60 tablet Hydromorphone HCl [Dilaudid 2 mg Tablet] 1 mg PO Q4HP PRN #30 tablet PRN Reason: Lorazepam [Ativan 0.5 mg Tablet] 0.5 mg PO Q4HP PRN #30 tablet PRN Reason: Ondansetron [Zofran Odt 4 mg Tablet] 8 mg PO Q8HP PRN #60 tab.rapdis PRN Reason: Sennosides/Docusate 8.6-50 mg [Senna Plus Tablet] 2 each PO BID #60 tablet Home Medications: Dronabinol [Marinol 2.5 mg Capsule] 2.5 mg PO QAM 02/17/19 Folic Acid [Folvite 1 mg Tablet] 1 mg PO DAILY 02/17/19 Levothyroxine Sodium [Synthroid 0.025 mg Tablet] 0.025 mg PO Q6AM 02/17/19 Promethazine HCl [Phenergan 25 mg Tablet] 25 mg PO Q4HP PRN 02/17/19 Ranitidine HCl [Zantac 150 mg Tablet] 150 mg PO BID 02/17/19 Sucralfate [Carafate 1 gm Tablet] 1 gm PO MEALSHS 02/17/19 Bisacodyl [Dulcolax 10 mg Supp.rect] 10 mg NE DAILY #20 supp.rect 03/13/19 Carbamide Peroxide [Debrox 6.5 % Otic Drops 15 ml] 10 drop AD BID #1 bottle 03/13/19 Famotidine [Pepcid 20 mg Tablet] 20 mg PO Q12 #60 tablet 03/13/19 Hydromorphone HCl [Dilaudid 2 mg Tablet] 1 mg PO Q4HP PRN #30 tablet 03/13/19 Lorazepam [Ativan 0.5 mg Tablet] 0.5 mg PO Q4HP PRN #30 tablet 03/13/19 Ondansetron [Zofran Odt 4 mg Tablet] 8 mg PO Q8HP PRN #60 tab.rapdis 03/13/19 Sennosides/Docusate 8.6-50 mg [Senna Plus Tablet] 2 each PO BID #60 tablet 03/13/19 History of Present Illness History of Present Illness: Admitting hospitalist's H&P: ARGELIA JEAN is a 59 year old female with a PMH of hypothyroidism, anxiety and recent diagnosis of gastric adenocarcinoma who was sent to the ER from due to nausea, vomiting and poor intake. Patient has been having rapid weight loss in the past 3 months along with epigastric discomfort. She underwent EGD on 02/01. No obvious mass or tumor was noted but biopsies came back positive for gastric adenoCA. She saw Dr. Kemp yesterday and was referred to Dr. Estrada who saw her today. But she was noted to be severely dehydrated. She has been having intractable nausea and vomiting for the past several days and could not keep any fluid or solid down. Hospital Course Hospital Course: In summary, this is a 59-year-old female with a recent diagnosis of gastric carcinoma who was admitted to to poor oral intake. She was initially admitted for hydration and with the aim of optimizing her nutrition prior to anticipated surgical resection. Patient did get a PICC line and she was started on TPN. She was getting Zofran and Phenergan for her nausea. Oncology and surgery cl osely following On 03/03/2019, patient did go to the ER and surgery did a diagnostic laparoscopy with peritoneal biopsy. Patient was found to have gastric carcinoma with peritoneal carcinomatosis. Surgery and oncology have recommended transitioning to hospice. However during this course, patient opted to defer hospice transition. She will be discharge home under home health and hopefully will be able to process this and transition to hospice. On day of discharge, she verbalized that she does not want to discuss the findings and recommendations and wants to defer all decisions to her sister/DPOA. Discussed with her sister who does agree that patient needs to be in hospice but she hopeless about that they will be able to transition her to hospice at home. Physical Exam Vital Signs: Temp Pulse Resp BP Pulse Ox 98.4 F 98 16 113/69 100 03/14/19 13:30 03/14/19 13:30 03/14/19 13:30 03/14/19 13:30 03/14/19 13:30 Intake & Output 03/14/19 03/15/19 03/16/19 06:59 06:59 06:59 Intake Total 3070 1000 Output Total 150 Balance 2920 1000 Weight 161 lb 2.526 oz General appearance: PRESENT: no acute distress, thin Head exam: PRESENT: atraumatic, normocephalic Eye exam: PRESENT: conjunctiva pink, EOMI, PERRLA. ABSENT: scleral icterus Ear exam: PRESENT: normal external ear exam Mouth exam: PRESENT: moist, tongue midline Neck exam: ABSENT: carotid bruit, JVD, lymphadenopathy, thyromegaly Respiratory exam: PRESENT: clear to auscultation benjamin. ABSENT: rales, rhonchi, wheezes Cardiovascular exam: PRESENT: RRR. ABSENT: diastolic murmur, rubs, systolic murmur Pulses: PRESENT: normal dorsalis pedis pul GI/Abdominal exam: PRESENT: normal bowel sounds, soft. ABSENT: distended, guarding, mass, organolmegaly, rebound, tenderness Rectal exam: PRESENT: deferred Neurological exam: PRESENT: alert, awake, oriented to person, oriented to place, oriented to time, oriented to situation, CN II-XII grossly intact. ABSENT: motor sensory deficit Results Laboratory Results: 03/13/19 05:15 03/11/19 10:30 02/17/19 02/17/19 14:54 14:54 Creatine Kinase < 20 L CK-MB (CK-2) < 0.22 Troponin I < 0.012 Impressions: Guidance Fluoroscopy 02/20/19 00:00 IMPRESSION: SUCCESSFUL PLACEMENT OF A 5 FR DUAL LUMEN 38 CM PICC IN THE LEFT BASILIC VEIN. Interventional Vascular Procedure 02/20/19 00:00 IMPRESSION: SUCCESSFUL PLACEMENT OF A 5 FR DUAL LUMEN 38 CM PICC IN THE LEFT BASILIC VEIN. PICC Line Insertion 02/20/19 06:00 IMPRESSION: SUCCESSFUL PLACEMENT OF A 5 FR DUAL LUMEN 38 CM PICC IN THE LEFT BASILIC VEIN. Abdomen/Pelvis CT 02/20/19 16:32 IMPRESSION: There is some free fluid in the pelvis. No other significant finding in the abdomen or pelvis. Chest X-Ray 03/02/19 11:37 IMPRESSION: Mild right medial basilar subsegmental atelectasis. No dense consolidation or pleural effusion. Extremity Ultrasound 03/12/19 17:31 IMPRESSION: 1. Diffuse edema of the soft tissues of the upper medial right thigh in the area of concern. 2. Tortuous, tubular avascular hypoechoic structure along the medial aspect of the right thigh corresponding to the area of redness most likely reflecting superficial thrombophlebitis. 3. No discrete abscess is identified. Qualifiers - * PATIENT BEING DISCHARGED WITH ANY OF THE FOLLOWING DIAGNOSIS: No Acute Heart Failure Is this a Heart Failure Patient?: No
== END 2019-03-14 15:55 | disposition home health service (06) | DRG 375 ==
LOC: ER 14:12 → EH 18:40 → INTOOBSV 18:40 → 4N 21:37 → OBSVTOIN 02-19 15:36
PROVIDERS: ADMIT Internal Medicine; ATTEND Internal Medicine
PROC: 30233N1 Transfusion of Nonautologous Red Blood Cells into Peripheral Vein, Percutaneous Approach (ICD-10-PCS; principal; 2019-02-20)
PROC: 02HV33Z Insertion of Infusion Device into Superior Vena Cava, Percutaneous Approach (ICD-10-PCS; 2019-02-20)
PROC: B518ZZA Fluoroscopy of Superior Vena Cava, Guidance (ICD-10-PCS; 2019-02-20)
PROC: B548ZZA Ultrasonography of Superior Vena Cava, Guidance (ICD-10-PCS; 2019-02-20)
PROC: 30233N1 Transfusion of Nonautologous Red Blood Cells into Peripheral Vein, Percutaneous Approach (ICD-10-PCS; 2019-02-25)
PROC: 0WBH4ZX Excision of Retroperitoneum, Percutaneous Endoscopic Approach, Diagnostic (ICD-10-PCS; 2019-03-03)
PROC: 30233N1 Transfusion of Nonautologous Red Blood Cells into Peripheral Vein, Percutaneous Approach (ICD-10-PCS; 2019-03-07)
DX: C16.9 Malignant neoplasm of stomach, unspecified (principal); E44.0 Moderate protein-calorie malnutrition; C78.6 Secondary malignant neoplasm of retroperitoneum and peritoneum; E87.6 Hypokalemia; D64.9 Anemia, unspecified; E86.0 Dehydration; F41.9 Anxiety disorder, unspecified; K59.00 Constipation, unspecified; R10.31 Right lower quadrant pain; R53.1 Weakness; F43.10 Post-traumatic stress disorder, unspecified; Z68.20 Body mass index [BMI] 20.0-20.9, adult
CPT/HCPCS: 36415; 36430; 36569; 71045; 74176; 76882; 76937; 77001; 790; 80048; 80053; 81001; 82550; 82553; 82607; 82728; 82746; 82962; 83540; 83550; 83690; 83735; 84100; 84134; 84478; 84484; 85025; 85027; 85045; 85610; 86850; 86900; 86901; 86920; 88305; 88313; 88341; 88342; 93005; 93010; 94799; 96361; 96365; 96375; 99285; A9270-GY; C1769; G0378; J0131; J0330; J0500; J0690; J1170; J1642; J1644; J1815; J2060; J2250; J2270; J2405; J2550; J2704; J2765; J2997; J3010; J3360; J3480; J3490; J7030; P9016; P9047; S0119; S0164